=== PATIENT | male | born 1960 | race Caucasian/White ===

== ENCOUNTER 2019-03-23 10:55 | Observation (INO) | payer SELFPAY ==
[~2019-03-23] VITALS: Ht 188 cm; Wt 90.4 kg
[~2019-03-23 10:55] MED LIST: ALBU2.5V8 NEB; APIX5TAB PO; ASPI-612 PO; ASPI-630 PO; ASPI325T8 PO; ATOR40TA59 PO; BUDE0.5A NEB; CYCL10TA2 PO; FLUO20CA8 PO; FURO20TA3 PO; GABA-585 PO; GABA300C18 PO; HYDR-2761 PO; HYDR28OI6 TP; INSU100I11 SQ; INSU100I13 SQ; INSU100I17 SQ; INSU100V8 SQ; ISOS30TA4 PO; LEVO100T PO; LEVO200T5 PO; LISI-130 PO; LISI10TA2 PO; METO50TA6 PO; MOME13HF IH; NYST60PO TP; ONDA4TAB12 PO; OXYB5TAB7 PO; PANT40TA77 PO; PHEN100C PO; PHEN100O4 PO; PITA4TAB2 PO; PROVENTIL HFA6.7 G2 INH; TAMS0.4C97 PO
[2019-03-23] MEDS ORDERED: ASPIRIN CHEWABLE 81 MG TABLET. PO ONE (11:15)
--- NOTE | 2019-03-23 11:23 | PHYS DOC ---
Past Medical History Past Medical History: Asthma, CHF, COPD, Diabetes-Type II, Hypertension, Hypothyroid, [place], Seizure Past Surgical History: Other Additional Past Surgical Histo: cardiac stents Alcohol Use: None Drug Use: None Adult General Chief Complaint Chief Complaint: CHEST PAIN HPI HPI Patient is a 58 year old male with history of severe CVA and right-sided weakness and aphasia resident of residential who presents via EMS because of chest pain. History of limited because of patient condition. Patient pointing to his chest as a chest pain and was complaining of shortness of breath with pointing to his lung on his way to the hospital. Review of Systems Review of Systems Unable to obtain because of aphagia Current Medications Current Medications Current Medications Medications (Trade) Dose Ordered Sig/Sharon Start Time Stop Time Status Last Admin Dose Admin Aspirin (Children'S Aspirin) 324 mg 1X ONCE 03/23/19 11:15 03/23/19 11:16 DC 03/23/19 11:45 324 MG Fentanyl Citrate (Fentanyl 2ml Vial) 50 mcg 1X ONCE 03/23/19 11:30 03/23/19 11:31 DC 03/23/19 11:45 50 MCG Allergies Allergies Allergies Coded Allergies Type Severity Reaction Last Updated Verified No Known Drug Allergies 12/21/18 No Physical Exam Physical Exam Constitutional: Well nourished, mild distress, non-toxic appearance, tell no to all the question. [] HENT: Normocephalic, atraumatic. Eyes: PERRLA, EOMI, conjunctiva normal, no discharge. [] Neck: Normal range of motion, no tenderness, supple, no stridor. [] Cardiovascular:Heart rate regular rhythm, no murmur [] Lungs & Thorax: Bilateral breath sounds clear to auscultation [] Abdomen: Bowel sounds normal, soft, no tenderness, no masses, no pulsatile masses. [] Skin: Warm, dry, no erythema, no rash. [] Back: No tenderness, no CVA tenderness. [] Extremities: No tenderness, no cyanosis, no clubbing, ROM intact, no edema. [] Neurologic: Alert, aphasic, right upper and lower extremity hemiaplasia Psychologic: Affect anxious Current Patient Data Vital Signs Vital Signs Date Time Temp Pulse Resp B/P (MAP) Pulse Ox O2 Delivery O2 Flow Rate FiO2 03/23/19 13:00 90 16 130/76 (94) 98 Room Air 03/23/19 11:03 97.6 97.6 Lab Values Laboratory Tests Test 03/23/19 11:08 03/23/19 12:00 White Blood Count 11.8 x10^3/uL (4.0-11.0) H Red Blood Count 4.94 x10^6/uL (4.30-5.70) Hemoglobin 14.6 g/dL (13.0-17.5) Hematocrit 43.0 % (39.0-53.0) Mean Corpuscular Volume 87 fL (79-100) Mean Corpuscular Hemoglobin 30 pg (25-35) Mean Corpuscular Hemoglobin Concent 34 g/dL (31-37) Red Cell Distribution Width 15.5 % (11.5-14.5) H Platelet Count 420 x10^3/uL (140-400) H Neutrophils (%) (Auto) 68 % (31-73) Lymphocytes (%) (Auto) 21 % (24-48) L Monocytes (%) (Auto) 9 % (0-9) Eosinophils (%) (Auto) 1 % (0-3) Basophils (%) (Auto) 1 % (0-3) Neutrophils # (Auto) 8.0 x10^3/uL (1.8-7.7) H Lymphocytes # (Auto) 2.5 x10^3/uL (1.0-4.8) Monocytes # (Auto) 1.1 x10^3/uL (0.0-1.1) Eosinophils # (Auto) 0.1 x10^3/uL (0.0-0.7) Basophils # (Auto) 0.1 x10^3/uL (0.0-0.2) Lactic Acid Level 1.7 mmol/L (0.4-2.0) Prothrombin Time 15.3 SEC (11.7-14.0) H Prothrombin Time INR 1.2 (0.8-1.1) H D-Dimer (Vale) 0.33 ug/mlFEU (0.00-0.50) Sodium Level 136 mmol/L (136-145) Potassium Level 4.2 mmol/L (3.5-5.1) Chloride Level 100 mmol/L (98-107) Carbon Dioxide Level 29 mmol/L (21-32) Anion Gap 7 (6-14) Blood Urea Nitrogen 9 mg/dL (8-26) Creatinine 0.7 mg/dL (0.7-1.3) Estimated GFR (Cockcroft-Gault) 116.7 BUN/Creatinine Ratio 13 (6-20) Glucose Level 154 mg/dL (70-99) H Calcium Level 9.4 mg/dL (8.5-10.1) Magnesium Level 1.6 mg/dL (1.8-2.4) L Total Bilirubin 0.8 mg/dL (0.2-1.0) Aspartate Amino Transferase (AST) 20 U/L (15-37) Alanine Aminotransferase (ALT) 31 U/L (16-63) Alkaline Phosphatase 129 U/L (46-116) H Troponin I Quantitative < 0.017 ng/mL (0.000-0.055) MM-Tho-W-Type Natriuretic Peptide 100 pg/mL (0-124) Total Protein 6.9 g/dL (6.4-8.2) Albumin 3.2 g/dL (3.4-5.0) L Albumin/Globulin Ratio 0.9 (1.0-1.7) L Lipase 192 U/L (73-393) Laboratory Tests 03/23/19 11:08 Laboratory Tests 03/23/19 12:00 EKG EKG EKG interpreted by me. EKG at 1059 showed normal sinus rhythm at rate of 100 abnormal left axis deviation, low voltage QRS, poor R wave practicing in anteroseptal leads. Radiology/Procedures Radiology/Procedures [][facility] [address] [place] [address] IMAGING REPORT Signed PATIENT: HUMAIRA BORJA ACCOUNT: [id number] : 1960 LOCATION: ER AGE: 58 SEX: M EXAM STATUS: REG ER ORD. PHYSICIAN: DARRIUS NANCE MD REASON: chest pain PROCEDURE: PORTABLE CHEST 1V PORTABLE CHEST 1V History: Chest pain Comparison: December 23, 2018 Findings: No consolidation or pleural effusion. Normal heart size. Low lung volumes. Impression: 1. No acute cardiopulmonary process. Electronically signed by: Shukri Nash DO (03/23/2019 11:26 AM) [facility] DICTATED and SIGNED BY: SHUKRI NASH DO DATE: 03/23/19 1126 Course & Med Decision Making Course & Med Decision Making Pertinent Labs and Imaging studies reviewed. (See chart for details) Evaluation of patient in ER with heart score of 5 showed 58-year-old nonverbal discharge and patient of residential brought in because of chest pain. Patient was pointing to his chest and lung and complaining of pain and shortness of breath. Patient felt better with Ativan and states that the pain is completely gone. Patient requiring admission for further evaluation and treatment. Discussed with Dr. Carpenter who is in agreement with admission. Discussed findings and plan with patient and family, who acknowledge understanding and agreement. Dragon Disclaimer Dragon Disclaimer This electronic medical record was generated, in whole or in part, using a voice recognition dictation system. Departure Departure Impression: Primary Impression: Acute chest pain Additional Impression: Hypomagnesemia Disposition: ADMITTED INPATIENT (at 1312) Admitting Physician: HIMS (Dr. Carpenter accepted admission at 1311) Condition: IMPROVED Referrals: NEGR[facility]CC[facility] (PCP) The HEART Score for CP Pts HEART Score for Chest Pain: HEART Score for Chest Pain Response (Comments) Value History Moderately Suspicious 1 ECG Nonspecific Repolarizatio 1 Age >45 - < 65 1 Risk Factors >3 Risk Factors or Hx CAD 2 Troponin < Normal Limit 0 Total 5 Risk Factors: Risk Factors: DM, Current or recent (<one month) smoker, HTN, HLP, family history of CAD, obesity. Risk Scores: Score 0 - 3: 2.5% MACE over next 6 weeks - Discharge Home Score 4 - 6: 20.3% MACE over next 6 weeks - Admit for Clinical Observation Score 7 - 10: 72.7% MACE over next 6 weeks - Early Invasive Strategies Problem Qualifiers DARRIUS NANCE MD Mar 23, 2019 11:23
[2019-03-23 11:24] LABS: BASO # 0.1 x10^3/uL (0.0-0.2); BASO % 1 % (0-3); EOS # 0.1 x10^3/uL (0.0-0.7); EOS % 1 % (0-3); HEMOGLOBIN 14.6 g/dL (13.0-17.5); LYMPH # 2.5 x10^3/uL (1.0-4.8); LYMPH % 21 % (24-48); MEAN CORPUSCULAR HEMOGLOBIN 30 pg (25-35); MEAN CORPUSCULAR HGB CONC 34 g/dL (31-37); MEAN CORPUSCULAR VOLUME 87 fL (79-100); MONO # 1.1 x10^3/uL (0.0-1.1); MONO % 9 % (0-9); NEUT % 68 % (31-73); PLATELET COUNT 420 x10^3/uL (140-400); RED BLOOD COUNT 4.94 x10^6/uL (4.30-5.70); RED CELL DISTRIBUTION WIDTH 15.5 % (11.5-14.5); WHITE BLOOD COUNT 11.8 x10^3/uL (4.0-11.0)
--- NOTE | 2019-03-23 11:29 | RAD ---
PORTABLE CHEST 1V History: Chest pain Comparison: December 23, 2018 Findings: No consolidation or pleural effusion. Normal heart size. Low lung volumes. Impression: 1. No acute cardiopulmonary process. Electronically signed by: Shukri Nash DO (03/23/2019 11:26 AM) [facility]
[2019-03-23] MEDS ORDERED: fentaNYL PF VIAL 100 MCG/2 ML VIAL IV ONE (11:30)
--- NOTE | 2019-03-23 11:51 | EKG ---
[facility] [address] [place] [address] Test Date: 2019-03-23 Test Time: 10:59:26 Pat Name: HUMAIRA BORJA Department: Room: Gender: M [employer]: : 1960 Requested By: DARRIUS NANCE Order Number: [id number] Reading MD: Measurements Intervals [place] Rate: 100 P: -3 MT: 160 QRS: -35 QRSD: 80 T: 52 QT: 340 QTc: 442 Interpretive Statements SINUS RHYTHM ABNORMAL LEFT AXIS DEVIATION LOW LIMB LEAD VOLTAGE LEFT ANTERIOR FASCICULAR BLOCK QRS(T) CONTOUR ABNORMALITY CONSISTENT WITH ANTEROSEPTAL INFARCT PROBABLY OLD ABNORMAL ECG RI6.01 Unconfirmed report No previous ECG available for comparison
[2019-03-23 12:22] LABS: PROTHROMBIN TIME PATIENT 15.3 SEC (11.7-14.0)
[2019-03-23 12:29] LABS: D-DIMER 0.33 ug/mlFEU (0.00-0.50)
[2019-03-23 12:34] LABS: ALBUMIN 3.2 g/dL (3.4-5.0); ALBUMIN/GLOBULIN RATIO 0.9 (1.0-1.7); CALCIUM 9.4 mg/dL (8.5-10.1); CREATININE 0.7 mg/dL (0.7-1.3); GFR 116.7; MAGNESIUM 1.6 mg/dL (1.8-2.4); POTASSIUM 4.2 mmol/L (3.5-5.1); TOTAL BILIRUBIN 0.8 mg/dL (0.2-1.0); TOTAL PROTEIN 6.9 g/dL (6.4-8.2)
--- NOTE | 2019-03-23 13:12 | PDOC1 ---
History and Physical Date of Admission Date of Admission DATE: 03/23/19 TIME: 13:12 Identification/Chief Complaint Chief Complaint 58 year old male with history of severe CVA and right-sided weakness and aphasia resident of skilled nursing who presents via EMS because of chest pain Past Medical History Past Medical History Past Medical History Past Medical History Past Medical History: Asthma, CHF, COPD, Diabetes-Type II, Hypertension, Hypothyroid, [place], Seizure Past Surgical History: Other Additional Past Surgical Histo: cardiac stents Alcohol Use: None Drug Use: None fhx obesity Cardiovascular: AFIB, CAD, CHF, HTN, Hyperlipidemia Pulmonary: COPD CENTRAL NERVOUS SYSTEM: Periperal neuropathy, Seizure GI: Constipation, GERD Heme/Onc: No pertinent hx Hepatobiliary: No pertinent hx Psych: No pertinent hx Musculoskeletal: Osteoarthritis Rheumatologic: No pertinent hx Infectious disease: No pertinent hx Renal/: No pertinent hx Endocrine: Diabetes, Hypothyroidism Past Surgical History Past Surgical History: Other Family History Family History: Coronary Artery Disease, Hypertension Social History Smoke: No ALCOHOL: none Drugs: None Current Medications Current Medications Current Medications Aspirin (Children'S Aspirin) 324 mg 1X ONCE PO Last administered on 03/23/19at 11:45; Start 03/23/19 at 11:15; Stop 03/23/19 at 11:16; Status DC Fentanyl Citrate (Fentanyl 2ml Vial) 50 mcg 1X ONCE IV Last administered on 03/23/19at 11:45; Start 03/23/19 at 11:30; Stop 03/23/19 at 11:31; Status DC Active Scripts Active Anti-Itch (Hydrocortisone Acetate) 28 Gm Oint...g. 1 Edvin TP QID Lantus (Insulin Glargine,Hum.rec.anlog) 100 Unit/1 Ml Vial 42 Unit SQ QHS 30 Days Nystop (Nystatin) 60 Gm Powder 1 Edvin TP BID Ondansetron Odt (Ondansetron) 4 Mg Tab.rapdis 4 Mg PO PRN Q6HRS PRN Pantoprazole Sodium (Pantoprazole Sodium) 40 Mg Tablet.dr 40 Mg PO DAILYAC Budesonide 0.5 Mg/2 Ml Ampul.neb 0.5 Mg NEB PRN BID PRN 30 Days Fluoxetine Hcl 20 Mg Capsule 20 Mg PO DAILY Gabapentin 300 Mg Capsule 300 Mg PO QHS Dilantin (Phenytoin Sodium Extended) 100 Mg Capsule 300 Mg PO HS Hydrocodone-Apap 5-325 (Hydrocodone Bit/Acetaminophen) 1 Tab Tablet 1 Tab PO PRN Q4HRS PRN Aspirin 81 Mg Tab.chew 81 Mg PO DAILYWBKFT Eliquis (Apixaban) 5 Mg Tablet 5 Mg PO BID Cyclobenzaprine Hcl 10 Mg Tablet 10 Mg PO PRN TID PRN Flomax (Tamsulosin Hcl) 0.4 Mg Cap.er.24h 0.4 Mg PO DAILY Proair Hfa (Albuterol Sulfate) 8.5 Gm Hfa.aer.ad 2.5 Mg NEB PRN Q6HRS PRN 30 Days Dilantin (Phenytoin Sodium Extended) 100 Mg Capsule 1 Cap PO TID Humalog (Insulin Lispro) 100 Unit/1 Ml Insuln.pen 10 Units SQ TIDWMEALS 30 Days Lantus Solostar (Insulin Glargine,Hum.rec.anlog) 100 Unit/1 Ml Insuln.pen 42 Units SQ QHS 30 Days Synthroid (Levothyroxine Sodium) 100 Mcg Tablet 200 Mcg PO DAILY06 Lisinopril 40 Mg Tablet 20 Mg PO DAILY Aspirin 325 Mg Tablet 325 Mg PO DAILYWBKFT Metoprolol Tartrate 50 Mg Tablet 100 Mg PO BID Atorvastatin Calcium 40 Mg Tablet 40 Mg PO QHS Isosorbide Mononitrate Er (Isosorbide Mononitrate) 30 Mg Tab.er.24h 30 Mg PO BID Reported Levothyroxine Sodium 200 Mcg Tablet 200 Mcg PO DAILYAC Dulera 200 Mcg/5 Mcg Inhaler (Mometasone/Formoterol) 13 Gm Hfa.aer.ad 1 Puff IH HS Oxybutynin Chloride 5 Mg Tablet 1 Tab PO PRN TID PRN Gabapentin (Gabapentin) 100 Mg Capsule 100 Mg PO TID Furosemide 20 Mg Tablet 1 Tab PO DAILY Proventil Hfa (Albuterol Sulfate) 6.7 Gm Hfa.aer.ad 1 Puff INH PRN Q6HRS PRN Allergies Allergies: Coded Allergies: No Known Drug Allergies (Unverified , 12/21/18) ROS Review of System 14 pt ros otherwise neg General: No: Chills, Night Sweats, Fatigue, Malaise, Appetite, Other ALLERGY AND IMMUNOLOGY: No: Hives, Insect Bite Sensitivity, Itchy/Watery Eyes, Nasal Congestion, Post Nasal Drip, Seasonal Allergies, Other Cardiovascular: yes Chest Pain Genitourinary: No Dysuria, No Frequency, No Incontinence, No Hematuria, No Retention, No Discharge, No Urgency, No Pain, No Flank Pain, No Other, No , No , No , No , No , No , No Musculoskeletal: No Gait Disturbance, No Joint Pain, No Joint Stiffness, No Joint Swelling, No Muscle Pain, No Muscular Weakness, No Pain In:, No Swelling In:, No Other Neurological: Yes Gait Disturbance Skin: Yes Dry Skin; No Eczema, No Hair Changes, No Lumps, No Mole Changes, No Mottling, No Nail Changes, No Pruritus, No Rash, No Skin Lesion Changes, No Other, No Acne Physical Exam Physical Exam Physical Exam Physical Exam Constitutional: Well nourished, mild distress, non-toxic appearance, tell no to all the questions. [] HENT: Normocephalic, atraumatic. Eyes: PERRLA, EOMI, conjunctiva normal, no discharge. [] Neck: Normal range of motion, no tenderness, supple, no stridor. [] Cardiovascular:Heart rate regular rhythm, no murmur [] Lungs & Thorax: Bilateral breath sounds clear to auscultation [] Abdomen: Bowel sounds normal, soft, no tenderness, no masses, no pulsatile masses. [] Skin: Warm, dry, no erythema, no rash. [] Back: No tenderness, no CVA tenderness. [] Extremities: No tenderness, no cyanosis, no clubbing, ROM intact, no edema. [] Neurologic: Alert, aphasic, right upper and lower extremity hemiaplasia Psychologic: Affect anxious General: Cooperative, No acute distress HEENT: Atraumatic, EOMI, Mucous membr. moist/pink Abdomen: Normal bowel sounds, Soft Rectal Exam: not examined Extremities: No cyanosis Psych/Mental Status: Mood NL Vitals Vitals Vital Signs Date Time Temp Pulse Resp B/P (MAP) Pulse Ox O2 Delivery O2 Flow Rate FiO2 03/23/19 12:34 16 97 03/23/19 12:00 90 125/96 (106) Room Air 03/23/19 11:03 97.6 97.6 Labs Labs Laboratory Tests Test 03/23/19 11:08 03/23/19 12:00 White Blood Count 11.8 x10^3/uL (4.0-11.0) Red Blood Count 4.94 x10^6/uL (4.30-5.70) Hemoglobin 14.6 g/dL (13.0-17.5) Hematocrit 43.0 % (39.0-53.0) Mean Corpuscular Volume 87 fL (79-100) Mean Corpuscular Hemoglobin 30 pg (25-35) Mean Corpuscular Hemoglobin Concent 34 g/dL (31-37) Red Cell Distribution Width 15.5 % (11.5-14.5) Platelet Count 420 x10^3/uL (140-400) Neutrophils (%) (Auto) 68 % (31-73) Lymphocytes (%) (Auto) 21 % (24-48) Monocytes (%) (Auto) 9 % (0-9) Eosinophils (%) (Auto) 1 % (0-3) Basophils (%) (Auto) 1 % (0-3) Neutrophils # (Auto) 8.0 x10^3/uL (1.8-7.7) Lymphocytes # (Auto) 2.5 x10^3/uL (1.0-4.8) Monocytes # (Auto) 1.1 x10^3/uL (0.0-1.1) Eosinophils # (Auto) 0.1 x10^3/uL (0.0-0.7) Basophils # (Auto) 0.1 x10^3/uL (0.0-0.2) Lactic Acid Level 1.7 mmol/L (0.4-2.0) Prothrombin Time 15.3 SEC (11.7-14.0) Prothromb Time International Ratio 1.2 (0.8-1.1) D-Dimer (Vale) 0.33 ug/mlFEU (0.00-0.50) Sodium Level 136 mmol/L (136-145) Potassium Level 4.2 mmol/L (3.5-5.1) Chloride Level 100 mmol/L (98-107) Carbon Dioxide Level 29 mmol/L (21-32) Anion Gap 7 (6-14) Blood Urea Nitrogen 9 mg/dL (8-26) Creatinine 0.7 mg/dL (0.7-1.3) Estimated GFR (Cockcroft-Gault) 116.7 BUN/Creatinine Ratio 13 (6-20) Glucose Level 154 mg/dL (70-99) Calcium Level 9.4 mg/dL (8.5-10.1) Magnesium Level 1.6 mg/dL (1.8-2.4) Total Bilirubin 0.8 mg/dL (0.2-1.0) Aspartate Amino Transf (AST/SGOT) 20 U/L (15-37) Alanine Aminotransferase (ALT/SGPT) 31 U/L (16-63) Alkaline Phosphatase 129 U/L (46-116) Troponin I Quantitative < 0.017 ng/mL (0.000-0.055) JZ-Pys-S-Type Natriuretic Peptide 100 pg/mL (0-124) Total Protein 6.9 g/dL (6.4-8.2) Albumin 3.2 g/dL (3.4-5.0) Albumin/Globulin Ratio 0.9 (1.0-1.7) Lipase 192 U/L (73-393) Laboratory Tests Test 03/23/19 11:08 03/23/19 12:00 White Blood Count 11.8 x10^3/uL (4.0-11.0) Red Blood Count 4.94 x10^6/uL (4.30-5.70) Hemoglobin 14.6 g/dL (13.0-17.5) Hematocrit 43.0 % (39.0-53.0) Mean Corpuscular Volume 87 fL (79-100) Mean Corpuscular Hemoglobin 30 pg (25-35) Mean Corpuscular Hemoglobin Concent 34 g/dL (31-37) Red Cell Distribution Width 15.5 % (11.5-14.5) Platelet Count 420 x10^3/uL (140-400) Neutrophils (%) (Auto) 68 % (31-73) Lymphocytes (%) (Auto) 21 % (24-48) Monocytes (%) (Auto) 9 % (0-9) Eosinophils (%) (Auto) 1 % (0-3) Basophils (%) (Auto) 1 % (0-3) Neutrophils # (Auto) 8.0 x10^3/uL (1.8-7.7) Lymphocytes # (Auto) 2.5 x10^3/uL (1.0-4.8) Monocytes # (Auto) 1.1 x10^3/uL (0.0-1.1) Eosinophils # (Auto) 0.1 x10^3/uL (0.0-0.7) Basophils # (Auto) 0.1 x10^3/uL (0.0-0.2) Lactic Acid Level 1.7 mmol/L (0.4-2.0) Prothrombin Time 15.3 SEC (11.7-14.0) Prothromb Time International Ratio 1.2 (0.8-1.1) D-Dimer (Vale) 0.33 ug/mlFEU (0.00-0.50) Sodium Level 136 mmol/L (136-145) Potassium Level 4.2 mmol/L (3.5-5.1) Chloride Level 100 mmol/L (98-107) Carbon Dioxide Level 29 mmol/L (21-32) Anion Gap 7 (6-14) Blood Urea Nitrogen 9 mg/dL (8-26) Creatinine 0.7 mg/dL (0.7-1.3) Estimated GFR (Cockcroft-Gault) 116.7 BUN/Creatinine Ratio 13 (6-20) Glucose Level 154 mg/dL (70-99) Calcium Level 9.4 mg/dL (8.5-10.1) Magnesium Level 1.6 mg/dL (1.8-2.4) Total Bilirubin 0.8 mg/dL (0.2-1.0) Aspartate Amino Transf (AST/SGOT) 20 U/L (15-37) Alanine Aminotransferase (ALT/SGPT) 31 U/L (16-63) Alkaline Phosphatase 129 U/L (46-116) Troponin I Quantitative < 0.017 ng/mL (0.000-0.055) VE-Swu-B-Type Natriuretic Peptide 100 pg/mL (0-124) Total Protein 6.9 g/dL (6.4-8.2) Albumin 3.2 g/dL (3.4-5.0) Albumin/Globulin Ratio 0.9 (1.0-1.7) Lipase 192 U/L (73-393) VTE Prophylaxis Ordered VTE Prophylaxis Devices: Yes VTE Pharmacological Prophylaxi: Yes Assessment/Plan Assessment/Plan impression 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 fib Chronic diastolic HF (compensated) Prior hx of CAD (3 stents) Hypothyroidism (noncompliant w/ Synthroid) DM type 2 Dyslipidemia Prior hx of subacute left frontal, temporal, parietal infarct Dysphagia III hypomagnesemia plan admit serial troponin i cardiology consult rec home meds dvt prophylaxis 56 min pt exam, chart review, > 50% of time spent with exam, chart review, pt care coordination MAXIME MORALES MD Mar 23, 2019 13:12
[2019-03-23 14:10] VITALS: BP 132/77
[2019-03-23] MEDS ORDERED: OXYBUTYNIN CHLORIDE 5 MG TABLET PO PRN (15:00)
[2019-03-23] MEDS ORDERED: CYCLOBENZAPRINE 10 MG TABLET. PO PRN (15:00)
[2019-03-23] MEDS ORDERED: ONDANSETRON ODT 4 MG TAB.RAPDIS. PO PRN (15:00)
[2019-03-23] MEDS ORDERED: NON FORMULARY ITEM (Albuterol Sulfate (Proventil Hfa) 1 PUFF) INH PRN (15:00)
[2019-03-23] MEDS ORDERED: BUDESONIDE 0.5 MG/2 ML NEBU. NEB PRN (15:00)
[2019-03-23] MEDS ORDERED: ALBUTEROL SULFATE 2.5 MG/3 ML NEBU. NEB PRN (15:00)
[2019-03-23] MEDS: ALBUTEROL SULFATE 2.5 MG/3 ML NEBU. NEB SCH ×2 (16:00→19:49)
--- NOTE | 2019-03-23 16:27 | PDOC2 ---
CARDIAC CONSULT DATE OF CONSULT Date of Consult DATE: 03/23/19 TIME: 1440 REASON FOR CONSULT Reason for Consult: Chest pain REFERRING PHYSICIAN Referring Physician: Fullbright SOURCE Source: Chart review, Patient HISTORY OF PRESENT ILLNESS HISTORY OF PRESENT ILLNESS This is a 58 yo male admitted for chest pain. He was recently discharged to SNU on 03/14. He is significant for recent CVA with aphasia. He is nonverbal but able to nod yes or no on questions and reported sharp lower sternal chest discomfort which is currently absent. No nausea or significant SOA. He does have hx of CAD with past stens and possible hx of AFIB which has not been noted during his stay at the hospital. Currently he is not is any distress. PAST MEDICAL HISTORY Past Medical History Cardiovascular: AFIB (?), CAD, CHF, HTN, Hyperlipidemia Pulmonary: COPD CENTRAL NERVOUS SYSTEM: Peripheral neuropathy, Seizure, CVA GI: Constipation, GERD Heme/Onc: No pertinent hx Hepatobiliary: No pertinent hx Psych: No pertinent hx Musculoskeletal: Osteoarthritis Rheumatologic: No pertinent hx Infectious disease: No pertinent hx ENT: Allergic Rhinitis Renal/: No pertinent hx Endocrine: Diabetes (2), Hypothyroidism Dermatology: No pertinent hx PAST SURGICAL HISTORY Past Surgical History PCI/stents x3 3.5 yrs ago in [place] FAMILY HISTORY Family History: Coronary Artery Disease SOCIAL HISTORY Smoke: Quit ALCOHOL: none Drugs: None Lives: Custodial CURRENT MEDICATIONS CURRENT MEDICATIONS Current Medications Medications (Trade) Dose Ordered Sig/Sharon Route PRN Reason Start Time Stop Time Status Last Admin Dose Admin Aspirin (Children'S Aspirin) 324 mg 1X ONCE PO 03/23/19 11:15 03/23/19 11:16 DC 03/23/19 11:45 Fentanyl Citrate (Fentanyl 2ml Vial) 50 mcg 1X ONCE IV 03/23/19 11:30 03/23/19 11:31 DC 03/23/19 11:45 ALLERGIES ALLERGIES: Coded Allergies: No Known Drug Allergies (Unverified , 12/21/18) ROS Review of System limited, nonverbal PHYSICAL EXAM General: Alert, Cooperative, No acute distress HEENT: Atraumatic, Mucous membr. moist/pink Lungs: Clear to auscultation, Normal air movement Heart: Regular rate (SR), Normal S1, Normal S2, No murmurs Abdomen: Soft, No tenderness Extremities: No cyanosis, No edema Skin: No breakdown, No significant lesion Neuro: Sensation intact, Other (nonverbal) Psych/Mental Status: Mood NL MUSCULOSKELETAL: Osteoarthritic changes both hands VITALS/I&O VITALS/I&O: Vital Signs Date Time Temp Pulse Resp B/P (MAP) Pulse Ox O2 Delivery O2 Flow Rate FiO2 03/23/19 14:10 98.0 92 18 132/77 (95) 100 Room Air 98.0 LABS Lab: Laboratory Tests Test 03/23/19 11:08 03/23/19 12:00 White Blood Count 11.8 x10^3/uL (4.0-11.0) H Red Blood Count 4.94 x10^6/uL (4.30-5.70) Hemoglobin 14.6 g/dL (13.0-17.5) Hematocrit 43.0 % (39.0-53.0) Mean Corpuscular Volume 87 fL (79-100) Mean Corpuscular Hemoglobin 30 pg (25-35) Mean Corpuscular Hemoglobin Concent 34 g/dL (31-37) Red Cell Distribution Width 15.5 % (11.5-14.5) H Platelet Count 420 x10^3/uL (140-400) H Neutrophils (%) (Auto) 68 % (31-73) Lymphocytes (%) (Auto) 21 % (24-48) L Monocytes (%) (Auto) 9 % (0-9) Eosinophils (%) (Auto) 1 % (0-3) Basophils (%) (Auto) 1 % (0-3) Neutrophils # (Auto) 8.0 x10^3/uL (1.8-7.7) H Lymphocytes # (Auto) 2.5 x10^3/uL (1.0-4.8) Monocytes # (Auto) 1.1 x10^3/uL (0.0-1.1) Eosinophils # (Auto) 0.1 x10^3/uL (0.0-0.7) Basophils # (Auto) 0.1 x10^3/uL (0.0-0.2) Lactic Acid Level 1.7 mmol/L (0.4-2.0) Prothrombin Time 15.3 SEC (11.7-14.0) H Prothrombin Time INR 1.2 (0.8-1.1) H D-Dimer (Vale) 0.33 ug/mlFEU (0.00-0.50) Sodium Level 136 mmol/L (136-145) Potassium Level 4.2 mmol/L (3.5-5.1) Chloride Level 100 mmol/L (98-107) Carbon Dioxide Level 29 mmol/L (21-32) Anion Gap 7 (6-14) Blood Urea Nitrogen 9 mg/dL (8-26) Creatinine 0.7 mg/dL (0.7-1.3) Estimated GFR (Cockcroft-Gault) 116.7 BUN/Creatinine Ratio 13 (6-20) Glucose Level 154 mg/dL (70-99) H Calcium Level 9.4 mg/dL (8.5-10.1) Magnesium Level 1.6 mg/dL (1.8-2.4) L Total Bilirubin 0.8 mg/dL (0.2-1.0) Aspartate Amino Transferase (AST) 20 U/L (15-37) Alanine Aminotransferase (ALT) 31 U/L (16-63) Alkaline Phosphatase 129 U/L (46-116) H Troponin I Quantitative < 0.017 ng/mL (0.000-0.055) QU-Kpe-K-Type Natriuretic Peptide 100 pg/mL (0-124) Total Protein 6.9 g/dL (6.4-8.2) Albumin 3.2 g/dL (3.4-5.0) L Albumin/Globulin Ratio 0.9 (1.0-1.7) L Lipase 192 U/L (73-393) Laboratory Tests 03/23/19 11:08 Laboratory Tests 03/23/19 12:00 ECHOCARDIOGRAM ECHOCARDIOGRAM <Conclusion> The left ventricular systolic function is normal. The Ejection Fraction is 55-60%. There is normal LV segmental wall motion. Transmitral Doppler flow pattern is Grade I-abnormal relaxation pattern. Doppler and Color-flow revealed trace mitral regurgitation. There is no evidence of significant pericardial effusion. DATE: 12/22/18 0956 ASSESSMENT/PLAN ASSESSMENT/PLAN 1. Atypical CP: possibly GI. EKG SR without acute changes 2. Recent CVA: suspected to be embolic. aphasia/dysphagia 3. CAD: stents >3 yrs ago in [place] 4. DM2 5. HTN: controlled 6. HLP 7. Hx of seizures 8. Hx of PAFIB: SR Recommendations 1. Continue present regimen, secondary prevention measures 2. Consider coumadin. Apixaban may not be as effective when concurrent with dilantin. 3. Trend troponin, monitor rhythm 4. Start on PPI 5. Could consider stress test as an outpt. NYA SANCHEZ APRN Mar 23, 2019 16:26
[2019-03-23] MEDS ORDERED: PANTOPRAZOLE 40 MG TABLET.DR. PO ONE (16:30)
[2019-03-23] MEDS: HYDROCORTISONE 1% TOPICAL OINTMENT 30GM TUBE. TP SCH ×2 (17:00→21:00)
[2019-03-23] MEDS: INSULIN LISPRO 300 UNITS/3 ML VIAL. SQ SCH (17:36)
[2019-03-23 19:00] VITALS: BP 119/73
[2019-03-23] MEDS: BUDESONIDE 0.5 MG/2 ML NEBU. NEB SCH (19:49)
[2019-03-23] MEDS: NYSTATIN TOPICAL POWDER 15GM BOTTLE. TP SCH (21:00)
[2019-03-23] MEDS ORDERED: PHENYTOIN SODIUM EXTENDED 100 MG CAPSULE PO SCH ×2 (21:00)
[2019-03-23] MEDS ORDERED: INSULIN GLARGINE SYRINGE. SQ SCH (21:00)
[2019-03-23] MEDS ORDERED: ATORVASTATIN CALCIUM 40 MG TABLET. PO SCH (21:00)
[2019-03-23] MEDS ORDERED: GABAPENTIN 300 MG CAPSULE. PO SCH (21:00)
[2019-03-23] MEDS ORDERED: NON FORMULARY ITEM (Mometasone/Formoterol (Dulera 200 Mcg/5 Mcg Inhaler) 1 PUFF) IH SCH (21:00)
[2019-03-23] MEDS ORDERED: INSULIN GLARGINE HUM REC ANLOG 42 UNIT SQ SCH (21:00)
[2019-03-23] MEDS ORDERED: GABAPENTIN 100 MG CAPSULE. PO SCH (21:00)
[2019-03-23] MEDS: ISOSORBIDE MONONITRATE ER 30 MG TAB.ER.24H PO SCH (21:23)
[2019-03-23] MEDS: APIXABAN 5 MG TABLET. PO SCH (21:23)
[2019-03-23] MEDS: METOPROLOL TART IMMED RELEASE 50 MG TABLET. PO SCH (21:24)
[2019-03-23 23:00] VITALS: BP 104/64
[2019-03-24 03:00] VITALS: BP 98/59
[2019-03-24] MEDS ORDERED: LEVOTHYROXINE 100 MCG TABLET PO SCH (06:00)
[2019-03-24 06:17] LABS: ALBUMIN 3.1 g/dL (3.4-5.0); ALBUMIN/GLOBULIN RATIO 0.8 (1.0-1.7); CALCIUM 9.6 mg/dL (8.5-10.1); CREATININE 0.7 mg/dL (0.7-1.3); GFR 116.7; POTASSIUM 3.9 mmol/L (3.5-5.1); TOTAL BILIRUBIN 0.7 mg/dL (0.2-1.0); TOTAL PROTEIN 6.8 g/dL (6.4-8.2)
[2019-03-24 07:17] VITALS: BP 118/66
[2019-03-24] MEDS: ALBUTEROL SULFATE 2.5 MG/3 ML NEBU. NEB SCH ×2 (07:29→11:30)
[2019-03-24] MEDS: BUDESONIDE 0.5 MG/2 ML NEBU. NEB SCH (07:29)
[2019-03-24] MEDS ORDERED: PANTOPRAZOLE 40 MG TABLET.DR. PO SCH (07:30)
[2019-03-24] MEDS: PANTOPRAZOLE 40 MG TABLET.DR. PO SCH ×2 (07:30→08:03)
[2019-03-24] MEDS ORDERED: NON FORMULARY ITEM (Levothyroxine Sodium 200 MCG) PO SCH (07:30)
[2019-03-24] MEDS ORDERED: ASPIRIN 325 MG TABLET PO SCH (08:00)
[2019-03-24] MEDS ORDERED: ASPIRIN CHEWABLE 81 MG TABLET. PO SCH (08:00)
[2019-03-24] MEDS: METOPROLOL TART IMMED RELEASE 50 MG TABLET. PO SCH (08:32)
[2019-03-24] MEDS: ISOSORBIDE MONONITRATE ER 30 MG TAB.ER.24H PO SCH (08:33)
[2019-03-24] MEDS: HYDROCORTISONE 1% TOPICAL OINTMENT 30GM TUBE. TP SCH ×2 (08:33→12:21)
[2019-03-24] MEDS: APIXABAN 5 MG TABLET. PO SCH (08:33)
[2019-03-24] MEDS: NYSTATIN TOPICAL POWDER 15GM BOTTLE. TP SCH (08:33)
[2019-03-24] MEDS: INSULIN LISPRO 300 UNITS/3 ML VIAL. SQ SCH ×2 (08:38→12:00)
[2019-03-24] MEDS ORDERED: TAMSULOSIN 0.4 MG CAP.ER.24H. PO SCH (09:00)
[2019-03-24] MEDS ORDERED: FLUoxetine HCL 20 MG CAPSULE PO SCH (09:00)
[2019-03-24] MEDS ORDERED: LISINOPRIL 20 MG TABLET PO SCH (09:00)
[2019-03-24] MEDS ORDERED: FUROSEMIDE 20 MG TABLET PO SCH (09:00)
[2019-03-24] MEDS ORDERED: HYDR-2761 PO (09:27)
[2019-03-24 09:50] LABS: BASO # 0.1 x10^3/uL (0.0-0.2); BASO % 1 % (0-3); EOS # 0.1 x10^3/uL (0.0-0.7); EOS % 1 % (0-3); HEMATOCRIT 39.2 % (39.0-53.0); HEMOGLOBIN 13.3 g/dL (13.0-17.5); LYMPH # 2.4 x10^3/uL (1.0-4.8); LYMPH % 21 % (24-48); MEAN CORPUSCULAR HEMOGLOBIN 30 pg (25-35); MEAN CORPUSCULAR HGB CONC 34 g/dL (31-37); MEAN CORPUSCULAR VOLUME 87 fL (79-100); MONO # 1.1 x10^3/uL (0.0-1.1); MONO % 9 % (0-9); NEUT # 7.6 x10^3/uL (1.8-7.7); NEUT % 68 % (31-73); PLATELET COUNT 404 x10^3/uL (140-400); RED BLOOD COUNT 4.51 x10^6/uL (4.30-5.70); RED CELL DISTRIBUTION WIDTH 15.4 % (11.5-14.5); WHITE BLOOD COUNT 11.3 x10^3/uL (4.0-11.0)
[2019-03-24 10:26] VITALS: BP 97/60
[2019-03-24] MEDS ORDERED: ANTI-COAG MONITOR BY PHARMACY. MC PRN (11:00)
[2019-03-24] MEDS ORDERED: DEXTROSE 50% 25 GM / 50ML DISP.SYRIN. IV PRN (11:30)
[2019-03-24] MEDS ORDERED: IV DEXTROSE 5% 250 ML BAG. IV PRN (11:30)
--- NOTE | 2019-03-24 11:43 | NUR ---
Pt bs 43. no iv access. Spoke with dr Dorantes. gave juice and crackers. Will recheck in 15 min. Addendum: 03/24/19 at 1145 by JONAH SCALES RN RN Pt is assymptomatic
--- NOTE | 2019-03-24 11:58 | SNU/HH DC ---
DISCHARGE ORDERS DISCHARGE INFORMATION: DISCHARGE DATE: Mar 24, 2019 FINAL DIAGNOSIS stable angina Problems Medical Problems: (1) Acute chest pain Status: Acute (2) Hypomagnesemia Status: Acute CONDITION ON DISCHARGE: Stable CODE STATUS: Code Status: Full LONGTERM: SNF STAY <30 DAYS: Yes POST DISCHARGE ORDERS: ACTIVITY ORDERS: Activity as tolerated WEIGHT BEARING STATUS: As tolerated DIET AFTER DISCHARGE: Regular CHECKS AFTER DISCHARGE: CHECKS AFTER DISCHARGE: Check blood press - daily, Check blood sugar, ac/hs, Weigh Yourself Daily FOLLOW-UP: PHYSICIAN FOLLOW-UP: as previous TREATMENT/EQUIPMENT ORDERS: ADAPTIVE EQUIPMENT NEEDED: None Physical Therapy For: Evalulation/Treatment Occupational Therapy For: Evaluation/Treatment Speech Language Pathology For: Evaluation/Treatment DISCHARGE MEDICATIONS: Home Meds Active Scripts Hydrocodone Bit/Acetaminophen (HYDROCODONE-APAP 5-325 ) 1 Tab Tablet, 1 TAB PO PRN Q4HRS PRN for chest pain, #30 TAB Prov:CHANDAN CREWS MD 03/24/19 Hydrocortisone Acetate (ANTI-ITCH) 28 Gm Oint...g., 1 LEIGH TP QID for itch, #1 MISC Prov:KALIA WALKER MD 03/14/19 Insulin Glargine,Hum.rec.anlog (LANTUS) 100 Unit/1 Ml Vial, 42 UNIT SQ QHS for dm for 30 Days, EACH Prov:KALIA WALKER MD 03/14/19 Nystatin (NYSTOP) 60 Gm Powder, 1 LEIGH TP BID for skin folds, #1 MISC Prov:KALIA WALKER MD 03/14/19 Ondansetron (ONDANSETRON ODT) 4 Mg Tab.rapdis, 4 MG PO PRN Q6HRS PRN for NAUSEA/VOMITING, #60 TAB Prov:KALIA WALKER MD 03/14/19 Pantoprazole Sodium (PANTOPRAZOLE SODIUM ) 40 Mg Tablet.dr, 40 MG PO DAILYAC for gerd, #30 TAB.SR Prov:KALIA WALKER MD 03/14/19 Budesonide (BUDESONIDE) 0.5 Mg/2 Ml Ampul.neb, 0.5 MG NEB PRN BID PRN for SHORTNESS OF BREATH for 30 Days, EACH Prov:KALIA WALKER MD 03/14/19 Fluoxetine Hcl (FLUOXETINE HCL) 20 Mg Capsule, 20 MG PO DAILY for depression, #30 CAP Prov:KALIA WALKER MD 03/14/19 Gabapentin (GABAPENTIN) 300 Mg Capsule, 300 MG PO QHS for neuropathy, sz, #30 CAP Prov:KALIA WALKER MD 03/14/19 Phenytoin Sodium Extended (DILANTIN) 100 Mg Capsule, 300 MG PO HS for sz, #30 CAP Prov:KALIA WALKER MD 03/14/19 Aspirin (ASPIRIN) 81 Mg Tab.chew, 81 MG PO DAILYWBKFT for cva, #90 TAB.CHEW Prov:KALIA WALKER MD 03/14/19 Apixaban (ELIQUIS) 5 Mg Tablet, 5 MG PO BID for cva, #60 TAB Prov:KALIA WALKER MD 03/14/19 Cyclobenzaprine Hcl (CYCLOBENZAPRINE HCL) 10 Mg Tablet, 10 MG PO PRN TID PRN for MUSCLE spasms/pain, #30 TAB Prov:KALIA WALKER MD 03/14/19 Tamsulosin Hcl (FLOMAX) 0.4 Mg Cap.er.24h, 0.4 MG PO DAILY for retention, #30 CAP.SR Prov:KALIA WALKER MD 03/14/19 Albuterol Sulfate (Proair Hfa) 8.5 Gm Hfa.aer.ad, 2.5 MG NEB PRN Q6HRS PRN for SHORTNESS OF BREATH for 30 Days, INHALER Prov:KALIA WALKER MD 03/14/19 Phenytoin Sodium Extended (DILANTIN) 100 Mg Capsule, 1 CAP PO TID for sz, #90 CAP 3 Refills Prov:KALIA WALKER MD 01/02/19 Insulin Lispro (HUMALOG) 100 Unit/1 Ml Insuln.pen, 10 UNITS SQ TIDWMEALS for dm for 30 Days, EACH Prov:KALIA WALKER MD 01/02/19 Insulin Glargine,Hum.rec.anlog (LANTUS SOLOSTAR) 100 Unit/1 Ml Insuln.pen, 42 UNITS SQ QHS for dm for 30 Days, EACH Prov:KALIA WALKER MD 01/02/19 Levothyroxine Sodium (SYNTHROID) 100 Mcg Tablet, 200 MCG PO DAILY06 for hypothy, #60 TAB Prov:KALIA WALKER MD 01/02/19 Lisinopril (LISINOPRIL) 40 Mg Tablet, 20 MG PO DAILY for htn, #60 TAB Prov:KALIA WALKER MD 01/02/19 Aspirin (ASPIRIN) 325 Mg Tablet, 325 MG PO DAILYWBKFT for cva, #60 TAB Prov:KALIA WALKER MD 01/02/19 Metoprolol Tartrate (METOPROLOL TARTRATE) 50 Mg Tablet, 100 MG PO BID for htn, #60 TAB Prov:KALIA WALKER MD 01/02/19 Atorvastatin Calcium (ATORVASTATIN CALCIUM) 40 Mg Tablet, 40 MG PO QHS for cva, #60 TAB Prov:KALIA WALKER MD 01/02/19 Isosorbide Mononitrate (ISOSORBIDE MONONITRATE ER) 30 Mg Tab.er.24h, 30 MG PO BID for cp, #90 TAB.SR Prov:KALIA WALKER MD 12/22/18 Reported Medications Levothyroxine Sodium (LEVOTHYROXINE SODIUM) 200 Mcg Tablet, 200 MCG PO DAILYAC for THYROID SUPPLEMENT, #30 TAB 0 Refills 12/21/18 Mometasone/Formoterol (DULERA 200 MCG/5 MCG INHALER) 13 Gm Hfa.aer.ad, 1 PUFF IH HS for COPD, #13 GM 5 Refills 12/21/18 Oxybutynin Chloride (OXYBUTYNIN CHLORIDE) 5 Mg Tablet, 1 TAB PO PRN TID PRN for URINARY PAIN, #60 TAB 11 Refills 12/21/18 Gabapentin (GABAPENTIN ) 100 Mg Capsule, 100 MG PO TID for NEUROGENIC PAIN, CAP 12/21/18 Furosemide (FUROSEMIDE) 20 Mg Tablet, 1 TAB PO DAILY for blood pressure, #90 TAB 1 Refill 12/21/18 Albuterol Sulfate (Proventil Hfa) 6.7 Gm Hfa.aer.ad, 1 PUFF INH PRN Q6HRS PRN for SHORTNESS OF BREATH, INHALER 12/21/18 CHANDAN CREWS MD Mar 24, 2019 11:58
--- NOTE | 2019-03-24 13:27 | NUR ---
SW following pt for dc planning. Chart reviewed and pt is known to SW from previous admission. Pt is LTC resident at [facility]. SW phoned and faxed orders to [facility], , fax: [phone]. Pt will transport via facility arranged stretcher at [phone]. Pt's guardian, Ashley, phone: [phone] notified. Discussed with RN.
--- NOTE | 2019-03-24 13:40 | NUR ---
pt discharged back to [facility] medical transport. cooper in place. pt unable to sign dc paperwork. pt stable upon dc. last glucose 138
--- NOTE | 2019-03-24 15:11 | PDOC3 ---
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 fib Chronic diastolic HF (compensated) Prior hx of CAD (3 stents) Hypothyroidism (noncompliant w/ Synthroid) DM type 2 Dyslipidemia Prior hx of subacute left frontal, temporal, parietal infarct Dysphagia III hypomagnesemia Problems Medical Problems: (1) Acute chest pain Status: Acute (2) Hypomagnesemia Status: Acute Brief Hospital Course Allergies Allergies Coded Allergies Type Severity Reaction Last Updated Verified No Known Drug Allergies 12/21/18 No Vital Signs Vital Signs Date Time Temp Pulse Resp B/P (MAP) Pulse Ox O2 Delivery O2 Flow Rate FiO2 03/24/19 11:31 97 Room Air 03/24/19 10:26 98.4 73 20 97/60 (72) 98.4 Lab Results Laboratory Tests Test 03/23/19 11:08 03/23/19 12:00 03/23/19 16:38 03/23/19 20:29 White Blood Count 11.8 x10^3/uL (4.0-11.0) Red Blood Count 4.94 x10^6/uL (4.30-5.70) Hemoglobin 14.6 g/dL (13.0-17.5) Hematocrit 43.0 % (39.0-53.0) Mean Corpuscular Volume 87 fL (79-100) Mean Corpuscular Hemoglobin 30 pg (25-35) Mean Corpuscular Hemoglobin Concent 34 g/dL (31-37) Red Cell Distribution Width 15.5 % (11.5-14.5) Platelet Count 420 x10^3/uL (140-400) Neutrophils (%) (Auto) 68 % (31-73) Lymphocytes (%) (Auto) 21 % (24-48) Monocytes (%) (Auto) 9 % (0-9) Eosinophils (%) (Auto) 1 % (0-3) Basophils (%) (Auto) 1 % (0-3) Neutrophils # (Auto) 8.0 x10^3/uL (1.8-7.7) Lymphocytes # (Auto) 2.5 x10^3/uL (1.0-4.8) Monocytes # (Auto) 1.1 x10^3/uL (0.0-1.1) Eosinophils # (Auto) 0.1 x10^3/uL (0.0-0.7) Basophils # (Auto) 0.1 x10^3/uL (0.0-0.2) Lactic Acid Level 1.7 mmol/L (0.4-2.0) Prothrombin Time 15.3 SEC (11.7-14.0) Prothromb Time International Ratio 1.2 (0.8-1.1) D-Dimer (Vale) 0.33 ug/mlFEU (0.00-0.50) Sodium Level 136 mmol/L (136-145) Potassium Level 4.2 mmol/L (3.5-5.1) Chloride Level 100 mmol/L (98-107) Carbon Dioxide Level 29 mmol/L (21-32) Anion Gap 7 (6-14) Blood Urea Nitrogen 9 mg/dL (8-26) Creatinine 0.7 mg/dL (0.7-1.3) Estimated GFR (Cockcroft-Gault) 116.7 BUN/Creatinine Ratio 13 (6-20) Glucose Level 154 mg/dL (70-99) Calcium Level 9.4 mg/dL (8.5-10.1) Magnesium Level 1.6 mg/dL (1.8-2.4) Total Bilirubin 0.8 mg/dL (0.2-1.0) Aspartate Amino Transf (AST/SGOT) 20 U/L (15-37) Alanine Aminotransferase (ALT/SGPT) 31 U/L (16-63) Alkaline Phosphatase 129 U/L (46-116) Troponin I Quantitative < 0.017 ng/mL (0.000-0.055) WM-Kfm-V-Type Natriuretic Peptide 100 pg/mL (0-124) Total Protein 6.9 g/dL (6.4-8.2) Albumin 3.2 g/dL (3.4-5.0) Albumin/Globulin Ratio 0.9 (1.0-1.7) Lipase 192 U/L (73-393) Glucose (Fingerstick) 141 mg/dL (70-99) 90 mg/dL (70-99) Test 03/24/19 04:30 03/24/19 07:21 03/24/19 09:20 03/24/19 11:25 Sodium Level 137 mmol/L (136-145) Potassium Level 3.9 mmol/L (3.5-5.1) Chloride Level 101 mmol/L (98-107) Carbon Dioxide Level 26 mmol/L (21-32) Anion Gap 10 (6-14) Blood Urea Nitrogen 8 mg/dL (8-26) Creatinine 0.7 mg/dL (0.7-1.3) Estimated GFR (Cockcroft-Gault) 116.7 BUN/Creatinine Ratio 11 (6-20) Glucose Level 71 mg/dL (70-99) Calcium Level 9.6 mg/dL (8.5-10.1) Total Bilirubin 0.7 mg/dL (0.2-1.0) Aspartate Amino Transf (AST/SGOT) 19 U/L (15-37) Alanine Aminotransferase (ALT/SGPT) 27 U/L (16-63) Alkaline Phosphatase 130 U/L (46-116) Troponin I Quantitative < 0.017 ng/mL (0.000-0.055) Total Protein 6.8 g/dL (6.4-8.2) Albumin 3.1 g/dL (3.4-5.0) Albumin/Globulin Ratio 0.8 (1.0-1.7) Glucose (Fingerstick) 79 mg/dL (70-99) 43 mg/dL (70-99) White Blood Count 11.3 x10^3/uL (4.0-11.0) Red Blood Count 4.51 x10^6/uL (4.30-5.70) Hemoglobin 13.3 g/dL (13.0-17.5) Hematocrit 39.2 % (39.0-53.0) Mean Corpuscular Volume 87 fL (79-100) Mean Corpuscular Hemoglobin 30 pg (25-35) Mean Corpuscular Hemoglobin Concent 34 g/dL (31-37) Red Cell Distribution Width 15.4 % (11.5-14.5) Platelet Count 404 x10^3/uL (140-400) Neutrophils (%) (Auto) 68 % (31-73) Lymphocytes (%) (Auto) 21 % (24-48) Monocytes (%) (Auto) 9 % (0-9) Eosinophils (%) (Auto) 1 % (0-3) Basophils (%) (Auto) 1 % (0-3) Neutrophils # (Auto) 7.6 x10^3/uL (1.8-7.7) Lymphocytes # (Auto) 2.4 x10^3/uL (1.0-4.8) Monocytes # (Auto) 1.1 x10^3/uL (0.0-1.1) Eosinophils # (Auto) 0.1 x10^3/uL (0.0-0.7) Basophils # (Auto) 0.1 x10^3/uL (0.0-0.2) Test 03/24/19 11:53 03/24/19 13:02 Glucose (Fingerstick) 90 mg/dL (70-99) 138 mg/dL (70-99) Laboratory Tests Test 03/23/19 16:38 03/23/19 20:29 03/24/19 04:30 03/24/19 07:21 Glucose (Fingerstick) 141 mg/dL (70-99) 90 mg/dL (70-99) 79 mg/dL (70-99) Sodium Level 137 mmol/L (136-145) Potassium Level 3.9 mmol/L (3.5-5.1) Chloride Level 101 mmol/L (98-107) Carbon Dioxide Level 26 mmol/L (21-32) Anion Gap 10 (6-14) Blood Urea Nitrogen 8 mg/dL (8-26) Creatinine 0.7 mg/dL (0.7-1.3) Estimated GFR (Cockcroft-Gault) 116.7 BUN/Creatinine Ratio 11 (6-20) Glucose Level 71 mg/dL (70-99) Calcium Level 9.6 mg/dL (8.5-10.1) Total Bilirubin 0.7 mg/dL (0.2-1.0) Aspartate Amino Transf (AST/SGOT) 19 U/L (15-37) Alanine Aminotransferase (ALT/SGPT) 27 U/L (16-63) Alkaline Phosphatase 130 U/L (46-116) Troponin I Quantitative < 0.017 ng/mL (0.000-0.055) Total Protein 6.8 g/dL (6.4-8.2) Albumin 3.1 g/dL (3.4-5.0) Albumin/Globulin Ratio 0.8 (1.0-1.7) Test 03/24/19 09:20 03/24/19 11:25 03/24/19 11:53 03/24/19 13:02 White Blood Count 11.3 x10^3/uL (4.0-11.0) Red Blood Count 4.51 x10^6/uL (4.30-5.70) Hemoglobin 13.3 g/dL (13.0-17.5) Hematocrit 39.2 % (39.0-53.0) Mean Corpuscular Volume 87 fL (79-100) Mean Corpuscular Hemoglobin 30 pg (25-35) Mean Corpuscular Hemoglobin Concent 34 g/dL (31-37) Red Cell Distribution Width 15.4 % (11.5-14.5) Platelet Count 404 x10^3/uL (140-400) Neutrophils (%) (Auto) 68 % (31-73) Lymphocytes (%) (Auto) 21 % (24-48) Monocytes (%) (Auto) 9 % (0-9) Eosinophils (%) (Auto) 1 % (0-3) Basophils (%) (Auto) 1 % (0-3) Neutrophils # (Auto) 7.6 x10^3/uL (1.8-7.7) Lymphocytes # (Auto) 2.4 x10^3/uL (1.0-4.8) Monocytes # (Auto) 1.1 x10^3/uL (0.0-1.1) Eosinophils # (Auto) 0.1 x10^3/uL (0.0-0.7) Basophils # (Auto) 0.1 x10^3/uL (0.0-0.2) Glucose (Fingerstick) 43 mg/dL (70-99) 90 mg/dL (70-99) 138 mg/dL (70-99) Brief Hospital Course Mr. Storey is a 58 old male, long admit here last month DC to SNU recently came in complain of chest pain, r/.o ACS, prior CV eval, cleared by CV here. cehst pain was gone in ER after pain meds gtivne, cont long acting nitro, PRN pain meds script written Discharge Information Condition at Discharge: Improved Follow Up: Weeks Disposition/Orders: D/C to Another Facility Scheduled Apixaban (Eliquis) 5 Mg Tablet, 5 MG PO BID for cva, #60 Prescribed by: KALIA WALKER on 03/14/191143 Last Action: Continued on 03/23/191448 by MAXIME MORALES MD Aspirin (Aspirin) 325 Mg Tablet, 325 MG PO DAILYWBKFT for cva, #60 Prescribed by: KALIA WALKER on 01/02/19902 Last Action: Continued on 03/23/191448 by MAXIME MORALES MD Aspirin (Aspirin) 81 Mg Tab.chew, 81 MG PO DAILYWBKFT for cva, #90 Prescribed by: KALIA WALKER on 03/14/191143 Last Action: Continued on 03/23/191448 by MAXIME MORALES MD Atorvastatin Calcium (Atorvastatin Calcium) 40 Mg Tablet, 40 MG PO QHS for cva, #60 Prescribed by: KALIA WALKER on 01/02/19902 Last Action: Continued on 03/23/191448 by MAXIME MORALES MD Fluoxetine Hcl (Fluoxetine Hcl) 20 Mg Capsule, 20 MG PO DAILY for depression, #30 Prescribed by: KALIA WALKER on 03/14/191143 Last Action: Continued on 03/23/191448 by MAXIME MORALES MD Furosemide (Furosemide) 20 Mg Tablet, 1 TAB PO DAILY for blood pressure, #90 Ref 1 (Reported) Entered as Reported by: SERA MORALES on 12/21/181840 Last Action: Continued on 03/23/191448 by MAXIME MORALES MD Gabapentin (Gabapentin ) 100 Mg Capsule, 100 MG PO TID for NEUROGENIC PAIN, (Reported) Entered as Reported by: SERA MORALES on 12/21/181840 Last Action: Continued on 03/23/191448 by MAXIME MORALES MD Gabapentin (Gabapentin) 300 Mg Capsule, 300 MG PO QHS for neuropathy, sz, #30 Prescribed by: KALIA WALKER on 03/14/191143 Last Action: Continued on 03/23/191448 by MAXIME MORALES MD Hydrocortisone Acetate (Anti-Itch) 28 Gm Oint...g., 1 LEIGH TP QID for itch, #1 Prescribed by: KALIA WALKER on 03/14/19 114 Last Action: Continued on 03/23/191448 by MAXIME MORALES MD Insulin Glargine,Hum.rec.anlog (Lantus Solostar) 100 Unit/1 Ml Insuln.pen, 42 UNITS SQ QHS for dm for 30 Days Prescribed by: KALIA WALKER on 01/02/19902 Last Action: Converted on 03/23/191448 by MAXIME MORALES MD Insulin Glargine,Hum.rec.anlog (Lantus) 100 Unit/1 Ml Vial, 42 UNIT SQ QHS for dm for 30 Days Prescribed by: KALIA WALKER on 03/14/191143 Last Action: Continued on 03/23/191448 by MAXIME MORALES MD Insulin Lispro (Humalog) 100 Unit/1 Ml Insuln.pen, 10 UNITS SQ TIDWMEALS for dm for 30 Days Prescribed by: KALIA WALKER on 01/02/19902 Last Action: Continued on 03/23/191448 by MAXIME MORALES MD Isosorbide Mononitrate (Isosorbide Mononitrate Er) 30 Mg Tab.er.24h, 30 MG PO BID for cp, #90 Prescribed by: KALIA WALKER on 12/22/18 112 Last Action: Continued on 03/23/191448 by MAXIME MORALES MD Levothyroxine Sodium (Levothyroxine Sodium) 200 Mcg Tablet, 200 MCG PO DAILYAC for THYROID SUPPLEMENT, #30 Ref 0 (Reported) Entered as Reported by: SERA MORALES on 12/21/181847 Last Action: Converted on 03/23/191448 by MAXIME MORALES MD Levothyroxine Sodium (Synthroid) 100 Mcg Tablet, 200 MCG PO DAILY06 for hypothy, #60 Prescribed by: KALIA WALKER on 01/02/19902 Last Action: Continued on 03/23/191448 by MAXIME MORALES MD Lisinopril (Lisinopril) 40 Mg Tablet, 20 MG PO DAILY for htn, #60 Prescribed by: KALIA WALKER on 01/02/19902 Last Action: Continued on 03/23/191448 by MAXIME MORALES MD Metoprolol Tartrate (Metoprolol Tartrate) 50 Mg Tablet, 100 MG PO BID for htn, #60 Prescribed by: KALIA WALKER on 01/02/19902 Last Action: Continued on 03/23/191448 by MAXIME MORALES MD Mometasone/Formoterol (Dulera 200 Mcg/5 Mcg Inhaler) 13 Gm Hfa.aer.ad, 1 PUFF IH HS for COPD, #13 Ref 5 (Reported) Entered as Reported by: SERA MORALES on 12/21/181847 Last Action: Converted on 03/23/191448 by MAXIME MORALES MD Nystatin (Nystop) 60 Gm Powder, 1 LEIGH TP BID for skin folds, #1 Prescribed by: KALIA WALKER on 03/14/191143 Last Action: Continued on 03/23/191448 by MAXIME MORALES MD Pantoprazole Sodium (Pantoprazole Sodium ) 40 Mg Tablet.dr, 40 MG PO DAILYAC for gerd, #30 Prescribed by: KALIA WALKER on 03/14/191143 Last Action: Continued on 03/23/191448 by MAXIME MORALES MD Phenytoin Sodium Extended (Dilantin) 100 Mg Capsule, 1 CAP PO TID for sz, #90 Ref 3 Prescribed by: KALIA WALKER on 01/02/19905 Last Action: Continued on 03/23/191448 by MAXIME MORALES MD Phenytoin Sodium Extended (Dilantin) 100 Mg Capsule, 300 MG PO HS for sz, #30 Prescribed by: KALIA WALKER on 03/14/191143 Last Action: Continued on 03/23/191448 by MAXIME MORALES MD Tamsulosin Hcl (Flomax) 0.4 Mg Cap.er.24h, 0.4 MG PO DAILY for retention, #30 Prescribed by: KALIA WALKER on 03/14/191143 Last Action: Continued on 03/23/191448 by MAXIME MORALES MD Scheduled PRN Albuterol Sulfate (Proventil Hfa) 6.7 Gm Hfa.aer.ad, 1 PUFF INH PRN Q6HRS PRN for SHORTNESS OF BREATH, (Reported) Entered as Reported by: SERA MORALES on 12/21/181840 Last Action: Converted on 03/23/191448 by MAXIME MORALES MD Albuterol Sulfate (Proair Hfa) 8.5 Gm Hfa.aer.ad, 2.5 MG NEB PRN Q6HRS PRN for SHORTNESS OF BREATH for 30 Days Prescribed by: KALIA WALKER on 03/14/191143 Last Action: Continued on 03/23/191448 by MAXIME MORALES MD Budesonide (Budesonide) 0.5 Mg/2 Ml Ampul.neb, 0.5 MG NEB PRN BID PRN for SHORTNESS OF BREATH for 30 Days Prescribed by: KALIA WALKER on 03/14/191143 Last Action: Continued on 03/23/191448 by MAXIME MORALES MD Cyclobenzaprine Hcl (Cyclobenzaprine Hcl) 10 Mg Tablet, 10 MG PO PRN TID PRN for MUSCLE spasms/pain, #30 Prescribed by: KALIA WALKER on 03/14/191143 Last Action: Continued on 03/23/191448 by MAXIME MORALES MD Hydrocodone Bit/Acetaminophen (Hydrocodone-Apap 5-325 ) 1 Tab Tablet, 1 TAB PO PRN Q4HRS PRN for chest pain, #30 Prescribed by: CHANDAN CREWS on 03/24/19 0927 Ondansetron (Ondansetron Odt) 4 Mg Tab.rapdis, 4 MG PO PRN Q6HRS PRN for NAUSEA/VOMITING, #60 Prescribed by: KALIA WALKER on 03/14/191143 Last Action: Continued on 03/23/191448 by AMXIME MORALES MD Oxybutynin Chloride (Oxybutynin Chloride) 5 Mg Tablet, 1 TAB PO PRN TID PRN for URINARY PAIN, #60 Ref 11 (Reported) Entered as Reported by: SERA MORALES on 12/21/181847 Last Action: Continued on 03/23/191448 by MAXIME MORALES MD Patient Instructions Patient Instructions face to face < 30 min to skilled CHANDAN CREWS MD Mar 24, 2019 15:11
[2019-03-27] MEDS ORDERED: CEFD300C PO (15:15)
[2019-03-27] MEDS ORDERED: POLY17PO28 PO (15:15)
[2019-03-27] MEDS ORDERED: HYDR-2761 PO (15:15)
== END 2019-03-24 13:30 ==
LOC: ER 10:55 → 2 NORTH 13:01
PROVIDERS: ADMIT Family Medicine; ATTEND Family Medicine
DX: I63.9 Cerebral infarction, unspecified (principal); R07.89 Other chest pain; J44.9 Chronic obstructive pulmonary disease, unspecified; E66.9 Obesity, unspecified; E03.9 Hypothyroidism, unspecified; E78.5 Hyperlipidemia, unspecified; I48.0 Paroxysmal atrial fibrillation; I25.10 Atherosclerotic heart disease of native coronary artery without angina pectoris; K21.9 Gastro-esophageal reflux disease without esophagitis; M19.90 Unspecified osteoarthritis, unspecified site; E11.42 Type 2 diabetes mellitus with diabetic polyneuropathy; I11.0 Hypertensive heart disease with heart failure; I50.32 Chronic diastolic (congestive) heart failure; E83.42 Hypomagnesemia; G93.49 Other encephalopathy; R13.10 Dysphagia, unspecified; Z82.49 Family history of ischemic heart disease and other diseases of the circulatory system; Z91.14 Patient's other noncompliance with medication regimen; Z91.19 Patient's noncompliance with other medical treatment and regimen; Z91.81 History of falling; Z95.5 Presence of coronary angioplasty implant and graft; I69.320 Aphasia following cerebral infarction
CPT/HCPCS: 36415; 71045; 80053; 82962; 83605; 83690; 83735; 83880; 84484; 85025; 85379; 85610; 93005; 94640; 96372; 96374; 99284; G0378; J1815; J3010; J7613; J7626; G0379

== ENCOUNTER 2019-03-24 17:36 | Inpatient (IN) | payer SELFPAY ==
[~2019-03-24] VITALS: Ht 182.9 cm; Wt 89.6 kg
[2019-03-24] MEDS ORDERED: ASPIRIN 325 MG TABLET PO ONE (18:00)
[2019-03-24] MEDS ORDERED: NITROGLYCERIN SUBLINGUAL 0.4 MG BOTTLE OF 25. SL PRN (18:00)
[2019-03-24 18:03] LABS: AMPHETAMINE/METHAMPHETAMINE NEG (NEG); BARBITURATES NEG (NEG); BENZODIAZEPINES NEG (NEG); CANNABINOIDS NEG (NEG); COCAINE NEG (NEG); METHADONE NEG (NEG); OPIATES NEG (NEG); PHENCYCLIDINE NEG (NEG)
[2019-03-24 18:05] LABS: BASO # 0.1 x10^3/uL (0.0-0.2); BASO % 1 % (0-3); EOS % 0 % (0-3); HEMATOCRIT 39.1 % (39.0-53.0); HEMOGLOBIN 13.2 g/dL (13.0-17.5); LYMPH # 3.1 x10^3/uL (1.0-4.8); LYMPH % 27 % (24-48); MEAN CORPUSCULAR HEMOGLOBIN 29 pg (25-35); MEAN CORPUSCULAR HGB CONC 34 g/dL (31-37); MEAN CORPUSCULAR VOLUME 86 fL (79-100); MONO # 1.1 x10^3/uL (0.0-1.1); MONO % 10 % (0-9); NEUT # 7.2 x10^3/uL (1.8-7.7); NEUT % 62 % (31-73); PLATELET COUNT 410 x10^3/uL (140-400); RED BLOOD COUNT 4.56 x10^6/uL (4.30-5.70); RED CELL DISTRIBUTION WIDTH 15.1 % (11.5-14.5); WHITE BLOOD COUNT 11.6 x10^3/uL (4.0-11.0)
--- NOTE | 2019-03-24 18:08 | RAD ---
Study: PORTABLE CHEST 1V Indication: Chest pain. Comparison: Most recently on 03/23/2019 Findings: No pneumothorax or pleural effusion. No lobar infiltrate. Unchanged configuration of the cardiomediastinal silhouette and hilar structures. Coronary artery stent again noted. Degenerative changes of both AC joints. No free air seen under the diaphragm. Impression: No acute radiographic abnormality of the chest. Electronically signed by: BEKA MIX MD (03/24/2019 6:05 PM) [facility] [email or web address]
[2019-03-24 18:12] LABS: BILIRUBIN,URINE NEGATIVE (NEG); CLARITY,URINE CLEAR; COLOR,URINE YELLOW; NITRITE,URINE NEGATIVE (NEG); PROTEIN,URINE NEGATIVE (NEG-TRACE)
[2019-03-24 18:13] LABS: PROTHROMBIN TIME PATIENT 16.5 SEC (11.7-14.0)
[2019-03-24 18:14] LABS: BACTERIA,URINE MANY /HPF (0-FEW); RBC,URINE 0 /HPF (0-2); WBC,URINE TNTC /HPF (0-4); YEAST,URINE PRESENT /HPF
[2019-03-24 18:16] LABS: CALCIUM 9.5 mg/dL (8.5-10.1); CREATININE 0.8 mg/dL (0.7-1.3)
[2019-03-24 18:22] LABS: ALBUMIN 3.2 g/dL (3.4-5.0); ALBUMIN/GLOBULIN RATIO 0.9 (1.0-1.7); MAGNESIUM 1.5 mg/dL (1.8-2.4); TOTAL BILIRUBIN 0.7 mg/dL (0.2-1.0); TOTAL PROTEIN 6.7 g/dL (6.4-8.2)
[2019-03-24 18:29] LABS: CREATINE KINASE 56 U/L (39-308)
--- NOTE | 2019-03-24 19:21 | PHYS DOC ---
Past Medical History Past Medical History: A-Fib, Asthma, CAD, CHF, COPD, CVA, Diabetes-Type II, GERD, High Cholesterol, Hypertension, Hypothyroid, AR, Seizure Additional Past Medical Histor: neuropathy, dysphagia, osteoarthritis, Past Surgical History: Other Additional Past Surgical Histo: cardiac stents Alcohol Use: None Drug Use: None Adult General Chief Complaint Chief Complaint: CHEST PAIN HPI HPI Patient is a 58 year old male with history of diabetes type 2, hypertension, high cholesterol, A. fib, CVA with right-sided deficit who presents to the ED today with complaints of chest pain. Patient is aphasic, unable to collect any further information. He was admitted yesterday for the same complaint and discharged this morning. Review of Systems Review of Systems Constitutional: WOLF due to aphasia Eyes: WOLF due to aphasia HENT: WOLF due to aphasia Respiratory: WOLF due to aphasia Cardiovascular: chest pain GI: WOLF due to aphasia : WOLF due to aphasia Musculoskeletal:WOLF due to aphasia Integument: Denies rash or skin lesions [] Neurologic: Denies headache, focal weakness or sensory changes [] All other systems were reviewed and found to be within normal limits, except as documented in this note. Current Medications Current Medications Current Medications Medications (Trade) Dose Ordered Sig/Sharon Start Time Stop Time Status Last Admin Dose Admin Aspirin (Kaila Aspirin) 325 mg 1X ONCE 03/24/19 18:00 03/24/19 18:01 DC 03/24/19 18:08 325 MG Nitroglycerin (Nitrostat) 0.4 mg PRN Q5MIN PRN 03/24/19 18:00 03/25/19 17:59 Allergies Allergies Allergies Coded Allergies Type Severity Reaction Last Updated Verified No Known Drug Allergies 12/21/18 No Physical Exam Physical Exam Constitutional: Well developed, well nourished, no acute distress, non-toxic appearance. [] HENT: Normocephalic, atraumatic, bilateral external ears normal, oropharynx moist, no oral exudates, nose normal. [] Eyes: PERRLA, EOMI, conjunctiva normal, no discharge. [] Neck: Normal range of motion, no tenderness, supple, no stridor. [] Cardiovascular:irregular rhythm Lungs & Thorax: Bilateral breath sounds clear to auscultation [] Abdomen: Bowel sounds normal, soft, no tenderness, no masses, no pulsatile masses. [] Skin: Warm, dry, no erythema, no rash. [] Back: No tenderness, no CVA tenderness. [] Extremities: No tenderness, no cyanosis, no clubbing, right-sided flaccid. Neurologic: Alert and oriented X 1, normal motor function, normal sensory function, no new focal deficits noted. [] Psychologic: flat affect Current Patient Data Vital Signs Vital Signs Date Time Temp Pulse Resp B/P (MAP) Pulse Ox O2 Delivery O2 Flow Rate FiO2 03/24/19 17:48 97.4 82 16 95/61 (72) 95 Room Air 97.4 Lab Values Laboratory Tests Test 03/24/19 17:40 03/24/19 17:50 Urine Collection Type Unknown Urine Color Yellow Urine Clarity Clear Urine pH 8.0 Urine Specific [place] <=1.005 Urine Protein Negative mg/dL (NEG-TRACE) Urine Glucose (UA) Negative mg/dL (NEG) Urine Ketones (Stick) Trace mg/dL (NEG) Urine Blood Negative (NEG) Urine Nitrite Negative (NEG) Urine Bilirubin Negative (NEG) Urine Urobilinogen Dipstick 1.0 mg/dL (0.2 mg/dL) Urine Leukocyte Esterase Large (NEG) Urine RBC 0 /HPF (0-2) Urine WBC Tntc /HPF (0-4) Urine Bacteria Many /HPF (0-FEW) Urine Mucus Mod /LPF Urine Yeast Present /HPF Urine Opiates Screen Neg (NEG) Urine Methadone Screen Neg (NEG) Urine Barbiturates Neg (NEG) Urine Phencyclidine Screen Neg (NEG) Urine Amphetamine/Methamphetamine Neg (NEG) Urine Benzodiazepines Screen Neg (NEG) Urine Cocaine Screen Neg (NEG) Urine Cannabinoids Screen Neg (NEG) Urine Ethyl Alcohol Neg (NEG) White Blood Count 11.6 x10^3/uL (4.0-11.0) H Red Blood Count 4.56 x10^6/uL (4.30-5.70) Hemoglobin 13.2 g/dL (13.0-17.5) Hematocrit 39.1 % (39.0-53.0) Mean Corpuscular Volume 86 fL (79-100) Mean Corpuscular Hemoglobin 29 pg (25-35) Mean Corpuscular Hemoglobin Concent 34 g/dL (31-37) Red Cell Distribution Width 15.1 % (11.5-14.5) H Platelet Count 410 x10^3/uL (140-400) H Neutrophils (%) (Auto) 62 % (31-73) Lymphocytes (%) (Auto) 27 % (24-48) Monocytes (%) (Auto) 10 % (0-9) H Eosinophils (%) (Auto) 0 % (0-3) Basophils (%) (Auto) 1 % (0-3) Neutrophils # (Auto) 7.2 x10^3/uL (1.8-7.7) Lymphocytes # (Auto) 3.1 x10^3/uL (1.0-4.8) Monocytes # (Auto) 1.1 x10^3/uL (0.0-1.1) Eosinophils # (Auto) 0.0 x10^3/uL (0.0-0.7) Basophils # (Auto) 0.1 x10^3/uL (0.0-0.2) Prothrombin Time 16.5 SEC (11.7-14.0) H Prothrombin Time INR 1.4 (0.8-1.1) H Sodium Level 135 mmol/L (136-145) L Potassium Level 4.0 mmol/L (3.5-5.1) Chloride Level 99 mmol/L (98-107) Carbon Dioxide Level 25 mmol/L (21-32) Anion Gap 11 (6-14) Blood Urea Nitrogen 8 mg/dL (8-26) Creatinine 0.8 mg/dL (0.7-1.3) Estimated GFR (Cockcroft-Gault) 100.0 BUN/Creatinine Ratio 10 (6-20) Glucose Level 136 mg/dL (70-99) H Calcium Level 9.5 mg/dL (8.5-10.1) Magnesium Level 1.5 mg/dL (1.8-2.4) L Total Bilirubin 0.7 mg/dL (0.2-1.0) Aspartate Amino Transferase (AST) 20 U/L (15-37) Alanine Aminotransferase (ALT) 26 U/L (16-63) Alkaline Phosphatase 126 U/L (46-116) H Creatine Kinase 56 U/L (39-308) Creatine Kinase MB (Mass) 1.4 ng/mL (0.0-3.6) Creatine Kinase MB Relative Index % (0-4) Troponin I Quantitative < 0.017 ng/mL (0.000-0.055) YC-Mwd-N-Type Natriuretic Peptide 88 pg/mL (0-124) Total Protein 6.7 g/dL (6.4-8.2) Albumin 3.2 g/dL (3.4-5.0) L Albumin/Globulin Ratio 0.9 (1.0-1.7) L Thyroid Stimulating Hormone (TSH) 3.044 uIU/mL (0.358-3.74) Laboratory Tests 03/24/19 17:50 Laboratory Tests 03/24/19 17:50 EKG EKG [address] Weber Afib no AVR HR 85 no STMI Radiology/Procedures Radiology/Procedures []PROCEDURE: PORTABLE CHEST 1V Study: PORTABLE CHEST 1V Indication: Chest pain. Comparison: Most recently on 03/23/2019 Findings: No pneumothorax or pleural effusion. No lobar infiltrate. Unchanged configuration of the cardiomediastinal silhouette and hilar structures. Coronary artery stent again noted. Degenerative changes of both AC joints. No free air seen under the diaphragm. Impression: No acute radiographic abnormality of the chest. Electronically signed by: BEKA MIX MD (03/24/2019 6:05 PM) [facility] DICTATED and SIGNED BY: BEKA MIX MD DATE: 03/24/191804 Course & Med Decision Making Course & Med Decision Making Pertinent Labs and Imaging studies reviewed. (See chart for details) This is a 58-year-old male patient with multiple medical problems including CVA and right-sided deficits, patient is aphasic, was [facility] to be evaluated for chest pain. Patient's cardiac workup is negative. Spoke with Dr. Dorantes who accepted patient for admission Routine consult placed for cardiology See Heart score template Dragon Disclaimer Dragon Disclaimer This electronic medical record was generated, in whole or in part, using a voice recognition dictation system. The HEART Score for CP Pts HEART Score for Chest Pain: HEART Score for Chest Pain Response (Comments) Value History Slighlty/Non-Suspicious 0 ECG Normal 0 Age >45 - < 65 1 Risk Factors >3 Risk Factors or Hx CAD 2 Troponin < Normal Limit 0 Total 3 Risk Factors: Risk Factors: DM, Current or recent (<one month) smoker, HTN, HLP, family history of CAD, obesity. Risk Scores: Score 0 - 3: 2.5% MACE over next 6 weeks - Discharge Home Score 4 - 6: 20.3% MACE over next 6 weeks - Admit for Clinical Observation Score 7 - 10: 72.7% MACE over next 6 weeks - Early Invasive Strategies Departure Departure Impression: Primary Impression: Chest pain Disposition: 09 ADMITTED INPATIENT Condition: STABLE Referrals: NEGRITA MCCLURE-C (PCP) Problem Qualifiers Primary Impression: Chest pain Chest pain type: unspecified Qualified Codes: R07.9 - Chest pain, unspecified DARRON MYLES MESSENGER COPY Mar 24, 2019 19:21
[2019-03-24] MEDS ORDERED: ONDANSETRON PF 4 MG/2 ML VIAL. IV PRN (19:30)
[2019-03-24] MEDS ORDERED: ACETAMINOPHEN 325 MG TABLET. PO PRN (19:30)
[2019-03-24 19:40] VITALS: BP 102/71
[2019-03-24] MEDS ORDERED: NON FORMULARY ITEM (Albuterol Sulfate (Proventil Hfa) 1 PUFF) INH PRN (21:15)
[2019-03-24] MEDS ORDERED: OXYBUTYNIN CHLORIDE 5 MG TABLET PO PRN (21:15)
[2019-03-24] MEDS ORDERED: ALBUTEROL SULFATE 2.5 MG/3 ML NEBU. NEB PRN ×2 (21:15→22:00)
[2019-03-24] MEDS ORDERED: ONDANSETRON ODT 4 MG TAB.RAPDIS. PO PRN (21:15)
[2019-03-24] MEDS ORDERED: BUDESONIDE 0.5 MG/2 ML NEBU. NEB PRN (21:15)
[2019-03-24] MEDS ORDERED: HYDROcodone/APAP 5/325MG 1 TAB TABLET PO PRN (21:15)
[2019-03-24] MEDS ORDERED: CYCLOBENZAPRINE 10 MG TABLET. PO PRN (21:15)
[2019-03-24] MEDS: PHENYTOIN SODIUM EXTENDED 100 MG CAPSULE PO SCH (21:30)
[2019-03-24] MEDS: METOPROLOL TART IMMED RELEASE 50 MG TABLET. PO SCH (21:30)
[2019-03-24] MEDS: ATORVASTATIN CALCIUM 40 MG TABLET. PO SCH (21:30)
[2019-03-24] MEDS: APIXABAN 5 MG TABLET. PO SCH (21:30)
[2019-03-24] MEDS ORDERED: ISOSORBIDE MONONITRATE ER 30 MG TAB.ER.24H PO SCH (21:30)
[2019-03-24] MEDS: INSULIN GLARGINE SYRINGE. SQ SCH (21:30)
[2019-03-24] MEDS ORDERED: GABAPENTIN 100 MG CAPSULE. PO SCH (21:30)
[2019-03-24] MEDS: GABAPENTIN 300 MG CAPSULE. PO SCH (21:30)
[2019-03-24 22:20] VITALS: BP 96/59
[2019-03-25] VITALS (7 sets, daily range): BP systolic 90–121; BP diastolic 68–78
[2019-03-25 04:14] LABS: BASO # 0.1 x10^3/uL (0.0-0.2); BASO % 1 % (0-3); EOS # 0.2 x10^3/uL (0.0-0.7); EOS % 2 % (0-3); HEMATOCRIT 40.7 % (39.0-53.0); HEMOGLOBIN 13.8 g/dL (13.0-17.5); LYMPH # 3.3 x10^3/uL (1.0-4.8); LYMPH % 30 % (24-48); MEAN CORPUSCULAR HEMOGLOBIN 30 pg (25-35); MEAN CORPUSCULAR HGB CONC 34 g/dL (31-37); MEAN CORPUSCULAR VOLUME 87 fL (79-100); MONO # 1.1 x10^3/uL (0.0-1.1); MONO % 10 % (0-9); NEUT # 6.3 x10^3/uL (1.8-7.7); NEUT % 58 % (31-73); PLATELET COUNT 375 x10^3/uL (140-400); RED BLOOD COUNT 4.66 x10^6/uL (4.30-5.70); RED CELL DISTRIBUTION WIDTH 15.2 % (11.5-14.5); WHITE BLOOD COUNT 10.9 x10^3/uL (4.0-11.0)
[2019-03-25 04:23] LABS: CALCIUM 9.5 mg/dL (8.5-10.1); CREATININE 0.8 mg/dL (0.7-1.3); POTASSIUM 3.8 mmol/L (3.5-5.1)
[2019-03-25] MEDS: LEVOTHYROXINE 100 MCG TABLET PO SCH (06:31)
[2019-03-25] MEDS ORDERED: PANTOPRAZOLE 40 MG TABLET.DR. PO SCH (07:30)
[2019-03-25] MEDS ORDERED: NON FORMULARY ITEM (Levothyroxine Sodium 200 MCG) PO SCH (07:30)
[2019-03-25] MEDS ORDERED: ASPIRIN 325 MG TABLET PO SCH (08:00)
[2019-03-25] MEDS: INSULIN LISPRO 300 UNITS/3 ML VIAL. SQ SCH ×3 (08:00→17:00)
[2019-03-25] MEDS: ALBUTEROL SULFATE 2.5 MG/3 ML NEBU. NEB SCH ×4 (08:31→20:30)
[2019-03-25] MEDS: BUDESONIDE 0.5 MG/2 ML NEBU. NEB SCH ×2 (08:31→20:30)
[2019-03-25] MEDS ORDERED: LISINOPRIL 20 MG TABLET PO SCH (09:00)
[2019-03-25] MEDS: HYDROCORTISONE 1% TOPICAL OINTMENT 30GM TUBE. TP SCH ×4 (09:00→20:58)
[2019-03-25] MEDS ORDERED: FUROSEMIDE 20 MG TABLET PO SCH (09:00)
[2019-03-25] MEDS: NYSTATIN TOPICAL POWDER 15GM BOTTLE. TP SCH ×2 (09:00→20:58)
[2019-03-25] MEDS: ASPIRIN CHEWABLE 81 MG TABLET. PO SCH (09:41)
[2019-03-25] MEDS: PHENYTOIN SODIUM EXTENDED 100 MG CAPSULE PO SCH ×4 (09:42→21:25)
[2019-03-25] MEDS: GABAPENTIN 100 MG CAPSULE. PO SCH ×3 (09:42→18:36)
[2019-03-25] MEDS: TAMSULOSIN 0.4 MG CAP.ER.24H. PO SCH (09:42)
[2019-03-25] MEDS: APIXABAN 5 MG TABLET. PO SCH ×2 (09:42→20:57)
[2019-03-25] MEDS: FLUoxetine HCL 20 MG CAPSULE PO SCH (09:42)
[2019-03-25] MEDS: METOPROLOL TART IMMED RELEASE 50 MG TABLET. PO SCH ×2 (09:45→20:58)
[2019-03-25] MEDS: cefTRIAXone IV Push 1 GM VIAL. IVP SCH (09:49)
--- NOTE | 2019-03-25 10:18 | PDOC1 ---
History and Physical Date of Admission Date of Admission DATE: 03/25/19 TIME: 10:14 Source Source: Chart review, Patient History of Present Illness History of Present Illness chest pain? this is difficult to asses as he is aphasic and poorly communicative, but he seems to clearly be motioning to his abdomen more than his chest. Was DC yesterday after obs for chest pain, ACS was ruled out. sent back here [facility] WHen asked if he has pain, he points to his chest. I cannot get any other history. he denies changes in pain, nods yes that it "hurts all the time" Past Medical History Cardiovascular: AFIB, CAD, CHF, HTN, Hyperlipidemia Pulmonary: COPD CENTRAL NERVOUS SYSTEM: Periperal neuropathy, Seizure GI: Constipation, GERD Heme/Onc: No pertinent hx Hepatobiliary: No pertinent hx Psych: No pertinent hx Musculoskeletal: Osteoarthritis Rheumatologic: No pertinent hx Infectious disease: No pertinent hx Renal/: No pertinent hx Endocrine: Diabetes, Hypothyroidism Past Surgical History Past Surgical History: Other Family History Family History: Coronary Artery Disease Social History ALCOHOL: none Drugs: None Current Problem List Problem List Problems Medical Problems: (1) Chest pain Status: Acute Current Medications Current Medications Current Medications Aspirin (Kaila Aspirin) 325 mg 1X ONCE PO Last administered on 03/24/19at 18:08; Start 03/24/19 at 18:00; Stop 03/24/19 at 18:01; Status DC Nitroglycerin (Nitrostat) 0.4 mg PRN Q5MIN PRN SL CP RATING > 1/10; Start 03/24/19 at 18:00; Stop 03/25/19 at 17:59 Ondansetron HCl (Zofran) 4 mg PRN Q8HRS PRN IV NAUSEA/VOMITING; Start 03/24/19 at 19:30; Stop 03/25/19 at 19:29 Acetaminophen (Tylenol) 650 mg PRN Q4HRS PRN PO FEVER; Start 03/24/19 at 19:30; Stop 03/25/19 at 19:29 Albuterol Sulfate (Ventolin Neb Soln) 2.5 mg PRN Q6HRS PRN NEB SHORTNESS OF BREATH; Start 03/24/19 at 21:15; Status UNV Apixaban (Eliquis) 5 mg BID PO Last administered on 03/25/19at 09:52; Start 03/24/19 at 21:30 Aspirin (Children'S Aspirin) 81 mg DAILYWBKFT PO Last administered on 03/25/19at 09:52; Start 03/25/19 at 08:00 Aspirin (Kaila Aspirin) 325 mg DAILYWBKFT PO ; Start 03/25/19 at 08:00; Status UNV Atorvastatin Calcium (Lipitor) 40 mg QHS PO ; Start 03/24/19 at 21:30 Budesonide (Pulmicort) 0.5 mg PRN BID PRN NEB SHORTNESS OF BREATH; Start 03/24/19 at 21:15; Status Cancel Cyclobenzaprine HCl (Flexeril) 10 mg PRN TID PRN PO MUSCLE spasms/pain; Start 03/24/19 at 21:15 Fluoxetine HCl (PROzac) 20 mg DAILY PO Last administered on 03/25/19at 09:52; Start 03/25/19 at 09:00 Furosemide (Lasix) 20 mg DAILY PO Last administered on 03/25/19at 09:52; Start 03/25/19 at 09:00 Gabapentin (Neurontin) 100 mg TID PO ; Start 03/24/19 at 21:30; Stop 03/24/19 at 21:25; Status DC Gabapentin (Neurontin) 300 mg QHS PO ; Start 03/24/19 at 21:30 Acetaminophen/ Hydrocodone Bitart (Lortab 5/325) 1 tab PRN Q4HRS PRN PO chest pain; Start 03/24/19 at 21:15 Hydrocortisone (Cortaid) 1 edvin QID TP ; Start 03/25/19 at 09:00 Insulin Glargine (Lantus Syringe) 42 unit QHS SQ ; Start 03/24/19 at 21:30 Insulin Human Lispro (HumaLOG) 10 units TIDWMEALS SQ ; Start 03/25/19 at 08:00 Isosorbide Mononitrate (Imdur) 30 mg BID PO ; Start 03/24/19 at 21:30 Levothyroxine Sodium (Synthroid) 200 mcg DAILY06 PO Last administered on 9at 06:32; Start 03/25/19 at 06:00 Lisinopril (Prinivil) 20 mg DAILY PO ; Start 03/25/19 at 09:00 Metoprolol Tartrate (Lopressor) 100 mg BID PO Last administered on 03/25/19 09:52; Start 03/24/19 at 21:30 Nystatin (Nystop) 1 edvin BID TP ; Start 03/25/19 at 09:00 Ondansetron HCl (Zofran Odt) 4 mg PRN Q6HRS PRN PO NAUSEA/VOMITING; Start 03/24/19 at 21:15 Oxybutynin Chloride (Ditropan) 5 mg PRN TID PRN PO URINARY PAIN; Start 03/24/19 at 21:15 Pantoprazole Sodium (Protonix) 40 mg DAILYAC PO Last administered on 03/25/19at 06:32; Start 03/25/19 at 07:30 Phenytoin Sodium (Dilantin) 100 mg TIDAFTMEAL PO Last administered on 03/25/19at 09:52; Start 03/25/19 at 09:00 Phenytoin Sodium (Dilantin) 300 mg HS PO ; Start 03/24/19 at 21:30 Tamsulosin HCl (Flomax) 0.4 mg DAILY PO Last administered on 03/25/19at 09:52; Start 03/25/19 at 09:00 Non-Formulary Medication (Albuterol Sulfate (Proventil Hfa)) 1 puff PRN Q6HRS PRN INH SHORTNESS OF BREATH; Start 03/24/19 at 21:15; Status UNV Non-Formulary Medication (Insulin Glargine,Hum.rec.anlog (Lantus Solostar)) 42 units QHS SQ ; Start 03/25/19 at 21:00; Status UNV Non-Formulary Medication (Levothyroxine Sodium ) 200 mcg DAILYAC PO ; Start 03/25/19 at 07:30; Status UNV Non-Formulary Medication (Mometasone/ Formoterol (Dulera 200 Mcg/5 Mcg Inhaler)) 1 puff HS IH ; Start 03/25/19 at 21:00; Status UNV Gabapentin (Neurontin) 100 mg TIDAFTMEAL PO Last administered on 03/25/19at 09:52; Start 03/25/19 at 09:00 Albuterol Sulfate (Ventolin Neb Soln) 2.5 mg PRN Q6HRS PRN NEB SHORTNESS OF BREATH; Start 03/24/19 at 22:00 Albuterol Sulfate (Ventolin Neb Soln) 2.5 mg RTQID NEB Last administered on 03/25/19at 08:31; Start 03/25/19 at 08:00 Budesonide (Pulmicort) 0.5 mg RTBID NEB Last administered on 03/25/19at 08:31; Start 03/25/19 at 08:00 Ceftriaxone Sodium (Rocephin) 1 gm Q24H IVP Last administered on 03/25/19at 09:52; Start 03/25/19 at 09:00 Active Scripts Active Hydrocodone-Apap 5-325 (Hydrocodone Bit/Acetaminophen) 1 Tab Tablet 1 Tab PO PRN Q4HRS PRN Anti-Itch (Hydrocortisone Acetate) 28 Gm Oint...g. 1 Edvin TP QID Lantus (Insulin Glargine,Hum.rec.anlog) 100 Unit/1 Ml Vial 42 Unit SQ QHS 30 Days Nystop (Nystatin) 60 Gm Powder 1 Edvin TP BID Ondansetron Odt (Ondansetron) 4 Mg Tab.rapdis 4 Mg PO PRN Q6HRS PRN Pantoprazole Sodium (Pantoprazole Sodium) 40 Mg Tablet.dr 40 Mg PO DAILYAC Budesonide 0.5 Mg/2 Ml Ampul.neb 0.5 Mg NEB PRN BID PRN 30 Days Fluoxetine Hcl 20 Mg Capsule 20 Mg PO DAILY Gabapentin 300 Mg Capsule 300 Mg PO QHS Dilantin (Phenytoin Sodium Extended) 100 Mg Capsule 300 Mg PO HS Aspirin 81 Mg Tab.chew 81 Mg PO DAILYWBKFT Eliquis (Apixaban) 5 Mg Tablet 5 Mg PO BID Cyclobenzaprine Hcl 10 Mg Tablet 10 Mg PO PRN TID PRN Flomax (Tamsulosin Hcl) 0.4 Mg Cap.er.24h 0.4 Mg PO DAILY Proair Hfa (Albuterol Sulfate) 8.5 Gm Hfa.aer.ad 2.5 Mg NEB PRN Q6HRS PRN 30 Days Dilantin (Phenytoin Sodium Extended) 100 Mg Capsule 1 Cap PO TID Humalog (Insulin Lispro) 100 Unit/1 Ml Insuln.pen 10 Units SQ TIDWMEALS 30 Days Lantus Solostar (Insulin Glargine,Hum.rec.anlog) 100 Unit/1 Ml Insuln.pen 42 Units SQ QHS 30 Days Synthroid (Levothyroxine Sodium) 100 Mcg Tablet 200 Mcg PO DAILY06 Lisinopril 40 Mg Tablet 20 Mg PO DAILY Metoprolol Tartrate 50 Mg Tablet 100 Mg PO BID Atorvastatin Calcium 40 Mg Tablet 40 Mg PO QHS Isosorbide Mononitrate Er (Isosorbide Mononitrate) 30 Mg Tab.er.24h 30 Mg PO BID Reported Levothyroxine Sodium 200 Mcg Tablet 200 Mcg PO DAILYAC Dulera 200 Mcg/5 Mcg Inhaler (Mometasone/Formoterol) 13 Gm Hfa.aer.ad 1 Puff IH HS Oxybutynin Chloride 5 Mg Tablet 1 Tab PO PRN TID PRN Gabapentin (Gabapentin) 100 Mg Capsule 100 Mg PO TID Furosemide 20 Mg Tablet 1 Tab PO DAILY Proventil Hfa (Albuterol Sulfate) 6.7 Gm Hfa.aer.ad 1 Puff INH PRN Q6HRS PRN Allergies Allergies: Coded Allergies: No Known Drug Allergies (Unverified , 12/21/18) ROS Review of System aphasic, this review is limited General: No: Malaise, Appetite, Other PSYCHOLOGICAL ROS: No: Anxiety, Behavioral Disorder, Concentration difficultie, Decreased libido, Depression, Disorientation, Hallucinations, Other Eyes: No Blurry vision, No Decreased vision, No Double vision, No Dry eyes, No Excessive tearing, No Eye Pain, No Itchy Eyes, No Loss of vision, No Photophobia, No Scotomata, No Uses contacts, No Uses glasses, No Other HEENT: No: Heacaches, Visual Changes, Hearing change, Nasal congestion, Nasal discharge, Oral lesions, Sinus pain, Sore Throat, Epistaxis, Sneezing, Snoring, Tinnitus, Vertigo, Vocal changes, Other Respiratory: No: Cough, Hemoptysis, Orthopnea, Pleuritic Pain, Shortness of breath, Sputum Changes Cardiovascular: yes Chest Pain (maybe) Gastrointestinal: Yes Abdominal Pain (motioning more here. ); No Nausea, No Vomiting, No Diarrhea, No Constipation, No Melena, No Hematochezia, No Other Genitourinary: No Dysuria, No Frequency, No Incontinence, No Hematuria, No Retention, No Discharge, No Urgency, No Pain, No Flank Pain, No Other, No , No , No , No , No , No , No Musculoskeletal: Yes Gait Disturbance, Yes Muscular Weakness; No Joint Pain, No Joint Stiffness, No Joint Swelling, No Muscle Pain, No Pain In:, No Swelling In:, No Other Neurological: Yes Gait Disturbance; No Behavorial Changes, No Bowel/Bladder ControlChng, No Confusion, No Dizziness, No Headaches, No Impaired Coord/balance, No Memory Loss, No Numbness/Tingling, No Seizures, No Speech Problems, No Tremors, No Visual Changes, No Weakness, No Other Skin: No Dry Skin, No Eczema, No Hair Changes, No Lumps, No Mole Changes, No Mottling, No Nail Changes, No Pruritus, No Rash, No Skin Lesion Changes, No Other, No Acne Physical Exam General: Alert, Oriented X3, No acute distress HEENT: PERRLA, EOMI Lungs: Clear to auscultation, Normal air movement Heart: S1S2, RRR, no gallops Abdomen: Normal bowel sounds, Soft Rectal Exam: not examined Extremities: No cyanosis, No edema, Normal pulses Skin: No rashes, No breakdown, No significant lesion Neuro: Normal gait, Normal speech, Sensation intact, Cranial nerves 3-12 NL Psych/Mental Status: Mental status NL, Mood NL Vitals Vitals Vital Signs Date Time Temp Pulse Resp B/P (MAP) Pulse Ox O2 Delivery O2 Flow Rate FiO2 03/25/19 09:52 101 109/71 03/25/19 08:36 97 03/25/19 07:40 97.5 24 Room Air 97.5 Labs Labs Laboratory Tests Test 03/24/19 17:40 03/24/19 17:50 03/24/19 20:40 03/25/19 04:00 Urine Collection Type Unknown Urine Color Yellow Urine Clarity Clear Urine pH 8.0 Urine Specific [place] <=1.005 Urine Protein Negative mg/dL (NEG-TRACE) Urine Glucose (UA) Negative mg/dL (NEG) Urine Ketones (Stick) Trace mg/dL (NEG) Urine Blood Negative (NEG) Urine Nitrite Negative (NEG) Urine Bilirubin Negative (NEG) Urine Urobilinogen Dipstick 1.0 mg/dL (0.2 mg/dL) Urine Leukocyte Esterase Large (NEG) Urine RBC 0 /HPF (0-2) Urine WBC Tntc /HPF (0-4) Urine Bacteria Many /HPF (0-FEW) Urine Mucus Mod /LPF Urine Yeast Present /HPF Urine Opiates Screen Neg (NEG) Urine Methadone Screen Neg (NEG) Urine Barbiturates Neg (NEG) Urine Phencyclidine Screen Neg (NEG) Urine Amphetamine/Methamphetamine Neg (NEG) Urine Benzodiazepines Screen Neg (NEG) Urine Cocaine Screen Neg (NEG) Urine Cannabinoids Screen Neg (NEG) Urine Ethyl Alcohol Neg (NEG) White Blood Count 11.6 x10^3/uL (4.0-11.0) 10.9 x10^3/uL (4.0-11.0) Red Blood Count 4.56 x10^6/uL (4.30-5.70) 4.66 x10^6/uL (4.30-5.70) Hemoglobin 13.2 g/dL (13.0-17.5) 13.8 g/dL (13.0-17.5) Hematocrit 39.1 % (39.0-53.0) 40.7 % (39.0-53.0) Mean Corpuscular Volume 86 fL (79-100) 87 fL (79-100) Mean Corpuscular Hemoglobin 29 pg (25-35) 30 pg (25-35) Mean Corpuscular Hemoglobin Concent 34 g/dL (31-37) 34 g/dL (31-37) Red Cell Distribution Width 15.1 % (11.5-14.5) 15.2 % (11.5-14.5) Platelet Count 410 x10^3/uL (140-400) 375 x10^3/uL (140-400) Neutrophils (%) (Auto) 62 % (31-73) 58 % (31-73) Lymphocytes (%) (Auto) 27 % (24-48) 30 % (24-48) Monocytes (%) (Auto) 10 % (0-9) 10 % (0-9) Eosinophils (%) (Auto) 0 % (0-3) 2 % (0-3) Basophils (%) (Auto) 1 % (0-3) 1 % (0-3) Neutrophils # (Auto) 7.2 x10^3/uL (1.8-7.7) 6.3 x10^3/uL (1.8-7.7) Lymphocytes # (Auto) 3.1 x10^3/uL (1.0-4.8) 3.3 x10^3/uL (1.0-4.8) Monocytes # (Auto) 1.1 x10^3/uL (0.0-1.1) 1.1 x10^3/uL (0.0-1.1) Eosinophils # (Auto) 0.0 x10^3/uL (0.0-0.7) 0.2 x10^3/uL (0.0-0.7) Basophils # (Auto) 0.1 x10^3/uL (0.0-0.2) 0.1 x10^3/uL (0.0-0.2) Prothrombin Time 16.5 SEC (11.7-14.0) Prothromb Time International Ratio 1.4 (0.8-1.1) Sodium Level 135 mmol/L (136-145) 138 mmol/L (136-145) Potassium Level 4.0 mmol/L (3.5-5.1) 3.8 mmol/L (3.5-5.1) Chloride Level 99 mmol/L (98-107) 100 mmol/L (98-107) Carbon Dioxide Level 25 mmol/L (21-32) 29 mmol/L (21-32) Anion Gap 11 (6-14) 9 (6-14) Blood Urea Nitrogen 8 mg/dL (8-26) 7 mg/dL (8-26) Creatinine 0.8 mg/dL (0.7-1.3) 0.8 mg/dL (0.7-1.3) Estimated GFR (Cockcroft-Gault) 100.0 100.0 BUN/Creatinine Ratio 10 (6-20) Glucose Level 136 mg/dL (70-99) 110 mg/dL (70-99) Calcium Level 9.5 mg/dL (8.5-10.1) 9.5 mg/dL (8.5-10.1) Magnesium Level 1.5 mg/dL (1.8-2.4) Total Bilirubin 0.7 mg/dL (0.2-1.0) Aspartate Amino Transf (AST/SGOT) 20 U/L (15-37) Alanine Aminotransferase (ALT/SGPT) 26 U/L (16-63) Alkaline Phosphatase 126 U/L (46-116) Creatine Kinase 56 U/L (39-308) Creatine Kinase MB (Mass) 1.4 ng/mL (0.0-3.6) Creatine Kinase MB Relative Index % (0-4) Troponin I Quantitative < 0.017 ng/mL (0.000-0.055) < 0.017 ng/mL (0.000-0.055) SW-Mrg-G-Type Natriuretic Peptide 88 pg/mL (0-124) Total Protein 6.7 g/dL (6.4-8.2) Albumin 3.2 g/dL (3.4-5.0) Albumin/Globulin Ratio 0.9 (1.0-1.7) Thyroid Stimulating Hormone (TSH) 3.044 uIU/mL (0.358-3.74) Test 03/25/19 05:00 Troponin I Quantitative < 0.017 ng/mL (0.000-0.055) Laboratory Tests Test 03/24/19 17:40 03/24/19 17:50 03/24/19 20:40 03/25/19 04:00 Urine Collection Type Unknown Urine Color Yellow Urine Clarity Clear Urine pH 8.0 Urine Specific [place] <=1.005 Urine Protein Negative mg/dL (NEG-TRACE) Urine Glucose (UA) Negative mg/dL (NEG) Urine Ketones (Stick) Trace mg/dL (NEG) Urine Blood Negative (NEG) Urine Nitrite Negative (NEG) Urine Bilirubin Negative (NEG) Urine Urobilinogen Dipstick 1.0 mg/dL (0.2 mg/dL) Urine Leukocyte Esterase Large (NEG) Urine RBC 0 /HPF (0-2) Urine WBC Tntc /HPF (0-4) Urine Bacteria Many /HPF (0-FEW) Urine Mucus Mod /LPF Urine Yeast Present /HPF Urine Opiates Screen Neg (NEG) Urine Methadone Screen Neg (NEG) Urine Barbiturates Neg (NEG) Urine Phencyclidine Screen Neg (NEG) Urine Amphetamine/Methamphetamine Neg (NEG) Urine Benzodiazepines Screen Neg (NEG) Urine Cocaine Screen Neg (NEG) Urine Cannabinoids Screen Neg (NEG) Urine Ethyl Alcohol Neg (NEG) White Blood Count 11.6 x10^3/uL (4.0-11.0) 10.9 x10^3/uL (4.0-11.0) Red Blood Count 4.56 x10^6/uL (4.30-5.70) 4.66 x10^6/uL (4.30-5.70) Hemoglobin 13.2 g/dL (13.0-17.5) 13.8 g/dL (13.0-17.5) Hematocrit 39.1 % (39.0-53.0) 40.7 % (39.0-53.0) Mean Corpuscular Volume 86 fL (79-100) 87 fL (79-100) Mean Corpuscular Hemoglobin 29 pg (25-35) 30 pg (25-35) Mean Corpuscular Hemoglobin Concent 34 g/dL (31-37) 34 g/dL (31-37) Red Cell Distribution Width 15.1 % (11.5-14.5) 15.2 % (11.5-14.5) Platelet Count 410 x10^3/uL (140-400) 375 x10^3/uL (140-400) Neutrophils (%) (Auto) 62 % (31-73) 58 % (31-73) Lymphocytes (%) (Auto) 27 % (24-48) 30 % (24-48) Monocytes (%) (Auto) 10 % (0-9) 10 % (0-9) Eosinophils (%) (Auto) 0 % (0-3) 2 % (0-3) Basophils (%) (Auto) 1 % (0-3) 1 % (0-3) Neutrophils # (Auto) 7.2 x10^3/uL (1.8-7.7) 6.3 x10^3/uL (1.8-7.7) Lymphocytes # (Auto) 3.1 x10^3/uL (1.0-4.8) 3.3 x10^3/uL (1.0-4.8) Monocytes # (Auto) 1.1 x10^3/uL (0.0-1.1) 1.1 x10^3/uL (0.0-1.1) Eosinophils # (Auto) 0.0 x10^3/uL (0.0-0.7) 0.2 x10^3/uL (0.0-0.7) Basophils # (Auto) 0.1 x10^3/uL (0.0-0.2) 0.1 x10^3/uL (0.0-0.2) Prothrombin Time 16.5 SEC (11.7-14.0) Prothromb Time International Ratio 1.4 (0.8-1.1) Sodium Level 135 mmol/L (136-145) 138 mmol/L (136-145) Potassium Level 4.0 mmol/L (3.5-5.1) 3.8 mmol/L (3.5-5.1) Chloride Level 99 mmol/L (98-107) 100 mmol/L (98-107) Carbon Dioxide Level 25 mmol/L (21-32) 29 mmol/L (21-32) Anion Gap 11 (6-14) 9 (6-14) Blood Urea Nitrogen 8 mg/dL (8-26) 7 mg/dL (8-26) Creatinine 0.8 mg/dL (0.7-1.3) 0.8 mg/dL (0.7-1.3) Estimated GFR (Cockcroft-Gault) 100.0 100.0 BUN/Creatinine Ratio 10 (6-20) Glucose Level 136 mg/dL (70-99) 110 mg/dL (70-99) Calcium Level 9.5 mg/dL (8.5-10.1) 9.5 mg/dL (8.5-10.1) Magnesium Level 1.5 mg/dL (1.8-2.4) Total Bilirubin 0.7 mg/dL (0.2-1.0) Aspartate Amino Transf (AST/SGOT) 20 U/L (15-37) Alanine Aminotransferase (ALT/SGPT) 26 U/L (16-63) Alkaline Phosphatase 126 U/L (46-116) Creatine Kinase 56 U/L (39-308) Creatine Kinase MB (Mass) 1.4 ng/mL (0.0-3.6) Creatine Kinase MB Relative Index % (0-4) Troponin I Quantitative < 0.017 ng/mL (0.000-0.055) < 0.017 ng/mL (0.000-0.055) UC-Big-L-Type Natriuretic Peptide 88 pg/mL (0-124) Total Protein 6.7 g/dL (6.4-8.2) Albumin 3.2 g/dL (3.4-5.0) Albumin/Globulin Ratio 0.9 (1.0-1.7) Thyroid Stimulating Hormone (TSH) 3.044 uIU/mL (0.358-3.74) Test 03/25/19 05:00 Troponin I Quantitative < 0.017 ng/mL (0.000-0.055) VTE Prophylaxis Ordered VTE Prophylaxis Devices: Yes VTE Pharmacological Prophylaxi: Yes Assessment/Plan Assessment/Plan chest pain, has been ACS ruled out yesterday, likely GERD pain, on PPI but will double to BID, will consult GI 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 fib Chronic diastolic HF (compensated) Prior hx of CAD (3 stents) Hypothyroidism (noncompliant w/ Synthroid) DM type 2 Dyslipidemia Prior hx of subacute left frontal, temporal, parietal infarct Dysphagia III hypomagnesemia CHANDAN CREWS MD Mar 25, 2019 10:18
--- NOTE | 2019-03-25 10:46 | EKG ---
[facility] [address] [place] [address] Test Date: 2019-03-24 Test Time: 17:40:42 Pat Name: HUMAIRA BORJA Department: Room: Gender: M Head Swamper: : 1960 Requested By: DARRON MYLES Order Number: [id number] Reading MD: Measurements Intervals [place] Rate: 85 P: 80 [place]: 166 QRS: 30 QRSD: 80 T: 55 QT: 360 QTc: 429 Interpretive Statements SINUS RHYTHM LOW LIMB LEAD VOLTAGE QRS(T) CONTOUR ABNORMALITY CONSIDER ANTEROSEPTAL MYOCARDIAL DAMAGE POSSIBLY ABNORMAL ECG RI6.01 Unconfirmed report No previous ECG available for comparison
--- NOTE | 2019-03-25 12:59 | PDOC ---
CARDIOLOGY PROGRESS NOTE SUBJECTIVE: Continuity of care note. Please see prior notes for full details. Patient seen today and readmitted with recurrent atrial fib and abdominal pain. Today communication is difficult but he reports abdominal pain. He has GERD like pain as well. No angina. He does endorse dyspnea. OBJECTIVE: Vital Signs/I&O: Vital Signs Date Time Temp Pulse Resp B/P (MAP) Pulse Ox O2 Delivery O2 Flow Rate FiO2 03/25/19 12:08 72 97/71 (80) 03/25/19 11:46 95 03/25/19 10:54 98.3 24 Room Air 98.3 I & O 03/24/19 03/24/19 03/25/19 15:00 23:00 07:00 Intake Total 120 ml 0 ml Output Total 1200 ml Balance 120 ml -1200 ml Objective: a/o normal heart tones. clr lungs mild diffuse abdominal pain No edema. CURRENT MEDICATIONS: Current Medications Medications (Trade) Dose Ordered Sig/Sharon Route PRN Reason Start Time Stop Time Status Last Admin Dose Admin Aspirin (Kaila Aspirin) 325 mg 1X ONCE PO 03/24/19 18:00 03/24/19 18:01 DC 03/24/19 18:08 Apixaban (Eliquis) 5 mg BID PO 03/24/19 21:30 03/25/19 09:52 Aspirin (Children'S Aspirin) 81 mg DAILYWBKFT PO 03/25/19 08:00 03/25/19 09:52 Fluoxetine HCl (PROzac) 20 mg DAILY PO 03/25/19 09:00 03/25/19 09:52 Furosemide (Lasix) 20 mg DAILY PO 03/25/19 09:00 03/25/19 09:52 Insulin Human Lispro (HumaLOG) 10 units TIDWMEALS SQ 03/25/19 08:00 03/25/19 12:28 Levothyroxine Sodium (Synthroid) 200 mcg DAILY06 PO 03/25/19 06:00 03/25/19 06:32 Metoprolol Tartrate (Lopressor) 100 mg BID PO 03/24/19 21:30 03/25/19 09:52 Pantoprazole Sodium (Protonix) 40 mg DAILYAC PO 03/25/19 07:30 03/25/19 10:19 DC 03/25/19 06:32 Phenytoin Sodium (Dilantin) 100 mg TIDAFTMEAL PO 03/25/19 09:00 03/25/19 09:52 Tamsulosin HCl (Flomax) 0.4 mg DAILY PO 03/25/19 09:00 03/25/19 09:52 Gabapentin (Neurontin) 100 mg TIDAFTMEAL PO 03/25/19 09:00 03/25/19 09:52 Albuterol Sulfate (Ventolin Neb Soln) 2.5 mg RTQID NEB 03/25/19 08:00 03/25/19 11:45 Budesonide (Pulmicort) 0.5 mg RTBID NEB 03/25/19 08:00 03/25/19 08:31 Ceftriaxone Sodium (Rocephin) 1 gm Q24H IVP 03/25/19 09:00 03/25/19 09:52 DIAGNOSTIC TESTING: Labs reviewed Trop negative EKG reviewed. Tele with SR ASSESSMENT: 1. PAF 2. HTN 3. Recent CVA 4. ABd pain/GERD? PLAN: 1. No clear cardiac source of pain with normal EKG and normal enzymes and more GI pain. 2. Try GI cocktail 3. Lisinopril and Imdur reduced. Continue eliquis per primary team and metoprolol. 4. Stop Lasix. Supportive care. LUCERO DONAHUE MD Mar 25, 2019 12:59
[2019-03-25] MEDS ORDERED: LIDO:MAALOX 1:1 20 ML SINGLE DOSE. SWSW ONE (13:00)
[2019-03-25] MEDS ORDERED: LIDO:MAALOX 1:1 20 ML SINGLE DOSE. PO PRN (13:00)
--- NOTE | 2019-03-25 14:57 | PDOC2 ---
GI CONSULT Reason For Consult: chest pain HPI: HPI: 58 y/o male s/p CVA with chest pain. he admits to pain after eating and pain that starts in his chest and radiates down to his lower abdomen. he does not have pain with bowel movements. he denies prior EGD/Colon He had a CT 02/23/2019 that revealed enteritis. Swallow eval 12/29/2018 showed mildly disordered swallow mechanism with aspiration. Was DC yesterday after obs for chest pain, ACS was ruled out. sent back here by staff [facility]. When asked if he has pain, he points to his chest. I cannot get any other history. he denies changes in pain, nods yes that it "hurts all the time" PMH: PMH: Past Medical History Cardiovascular: AFIB, CAD, CHF, HTN, Hyperlipidemia Pulmonary: COPD CENTRAL NERVOUS SYSTEM: Periperal neuropathy, Seizure GI: Constipation, GERD Heme/Onc: No pertinent hx Hepatobiliary: No pertinent hx Psych: No pertinent hx Musculoskeletal: Osteoarthritis Rheumatologic: No pertinent hx Infectious disease: No pertinent hx Renal/: No pertinent hx Endocrine: Diabetes, Hypothyroidism Past Surgical History Past Surgical History: Other Family History Family History: Coronary Artery Disease Social History ALCOHOL: none Drugs: None Current Problem List Problem List Problems Medical Problems: (1) Chest pain Status: Acute Current Medications Current Medications Current Medications Aspirin (Kaila Aspirin) 325 mg 1X ONCE PO Last administered on 03/24/19at 18:08; Start 03/24/19 at 18:00; Stop 03/24/19 at 18:01; Status DC Nitroglycerin (Nitrostat) 0.4 mg PRN Q5MIN PRN SL CP RATING > 1/10; Start 03/24/19 at 18:00; Stop 03/25/19 at 17:59 Ondansetron HCl (Zofran) 4 mg PRN Q8HRS PRN IV NAUSEA/VOMITING; Start 03/24/19 at 19:30; Stop 03/25/19 at 19:29 Acetaminophen (Tylenol) 650 mg PRN Q4HRS PRN PO FEVER; Start 03/24/19 at 19:30; Stop 03/25/19 at 19:29 Albuterol Sulfate (Ventolin Neb Soln) 2.5 mg PRN Q6HRS PRN NEB SHORTNESS OF BREATH; Start 03/24/19 at 21:15; Status UNV Apixaban (Eliquis) 5 mg BID PO Last administered on 03/25/19at 09:52; Start 03/24/19 at 21:30 Aspirin (Children'S Aspirin) 81 mg DAILYWBKFT PO Last administered on 03/25/19at 09:52; Start 03/25/19 at 08:00 Aspirin (Kaila Aspirin) 325 mg DAILYWBKFT PO ; Start 03/25/19 at 08:00; Status UNV Atorvastatin Calcium (Lipitor) 40 mg QHS PO ; Start 03/24/19 at 21:30 Budesonide (Pulmicort) 0.5 mg PRN BID PRN NEB SHORTNESS OF BREATH; Start 03/24/19 at 21:15; Status Cancel Cyclobenzaprine HCl (Flexeril) 10 mg PRN TID PRN PO MUSCLE spasms/pain; Start 03/24/19 at 21:15 Fluoxetine HCl (PROzac) 20 mg DAILY PO Last administered on 03/25/19at 09:52; Start 03/25/19 at 09:00 Furosemide (Lasix) 20 mg DAILY PO Last administered on 03/25/19at 09:52; Start 03/25/19 at 09:00 Gabapentin (Neurontin) 100 mg TID PO ; Start 03/24/19 at 21:30; Stop 03/24/19 at 21:25; Status DC Gabapentin (Neurontin) 300 mg QHS PO ; Start 03/24/19 at 21:30 Acetaminophen/ Hydrocodone Bitart (Lortab 5/325) 1 tab PRN Q4HRS PRN PO chest pain; Start 03/24/19 at 21:15 Hydrocortisone (Cortaid) 1 edvin QID TP ; Start 03/25/19 at 09:00 Insulin Glargine (Lantus Syringe) 42 unit QHS SQ ; Start 03/24/19 at 21:30 Insulin Human Lispro (HumaLOG) 10 units TIDWMEALS SQ ; Start 03/25/19 at 08:00 Isosorbide Mononitrate (Imdur) 30 mg BID PO ; Start 03/24/19 at 21:30 Levothyroxine Sodium (Synthroid) 200 mcg DAILY06 PO Last administered on 03/25/19at 06:32; Start 03/25/19 at 06:00 Lisinopril (Prinivil) 20 mg DAILY PO ; Start 03/25/19 at 09:00 Metoprolol Tartrate (Lopressor) 100 mg BID PO Last administered on 03/25/19at 09:52; Start 03/24/19 at 21:30 Nystatin (Nystop) 1 edvin BID TP ; Start 03/25/19 at 09:00 Ondansetron HCl (Zofran Odt) 4 mg PRN Q6HRS PRN PO NAUSEA/VOMITING; Start 03/24/19 at 21:15 Oxybutynin Chloride (Ditropan) 5 mg PRN TID PRN PO URINARY PAIN; Start 03/24/19 at 21:15 Pantoprazole Sodium (Protonix) 40 mg DAILYAC PO Last administered on 03/25/19at 06:32; Start 03/25/19 at 07:30 Phenytoin Sodium (Dilantin) 100 mg TIDAFTMEAL PO Last administered on 03/25/19at 09:52; Start 03/25/19 at 09:00 Phenytoin Sodium (Dilantin) 300 mg HS PO ; Start 03/24/19 at 21:30 Tamsulosin HCl (Flomax) 0.4 mg DAILY PO Last administered on 03/25/19at 09:52; Start 03/25/19 at 09:00 Non-Formulary Medication (Albuterol Sulfate (Proventil Hfa)) 1 puff PRN Q6HRS PRN INH SHORTNESS OF BREATH; Start 03/24/19 at 21:15; Status UNV Non-Formulary Medication (Insulin Glargine,Hum.rec.anlog (Lantus Solostar)) 42 units QHS SQ ; Start 03/25/19 at 21:00; Status UNV Non-Formulary Medication (Levothyroxine Sodium ) 200 mcg DAILYAC PO ; Start 03/25/19 at 07:30; Status UNV Non-Formulary Medication (Mometasone/ Formoterol (Dulera 200 Mcg/5 Mcg Inhaler)) 1 puff HS IH ; Start 03/25/19 at 21:00; Status UNV Gabapentin (Neurontin) 100 mg TIDAFTMEAL PO Last administered on 03/25/19at 09:52; Start 03/25/19 at 09:00 Albuterol Sulfate (Ventolin Neb Soln) 2.5 mg PRN Q6HRS PRN NEB SHORTNESS OF BREATH; Start 03/24/19 at 22:00 Albuterol Sulfate (Ventolin Neb Soln) 2.5 mg RTQID NEB Last administered on 03/25/19at 08:31; Start 03/25/19 at 08:00 Budesonide (Pulmicort) 0.5 mg RTBID NEB Last administered on 03/25/19at 08:31; Start 03/25/19 at 08:00 Ceftriaxone Sodium (Rocephin) 1 gm Q24H IVP Last administered on 03/25/19at 09:52; Start 03/25/19 at 09:00 Active Scripts Active Hydrocodone-Apap 5-325 (Hydrocodone Bit/Acetaminophen) 1 Tab Tablet 1 Tab PO PRN Q4HRS PRN Anti-Itch (Hydrocortisone Acetate) 28 Gm Oint...g. 1 Edvin TP QID Lantus (Insulin Glargine,Hum.rec.anlog) 100 Unit/1 Ml Vial 42 Unit SQ QHS 30 Days Nystop (Nystatin) 60 Gm Powder 1 Edvin TP BID Ondansetron Odt (Ondansetron) 4 Mg Tab.rapdis 4 Mg PO PRN Q6HRS PRN Pantoprazole Sodium (Pantoprazole Sodium) 40 Mg Tablet.dr 40 Mg PO DAILYAC Budesonide 0.5 Mg/2 Ml Ampul.neb 0.5 Mg NEB PRN BID PRN 30 Days Fluoxetine Hcl 20 Mg Capsule 20 Mg PO DAILY Gabapentin 300 Mg Capsule 300 Mg PO QHS Dilantin (Phenytoin Sodium Extended) 100 Mg Capsule 300 Mg PO HS Aspirin 81 Mg Tab.chew 81 Mg PO DAILYWBKFT Eliquis (Apixaban) 5 Mg Tablet 5 Mg PO BID Cyclobenzaprine Hcl 10 Mg Tablet 10 Mg PO PRN TID PRN Flomax (Tamsulosin Hcl) 0.4 Mg Cap.er.24h 0.4 Mg PO DAILY Proair Hfa (Albuterol Sulfate) 8.5 Gm Hfa.aer.ad 2.5 Mg NEB PRN Q6HRS PRN 30 Days Dilantin (Phenytoin Sodium Extended) 100 Mg Capsule 1 Cap PO TID Humalog (Insulin Lispro) 100 Unit/1 Ml Insuln.pen 10 Units SQ TIDWMEALS 30 Days Lantus Solostar (Insulin Glargine,Hum.rec.anlog) 100 Unit/1 Ml Insuln.pen 42 Units SQ QHS 30 Days Synthroid (Levothyroxine Sodium) 100 Mcg Tablet 200 Mcg PO DAILY06 Lisinopril 40 Mg Tablet 20 Mg PO DAILY Metoprolol Tartrate 50 Mg Tablet 100 Mg PO BID Atorvastatin Calcium 40 Mg Tablet 40 Mg PO QHS Isosorbide Mononitrate Er (Isosorbide Mononitrate) 30 Mg Tab.er.24h 30 Mg PO BID Reported Levothyroxine Sodium 200 Mcg Tablet 200 Mcg PO DAILYAC Dulera 200 Mcg/5 Mcg Inhaler (Mometasone/Formoterol) 13 Gm Hfa.aer.ad 1 Puff IH HS Oxybutynin Chloride 5 Mg Tablet 1 Tab PO PRN TID PRN Gabapentin (Gabapentin) 100 Mg Capsule 100 Mg PO TID Furosemide 20 Mg Tablet 1 Tab PO DAILY Proventil Hfa (Albuterol Sulfate) 6.7 Gm Hfa.aer.ad 1 Puff INH PRN Q6HRS PRN Allergies Allergies: Coded Allergies: No Known Drug Allergies (Unverified , 12/21/18) FH: Family History: CAD Social History: ALCOHOL: none Drugs: None ROS: ROS Review of System aphasic, this review is limited General: No: Malaise, Appetite, Other PSYCHOLOGICAL ROS: No: Anxiety, Behavioral Disorder, Concentration difficultie, Decreased libido, Depression, Disorientation, Hallucinations, Other Eyes: No Blurry vision, No Decreased vision, No Double vision, No Dry eyes, No Excessive tearing, No Eye Pain, No Itchy Eyes, No Loss of vision, No Photophobia, No Scotomata, No Uses contacts, No Uses glasses, No Other HEENT: No: Heacaches, Visual Changes, Hearing change, Nasal congestion, Nasal discharge, Oral lesions, Sinus pain, Sore Throat, Epistaxis, Sneezing, Snoring, Tinnitus, Vertigo, Vocal changes, Other Respiratory: No: Cough, Hemoptysis, Orthopnea, Pleuritic Pain, Shortness of breath, Sputum Changes Cardiovascular: yes Chest Pain (maybe) Gastrointestinal: Yes Abdominal Pain (motioning more here. ); No Nausea, No Vomiting, No Diarrhea, No Constipation, No Melena, No Hematochezia, No Other Genitourinary: No Dysuria, No Frequency, No Incontinence, No Hematuria, No Retention, No Discharge, No Urgency, No Pain, No Flank Pain, No Other, No , No , No , No , No , No , No Musculoskeletal: Yes Gait Disturbance, Yes Muscular Weakness; No Joint Pain, No Joint Stiffness, No Joint Swelling, No Muscle Pain, No Pain In:, No Swelling In:, No Other Neurological: Yes Gait Disturbance; No Behavorial Changes, No Bowel/Bladder ControlChng, No Confusion, No Dizziness, No Headaches, No Impaired Coord/balance, No Memory Loss, No Numbness/Tingling, No Seizures, No Speech Problems, No Tremors, No Visual Changes, No Weakness, No Other Skin: No Dry Skin, No Eczema, No Hair Changes, No Lumps, No Mole Changes, No Mottling, No Nail Changes, No Pruritus, No Rash, No Skin Lesion Changes, No Other, No Acne VItals: Vitals: Vital Signs Date Time Temp Pulse Resp B/P (MAP) Pulse Ox O2 Delivery O2 Flow Rate FiO2 03/25/19 12:08 72 97/71 (80) 03/25/19 11:46 95 03/25/19 10:54 98.3 24 Room Air 98.3 Labs: Labs: Laboratory Tests Test 03/24/19 17:40 03/24/19 17:50 03/24/19 20:40 03/25/19 04:00 Urine Collection Type Unknown Urine Color Yellow Urine Clarity Clear Urine pH 8.0 Urine Specific [place] <=1.005 Urine Protein Negative mg/dL (NEG-TRACE) Urine Glucose (UA) Negative mg/dL (NEG) Urine Ketones (Stick) Trace mg/dL (NEG) Urine Blood Negative (NEG) Urine Nitrite Negative (NEG) Urine Bilirubin Negative (NEG) Urine Urobilinogen Dipstick 1.0 mg/dL (0.2 mg/dL) Urine Leukocyte Esterase Large (NEG) Urine RBC 0 /HPF (0-2) Urine WBC Tntc /HPF (0-4) Urine Bacteria Many /HPF (0-FEW) Urine Mucus Mod /LPF Urine Yeast Present /HPF Urine Opiates Screen Neg (NEG) Urine Methadone Screen Neg (NEG) Urine Barbiturates Neg (NEG) Urine Phencyclidine Screen Neg (NEG) Urine Amphetamine/Methamphetamine Neg (NEG) Urine Benzodiazepines Screen Neg (NEG) Urine Cocaine Screen Neg (NEG) Urine Cannabinoids Screen Neg (NEG) Urine Ethyl Alcohol Neg (NEG) White Blood Count 11.6 x10^3/uL (4.0-11.0) 10.9 x10^3/uL (4.0-11.0) Red Blood Count 4.56 x10^6/uL (4.30-5.70) 4.66 x10^6/uL (4.30-5.70) Hemoglobin 13.2 g/dL (13.0-17.5) 13.8 g/dL (13.0-17.5) Hematocrit 39.1 % (39.0-53.0) 40.7 % (39.0-53.0) Mean Corpuscular Volume 86 fL (79-100) 87 fL (79-100) Mean Corpuscular Hemoglobin 29 pg (25-35) 30 pg (25-35) Mean Corpuscular Hemoglobin Concent 34 g/dL (31-37) 34 g/dL (31-37) Red Cell Distribution Width 15.1 % (11.5-14.5) 15.2 % (11.5-14.5) Platelet Count 410 x10^3/uL (140-400) 375 x10^3/uL (140-400) Neutrophils (%) (Auto) 62 % (31-73) 58 % (31-73) Lymphocytes (%) (Auto) 27 % (24-48) 30 % (24-48) Monocytes (%) (Auto) 10 % (0-9) 10 % (0-9) Eosinophils (%) (Auto) 0 % (0-3) 2 % (0-3) Basophils (%) (Auto) 1 % (0-3) 1 % (0-3) Neutrophils # (Auto) 7.2 x10^3/uL (1.8-7.7) 6.3 x10^3/uL (1.8-7.7) Lymphocytes # (Auto) 3.1 x10^3/uL (1.0-4.8) 3.3 x10^3/uL (1.0-4.8) Monocytes # (Auto) 1.1 x10^3/uL (0.0-1.1) 1.1 x10^3/uL (0.0-1.1) Eosinophils # (Auto) 0.0 x10^3/uL (0.0-0.7) 0.2 x10^3/uL (0.0-0.7) Basophils # (Auto) 0.1 x10^3/uL (0.0-0.2) 0.1 x10^3/uL (0.0-0.2) Prothrombin Time 16.5 SEC (11.7-14.0) Prothromb Time International Ratio 1.4 (0.8-1.1) Sodium Level 135 mmol/L (136-145) 138 mmol/L (136-145) Potassium Level 4.0 mmol/L (3.5-5.1) 3.8 mmol/L (3.5-5.1) Chloride Level 99 mmol/L (98-107) 100 mmol/L (98-107) Carbon Dioxide Level 25 mmol/L (21-32) 29 mmol/L (21-32) Anion Gap 11 (6-14) 9 (6-14) Blood Urea Nitrogen 8 mg/dL (8-26) 7 mg/dL (8-26) Creatinine 0.8 mg/dL (0.7-1.3) 0.8 mg/dL (0.7-1.3) Estimated GFR (Cockcroft-Gault) 100.0 100.0 BUN/Creatinine Ratio 10 (6-20) Glucose Level 136 mg/dL (70-99) 110 mg/dL (70-99) Calcium Level 9.5 mg/dL (8.5-10.1) 9.5 mg/dL (8.5-10.1) Magnesium Level 1.5 mg/dL (1.8-2.4) Total Bilirubin 0.7 mg/dL (0.2-1.0) Aspartate Amino Transf (AST/SGOT) 20 U/L (15-37) Alanine Aminotransferase (ALT/SGPT) 26 U/L (16-63) Alkaline Phosphatase 126 U/L (46-116) Creatine Kinase 56 U/L (39-308) Creatine Kinase MB (Mass) 1.4 ng/mL (0.0-3.6) Creatine Kinase MB Relative Index % (0-4) Troponin I Quantitative < 0.017 ng/mL (0.000-0.055) < 0.017 ng/mL (0.000-0.055) XB-Qxb-G-Type Natriuretic Peptide 88 pg/mL (0-124) Total Protein 6.7 g/dL (6.4-8.2) Albumin 3.2 g/dL (3.4-5.0) Albumin/Globulin Ratio 0.9 (1.0-1.7) Thyroid Stimulating Hormone (TSH) 3.044 uIU/mL (0.358-3.74) Test 03/25/19 05:00 03/25/19 11:30 Troponin I Quantitative < 0.017 ng/mL (0.000-0.055) Lipase 154 U/L (73-393) Glucose (Fingerstick) 136 mg/dL (70-99) Imaging: Imaging: CT ABDOMEN PELVIS WO CONTRAST INDICATION: Nausea, vomiting, diarrhea, abnormal abdominal radiograph EXAM: Noncontrast CT of the abdomen and pelvis. Coronal and sagittal reformatted images were performed. PQRS compliance statement: One or more of the following individualized dose reduction techniques were utilized for this examination: 1. Automated exposure control 2. Adjustment of the mA and/or kV according to patient size 3. Use of iterative reconstruction technique COMPARISON: Abdominal radiograph 02/23/2019 FINDINGS: No free air, free fluid, or fluid collection. Lower chest: The visualized lower lungs are aerated. Trace pericardial fluid, likely physiologic. Coronary artery stent. ABDOMEN: Liver: The noncontrast liver is homogeneous in attenuation. Gallbladder and biliary: Normal gallbladder without radiopaque stone. Normal caliber bile ducts. Spleen: Normal spleen. Pancreas: The noncontrast pancreas is homogeneous in attenuation without peripancreatic inflammatory changes. Adrenal glands: Normal adrenal glands. Kidneys and ureters: No opaque urinary calculi. Normal kidneys and ureters. GI tract: The stomach is distended with fluid and gas. Diffusely dilated small bowel containing fluid and gas and measuring up to 4.2 cm in diameter. The colon is well distended and contains fluid and gas throughout. Normal appendix. Vascular structures: Normal caliber abdominal aorta. Mild aortoiliac atherosclerotic disease. Lymph nodes: No lymphadenopathy in the abdomen or pelvis. PELVIS: Genitourinary system: Bladder is decompressed by Pretty catheter. Normal prostate gland and seminal vesicles. SKELETAL STRUCTURES AND SOFT TISSUES: No fracture or destructive lesion in the visualized skeleton. IMPRESSION: 1. No evidence of bowel obstruction. No free air. 2. Diffusely dilated small bowel and well distended stomach and colon, with gas and fluid throughout the digestive tract. Findings likely relate to enteritis. Electronically signed by: Shell Rodriguez MD (02/24/2019 7:16 AM) [facility] [place] [facility] [place] DICTATED and SIGNED BY: SHELL RODRIGUEZ MD DATE: 02/24/19715 PE: Physical Exam General: Alert, Oriented X3, No acute distress HEENT: PERRLA, EOMI Lungs: Clear to auscultation, Normal air movement Heart: S1S2, RRR, no gallops Abdomen: Normal bowel sounds, Soft Rectal Exam: not examined Extremities: No cyanosis, No edema, Normal pulses Skin: No rashes, No breakdown, No significant lesion Neuro: Normal gait, Normal speech, Sensation intact, Cranial nerves 3-12 NL Psych/Mental Status: Mental status NL, Mood NL A/P: A/P: A 1) Chest pain 2) Enteritis on CT 02/23/2019 P 1) Will check CT- fovr PO and IV contrast. Per nursing, he can swallow contrast 2) PPI REMIGIO HARPER MD Mar 25, 2019 14:57
[2019-03-25] MEDS ORDERED: IOHEXOL 300 MG/ML 100ML VIAL. IV ONE (15:30)
[2019-03-25] MEDS ORDERED: IOHEXOL 240 MG/ML 50ML VIAL. PO ONE (15:30)
[2019-03-25] MEDS: PANTOPRAZOLE 40 MG TABLET.DR. PO SCH (17:43)
[2019-03-25] MEDS: GABAPENTIN 300 MG CAPSULE. PO SCH (20:58)
[2019-03-25] MEDS: ATORVASTATIN CALCIUM 40 MG TABLET. PO SCH (20:58)
[2019-03-25] MEDS ORDERED: NON FORMULARY ITEM (Mometasone/Formoterol (Dulera 200 Mcg/5 Mcg Inhaler) 1 PUFF) IH SCH (21:00)
[2019-03-25] MEDS ORDERED: INSULIN GLARGINE HUM REC ANLOG 42 UNIT SQ SCH (21:00)
[2019-03-25] MEDS: INSULIN GLARGINE SYRINGE. SQ SCH (21:04)
[2019-03-26] VITALS (9 sets, daily range): BP systolic 88–140; BP diastolic 58–85
--- NOTE | 2019-03-26 00:03 | RAD ---
Examination: CT of the abdomen pelvis with oral and IV contrast HISTORY: History of pain, enteritis. COMPARISON: 02/23/2019 TECHNIQUE: Axial CT images of the abdomen pelvis were performed with oral and IV contrast. Cholecystectomy, so performed Exposure: One or more of the following individualized dose reduction techniques were utilized for this examination: 1. Automated exposure control 2. Adjustment of the mA and/or kV according to patient size 3. Use of iterative reconstruction technique FINDINGS: Mild bibasilar groundglass airspace opacities. No evidence of free air identified in the abdomen. Trace pericardial effusion. No evidence of free air identified in the abdomen. The visualized liver, spleen, adrenals grossly appears unremarkable. The gallbladder is mildly distended. The stomach is mildly distended. The visualized pancreas grossly appears unremarkable. The small bowel is nondilated. The appendix is normal. Feces and gas noted in the colon. Pretty catheter balloon identified in the urinary bladder. Minimal fat stranding identified about the urinary bladder. The bilateral kidneys enhance symmetrically. The caliber of the aorta grossly appears unremarkable. Moderate aortic atherosclerosis. Mild degenerative changes thoracic lumbar spine. IMPRESSION: 1. Minimal fat stranding identified about the nondistended urinary bladder, cystitis is not excluded. Correlate with urine analysis. 2. Trace pericardial effusion. Electronically signed by: Gustavo Suarez MD (03/26/2019 12:01 AM) [id number]
[2019-03-26] MEDS: LEVOTHYROXINE 100 MCG TABLET PO SCH (06:13)
[2019-03-26 06:30] LABS: BASO # 0.1 x10^3/uL (0.0-0.2); BASO % 1 % (0-3); EOS # 0.1 x10^3/uL (0.0-0.7); EOS % 2 % (0-3); HEMATOCRIT 39.7 % (39.0-53.0); HEMOGLOBIN 13.5 g/dL (13.0-17.5); LYMPH # 2.5 x10^3/uL (1.0-4.8); LYMPH % 25 % (24-48); MEAN CORPUSCULAR HEMOGLOBIN 30 pg (25-35); MEAN CORPUSCULAR HGB CONC 34 g/dL (31-37); MEAN CORPUSCULAR VOLUME 87 fL (79-100); MONO # 1.1 x10^3/uL (0.0-1.1); MONO % 11 % (0-9); NEUT % 62 % (31-73); PLATELET COUNT 351 x10^3/uL (140-400); RED BLOOD COUNT 4.56 x10^6/uL (4.30-5.70); RED CELL DISTRIBUTION WIDTH 15.1 % (11.5-14.5); WHITE BLOOD COUNT 9.7 x10^3/uL (4.0-11.0)
[2019-03-26 06:47] LABS: ALBUMIN 3.2 g/dL (3.4-5.0); ALBUMIN/GLOBULIN RATIO 0.9 (1.0-1.7); CALCIUM 9.4 mg/dL (8.5-10.1); CREATININE 0.7 mg/dL (0.7-1.3); GFR 116.7; POTASSIUM 3.9 mmol/L (3.5-5.1); TOTAL BILIRUBIN 0.6 mg/dL (0.2-1.0); TOTAL PROTEIN 6.8 g/dL (6.4-8.2)
[2019-03-26] MEDS: BUDESONIDE 0.5 MG/2 ML NEBU. NEB SCH ×2 (07:45→19:41)
[2019-03-26] MEDS: ALBUTEROL SULFATE 2.5 MG/3 ML NEBU. NEB SCH ×4 (07:45→19:41)
[2019-03-26] MEDS: INSULIN LISPRO 300 UNITS/3 ML VIAL. SQ SCH ×3 (08:00→17:00)
[2019-03-26] MEDS: HYDROCORTISONE 1% TOPICAL OINTMENT 30GM TUBE. TP SCH ×4 (09:00→21:00)
[2019-03-26] MEDS: NYSTATIN TOPICAL POWDER 15GM BOTTLE. TP SCH ×2 (09:00→21:00)
[2019-03-26] MEDS: GABAPENTIN 100 MG CAPSULE. PO SCH ×3 (09:13→18:22)
[2019-03-26] MEDS: TAMSULOSIN 0.4 MG CAP.ER.24H. PO SCH (09:13)
[2019-03-26] MEDS: FLUoxetine HCL 20 MG CAPSULE PO SCH (09:13)
[2019-03-26] MEDS: ASPIRIN CHEWABLE 81 MG TABLET. PO SCH (09:13)
[2019-03-26] MEDS: APIXABAN 5 MG TABLET. PO SCH ×2 (09:13→21:09)
[2019-03-26] MEDS: PANTOPRAZOLE 40 MG TABLET.DR. PO SCH ×2 (09:13→18:22)
[2019-03-26] MEDS: ISOSORBIDE MONONITRATE ER 30 MG TAB.ER.24H PO SCH (09:14)
[2019-03-26] MEDS: PHENYTOIN SODIUM EXTENDED 100 MG CAPSULE PO SCH ×4 (09:14→21:09)
[2019-03-26] MEDS: METOPROLOL TART IMMED RELEASE 50 MG TABLET. PO SCH ×2 (09:14→21:00)
[2019-03-26] MEDS: cefTRIAXone IV Push 1 GM VIAL. IVP SCH (09:30)
[2019-03-26] MEDS: LISINOPRIL 20 MG TABLET PO SCH (13:40)
--- NOTE | 2019-03-26 14:23 | PDOC ---
Subjective: Subjective: Examination: CT of the abdomen pelvis with oral and IV contrast HISTORY: History of pain, enteritis. COMPARISON: 02/23/2019 TECHNIQUE: Axial CT images of the abdomen pelvis were performed with oral and IV contrast. Cholecystectomy, so performed Exposure: One or more of the following individualized dose reduction techniques were utilized for this examination: 1. Automated exposure control 2. Adjustment of the mA and/or kV according to patient size 3. Use of iterative reconstruction technique FINDINGS: Mild bibasilar groundglass airspace opacities. No evidence of free air identified in the abdomen. Trace pericardial effusion. No evidence of free air identified in the abdomen. The visualized liver, spleen, adrenals grossly appears unremarkable. The gallbladder is mildly distended. The stomach is mildly distended. The visualized pancreas grossly appears unremarkable. The small bowel is nondilated. The appendix is normal. Feces and gas noted in the colon. Pretty catheter balloon identified in the urinary bladder. Minimal fat stranding identified about the urinary bladder. The bilateral kidneys enhance symmetrically. The caliber of the aorta grossly appears unremarkable. Moderate aortic atherosclerosis. Mild degenerative changes thoracic lumbar spine. IMPRESSION: 1. Minimal fat stranding identified about the nondistended urinary bladder, cystitis is not excluded. Correlate with urine analysis. 2. Trace pericardial effusion. Objective: Vital Signs: Vital Signs Date Time Temp Pulse Resp B/P (MAP) Pulse Ox O2 Delivery O2 Flow Rate FiO2 03/26/19 13:40 88/64 (72) 03/26/19 11:51 96 Room Air 03/26/19 10:40 97.8 64 18 97.8 Labs: Laboratory Tests Test 03/25/19 16:30 03/25/19 20:56 03/26/19 05:55 03/26/19 07:08 Glucose (Fingerstick) 77 mg/dL (70-99) 109 mg/dL (70-99) 109 mg/dL (70-99) White Blood Count 9.7 x10^3/uL (4.0-11.0) Red Blood Count 4.56 x10^6/uL (4.30-5.70) Hemoglobin 13.5 g/dL (13.0-17.5) Hematocrit 39.7 % (39.0-53.0) Mean Corpuscular Volume 87 fL (79-100) Mean Corpuscular Hemoglobin 30 pg (25-35) Mean Corpuscular Hemoglobin Concent 34 g/dL (31-37) Red Cell Distribution Width 15.1 % (11.5-14.5) Platelet Count 351 x10^3/uL (140-400) Neutrophils (%) (Auto) 62 % (31-73) Lymphocytes (%) (Auto) 25 % (24-48) Monocytes (%) (Auto) 11 % (0-9) Eosinophils (%) (Auto) 2 % (0-3) Basophils (%) (Auto) 1 % (0-3) Neutrophils # (Auto) 6.0 x10^3/uL (1.8-7.7) Lymphocytes # (Auto) 2.5 x10^3/uL (1.0-4.8) Monocytes # (Auto) 1.1 x10^3/uL (0.0-1.1) Eosinophils # (Auto) 0.1 x10^3/uL (0.0-0.7) Basophils # (Auto) 0.1 x10^3/uL (0.0-0.2) Sodium Level 138 mmol/L (136-145) Potassium Level 3.9 mmol/L (3.5-5.1) Chloride Level 100 mmol/L (98-107) Carbon Dioxide Level 30 mmol/L (21-32) Anion Gap 8 (6-14) Blood Urea Nitrogen 5 mg/dL (8-26) Creatinine 0.7 mg/dL (0.7-1.3) Estimated GFR (Cockcroft-Gault) 116.7 BUN/Creatinine Ratio 7 (6-20) Glucose Level 105 mg/dL (70-99) Calcium Level 9.4 mg/dL (8.5-10.1) Total Bilirubin 0.6 mg/dL (0.2-1.0) Aspartate Amino Transf (AST/SGOT) 21 U/L (15-37) Alanine Aminotransferase (ALT/SGPT) 24 U/L (16-63) Alkaline Phosphatase 138 U/L (46-116) Total Protein 6.8 g/dL (6.4-8.2) Albumin 3.2 g/dL (3.4-5.0) Albumin/Globulin Ratio 0.9 (1.0-1.7) Test 03/26/19 11:41 Glucose (Fingerstick) 196 mg/dL (70-99) Physical Exam: Physical Exam: pt asleep Assessment & Plan: Assessment : 1) Abd pain Plan: iamging suggestive of cystitis. UA from 03/24 with TNTC WBC and many bacteria. Suspect UTI. Will check UA with c&S REMIGIO HARPER MD Mar 26, 2019 14:23
--- NOTE | 2019-03-26 14:50 | PDOC2 ---
UROLOGY CONSULT Date of Consult Date of Consult DATE: 03/26/19 TIME: 14:35 Identification/Chief Complaint Chief Complaint cystitis, abdominal pain History of Present Illness Reason for Visit: 58yo male with PMH of CVA presented to ER for chest pain and admitted for observ ation. Patient is nonverbal so history is limited, but indicated abdominal pain upon admission. CT was done that showed cystitis and UA was positive for leuk esterase, WBC tntc, many bacteria, and yeast present. He shakes head yes to abdominal pain. 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 Patient was scheduled for outpatient office visit 03/22/19 for voiding trial which did not occur. Past Medical History Cardiovascular: AFIB, CAD, CHF, HTN, Hyperlipidemia Pulmonary: COPD CENTRAL NERVOUS SYSTEM: Periperal neuropathy, Seizure GI: Constipation, GERD Heme/Onc: No pertinent hx Hepatobiliary: No pertinent hx Psych: No pertinent hx Musculoskeletal: Osteoarthritis Rheumatologic: No pertinent hx Infectious disease: No pertinent hx Renal/: No pertinent hx Endocrine: Diabetes, Hypothyroidism Past Surgical History Past Surgical History: Other Family History Family History: Coronary Artery Disease Social History ALCOHOL: none Drugs: None Lives: Skilled Nursing Current Medications Current Medications Current Medications Iohexol (Omnipaque 240 Mg/ml) 30 ml 1X ONCE PO Last administered on 03/25/19at 17:38; Start 03/25/19 at 15:30; Stop 03/25/19 at 15:36; Status DC Iohexol (Omnipaque 300 Mg/ml) 75 ml 1X ONCE IV Last administered on 03/25/19at 17:38; Start 03/25/19 at 15:30; Stop 03/25/19 at 15:36; Status DC Isosorbide Mononitrate (Imdur) 30 mg DAILY08 PO Last administered on 03/26/19at 09:33; Start 03/26/19 at 08:00 Lisinopril (Prinivil) 10 mg DAILY PO ; Start 03/26/19 at 09:00 Non-Formulary Medication (Insulin Glargine,Hum.rec.anlog (Lantus Solostar)) 42 units QHS SQ ; Start 03/25/19 at 21:00; Status UNV Non-Formulary Medication (Mometasone/ Formoterol (Dulera 200 Mcg/5 Mcg Inhaler)) 1 puff HS IH ; Start 03/25/19 at 21:00; Status UNV Pantoprazole Sodium (Protonix) 40 mg BIDWMEALS PO Last administered on 03/26/19at 09:33; Start 03/25/19 at 17:00 Allergies Allergies: Coded Allergies: No Known Drug Allergies (Unverified , 12/21/18) ROS Review Of Systems: CONSTITUTIONAL: No fever or chills EYES: No recent changes SKIN: No rash or itching CARDIOVASCULAR: No chest pain, syncope, palpitations, or edema RESPIRATORY: No SOB or cough GASTROINTESTINAL: No nausea, vomiting. + abdominal pain NEUROLOGICAL: No headaches or weakness ENDOCRINE: No cold or heat intolerance GENITOURINARY: as in HPI MUSCULOSKELETAL: No back pain or joint pain LYMPHATICS: No enlarged lymph nodes PSYCHIATRIC: No anxiety or depression Physical Exam Physical Exam: General: Pleasant, no acute distress, well groomed. nonverbal Eyes: conjunctiva anicteric, eyes full range of motion ENT: moist oral mucosa, normal dentition Neck: Trachea midline, no masses Respiratory: unlabored breathing, not using accessory muscles Cardiovascular: Regular rate and rhythm, no peripheral edema Abdomen: TTP suprapubic, nondistended, no hepatosplenomegaly, no masses : cooper in place draining clear yellow urine Skin: no rashes or skin lesions on visualized skin Psych: normal mood, affect. nonverbal Vitals VITALS Vital Signs Date Time Temp Pulse Resp B/P (MAP) Pulse Ox O2 Delivery O2 Flow Rate FiO2 03/26/19 14:24 98.4 69 18 93/66 (75) 96 Room Air 98.4 Labs Labs Laboratory Tests Test 03/24/19 17:40 03/24/19 17:50 03/24/19 20:40 03/25/19 04:00 Urine Collection Type Unknown Urine Color Yellow Urine Clarity Clear Urine pH 8.0 Urine Specific Zamora <=1.005 Urine Protein Negative mg/dL (NEG-TRACE) Urine Glucose (UA) Negative mg/dL (NEG) Urine Ketones (Stick) Trace mg/dL (NEG) Urine Blood Negative (NEG) Urine Nitrite Negative (NEG) Urine Bilirubin Negative (NEG) Urine Urobilinogen Dipstick 1.0 mg/dL (0.2 mg/dL) Urine Leukocyte Esterase Large (NEG) Urine RBC 0 /HPF (0-2) Urine WBC Tntc /HPF (0-4) Urine Bacteria Many /HPF (0-FEW) Urine Mucus Mod /LPF Urine Yeast Present /HPF Urine Opiates Screen Neg (NEG) Urine Methadone Screen Neg (NEG) Urine Barbiturates Neg (NEG) Urine Phencyclidine Screen Neg (NEG) Urine Amphetamine/Methamphetamine Neg (NEG) Urine Benzodiazepines Screen Neg (NEG) Urine Cocaine Screen Neg (NEG) Urine Cannabinoids Screen Neg (NEG) Urine Ethyl Alcohol Neg (NEG) White Blood Count 11.6 x10^3/uL (4.0-11.0) 10.9 x10^3/uL (4.0-11.0) Red Blood Count 4.56 x10^6/uL (4.30-5.70) 4.66 x10^6/uL (4.30-5.70) Hemoglobin 13.2 g/dL (13.0-17.5) 13.8 g/dL (13.0-17.5) Hematocrit 39.1 % (39.0-53.0) 40.7 % (39.0-53.0) Mean Corpuscular Volume 86 fL (79-100) 87 fL (79-100) Mean Corpuscular Hemoglobin 29 pg (25-35) 30 pg (25-35) Mean Corpuscular Hemoglobin Concent 34 g/dL (31-37) 34 g/dL (31-37) Red Cell Distribution Width 15.1 % (11.5-14.5) 15.2 % (11.5-14.5) Platelet Count 410 x10^3/uL (140-400) 375 x10^3/uL (140-400) Neutrophils (%) (Auto) 62 % (31-73) 58 % (31-73) Lymphocytes (%) (Auto) 27 % (24-48) 30 % (24-48) Monocytes (%) (Auto) 10 % (0-9) 10 % (0-9) Eosinophils (%) (Auto) 0 % (0-3) 2 % (0-3) Basophils (%) (Auto) 1 % (0-3) 1 % (0-3) Neutrophils # (Auto) 7.2 x10^3/uL (1.8-7.7) 6.3 x10^3/uL (1.8-7.7) Lymphocytes # (Auto) 3.1 x10^3/uL (1.0-4.8) 3.3 x10^3/uL (1.0-4.8) Monocytes # (Auto) 1.1 x10^3/uL (0.0-1.1) 1.1 x10^3/uL (0.0-1.1) Eosinophils # (Auto) 0.0 x10^3/uL (0.0-0.7) 0.2 x10^3/uL (0.0-0.7) Basophils # (Auto) 0.1 x10^3/uL (0.0-0.2) 0.1 x10^3/uL (0.0-0.2) Prothrombin Time 16.5 SEC (11.7-14.0) Prothromb Time International Ratio 1.4 (0.8-1.1) Sodium Level 135 mmol/L (136-145) 138 mmol/L (136-145) Potassium Level 4.0 mmol/L (3.5-5.1) 3.8 mmol/L (3.5-5.1) Chloride Level 99 mmol/L (98-107) 100 mmol/L (98-107) Carbon Dioxide Level 25 mmol/L (21-32) 29 mmol/L (21-32) Anion Gap 11 (6-14) 9 (6-14) Blood Urea Nitrogen 8 mg/dL (8-26) 7 mg/dL (8-26) Creatinine 0.8 mg/dL (0.7-1.3) 0.8 mg/dL (0.7-1.3) Estimated GFR (Cockcroft-Gault) 100.0 100.0 BUN/Creatinine Ratio 10 (6-20) Glucose Level 136 mg/dL (70-99) 110 mg/dL (70-99) Calcium Level 9.5 mg/dL (8.5-10.1) 9.5 mg/dL (8.5-10.1) Magnesium Level 1.5 mg/dL (1.8-2.4) Total Bilirubin 0.7 mg/dL (0.2-1.0) Aspartate Amino Transf (AST/SGOT) 20 U/L (15-37) Alanine Aminotransferase (ALT/SGPT) 26 U/L (16-63) Alkaline Phosphatase 126 U/L (46-116) Creatine Kinase 56 U/L (39-308) Creatine Kinase MB (Mass) 1.4 ng/mL (0.0-3.6) Creatine Kinase MB Relative Index % (0-4) Troponin I Quantitative < 0.017 ng/mL (0.000-0.055) < 0.017 ng/mL (0.000-0.055) LP-Gnc-E-Type Natriuretic Peptide 88 pg/mL (0-124) Total Protein 6.7 g/dL (6.4-8.2) Albumin 3.2 g/dL (3.4-5.0) Albumin/Globulin Ratio 0.9 (1.0-1.7) Thyroid Stimulating Hormone (TSH) 3.044 uIU/mL (0.358-3.74) Test 03/25/19 05:00 03/25/19 11:30 03/25/19 16:30 03/25/19 20:56 Troponin I Quantitative < 0.017 ng/mL (0.000-0.055) Lipase 154 U/L (73-393) Glucose (Fingerstick) 136 mg/dL (70-99) 77 mg/dL (70-99) 109 mg/dL (70-99) Test 03/26/19 05:55 03/26/19 07:08 03/26/19 11:41 White Blood Count 9.7 x10^3/uL (4.0-11.0) Red Blood Count 4.56 x10^6/uL (4.30-5.70) Hemoglobin 13.5 g/dL (13.0-17.5) Hematocrit 39.7 % (39.0-53.0) Mean Corpuscular Volume 87 fL (79-100) Mean Corpuscular Hemoglobin 30 pg (25-35) Mean Corpuscular Hemoglobin Concent 34 g/dL (31-37) Red Cell Distribution Width 15.1 % (11.5-14.5) Platelet Count 351 x10^3/uL (140-400) Neutrophils (%) (Auto) 62 % (31-73) Lymphocytes (%) (Auto) 25 % (24-48) Monocytes (%) (Auto) 11 % (0-9) Eosinophils (%) (Auto) 2 % (0-3) Basophils (%) (Auto) 1 % (0-3) Neutrophils # (Auto) 6.0 x10^3/uL (1.8-7.7) Lymphocytes # (Auto) 2.5 x10^3/uL (1.0-4.8) Monocytes # (Auto) 1.1 x10^3/uL (0.0-1.1) Eosinophils # (Auto) 0.1 x10^3/uL (0.0-0.7) Basophils # (Auto) 0.1 x10^3/uL (0.0-0.2) Sodium Level 138 mmol/L (136-145) Potassium Level 3.9 mmol/L (3.5-5.1) Chloride Level 100 mmol/L (98-107) Carbon Dioxide Level 30 mmol/L (21-32) Anion Gap 8 (6-14) Blood Urea Nitrogen 5 mg/dL (8-26) Creatinine 0.7 mg/dL (0.7-1.3) Estimated GFR (Cockcroft-Gault) 116.7 BUN/Creatinine Ratio 7 (6-20) Glucose Level 105 mg/dL (70-99) Calcium Level 9.4 mg/dL (8.5-10.1) Total Bilirubin 0.6 mg/dL (0.2-1.0) Aspartate Amino Transf (AST/SGOT) 21 U/L (15-37) Alanine Aminotransferase (ALT/SGPT) 24 U/L (16-63) Alkaline Phosphatase 138 U/L (46-116) Total Protein 6.8 g/dL (6.4-8.2) Albumin 3.2 g/dL (3.4-5.0) Albumin/Globulin Ratio 0.9 (1.0-1.7) Glucose (Fingerstick) 109 mg/dL (70-99) 196 mg/dL (70-99) Laboratory Tests Test 03/25/19 16:30 03/25/19 20:56 03/26/19 05:55 03/26/19 07:08 Glucose (Fingerstick) 77 mg/dL (70-99) 109 mg/dL (70-99) 109 mg/dL (70-99) White Blood Count 9.7 x10^3/uL (4.0-11.0) Red Blood Count 4.56 x10^6/uL (4.30-5.70) Hemoglobin 13.5 g/dL (13.0-17.5) Hematocrit 39.7 % (39.0-53.0) Mean Corpuscular Volume 87 fL (79-100) Mean Corpuscular Hemoglobin 30 pg (25-35) Mean Corpuscular Hemoglobin Concent 34 g/dL (31-37) Red Cell Distribution Width 15.1 % (11.5-14.5) Platelet Count 351 x10^3/uL (140-400) Neutrophils (%) (Auto) 62 % (31-73) Lymphocytes (%) (Auto) 25 % (24-48) Monocytes (%) (Auto) 11 % (0-9) Eosinophils (%) (Auto) 2 % (0-3) Basophils (%) (Auto) 1 % (0-3) Neutrophils # (Auto) 6.0 x10^3/uL (1.8-7.7) Lymphocytes # (Auto) 2.5 x10^3/uL (1.0-4.8) Monocytes # (Auto) 1.1 x10^3/uL (0.0-1.1) Eosinophils # (Auto) 0.1 x10^3/uL (0.0-0.7) Basophils # (Auto) 0.1 x10^3/uL (0.0-0.2) Sodium Level 138 mmol/L (136-145) Potassium Level 3.9 mmol/L (3.5-5.1) Chloride Level 100 mmol/L (98-107) Carbon Dioxide Level 30 mmol/L (21-32) Anion Gap 8 (6-14) Blood Urea Nitrogen 5 mg/dL (8-26) Creatinine 0.7 mg/dL (0.7-1.3) Estimated GFR (Cockcroft-Gault) 116.7 BUN/Creatinine Ratio 7 (6-20) Glucose Level 105 mg/dL (70-99) Calcium Level 9.4 mg/dL (8.5-10.1) Total Bilirubin 0.6 mg/dL (0.2-1.0) Aspartate Amino Transf (AST/SGOT) 21 U/L (15-37) Alanine Aminotransferase (ALT/SGPT) 24 U/L (16-63) Alkaline Phosphatase 138 U/L (46-116) Total Protein 6.8 g/dL (6.4-8.2) Albumin 3.2 g/dL (3.4-5.0) Albumin/Globulin Ratio 0.9 (1.0-1.7) Test 03/26/19 11:41 Glucose (Fingerstick) 196 mg/dL (70-99) Images Images IMPRESSION: 1. Minimal fat stranding identified about the nondistended urinary bladder, cystitis is not excluded. Correlate with urine analysis. 2. Trace pericardial effusion. Assessment/Plan Assessment/Plan Cystitis, UA suggestive of UTI, Indwelling cooper On rocephin per primary Recommend exchanging cooper with new catheter - yeast present on UA likely 2/2 indwelling catheter Will f/u C&S Needs voiding trial when acute resolved SHERIN MACE Mar 26, 2019 14:50
--- NOTE | 2019-03-26 16:44 | PDOC ---
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 fib Chronic diastolic HF (compensated) Prior hx of CAD (3 stents) Hypothyroidism (noncompliant w/ Synthroid) DM type 2 Dyslipidemia Prior hx of subacute left frontal, temporal, parietal infarct Dysphagia III hypomagnesemia History of Present Illness History of Present Illness Uro to try voiding trial if able to treat UTI, may be much improved without cooper GI following, PPI is BID Vitals Vitals Vital Signs Date Time Temp Pulse Resp B/P (MAP) Pulse Ox O2 Delivery O2 Flow Rate FiO2 03/26/19 15:34 96 Room Air 03/26/19 14:24 98.4 69 18 93/66 (75) 98.4 Physical Exam General: Alert, Oriented X3, No acute distress Lungs: Clear Abdomen: Normal bowel sounds, Soft Extremities: No cyanosis, No edema, Normal pulses Skin: No rashes, No breakdown, No significant lesion Labs LABS Laboratory Tests Test 03/25/19 20:56 03/26/19 05:55 03/26/19 07:08 03/26/19 11:41 Glucose (Fingerstick) 109 mg/dL (70-99) 109 mg/dL (70-99) 196 mg/dL (70-99) White Blood Count 9.7 x10^3/uL (4.0-11.0) Red Blood Count 4.56 x10^6/uL (4.30-5.70) Hemoglobin 13.5 g/dL (13.0-17.5) Hematocrit 39.7 % (39.0-53.0) Mean Corpuscular Volume 87 fL (79-100) Mean Corpuscular Hemoglobin 30 pg (25-35) Mean Corpuscular Hemoglobin Concent 34 g/dL (31-37) Red Cell Distribution Width 15.1 % (11.5-14.5) Platelet Count 351 x10^3/uL (140-400) Neutrophils (%) (Auto) 62 % (31-73) Lymphocytes (%) (Auto) 25 % (24-48) Monocytes (%) (Auto) 11 % (0-9) Eosinophils (%) (Auto) 2 % (0-3) Basophils (%) (Auto) 1 % (0-3) Neutrophils # (Auto) 6.0 x10^3/uL (1.8-7.7) Lymphocytes # (Auto) 2.5 x10^3/uL (1.0-4.8) Monocytes # (Auto) 1.1 x10^3/uL (0.0-1.1) Eosinophils # (Auto) 0.1 x10^3/uL (0.0-0.7) Basophils # (Auto) 0.1 x10^3/uL (0.0-0.2) Sodium Level 138 mmol/L (136-145) Potassium Level 3.9 mmol/L (3.5-5.1) Chloride Level 100 mmol/L (98-107) Carbon Dioxide Level 30 mmol/L (21-32) Anion Gap 8 (6-14) Blood Urea Nitrogen 5 mg/dL (8-26) Creatinine 0.7 mg/dL (0.7-1.3) Estimated GFR (Cockcroft-Gault) 116.7 BUN/Creatinine Ratio 7 (6-20) Glucose Level 105 mg/dL (70-99) Calcium Level 9.4 mg/dL (8.5-10.1) Total Bilirubin 0.6 mg/dL (0.2-1.0) Aspartate Amino Transf (AST/SGOT) 21 U/L (15-37) Alanine Aminotransferase (ALT/SGPT) 24 U/L (16-63) Alkaline Phosphatase 138 U/L (46-116) Total Protein 6.8 g/dL (6.4-8.2) Albumin 3.2 g/dL (3.4-5.0) Albumin/Globulin Ratio 0.9 (1.0-1.7) Assessment and Plan Assessmemt and Plan Problems Medical Problems: (1) Chest pain Status: Acute Comment Review of Relevant I have reviewed the following items sujey (where applicable) has been applied. Labs Laboratory Tests Test 03/24/19 17:40 03/24/19 17:50 03/24/19 20:40 03/25/19 04:00 Urine Collection Type Unknown Urine Color Yellow Urine Clarity Clear Urine pH 8.0 Urine Specific [place] <=1.005 Urine Protein Negative mg/dL (NEG-TRACE) Urine Glucose (UA) Negative mg/dL (NEG) Urine Ketones (Stick) Trace mg/dL (NEG) Urine Blood Negative (NEG) Urine Nitrite Negative (NEG) Urine Bilirubin Negative (NEG) Urine Urobilinogen Dipstick 1.0 mg/dL (0.2 mg/dL) Urine Leukocyte Esterase Large (NEG) Urine RBC 0 /HPF (0-2) Urine WBC Tntc /HPF (0-4) Urine Bacteria Many /HPF (0-FEW) Urine Mucus Mod /LPF Urine Yeast Present /HPF Urine Opiates Screen Neg (NEG) Urine Methadone Screen Neg (NEG) Urine Barbiturates Neg (NEG) Urine Phencyclidine Screen Neg (NEG) Urine Amphetamine/Methamphetamine Neg (NEG) Urine Benzodiazepines Screen Neg (NEG) Urine Cocaine Screen Neg (NEG) Urine Cannabinoids Screen Neg (NEG) Urine Ethyl Alcohol Neg (NEG) White Blood Count 11.6 x10^3/uL (4.0-11.0) 10.9 x10^3/uL (4.0-11.0) Red Blood Count 4.56 x10^6/uL (4.30-5.70) 4.66 x10^6/uL (4.30-5.70) Hemoglobin 13.2 g/dL (13.0-17.5) 13.8 g/dL (13.0-17.5) Hematocrit 39.1 % (39.0-53.0) 40.7 % (39.0-53.0) Mean Corpuscular Volume 86 fL (79-100) 87 fL (79-100) Mean Corpuscular Hemoglobin 29 pg (25-35) 30 pg (25-35) Mean Corpuscular Hemoglobin Concent 34 g/dL (31-37) 34 g/dL (31-37) Red Cell Distribution Width 15.1 % (11.5-14.5) 15.2 % (11.5-14.5) Platelet Count 410 x10^3/uL (140-400) 375 x10^3/uL (140-400) Neutrophils (%) (Auto) 62 % (31-73) 58 % (31-73) Lymphocytes (%) (Auto) 27 % (24-48) 30 % (24-48) Monocytes (%) (Auto) 10 % (0-9) 10 % (0-9) Eosinophils (%) (Auto) 0 % (0-3) 2 % (0-3) Basophils (%) (Auto) 1 % (0-3) 1 % (0-3) Neutrophils # (Auto) 7.2 x10^3/uL (1.8-7.7) 6.3 x10^3/uL (1.8-7.7) Lymphocytes # (Auto) 3.1 x10^3/uL (1.0-4.8) 3.3 x10^3/uL (1.0-4.8) Monocytes # (Auto) 1.1 x10^3/uL (0.0-1.1) 1.1 x10^3/uL (0.0-1.1) Eosinophils # (Auto) 0.0 x10^3/uL (0.0-0.7) 0.2 x10^3/uL (0.0-0.7) Basophils # (Auto) 0.1 x10^3/uL (0.0-0.2) 0.1 x10^3/uL (0.0-0.2) Prothrombin Time 16.5 SEC (11.7-14.0) Prothromb Time International Ratio 1.4 (0.8-1.1) Sodium Level 135 mmol/L (136-145) 138 mmol/L (136-145) Potassium Level 4.0 mmol/L (3.5-5.1) 3.8 mmol/L (3.5-5.1) Chloride Level 99 mmol/L (98-107) 100 mmol/L (98-107) Carbon Dioxide Level 25 mmol/L (21-32) 29 mmol/L (21-32) Anion Gap 11 (6-14) 9 (6-14) Blood Urea Nitrogen 8 mg/dL (8-26) 7 mg/dL (8-26) Creatinine 0.8 mg/dL (0.7-1.3) 0.8 mg/dL (0.7-1.3) Estimated GFR (Cockcroft-Gault) 100.0 100.0 BUN/Creatinine Ratio 10 (6-20) Glucose Level 136 mg/dL (70-99) 110 mg/dL (70-99) Calcium Level 9.5 mg/dL (8.5-10.1) 9.5 mg/dL (8.5-10.1) Magnesium Level 1.5 mg/dL (1.8-2.4) Total Bilirubin 0.7 mg/dL (0.2-1.0) Aspartate Amino Transf (AST/SGOT) 20 U/L (15-37) Alanine Aminotransferase (ALT/SGPT) 26 U/L (16-63) Alkaline Phosphatase 126 U/L (46-116) Creatine Kinase 56 U/L (39-308) Creatine Kinase MB (Mass) 1.4 ng/mL (0.0-3.6) Creatine Kinase MB Relative Index % (0-4) Troponin I Quantitative < 0.017 ng/mL (0.000-0.055) < 0.017 ng/mL (0.000-0.055) OD-Swi-R-Type Natriuretic Peptide 88 pg/mL (0-124) Total Protein 6.7 g/dL (6.4-8.2) Albumin 3.2 g/dL (3.4-5.0) Albumin/Globulin Ratio 0.9 (1.0-1.7) Thyroid Stimulating Hormone (TSH) 3.044 uIU/mL (0.358-3.74) Test 03/25/19 05:00 03/25/19 11:30 03/25/19 16:30 03/25/19 20:56 Troponin I Quantitative < 0.017 ng/mL (0.000-0.055) Lipase 154 U/L (73-393) Glucose (Fingerstick) 136 mg/dL (70-99) 77 mg/dL (70-99) 109 mg/dL (70-99) Test 03/26/19 05:55 03/26/19 07:08 03/26/19 11:41 White Blood Count 9.7 x10^3/uL (4.0-11.0) Red Blood Count 4.56 x10^6/uL (4.30-5.70) Hemoglobin 13.5 g/dL (13.0-17.5) Hematocrit 39.7 % (39.0-53.0) Mean Corpuscular Volume 87 fL (79-100) Mean Corpuscular Hemoglobin 30 pg (25-35) Mean Corpuscular Hemoglobin Concent 34 g/dL (31-37) Red Cell Distribution Width 15.1 % (11.5-14.5) Platelet Count 351 x10^3/uL (140-400) Neutrophils (%) (Auto) 62 % (31-73) Lymphocytes (%) (Auto) 25 % (24-48) Monocytes (%) (Auto) 11 % (0-9) Eosinophils (%) (Auto) 2 % (0-3) Basophils (%) (Auto) 1 % (0-3) Neutrophils # (Auto) 6.0 x10^3/uL (1.8-7.7) Lymphocytes # (Auto) 2.5 x10^3/uL (1.0-4.8) Monocytes # (Auto) 1.1 x10^3/uL (0.0-1.1) Eosinophils # (Auto) 0.1 x10^3/uL (0.0-0.7) Basophils # (Auto) 0.1 x10^3/uL (0.0-0.2) Sodium Level 138 mmol/L (136-145) Potassium Level 3.9 mmol/L (3.5-5.1) Chloride Level 100 mmol/L (98-107) Carbon Dioxide Level 30 mmol/L (21-32) Anion Gap 8 (6-14) Blood Urea Nitrogen 5 mg/dL (8-26) Creatinine 0.7 mg/dL (0.7-1.3) Estimated GFR (Cockcroft-Gault) 116.7 BUN/Creatinine Ratio 7 (6-20) Glucose Level 105 mg/dL (70-99) Calcium Level 9.4 mg/dL (8.5-10.1) Total Bilirubin 0.6 mg/dL (0.2-1.0) Aspartate Amino Transf (AST/SGOT) 21 U/L (15-37) Alanine Aminotransferase (ALT/SGPT) 24 U/L (16-63) Alkaline Phosphatase 138 U/L (46-116) Total Protein 6.8 g/dL (6.4-8.2) Albumin 3.2 g/dL (3.4-5.0) Albumin/Globulin Ratio 0.9 (1.0-1.7) Glucose (Fingerstick) 109 mg/dL (70-99) 196 mg/dL (70-99) Laboratory Tests Test 03/25/19 20:56 03/26/19 05:55 03/26/19 07:08 03/26/19 11:41 Glucose (Fingerstick) 109 mg/dL (70-99) 109 mg/dL (70-99) 196 mg/dL (70-99) White Blood Count 9.7 x10^3/uL (4.0-11.0) Red Blood Count 4.56 x10^6/uL (4.30-5.70) Hemoglobin 13.5 g/dL (13.0-17.5) Hematocrit 39.7 % (39.0-53.0) Mean Corpuscular Volume 87 fL (79-100) Mean Corpuscular Hemoglobin 30 pg (25-35) Mean Corpuscular Hemoglobin Concent 34 g/dL (31-37) Red Cell Distribution Width 15.1 % (11.5-14.5) Platelet Count 351 x10^3/uL (140-400) Neutrophils (%) (Auto) 62 % (31-73) Lymphocytes (%) (Auto) 25 % (24-48) Monocytes (%) (Auto) 11 % (0-9) Eosinophils (%) (Auto) 2 % (0-3) Basophils (%) (Auto) 1 % (0-3) Neutrophils # (Auto) 6.0 x10^3/uL (1.8-7.7) Lymphocytes # (Auto) 2.5 x10^3/uL (1.0-4.8) Monocytes # (Auto) 1.1 x10^3/uL (0.0-1.1) Eosinophils # (Auto) 0.1 x10^3/uL (0.0-0.7) Basophils # (Auto) 0.1 x10^3/uL (0.0-0.2) Sodium Level 138 mmol/L (136-145) Potassium Level 3.9 mmol/L (3.5-5.1) Chloride Level 100 mmol/L (98-107) Carbon Dioxide Level 30 mmol/L (21-32) Anion Gap 8 (6-14) Blood Urea Nitrogen 5 mg/dL (8-26) Creatinine 0.7 mg/dL (0.7-1.3) Estimated GFR (Cockcroft-Gault) 116.7 BUN/Creatinine Ratio 7 (6-20) Glucose Level 105 mg/dL (70-99) Calcium Level 9.4 mg/dL (8.5-10.1) Total Bilirubin 0.6 mg/dL (0.2-1.0) Aspartate Amino Transf (AST/SGOT) 21 U/L (15-37) Alanine Aminotransferase (ALT/SGPT) 24 U/L (16-63) Alkaline Phosphatase 138 U/L (46-116) Total Protein 6.8 g/dL (6.4-8.2) Albumin 3.2 g/dL (3.4-5.0) Albumin/Globulin Ratio 0.9 (1.0-1.7) Medications Current Medications Aspirin (Kaila Aspirin) 325 mg 1X ONCE PO Last administered on 03/24/19at 18:08; Start 03/24/19 at 18:00; Stop 03/24/19 at 18:01; Status DC Nitroglycerin (Nitrostat) 0.4 mg PRN Q5MIN PRN SL CP RATING > 1/10; Start 03/24/19 at 18:00; Stop 03/25/19 at 17:59; Status DC Ondansetron HCl (Zofran) 4 mg PRN Q8HRS PRN IV NAUSEA/VOMITING; Start 03/24/19 at 19:30; Stop 03/25/19 at 19:29; Status DC Acetaminophen (Tylenol) 650 mg PRN Q4HRS PRN PO FEVER; Start 03/24/19 at 19:30; Stop 03/25/19 at 19:29; Status DC Albuterol Sulfate (Ventolin Neb Soln) 2.5 mg PRN Q6HRS PRN NEB SHORTNESS OF BREATH; Start 03/24/19 at 21:15; Status UNV Apixaban (Eliquis) 5 mg BID PO Last administered on 03/26/19at 09:33; Start 03/24/19 at 21:30 Aspirin (Children'S Aspirin) 81 mg DAILYWBKFT PO Last administered on 03/26/19at 09:32; Start 03/25/19 at 08:00 Aspirin (Kaila Aspirin) 325 mg DAILYWBKFT PO ; Start 03/25/19 at 08:00; Status UNV Atorvastatin Calcium (Lipitor) 40 mg QHS PO Last administered on 03/25/19at 21:04; Start 03/24/19 at 21:30 Budesonide (Pulmicort) 0.5 mg PRN BID PRN NEB SHORTNESS OF BREATH; Start 03/24/19 at 21:15; Status Cancel Cyclobenzaprine HCl (Flexeril) 10 mg PRN TID PRN PO MUSCLE spasms/pain; Start 03/24/19 at 21:15 Fluoxetine HCl (PROzac) 20 mg DAILY PO Last administered on 03/26/19at 09:33; Start 03/25/19 at 09:00 Furosemide (Lasix) 20 mg DAILY PO Last administered on 03/25/19at 09:52; Start 03/25/19 at 09:00; Stop 03/25/19 at 12:57; Status DC Gabapentin (Neurontin) 100 mg TID PO ; Start 03/24/19 at 21:30; Stop 03/24/19 at 21:25; Status DC Gabapentin (Neurontin) 300 mg QHS PO Last administered on 03/25/19at 21:04; Start 03/24/19 at 21:30 Acetaminophen/ Hydrocodone Bitart (Lortab 5/325) 1 tab PRN Q4HRS PRN PO chest pain; Start 03/24/19 at 21:15 Hydrocortisone (Cortaid) 1 edvin QID TP ; Start 03/25/19 at 09:00 Insulin Glargine (Lantus Syringe) 42 unit QHS SQ Last administered on 03/25/19at 21:04; Start 03/24/19 at 21:30 Insulin Human Lispro (HumaLOG) 10 units TIDWMEALS SQ Last administered on 03/26/19at 12:34; Start 03/25/19 at 08:00 Isosorbide Mononitrate (Imdur) 30 mg BID PO ; Start 03/24/19 at 21:30; Stop 03/25/19 at 12:57; Status DC Levothyroxine Sodium (Synthroid) 200 mcg DAILY06 PO Last administered on 03/26/19at 06:14; Start 03/25/19 at 06:00 Lisinopril (Prinivil) 20 mg DAILY PO ; Start 03/25/19 at 09:00; Stop 03/25/19 at 12:57; Status DC Metoprolol Tartrate (Lopressor) 100 mg BID PO Last administered on 03/26/19 09:33; Start 03/24/19 at 21:30 Nystatin (Nystop) 1 edvin BID TP Last administered on 03/25/19at 21:04; Start 03/25/19 at 09:00 Ondansetron HCl (Zofran Odt) 4 mg PRN Q6HRS PRN PO NAUSEA/VOMITING; Start 03/24/19 at 21:15 Oxybutynin Chloride (Ditropan) 5 mg PRN TID PRN PO URINARY PAIN; Start 03/24/19 at 21:15 Pantoprazole Sodium (Protonix) 40 mg DAILYAC PO Last administered on 03/25/19at 06:32; Start 03/25/19 at 07:30; Stop 03/25/19 at 10:19; Status DC Phenytoin Sodium (Dilantin) 100 mg TIDAFTMEAL PO Last administered on 03/26/19at 13:38; Start 03/25/19 at 09:00 Phenytoin Sodium (Dilantin) 300 mg HS PO Last administered on 03/25/19 21:25; Start 03/24/19 at 21:30 Tamsulosin HCl (Flomax) 0.4 mg DAILY PO Last administered on 03/26/19 09:33; Start 03/25/19 at 09:00 Non-Formulary Medication (Albuterol Sulfate (Proventil Hfa)) 1 puff PRN Q6HRS PRN INH SHORTNESS OF BREATH; Start 03/24/19 at 21:15; Status UNV Non-Formulary Medication (Insulin Glargine,Hum.rec.anlog (Lantus Solostar)) 42 units QHS SQ ; Start 03/25/19 at 21:00; Status UNV Non-Formulary Medication (Levothyroxine Sodium ) 200 mcg DAILYAC PO ; Start 03/25/19 at 07:30; Status UNV Non-Formulary Medication (Mometasone/ Formoterol (Dulera 200 Mcg/5 Mcg Inhaler)) 1 puff HS IH ; Start 03/25/19 at 21:00; Status UNV Gabapentin (Neurontin) 100 mg TIDAFTMEAL PO Last administered on 03/26/19at 13:38; Start 03/25/19 at 09:00 Albuterol Sulfate (Ventolin Neb Soln) 2.5 mg PRN Q6HRS PRN NEB SHORTNESS OF BREATH; Start 03/24/19 at 22:00 Albuterol Sulfate (Ventolin Neb Soln) 2.5 mg RTQID NEB Last administered on 03/26/19at 15:34; Start 03/25/19 at 08:00 Budesonide (Pulmicort) 0.5 mg RTBID NEB Last administered on 03/26/19at 07:45; Start 03/25/19 at 08:00 Ceftriaxone Sodium (Rocephin) 1 gm Q24H IVP Last administered on 03/26/19 09:33; Start 03/25/19 at 09:00 Pantoprazole Sodium (Protonix) 40 mg BIDWMEALS PO Last administered on 03/26/19at 09:33; Start 03/25/19 at 17:00 Enoxaparin Sodium (Lovenox Per Pharmacy Prophylaxis Dosing) 1 each PRN DAILY PRN MC SEE COMMENTS; Start 03/25/19 at 10:30; Status UNV Multi-Ingredient Mouthwash/Gargle (Gi Cocktail) 20 ml 1X ONCE SWSW Last administered on 03/25/19at 14:15; Start 03/25/19 at 13:00; Stop 03/25/19 at 13:01; Status DC Multi-Ingredient Mouthwash/Gargle (Gi Cocktail) 20 ml PRN QID PRN PO CHEST PAIN; Start 03/25/19 at 13:00 Isosorbide Mononitrate (Imdur) 30 mg DAILY08 PO Last administered on 03/26/19at 09:33; Start 03/26/19 at 08:00 Lisinopril (Prinivil) 10 mg DAILY PO ; Start 03/26/19 at 09:00 Iohexol (Omnipaque 300 Mg/ml) 75 ml 1X ONCE IV Last administered on 03/25/19at 17:38; Start 03/25/19 at 15:30; Stop 03/25/19 at 15:36; Status DC Iohexol (Omnipaque 240 Mg/ml) 30 ml 1X ONCE PO Last administered on 03/25/19at 17:38; Start 03/25/19 at 15:30; Stop 03/25/19 at 15:36; Status DC Lactobacillus Rhamnosus (Culturelle) 1 cap BID PO ; Start 03/26/19 at 21:00 Active Scripts Active Hydrocodone-Apap 5-325 (Hydrocodone Bit/Acetaminophen) 1 Tab Tablet 1 Tab PO PRN Q4HRS PRN Anti-Itch (Hydrocortisone Acetate) 28 Gm Oint...g. 1 Edvin TP QID Lantus (Insulin Glargine,Hum.rec.anlog) 100 Unit/1 Ml Vial 42 Unit SQ QHS 30 Days Nystop (Nystatin) 60 Gm Powder 1 Edvin TP BID Ondansetron Odt (Ondansetron) 4 Mg Tab.rapdis 4 Mg PO PRN Q6HRS PRN Pantoprazole Sodium (Pantoprazole Sodium) 40 Mg Tablet.dr 40 Mg PO DAILYAC Budesonide 0.5 Mg/2 Ml Ampul.neb 0.5 Mg NEB PRN BID PRN 30 Days Fluoxetine Hcl 20 Mg Capsule 20 Mg PO DAILY Gabapentin 300 Mg Capsule 300 Mg PO QHS Dilantin (Phenytoin Sodium Extended) 100 Mg Capsule 300 Mg PO HS Aspirin 81 Mg Tab.chew 81 Mg PO DAILYWBKFT Eliquis (Apixaban) 5 Mg Tablet 5 Mg PO BID Cyclobenzaprine Hcl 10 Mg Tablet 10 Mg PO PRN TID PRN Flomax (Tamsulosin Hcl) 0.4 Mg Cap.er.24h 0.4 Mg PO DAILY Proair Hfa (Albuterol Sulfate) 8.5 Gm Hfa.aer.ad 2.5 Mg NEB PRN Q6HRS PRN 30 Days Dilantin (Phenytoin Sodium Extended) 100 Mg Capsule 1 Cap PO TID Humalog (Insulin Lispro) 100 Unit/1 Ml Insuln.pen 10 Units SQ TIDWMEALS 30 Days Lantus Solostar (Insulin Glargine,Hum.rec.anlog) 100 Unit/1 Ml Insuln.pen 42 Units SQ QHS 30 Days Synthroid (Levothyroxine Sodium) 100 Mcg Tablet 200 Mcg PO DAILY06 Lisinopril 40 Mg Tablet 20 Mg PO DAILY Metoprolol Tartrate 50 Mg Tablet 100 Mg PO BID Atorvastatin Calcium 40 Mg Tablet 40 Mg PO QHS Isosorbide Mononitrate Er (Isosorbide Mononitrate) 30 Mg Tab.er.24h 30 Mg PO BID Reported Levothyroxine Sodium 200 Mcg Tablet 200 Mcg PO DAILYAC Dulera 200 Mcg/5 Mcg Inhaler (Mometasone/Formoterol) 13 Gm Hfa.aer.ad 1 Puff IH HS Oxybutynin Chloride 5 Mg Tablet 1 Tab PO PRN TID PRN Gabapentin (Gabapentin) 100 Mg Capsule 100 Mg PO TID Furosemide 20 Mg Tablet 1 Tab PO DAILY Proventil Hfa (Albuterol Sulfate) 6.7 Gm Hfa.aer.ad 1 Puff INH PRN Q6HRS PRN Vitals/I & O Vital Sign - Last 24 Hours 03/25/19 03/25/19 03/25/19 03/25/19 19:15 19:33 21:04 22:24 Temp 97.9 98.4 97.9 98.4 Pulse 76 76 72 Resp 18 16 B/P (MAP) 107/68 (81) 107/68 118/74 (89) Pulse Ox 96 98 O2 Delivery Room Air Room Air Room Air 03/26/19 03/26/19 03/26/19 03/26/19 02:50 07:04 07:46 08:00 Temp 97.9 97.5 97.9 97.5 Pulse 59 61 Resp 18 18 B/P (MAP) 117/85 (96) 105/61 (76) Pulse Ox 98 96 96 O2 Delivery Room Air Room Air Room Air Room Air 03/26/19 03/26/19 03/26/19 03/26/19 09:33 09:33 10:40 11:51 Temp 97.8 97.8 Pulse 71 71 64 Resp 18 B/P (MAP) 105/61 105/61 99/60 (73) Pulse Ox 98 96 O2 Delivery Room Air Room Air 03/26/19 03/26/19 03/26/19 03/26/19 12:27 13:40 14:24 15:34 Temp 98.4 98.4 Pulse 69 Resp 18 B/P (MAP) 99/58 (72) 88/64 (72) 93/66 (75) Pulse Ox 96 96 O2 Delivery Room Air Room Air Intake and Output 03/25/19 03/25/19 03/26/19 15:00 23:00 07:00 Intake Total 240 ml 560 ml 120 ml Output Total 1300 ml Balance 240 ml -740 ml 120 ml CHANDAN CREWS MD Mar 26, 2019 16:44
[2019-03-26] MEDS: INSULIN GLARGINE SYRINGE. SQ SCH (21:00)
[2019-03-26] MEDS: LACTOBACILLUS RHAMNOSUS GG 1 CAPSULE. PO SCH (21:08)
[2019-03-26] MEDS: ATORVASTATIN CALCIUM 40 MG TABLET. PO SCH (21:08)
[2019-03-26] MEDS: GABAPENTIN 300 MG CAPSULE. PO SCH (21:09)
[2019-03-27 01:57] LABS: BILIRUBIN,URINE NEGATIVE (NEG); CLARITY,URINE CLOUDY; COLOR,URINE YELLOW; NITRITE,URINE NEGATIVE (NEG); PH,URINE 5.5; PROTEIN,URINE NEGATIVE (NEG-TRACE); UROBILINOGEN,URINE 0.2 mg/dL (0.2 mg/dL)
[2019-03-27 02:02] LABS: SQUAMOUS EPITHELIAL CELL,UR OCC /LPF
[2019-03-27 02:03] LABS: BACTERIA,URINE MODERATE /HPF (0-FEW); WBC,URINE TNTC /HPF (0-4); YEAST,URINE PRESENT /HPF
[2019-03-27 02:45] VITALS: BP 132/87
[2019-03-27] MEDS: LEVOTHYROXINE 100 MCG TABLET PO SCH (05:50)
[2019-03-27 07:00] VITALS: BP 127/80
[2019-03-27] MEDS: HYDROCORTISONE 1% TOPICAL OINTMENT 30GM TUBE. TP SCH ×4 (07:17→21:00)
[2019-03-27] MEDS: ISOSORBIDE MONONITRATE ER 30 MG TAB.ER.24H PO SCH (08:00)
[2019-03-27] MEDS: ALBUTEROL SULFATE 2.5 MG/3 ML NEBU. NEB SCH ×4 (08:03→19:30)
[2019-03-27] MEDS: BUDESONIDE 0.5 MG/2 ML NEBU. NEB SCH ×2 (08:03→19:26)
[2019-03-27] MEDS: LISINOPRIL 20 MG TABLET PO SCH (09:00)
[2019-03-27] MEDS: NYSTATIN TOPICAL POWDER 15GM BOTTLE. TP SCH ×2 (09:00→21:00)
[2019-03-27] MEDS: PANTOPRAZOLE 40 MG TABLET.DR. PO SCH ×2 (09:04→17:41)
[2019-03-27] MEDS: PHENYTOIN SODIUM EXTENDED 100 MG CAPSULE PO SCH ×4 (09:05→22:22)
[2019-03-27] MEDS: TAMSULOSIN 0.4 MG CAP.ER.24H. PO SCH (09:05)
[2019-03-27] MEDS: ASPIRIN CHEWABLE 81 MG TABLET. PO SCH (09:05)
[2019-03-27] MEDS: LACTOBACILLUS RHAMNOSUS GG 1 CAPSULE. PO SCH ×2 (09:05→22:22)
[2019-03-27] MEDS: APIXABAN 5 MG TABLET. PO SCH ×2 (09:05→22:23)
[2019-03-27] MEDS: FLUoxetine HCL 20 MG CAPSULE PO SCH (09:05)
[2019-03-27] MEDS: GABAPENTIN 100 MG CAPSULE. PO SCH ×4 (09:05→22:23)
[2019-03-27] MEDS: METOPROLOL TART IMMED RELEASE 50 MG TABLET. PO SCH ×2 (09:06→22:23)
[2019-03-27] MEDS: cefTRIAXone IV Push 1 GM VIAL. IVP SCH (09:11)
[2019-03-27] MEDS: INSULIN LISPRO 300 UNITS/3 ML VIAL. SQ SCH ×3 (09:15→17:00)
[2019-03-27] MEDS: ANTI-COAG MONITOR BY PHARMACY. MC PRN (09:50)
--- NOTE | 2019-03-27 10:49 | PDOC ---
SUBJECTIVE Subjective Patient shakes head no to every question. Is refusing catheter change and medications. OBJECTIVE Objective Physical Exam Alert, NAD Unlabored breathing Abdomen nondistended, appears to be nontender Cooper draining clear yellow urine Vital Signs Vital Signs Date Time Temp Pulse Resp B/P (MAP) Pulse Ox O2 Delivery O2 Flow Rate FiO2 03/27/19 09:15 94 127/80 03/27/19 08:04 97 Room Air 03/27/19 07:00 97.3 86 18 127/80 (96) 97 Room Air 97.3 03/27/19 02:45 98.4 80 18 132/87 (102) 97 Room Air 98.4 03/26/19 22:30 98.5 76 20 140/76 (97) 99 Room Air 98.5 03/26/19 20:12 Room Air 03/26/19 19:43 97 Room Air 03/26/19 19:00 98.0 70 18 105/62 (76) 97 Room Air 98.0 03/26/19 18:21 84 99/61 (74) 03/26/19 15:34 96 Room Air 03/26/19 14:24 98.4 69 18 93/66 (75) 96 Room Air 98.4 03/26/19 13:40 88/64 (72) 03/26/19 12:27 99/58 (72) 03/26/19 11:51 96 Room Air I & O Intake and Output 03/27/19 06:59 Intake Total 1040 ml Output Total 1150 ml Balance -110 ml Intake Oral 1040 ml Output Urine Total 1150 ml ASSESSMENT/PLAN Assessment/Plan Cystitis, UA suggestive of UTI, Indwelling cooper On rocephin per primary Recommend exchanging cooper with new catheter, patient refusing Will f/u C&S Needs voiding trial when acute resolved, if patient can effectively utilize urinal COMMENT Lab Laboratory Tests Test 03/26/19 11:41 03/26/19 16:48 03/26/19 20:57 03/27/19 00:35 Glucose (Fingerstick) 196 mg/dL (70-99) 136 mg/dL (70-99) 147 mg/dL (70-99) Urine Collection Type Unknown Urine Color Yellow Urine Clarity Cloudy Urine pH 5.5 Urine Specific [place] <=1.005 Urine Protein Negative mg/dL (NEG-TRACE) Urine Glucose (UA) Negative mg/dL (NEG) Urine Ketones (Stick) Negative mg/dL (NEG) Urine Blood Small (NEG) Urine Nitrite Negative (NEG) Urine Bilirubin Negative (NEG) Urine Urobilinogen Dipstick 0.2 mg/dL (0.2 mg/dL) Urine Leukocyte Esterase Large (NEG) Urine RBC 6-10 /HPF (0-2) Urine WBC Tntc /HPF (0-4) Urine Squamous Epithelial Cells Occ /LPF Urine Bacteria Moderate /HPF (0-FEW) Urine Mucus Slight /LPF Urine Yeast Present /HPF Test 03/27/19 08:50 Glucose (Fingerstick) 165 mg/dL (70-99) SHERIN MACE Mar 27, 2019 10:49
[2019-03-27 11:00] VITALS: BP 117/81
--- NOTE | 2019-03-27 13:11 | PDOC ---
Infectious Disease Note Vital Sign Vital Signs Vital Signs Date Time Temp Pulse Resp B/P (MAP) Pulse Ox O2 Delivery O2 Flow Rate FiO2 03/27/19 11:36 97 Room Air 03/27/19 11:00 94 127/80 03/27/19 07:00 97.3 18 97.3 Labs Lab Laboratory Tests Test 03/26/19 16:48 03/26/19 20:57 03/27/19 00:35 03/27/19 08:50 Glucose (Fingerstick) 136 mg/dL (70-99) 147 mg/dL (70-99) 165 mg/dL (70-99) Urine Collection Type Unknown Urine Color Yellow Urine Clarity Cloudy Urine pH 5.5 Urine Specific [place] <=1.005 Urine Protein Negative mg/dL (NEG-TRACE) Urine Glucose (UA) Negative mg/dL (NEG) Urine Ketones (Stick) Negative mg/dL (NEG) Urine Blood Small (NEG) Urine Nitrite Negative (NEG) Urine Bilirubin Negative (NEG) Urine Urobilinogen Dipstick 0.2 mg/dL (0.2 mg/dL) Urine Leukocyte Esterase Large (NEG) Urine RBC 6-10 /HPF (0-2) Urine WBC Tntc /HPF (0-4) Urine Squamous Epithelial Cells Occ /LPF Urine Bacteria Moderate /HPF (0-FEW) Urine Mucus Slight /LPF Urine Yeast Present /HPF Test 03/27/19 12:29 Glucose (Fingerstick) 136 mg/dL (70-99) Objective Assessment CAUTI, POA Abdominal pain Urinary retention h/o CVA h/o seizures DM II h/o A-fib Plan Plan of Care Change to Omnicef x 3 more days Change briseyda Pretty agreeable Thank you [phone] Attending Co-Sign The patient was seen and interviewed as well as examined at the bedside. The chart was reviewed. The case was discussed. Agree with the plan of care. DIXON CHI APRN Mar 27, 2019 13:11 HARLAN COOL MD Mar 27, 2019 13:44
--- NOTE | 2019-03-27 13:55 | PDOC ---
Subjective: Subjective: Indicates no chest or abd pain, no n/v, and nods when I asked if he has stooled. Objective: Objective: No GI concerns per nurse. Tolerating PO. Previous GI eval for n/v - started on PPI last admission. DM - A1c 12 in 12/2018. Vital Signs: Vital Signs Date Time Temp Pulse Resp B/P (MAP) Pulse Ox O2 Delivery O2 Flow Rate FiO2 03/27/19 11:36 97 Room Air 03/27/19 11:00 94 127/80 03/27/19 11:00 98.4 18 98.4 Labs: Laboratory Tests Test 03/26/19 16:48 03/26/19 20:57 03/27/19 00:35 03/27/19 08:50 Glucose (Fingerstick) 136 mg/dL 147 mg/dL 165 mg/dL Urine Collection Type Unknown Urine Color Yellow Urine Clarity Cloudy Urine pH 5.5 Urine Specific [place] <=1.005 Urine Protein Negative mg/dL Urine Glucose (UA) Negative mg/dL Urine Ketones (Stick) Negative mg/dL Urine Blood Small Urine Nitrite Negative Urine Bilirubin Negative Urine Urobilinogen Dipstick 0.2 mg/dL Urine Leukocyte Esterase Large Urine RBC 6-10 /HPF Urine WBC Tntc /HPF Urine Squamous Epithelial Cells Occ /LPF Urine Bacteria Moderate /HPF Urine Mucus Slight /LPF Urine Yeast Present /HPF Test 03/27/19 12:29 Glucose (Fingerstick) 136 mg/dL Imaging: CT A/P IMPRESSION: 1. Minimal fat stranding identified about the nondistended urinary bladder, cystitis is not excluded. Correlate with urine analysis. 2. Trace pericardial effusion. PE: GEN: NAD - eating lunch LUNGS: room air ABD: S/ND/NT NEURO/PSYCH: nods and smiles, non-verbal A/P: Chest pain - resolved -- Continue PPI - also has GI cocktail if indicated. ERICK ORLANDO Mar 27, 2019 13:55
[2019-03-27] MEDS ORDERED: POLYETHYLENE GLYCOL 3350 17 GM PACKET. PO PRN (14:00)
--- NOTE | 2019-03-27 14:40 | CONS ---
DATE OF CONSULTATION: 03/27/2019 DICTATED BY: ZOILA Stauffer. INFECTIOUS DISEASE CONSULTATION REFERRING PHYSICIAN: Dr. Molly Dorantes. REASON FOR CONSULTATION: Cystitis, yeast. HISTORY OF PRESENT ILLNESS: This patient is a 58-year-old male with a history of CVA, who presented from home with complaints of abdominal pain. An abdominal/pelvic CT showed minimal fat stranding identified about the nondistended urinary bladder, cystitis not excluded. Urinalysis showed WBCs too numerous to count, positive leukocyte esterase, bacteria, and yeast. Urine culture is pending. He is currently on ceftriaxone. He has a history of urinary retention treated with an indwelling Pretty catheter. Apparently, it was last changed in February and he had refused to have a change done earlier. He has a prior history of coag-negative Staph, oxacillin resistant in the urine. Denies antibiotic prior to admission. He reports subjective fevers and chills and ongoing abdominal pain. Denies nausea, vomiting, or diarrhea. PAST MEDICAL HISTORY: CVA, aphasic; history of atrial fibrillation; coronary artery disease; congestive heart failure; hypertension; hyperlipidemia; COPD; peripheral neuropathy; diabetes mellitus type 2; history of seizures; GERD; osteoarthritis; hypothyroidism. PAST SURGICAL HISTORY: Coronary stent placement. FAMILY HISTORY: Coronary artery disease. SOCIAL HISTORY: The patient lives at home. ALLERGIES: No known drug allergies. CURRENT MEDICATIONS: Ceftriaxone, probiotics. Other medications are available and have been reviewed on the MAR. REVIEW OF SYSTEMS: Per HPI, otherwise all other review of systems are negative. PHYSICAL EXAMINATION: VITAL SIGNS: Temperature is 97.3, blood pressure 127/80, heart rate 94, respiratory rate 18, pulse oximetry is 97% on room air. BMI 26.8. GENERAL: The patient is propped up in bed, alert, watching TV. HEENT: Pupils equally round, reactive. Normal conjunctivae. Oropharynx pink and moist. NECK: Supple. LUNGS: Clear to auscultation. HEART: S1, S2. ABDOMEN: Obese, soft, mildly tender. Bowel sounds present. GENITOURINARY: Pretty in place. EXTREMITIES: No gross edema or cyanosis. Peripheral IV. SKIN: Warm to touch. NEUROLOGIC: Alert, aphasic, right-sided weakness. LABORATORY DATA: Recent WBC 9.7, hemoglobin 13.5, platelets 351,000. Creatinine 0.7, BUN 5. Electrolytes are unremarkable. Glucose 105. Troponin less than 0.017. From 03/24, total bilirubin 0.7, AST 20, ALT 26. CT abdomen/pelvis, per HPI. Chest x-ray from showed no acute radiographic abnormality of the chest. Urinalysis, per HPI. Urine culture pending. IMPRESSION: 1. Catheter-associated urinary tract infection with yeast, so far present on admission. 2. Abdominal pain. 3. Urinary retention. 4. History of cerebrovascular accident. 5. History of seizures. 6. Diabetes mellitus type 2. 7. History of atrial fibrillation. PLAN: We will change ceftriaxone to Omnicef for 3 more days. The patient is agreeable to have a Pretty changed. We will follow up on urine culture results. Discussed with nursing. Thank you, Dr. Dorantes, for asking us to participate in this patient's care. Should you have further questions or concerns, please call. HARLAN COOL MD DR: JULIO C/ge JOB#: [id number] / [id number]
[2019-03-27 15:00] VITALS: BP 92/55
[2019-03-27] MEDS ORDERED: CEFD300C PO (15:15)
[2019-03-27] MEDS ORDERED: POLY17PO28 PO (15:15)
[2019-03-27] MEDS ORDERED: HYDR-2761 PO (15:15)
--- NOTE | 2019-03-27 15:16 | SNU/HH DC ---
DISCHARGE ORDERS DISCHARGE INFORMATION: DISCHARGE DATE: Mar 27, 2019 FINAL DIAGNOSIS Problems Medical Problems: (1) Chest pain Status: Acute CONDITION ON DISCHARGE: Stable CODE STATUS: Code Status: Full HALFWAY: SNF STAY <30 DAYS: Yes POST DISCHARGE ORDERS: ACTIVITY ORDERS: Activity as tolerated WEIGHT BEARING STATUS: As tolerated DIET AFTER DISCHARGE: Regular CHECKS AFTER DISCHARGE: CHECKS AFTER DISCHARGE: Check blood press - daily, Check blood sugar, ac/hs, Weigh Yourself Daily TREATMENT/EQUIPMENT ORDERS: ADAPTIVE EQUIPMENT NEEDED: None Physical Therapy For: Evalulation/Treatment Occupational Therapy For: Evaluation/Treatment Speech Language Pathology For: Evaluation/Treatment DISCHARGE MEDICATIONS: Home Meds Active Scripts Hydrocodone Bit/Acetaminophen (HYDROCODONE-APAP 5-325 ) 1 Tab Tablet, 1 TAB PO PRN Q4HRS PRN for abdominal pain, #30 TAB Prov:CHANDAN CREWS MD 03/27/19 Polyethylene Glycol 3350 (POLYETHYLENE GLYCOL 3350) 17 Gm Powd.pack, 17 GM PO DAILY for constipation, #30 PKT Prov:CHANDAN CREWS MD 03/27/19 Cefdinir (CEFDINIR) 300 Mg Capsule, 300 MG PO BID for uti, #6 CAP Prov:CHANDAN CREWS MD 03/27/19 Hydrocortisone Acetate (ANTI-ITCH) 28 Gm Oint...g., 1 LEIGH TP QID for itch, #1 MISC Prov:KALIA WALKER MD 03/14/19 Insulin Glargine,Hum.rec.anlog (LANTUS) 100 Unit/1 Ml Vial, 42 UNIT SQ QHS for dm for 30 Days, EACH Prov:KALIA WALKER MD 03/14/19 Nystatin (NYSTOP) 60 Gm Powder, 1 LEIGH TP BID for skin folds, #1 MISC Prov:KALIA WALKER MD 03/14/19 Ondansetron (ONDANSETRON ODT) 4 Mg Tab.rapdis, 4 MG PO PRN Q6HRS PRN for NAUSEA/ VOMITING, #60 TAB Prov:KALIA WALKER MD 03/14/19 Pantoprazole Sodium (PANTOPRAZOLE SODIUM ) 40 Mg Tablet.dr, 40 MG PO DAILYAC for gerd, #30 TAB.SR Prov:KALIA WALKER MD 03/14/19 Budesonide (BUDESONIDE) 0.5 Mg/2 Ml Ampul.neb, 0.5 MG NEB PRN BID PRN for SHORTNESS OF BREATH for 30 Days, EACH Prov:KALIA WALKER MD 03/14/19 Fluoxetine Hcl (FLUOXETINE HCL) 20 Mg Capsule, 20 MG PO DAILY for depression, #30 CAP Prov:KALIA WALKER MD 03/14/19 Gabapentin (GABAPENTIN) 300 Mg Capsule, 300 MG PO QHS for neuropathy, sz, #30 CAP Prov:KALIA WALKER MD 03/14/19 Phenytoin Sodium Extended (DILANTIN) 100 Mg Capsule, 300 MG PO HS for sz, #30 C AP Prov:KALIA WALKER MD 03/14/19 Aspirin (ASPIRIN) 81 Mg Tab.chew, 81 MG PO DAILYWBKFT for cva, #90 TAB.CHEW Prov:KALIA WALKER MD 03/14/19 Apixaban (ELIQUIS) 5 Mg Tablet, 5 MG PO BID for cva, #60 TAB Prov:KALIA WALKER MD 03/14/19 Cyclobenzaprine Hcl (CYCLOBENZAPRINE HCL) 10 Mg Tablet, 10 MG PO PRN TID PRN for MUSCLE spasms/pain, #30 TAB Prov:KALIA WALKER MD 03/14/19 Tamsulosin Hcl (FLOMAX) 0.4 Mg Cap.er.24h, 0.4 MG PO DAILY for retention, #30 CAP.SR Prov:KALIA WALKER MD 03/14/19 Albuterol Sulfate (Proair Hfa) 8.5 Gm Hfa.aer.ad, 2.5 MG NEB PRN Q6HRS PRN for SHORTNESS OF BREATH for 30 Days, INHALER Prov:KALIA WALKER MD 03/14/19 Phenytoin Sodium Extended (DILANTIN) 100 Mg Capsule, 1 CAP PO TID for sz, #90 CAP 3 Refills Prov:KALIA WALKER MD 01/02/19 Insulin Lispro (HUMALOG) 100 Unit/1 Ml Insuln.pen, 10 UNITS SQ TIDWMEALS for dm for 30 Days, EACH Prov:KALIA WALKER MD 01/02/19 Levothyroxine Sodium (SYNTHROID) 100 Mcg Tablet, 200 MCG PO DAILY06 for hypothy, #60 TAB Prov:KALIA WALKER MD 01/02/19 Lisinopril (LISINOPRIL) 40 Mg Tablet, 20 MG PO DAILY for htn, #60 TAB Prov:KALIA WALKER MD 01/02/19 Metoprolol Tartrate (METOPROLOL TARTRATE) 50 Mg Tablet, 100 MG PO BID for htn, #60 TAB Prov:KALIA WALKER MD 01/02/19 Atorvastatin Calcium (ATORVASTATIN CALCIUM) 40 Mg Tablet, 40 MG PO QHS for cva, #60 TAB Prov:KALIA WALKER MD 01/02/19 Isosorbide Mononitrate (ISOSORBIDE MONONITRATE ER) 30 Mg Tab.er.24h, 30 MG PO BID for cp, #90 TAB.SR Prov:KALIA WALKER MD 12/22/18 Reported Medications Mometasone/Formoterol (DULERA 200 MCG/5 MCG INHALER) 13 Gm Hfa.aer.ad, 1 PUFF IH HS for COPD, #13 GM 5 Refills 12/21/18 Oxybutynin Chloride (OXYBUTYNIN CHLORIDE) 5 Mg Tablet, 1 TAB PO PRN TID PRN for URINARY PAIN, #60 TAB 11 Refills 12/21/18 Gabapentin (GABAPENTIN ) 100 Mg Capsule, 100 MG PO TID for NEUROGENIC PAIN, CAP 12/21/18 Furosemide (FUROSEMIDE) 20 Mg Tablet, 1 TAB PO DAILY for blood pressure, #90 TAB 1 Refill 12/21/18 Albuterol Sulfate (Proventil Hfa) 6.7 Gm Hfa.aer.ad, 1 PUFF INH PRN Q6HRS PRN for SHORTNESS OF BREATH, INHALER 12/21/18 Discontinued Reported Medications Levothyroxine Sodium (LEVOTHYROXINE SODIUM) 200 Mcg Tablet, 200 MCG PO DAILYAC for THYROID SUPPLEMENT, #30 TAB 0 Refills 12/21/18 Discontinued Scripts Insulin Glargine,Hum.rec.anlog (LANTUS SOLOSTAR) 100 Unit/1 Ml Insuln.pen, 42 UNITS SQ QHS for dm for 30 Days, EACH Prov:KALIA WALKER MD 01/02/19 Hydrocodone Bit/Acetaminophen (HYDROCODONE-APAP 5-325 ) 1 Tab Tablet, 1 TAB PO PRN Q4HRS PRN for MODERATE PAIN, #30 TAB Prov:KALIA WALKER MD 03/14/19 CHANDAN CREWS MD Mar 27, 2019 15:16
--- NOTE | 2019-03-27 15:20 | PDOC3 ---
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 fib Chronic diastolic HF (compensated) Prior hx of CAD (3 stents) Hypothyroidism (noncompliant w/ Synthroid) DM type 2 Dyslipidemia Prior hx of subacute left frontal, temporal, parietal infarct Dysphagia III hypomagnesemia Uro to try voiding trial if able to treat UTI, may be much improved without cooper GI following, PPI is BID Vitals Problems Medical Problems: (1) Chest pain Status: Acute Brief Hospital Course Allergies Allergies Coded Allergies Type Severity Reaction Last Updated Verified No Known Drug Allergies 12/21/18 No Vital Signs Vital Signs Date Time Temp Pulse Resp B/P (MAP) Pulse Ox O2 Delivery O2 Flow Rate FiO2 03/27/19 11:36 97 Room Air 03/27/19 11:00 94 127/80 03/27/19 11:00 98.4 18 98.4 Lab Results Laboratory Tests Test 03/25/19 16:30 03/25/19 20:56 03/26/19 05:55 03/26/19 07:08 Glucose (Fingerstick) 77 mg/dL (70-99) 109 mg/dL (70-99) 109 mg/dL (70-99) White Blood Count 9.7 x10^3/uL (4.0-11.0) Red Blood Count 4.56 x10^6/uL (4.30-5.70) Hemoglobin 13.5 g/dL (13.0-17.5) Hematocrit 39.7 % (39.0-53.0) Mean Corpuscular Volume 87 fL (79-100) Mean Corpuscular Hemoglobin 30 pg (25-35) Mean Corpuscular Hemoglobin Concent 34 g/dL (31-37) Red Cell Distribution Width 15.1 % (11.5-14.5) Platelet Count 351 x10^3/uL (140-400) Neutrophils (%) (Auto) 62 % (31-73) Lymphocytes (%) (Auto) 25 % (24-48) Monocytes (%) (Auto) 11 % (0-9) Eosinophils (%) (Auto) 2 % (0-3) Basophils (%) (Auto) 1 % (0-3) Neutrophils # (Auto) 6.0 x10^3/uL (1.8-7.7) Lymphocytes # (Auto) 2.5 x10^3/uL (1.0-4.8) Monocytes # (Auto) 1.1 x10^3/uL (0.0-1.1) Eosinophils # (Auto) 0.1 x10^3/uL (0.0-0.7) Basophils # (Auto) 0.1 x10^3/uL (0.0-0.2) Sodium Level 138 mmol/L (136-145) Potassium Level 3.9 mmol/L (3.5-5.1) Chloride Level 100 mmol/L (98-107) Carbon Dioxide Level 30 mmol/L (21-32) Anion Gap 8 (6-14) Blood Urea Nitrogen 5 mg/dL (8-26) Creatinine 0.7 mg/dL (0.7-1.3) Estimated GFR (Cockcroft-Gault) 116.7 BUN/Creatinine Ratio 7 (6-20) Glucose Level 105 mg/dL (70-99) Calcium Level 9.4 mg/dL (8.5-10.1) Total Bilirubin 0.6 mg/dL (0.2-1.0) Aspartate Amino Transf (AST/SGOT) 21 U/L (15-37) Alanine Aminotransferase (ALT/SGPT) 24 U/L (16-63) Alkaline Phosphatase 138 U/L (46-116) Total Protein 6.8 g/dL (6.4-8.2) Albumin 3.2 g/dL (3.4-5.0) Albumin/Globulin Ratio 0.9 (1.0-1.7) Test 03/26/19 11:41 03/26/19 16:48 03/26/19 20:57 03/27/19 00:35 Glucose (Fingerstick) 196 mg/dL (70-99) 136 mg/dL (70-99) 147 mg/dL (70-99) Urine Collection Type Unknown Urine Color Yellow Urine Clarity Cloudy Urine pH 5.5 Urine Specific [place] <=1.005 Urine Protein Negative mg/dL (NEG-TRACE) Urine Glucose (UA) Negative mg/dL (NEG) Urine Ketones (Stick) Negative mg/dL (NEG) Urine Blood Small (NEG) Urine Nitrite Negative (NEG) Urine Bilirubin Negative (NEG) Urine Urobilinogen Dipstick 0.2 mg/dL (0.2 mg/dL) Urine Leukocyte Esterase Large (NEG) Urine RBC 6-10 /HPF (0-2) Urine WBC Tntc /HPF (0-4) Urine Squamous Epithelial Cells Occ /LPF Urine Bacteria Moderate /HPF (0-FEW) Urine Mucus Slight /LPF Urine Yeast Present /HPF Test 03/27/19 08:50 03/27/19 12:29 Glucose (Fingerstick) 165 mg/dL (70-99) 136 mg/dL (70-99) Laboratory Tests Test 03/26/19 16:48 03/26/19 20:57 03/27/19 00:35 03/27/19 08:50 Glucose (Fingerstick) 136 mg/dL (70-99) 147 mg/dL (70-99) 165 mg/dL (70-99) Urine Collection Type Unknown Urine Color Yellow Urine Clarity Cloudy Urine pH 5.5 Urine Specific [place] <=1.005 Urine Protein Negative mg/dL (NEG-TRACE) Urine Glucose (UA) Negative mg/dL (NEG) Urine Ketones (Stick) Negative mg/dL (NEG) Urine Blood Small (NEG) Urine Nitrite Negative (NEG) Urine Bilirubin Negative (NEG) Urine Urobilinogen Dipstick 0.2 mg/dL (0.2 mg/dL) Urine Leukocyte Esterase Large (NEG) Urine RBC 6-10 /HPF (0-2) Urine WBC Tntc /HPF (0-4) Urine Squamous Epithelial Cells Occ /LPF Urine Bacteria Moderate /HPF (0-FEW) Urine Mucus Slight /LPF Urine Yeast Present /HPF Test 03/27/19 12:29 Glucose (Fingerstick) 136 mg/dL (70-99) Brief Hospital Course Mr. Storey is a 58 old male, aphasic, right hemiplegia, admit for pain, 3rd admit in a week, pt returns about an hour after getting to [facility] each time. is sent back for "chest pain" which is clearly more likely abdominal pain, and probably from his UTI and cystitis. cooper changed, abx, cx pending, Uro and ID consut, pt need outpatient voiding trial, he missed f/u at clinic last week. cont cbad pt and ot Discharge Information Condition at Discharge: Improved Follow Up: Weeks Disposition/Orders: D/C to Another Facility Scheduled Apixaban (Eliquis) 5 Mg Tablet, 5 MG PO BID for cva, #60 Prescribed by: AKLIA WALKER on 03/14/191143 Last Action: Continued on 03/24/192117 by Alberto Olivarez Aspirin (Aspirin) 81 Mg Tab.chew, 81 MG PO DAILYWBKFT for cva, #90 Prescribed by: KALIA WALKER on 03/14/191143 Last Action: Continued on 03/24/192117 by Alberto Olivarez Atorvastatin Calcium (Atorvastatin Calcium) 40 Mg Tablet, 40 MG PO QHS for cva, #60 Prescribed by: KALIA WALKER on 01/02/19 0903 Last Action: Continued on 03/24/192117 by Alberto Olivarez Cefdinir (Cefdinir) 300 Mg Capsule, 300 MG PO BID for uti, #6 Prescribed by: CHANDAN CREWS on 03/27/19 1515 Fluoxetine Hcl (Fluoxetine Hcl) 20 Mg Capsule, 20 MG PO DAILY for depression, #30 Prescribed by: KALIA WALKER on 03/14/191143 Last Action: Continued on 03/24/192117 by Alberto Olivarez Furosemide (Furosemide) 20 Mg Tablet, 1 TAB PO DAILY for blood pressure, #90 Ref 1 (Reported) Entered as Reported by: SERA MORALES on 12/21/181840 Last Action: Continued on 03/24/192117 by Alberto Olivarez Gabapentin (Gabapentin ) 100 Mg Capsule, 100 MG PO TID for NEUROGENIC PAIN, (Reported) Entered as Reported by: SERA MORALES on 12/21/181840 Last Action: Continued on 03/24/192117 by Alberto Olivarez Gabapentin (Gabapentin) 300 Mg Capsule, 300 MG PO QHS for neuropathy, sz, #30 Prescribed by: KALIA WALKER on 03/14/191143 Last Action: Continued on 03/24/192117 by Alberto Olivarez Hydrocortisone Acetate (Anti-Itch) 28 Gm Oint...g., 1 LEIGH TP QID for itch, #1 Prescribed by: KALIA WALKER on 03/14/19 114 Last Action: Continued on 03/24/192117 by Alberto Olivarez Insulin Glargine,Hum.rec.anlog (Lantus) 100 Unit/1 Ml Vial, 42 UNIT SQ QHS for dm for 30 Days Prescribed by: KALIA WALKER on 03/14/191143 Last Action: Continued on 03/24/192117 by Alberto Olivarez Insulin Lispro (Humalog) 100 Unit/1 Ml Insuln.pen, 10 UNITS SQ TIDWMEALS for dm for 30 Days Prescribed by: KALIA WALKER on 01/02/19902 Last Action: Continued on 03/24/192117 by Alberto Olivarez Isosorbide Mononitrate (Isosorbide Mononitrate Er) 30 Mg Tab.er.24h, 30 MG PO BID for cp, #90 Prescribed by: KALIA WALKER on 12/22/181124 Last Action: Continued on 03/24/192117 by Alberto Olivarez Levothyroxine Sodium (Synthroid) 100 Mcg Tablet, 200 MCG PO DAILY06 for hypothy, #60 Prescribed by: KALIA WALKER on 01/02/19902 Last Action: Continued on 03/24/192117 by Alberto Olivarez Lisinopril (Lisinopril) 40 Mg Tablet, 20 MG PO DAILY for htn, #60 Prescribed by: KALIA WALKER on 01/02/19902 Last Action: Continued on 03/24/192117 by Alberto Olivarez Metoprolol Tartrate (Metoprolol Tartrate) 50 Mg Tablet, 100 MG PO BID for htn, #60 Prescribed by: KALIA WALKER on 01/02/19902 Last Action: Continued on 03/24/192117 by Alberto Olivarez Mometasone/Formoterol (Dulera 200 Mcg/5 Mcg Inhaler) 13 Gm Hfa.aer.ad, 1 PUFF IH HS for COPD, #13 Ref 5 (Reported) Entered as Reported by: SERA MORALES on 12/21/181847 Last Action: Converted on 03/24/192117 by Alberto Olivarez Nystatin (Nystop) 60 Gm Powder, 1 LEIGH TP BID for skin folds, #1 Prescribed by: KALIA WALKER on 03/14/191143 Last Action: Continued on 03/24/192117 by Alberto Olivarez Pantoprazole Sodium (Pantoprazole Sodium ) 40 Mg Tablet.dr, 40 MG PO DAILYAC for gerd, #30 Prescribed by: KALIA WALKER on 03/14/191143 Last Action: Continued on 03/24/192117 by Alberto Olivarez Phenytoin Sodium Extended (Dilantin) 100 Mg Capsule, 1 CAP PO TID for sz, #90 Ref 3 Prescribed by: KALIA WALKER on 01/02/19905 Last Action: Continued on 03/24/192117 by Alberto Olivarez Phenytoin Sodium Extended (Dilantin) 100 Mg Capsule, 300 MG PO HS for sz, #30 Prescribed by: KALIA WALKER on 03/14/191143 Last Action: Continued on 03/24/192117 by Alberto Olivarez Polyethylene Glycol 3350 (Polyethylene Glycol 3350) 17 Gm Powd.pack, 17 GM PO DAILY for constipation, #30 Prescribed by: CHANDAN CREWS on 03/27/19 1515 Tamsulosin Hcl (Flomax) 0.4 Mg Cap.er.24h, 0.4 MG PO DAILY for retention, #30 Prescribed by: KALIA WALKER on 03/14/191143 Last Action: Continued on 03/24/192117 by Alberto Olivarez Scheduled PRN Albuterol Sulfate (Proventil Hfa) 6.7 Gm Hfa.aer.ad, 1 PUFF INH PRN Q6HRS PRN for SHORTNESS OF BREATH, (Reported) Entered as Reported by: SERA MORALES on 12/21/18 1841 Last Action: Converted on 03/24/192117 by Alberto Olivarez Albuterol Sulfate (Proair Hfa) 8.5 Gm Hfa.aer.ad, 2.5 MG NEB PRN Q6HRS PRN for SHORTNESS OF BREATH for 30 Days Prescribed by: KALIA WALKER on 03/14/191143 Last Action: Continued on 03/24/192117 by Alberto Olivarez Budesonide (Budesonide) 0.5 Mg/2 Ml Ampul.neb, 0.5 MG NEB PRN BID PRN for SHORTNESS OF BREATH for 30 Days Prescribed by: KALIA WALKER on 03/14/191143 Last Action: Continued on 03/24/192117 by Alberto Olivarez Cyclobenzaprine Hcl (Cyclobenzaprine Hcl) 10 Mg Tablet, 10 MG PO PRN TID PRN for MUSCLE spasms/pain, #30 Prescribed by: KALIA WALKER on 03/14/191143 Last Action: Continued on 03/24/192117 by Alberto Olivarez Hydrocodone Bit/Acetaminophen (Hydrocodone-Apap 5-325 ) 1 Tab Tablet, 1 TAB PO PRN Q4HRS PRN for abdominal pain, #30 Prescribed by: CHANDAN CREWS on 03/27/19 1515 Ondansetron (Ondansetron Odt) 4 Mg Tab.rapdis, 4 MG PO PRN Q6HRS PRN for NAUSEA/VOMITING, #60 Prescribed by: KALIA WALKER on 03/14/191143 Last Action: Continued on 03/24/192117 by Alberto Olivarez Oxybutynin Chloride (Oxybutynin Chloride) 5 Mg Tablet, 1 TAB PO PRN TID PRN for URINARY PAIN, #60 Ref 11 (Reported) Entered as Reported by: SERA MORALES on 12/21/181847 Last Action: Continued on 03/24/192117 by Alberto Olivarez Discontinued Medications Hydrocodone Bit/Acetaminophen (Hydrocodone-Apap 5-325 ) 1 Tab Tablet, 1 TAB PO PRN Q4HRS PRN for MODERATE PAIN, #30 Discontinued Reason: Prescription changed Prescribed by: KALIA WALKER on 03/14/19 1144 Insulin Glargine,Hum.rec.anlog (Lantus Solostar) 100 Unit/1 Ml Insuln.pen, 42 UNITS SQ QHS for dm for 30 Days Prescribed by: KALIA WALKER on 01/02/19 0903 Last Action: Converted on 03/24/192117 by Alberto Olivarez Levothyroxine Sodium (Levothyroxine Sodium) 200 Mcg Tablet, 200 MCG PO DAILYAC for THYROID SUPPLEMENT, #30 Ref 0 (Reported) Entered as Reported by: SERA MORALES on 12/21/181847 Last Action: Converted on 03/24/192117 by Alberto Olivarez Patient Instructions Patient Instructions > 30 min face to face CHANDAN CREWS MD Mar 27, 2019 15:20
[2019-03-27] MEDS ORDERED: DEXTROSE 50% 25 GM / 50ML DISP.SYRIN. IV PRN (18:00)
[2019-03-27] MEDS ORDERED: IV DEXTROSE 5% 250 ML BAG. IV PRN (18:00)
[2019-03-27 20:15] VITALS: BP 100/74
[2019-03-27] MEDS: INSULIN GLARGINE SYRINGE. SQ SCH (21:00)
[2019-03-27] MEDS: ATORVASTATIN CALCIUM 40 MG TABLET. PO SCH (22:23)
[2019-03-27] MEDS: CEFDINIR 300 MG CAPSULE PO SCH (22:23)
[2019-03-27] MEDS: GABAPENTIN 300 MG CAPSULE. PO SCH (22:25)
[2019-03-28 03:50] VITALS: BP 115/64
[2019-03-28] MEDS: LEVOTHYROXINE 100 MCG TABLET PO SCH (05:38)
[2019-03-28 07:00] VITALS: BP 96/64
[2019-03-28] MEDS: BUDESONIDE 0.5 MG/2 ML NEBU. NEB SCH (08:00)
[2019-03-28] MEDS: ALBUTEROL SULFATE 2.5 MG/3 ML NEBU. NEB SCH (08:00)
[2019-03-28] MEDS: CEFDINIR 300 MG CAPSULE PO SCH (08:05)
[2019-03-28] MEDS: APIXABAN 5 MG TABLET. PO SCH (08:05)
[2019-03-28] MEDS: ASPIRIN CHEWABLE 81 MG TABLET. PO SCH (08:05)
[2019-03-28] MEDS: LACTOBACILLUS RHAMNOSUS GG 1 CAPSULE. PO SCH (08:06)
[2019-03-28] MEDS: TAMSULOSIN 0.4 MG CAP.ER.24H. PO SCH (08:06)
[2019-03-28] MEDS: FLUoxetine HCL 20 MG CAPSULE PO SCH (08:06)
[2019-03-28] MEDS: GABAPENTIN 100 MG CAPSULE. PO SCH (08:06)
[2019-03-28] MEDS: PHENYTOIN SODIUM EXTENDED 100 MG CAPSULE PO SCH (08:06)
[2019-03-28] MEDS: ISOSORBIDE MONONITRATE ER 30 MG TAB.ER.24H PO SCH (08:07)
[2019-03-28] MEDS: PANTOPRAZOLE 40 MG TABLET.DR. PO SCH (08:07)
[2019-03-28 08:08] VITALS: BP 96/64
[2019-03-28] MEDS: NYSTATIN TOPICAL POWDER 15GM BOTTLE. TP SCH (08:08)
[2019-03-28] MEDS: HYDROCORTISONE 1% TOPICAL OINTMENT 30GM TUBE. TP SCH (08:08)
[2019-03-28] MEDS: METOPROLOL TART IMMED RELEASE 50 MG TABLET. PO SCH (08:08)
[2019-03-28] MEDS: INSULIN LISPRO 300 UNITS/3 ML VIAL. SQ SCH (08:30)
--- NOTE | 2019-03-28 08:54 | PDOC ---
Infectious Disease Note Subjective Subjective pt says he is not feeling well yet ROS ROS no n/v/d/sob/fever Vital Sign Vital Signs Vital Signs Date Time Temp Pulse Resp B/P (MAP) Pulse Ox O2 Delivery O2 Flow Rate FiO2 03/28/19 08:11 65 96/64 03/28/19 08:00 Room Air 03/28/19 07:00 98.3 16 97 98.3 Physical Exam PHYSICAL EXAM VITAL SIGNS: stable GENERAL: The patient is propped up in bed, alert, watching TV. HEENT: Pupils equally round, reactive. Normal conjunctivae. Oropharynx pink and moist. NECK: Supple. LUNGS: Clear to auscultation. HEART: S1, S2. ABDOMEN: Obese, soft, mildly tender. Bowel sounds present. GENITOURINARY: Coopre in place. EXTREMITIES: No gross edema or cyanosis. Peripheral IV. SKIN: Warm to touch. NEUROLOGIC: Alert, aphasic, right-sided weakness. Labs Lab Laboratory Tests Test 03/27/19 08:50 03/27/19 12:29 03/27/19 17:36 03/27/19 21:22 Glucose (Fingerstick) 165 mg/dL (70-99) 136 mg/dL (70-99) 68 mg/dL (70-99) 158 mg/dL (70-99) Test 03/28/19 07:59 Glucose (Fingerstick) 131 mg/dL (70-99) Micro URINE CULTURE Preliminary Preliminary report URINE CULTURE RES 1 Preliminary Streptococcus species Greater than 100,000 colony forming units per mL Performed at: - [facility] [address], [place], [place] [id number] Supervisor Anodizing: SALOMON Sparrow MD, Phone: [phone] Objective Assessment 1. Catheter-associated urinary tract infection, strep growing, that is strep vs enterococcus 2. Abdominal pain. 3. Urinary retention. 4. History of cerebrovascular accident. 5. History of seizures. 6. Diabetes mellitus type 2. 7. History of atrial fibrillation. Plan Plan of Care change omnicef to zyvox for 7 days cooper changed HARLAN COOL MD Mar 28, 2019 08:53
[2019-03-28] MEDS ORDERED: LINEZOLID 600 MG TABLET PO SCH (09:00)
[2019-03-28] MEDS ORDERED: POLYETHYLENE GLYCOL 3350 17 GM PACKET. PO SCH (09:00)
[2019-03-28] MEDS ORDERED: LINE600T37 PO (09:06)
[2019-03-28] MEDS: ANTI-COAG MONITOR BY PHARMACY. MC PRN (10:34)
--- NOTE | 2019-03-28 11:14 | PDOC ---
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 fib Chronic diastolic HF (compensated) Prior hx of CAD (3 stents) Hypothyroidism (noncompliant w/ Synthroid) DM type 2 Dyslipidemia Prior hx of subacute left frontal, temporal, parietal infarct Dysphagia III hypomagnesemia History of Present Illness History of Present Illness 03/28/19 Pt seen and examined at bedside Did not respond to questions, just shook head No acute distress Discharge today 03/27/19 Uro to try voiding trial if able to treat UTI, may be much improved without cooper GI following, PPI is BID Vitals/I&O Vitals/I&O: Vital Signs Date Time Temp Pulse Resp B/P (MAP) Pulse Ox O2 Delivery O2 Flow Rate FiO2 03/28/19 08:11 65 96/64 03/28/19 08:00 Room Air 03/28/19 07:00 98.3 16 97 98.3 I & O 03/27/19 03/27/19 03/28/19 15:00 23:00 07:00 Intake Total 660 ml 300 ml Output Total 850 ml 650 ml Balance 660 ml -850 ml -350 ml Physical Exam Physical Exam: VITAL SIGNS: stable GENERAL: The patient is propped up in bed, alert, watching TV. HEENT: Pupils equally round, reactive. Normal conjunctivae. Oropharynx pink and moist. NECK: Supple. LUNGS: Clear to auscultation. HEART: S1, S2. ABDOMEN: Obese, soft, mildly tender. Bowel sounds present. GENITOURINARY: Cooper in place. EXTREMITIES: No gross edema or cyanosis. Peripheral IV. SKIN: Warm to touch. NEUROLOGIC: Alert, aphasic, right-sided weakness. General: Alert, Oriented X3, No acute distress Lungs: Clear Abdomen: Normal bowel sounds, Soft Extremities: No cyanosis, No edema, Normal pulses Skin: No rashes, No breakdown, No significant lesion Labs Labs: Laboratory Tests Test 03/27/19 12:29 03/27/19 17:36 03/27/19 21:22 03/28/19 07:59 Glucose (Fingerstick) 136 mg/dL (70-99) 68 mg/dL (70-99) 158 mg/dL (70-99) 131 mg/dL (70-99) Review of Systems Review of Systems: No nausea, no vomiting No headache, no loss of vision No wheezing, no shortness of breath Assessment and Plan Assessmemt and Plan Problems Medical Problems: (1) Chest pain Status: Acute Assessment Chest pain Expressive aphasia GERD CVA Cystitis UTI COPD Plan Cardiac monitoring Await further input from cardiology Serial enzymes/EKG DVT Home meds Full code Discharge in progress Comment Review of Relevant I have reviewed the following items sujey (where applicable) has been applied. Medications: Current Medications Medications (Trade) Dose Ordered Sig/Sharno Route PRN Reason Start Time Stop Time Status Last Admin Dose Admin Cefdinir (Omnicef) 300 mg BID PO 03/27/19 21:00 03/28/19 08:54 DC 03/28/19 08:11 Polyethylene Glycol (miraLAX PACKET) 17 gm DAILY PO 03/28/19 09:00 03/28/19 11:04 DC 03/28/19 08:11 VIVIENNE COOPER III DO Mar 28, 2019 11:14
--- NOTE | 2019-03-28 20:59 | DS ---
DATE OF DISCHARGE: 03/28/2019 ADMISSION DIAGNOSIS: Chest pain. DISCHARGE DIAGNOSIS: Resolving chest pain. HOSPITAL COURSE: The patient is a pleasant 58-year-old male who has known coronary artery disease, stroke, and expressive aphasia. Basically, he presented with chest pain. We did a full cardiac workup and consult Cardiology. His enzymes are negative. We plan to discharge with close outpatient followup. DISPOSITION: Home. ACTIVITY: As tolerated. DIET: Low sodium. MEDICATIONS: Please see MRAD. TOTAL TIME: 34 minutes. VIVIENNE COOPER DO DR: SERA/ge JOB#: [id number] / [id number]
== END 2019-03-28 09:00 | DRG 699 ==
LOC: ER 17:36 → 2 NORTH 19:17
PROVIDERS: ADMIT Internal Medicine; ATTEND Internal Medicine
DX: T83.518A Infection and inflammatory reaction due to other urinary catheter, initial encounter (principal); B37.49 Other urogenital candidiasis; G81.91 Hemiplegia, unspecified affecting right dominant side; G93.40 Encephalopathy, unspecified; I50.32 Chronic diastolic (congestive) heart failure; R47.01 Aphasia; I25.10 Atherosclerotic heart disease of native coronary artery without angina pectoris; E03.9 Hypothyroidism, unspecified; E11.42 Type 2 diabetes mellitus with diabetic polyneuropathy; E78.00 Pure hypercholesterolemia, unspecified; E78.5 Hyperlipidemia, unspecified; E83.42 Hypomagnesemia; I11.0 Hypertensive heart disease with heart failure; I48.0 Paroxysmal atrial fibrillation; J44.9 Chronic obstructive pulmonary disease, unspecified; K21.9 Gastro-esophageal reflux disease without esophagitis; M19.90 Unspecified osteoarthritis, unspecified site; Y84.6 Urinary catheterization as the cause of abnormal reaction of the patient, or of later complication, without mention of misadventure at the time of the procedure; Z82.49 Family history of ischemic heart disease and other diseases of the circulatory system; Z86.73 Personal history of transient ischemic attack (TIA), and cerebral infarction without residual deficits; Z91.14 Patient's other noncompliance with medication regimen; Z91.19 Patient's noncompliance with other medical treatment and regimen; Z91.81 History of falling; Z95.5 Presence of coronary angioplasty implant and graft
CPT/HCPCS: 36415; 71045; 74177; 80048; 80053; 80307; 81001; 82553; 82962; 83690; 83735; 83880; 84443; 84484; 85025; 85610; 87086; 87186; 93005; 94640; 94760; J0696; J1815; J7613; J7626; Q0162; Q9966; Q9967; 99285-25; G0378

== ENCOUNTER 2019-05-30 19:07 | Emergency (ER) | payer OTHER ==
[~2019-05-30] VITALS: Ht 172.7 cm; Wt 89.4 kg
[~2019-05-30 19:07] MED LIST changes: +CEFD300C PO; +FLUO20CA19 PO; -FLUO20CA8 PO; +LINE600T12 PO; +OXYB5TAB10 PO; -OXYB5TAB7 PO; +POLY17PO28 PO
[2019-05-30 20:24] LABS: BASO # 0.1 x10^3/uL (0.0-0.2); BASO % 0 % (0-3); EOS # 0.3 x10^3/uL (0.0-0.7); EOS % 2 % (0-3); HEMATOCRIT 43.5 % (39.0-53.0); HEMOGLOBIN 14.6 g/dL (13.0-17.5); LYMPH # 3.7 x10^3/uL (1.0-4.8); LYMPH % 25 % (24-48); MEAN CORPUSCULAR HEMOGLOBIN 29 pg (25-35); MEAN CORPUSCULAR HGB CONC 34 g/dL (31-37); MEAN CORPUSCULAR VOLUME 87 fL (79-100); MONO # 1.6 x10^3/uL (0.0-1.1); MONO % 11 % (0-9); NEUT # 9.3 x10^3/uL (1.8-7.7); NEUT % 62 % (31-73); PLATELET COUNT 395 x10^3/uL (140-400); RED BLOOD COUNT 4.98 x10^6/uL (4.30-5.70); RED CELL DISTRIBUTION WIDTH 14.9 % (11.5-14.5); WHITE BLOOD COUNT 14.9 x10^3/uL (4.0-11.0)
--- NOTE | 2019-05-30 20:25 | PHYS DOC ---
Past Medical History Past Medical History: A-Fib, Asthma, CAD, CHF, COPD, CVA, Diabetes-Type II, GERD, High Cholesterol, Hypertension, Hypothyroid, [place], Seizure, Stroke Additional Past Medical Histor: neuropathy, dysphagia, osteoarthritis, RT SIDE DEFICIT Past Surgical History: Other Additional Past Surgical Histo: cardiac stents Alcohol Use: None Drug Use: None Adult General Chief Complaint Chief Complaint: MECHANICAL FALL HPI HPI 58 year male presents to the emergency department with complaints of a fall. Patient is nonverbal. Patient was found by his caregiver the bathroom 1830. Patient initially complained of right knee pain, right leg pain, left foot pain. Unknown loss of consciousness. Unable to obtain full reviews of systems secondary to patient's medical condition. Patient is afebrile. Review of Systems Review of Systems Full ROS unable to obtain 2/2 patient's medical condition. Patient is nonverbal on exam. All other systems were reviewed and found to be within normal limits, except as documented in this note. Allergies Allergies Allergies Coded Allergies Type Severity Reaction Last Updated Verified No Known Drug Allergies 12/21/18 No Physical Exam Physical Exam Constitutional: Well developed, well nourished, no acute distress, non-toxic appearance. [] HENT: Normocephalic, atraumatic, bilateral external ears normal, oropharynx moist, no oral exudates, nose normal. [] Eyes: PERRLA, EOMI, conjunctiva normal, no discharge. [] Neck: Normal range of motion, no tenderness, supple, no stridor. [] Cardiovascular:Heart rate regular rhythm, no murmur [] Lungs & Thorax: Bilateral breath sounds clear to auscultation [] Abdomen: Bowel sounds normal, soft, no tenderness, no masses, no pulsatile masses. [] Skin: Warm, dry, no erythema, no rash. [] Back: No tenderness, no CVA tenderness. [] Extremities: No tenderness, no edema, left great toe with bleeding 2/2 injury, right knee pain/leg pain [] Neurologic: nonverbal at baseline [] Psychologic: Affect normal, judgement normal, mood normal. [] Current Patient Data Vital Signs Vital Signs Date Time Temp Pulse Resp B/P (MAP) Pulse Ox O2 Delivery O2 Flow Rate FiO2 05/30/19 19:10 97.6 73 18 139/75 (96) 100 Room Air 97.6 Lab Values Laboratory Tests Test 05/30/19 19:16 05/30/19 19:21 Urine Collection Type U cath Urine Color Yellow Urine Clarity Cloudy Urine pH 6.0 Urine Specific [place] 1.015 Urine Protein 100 mg/dL (NEG-TRACE) Urine Glucose (UA) Negative mg/dL (NEG) Urine Ketones (Stick) Negative mg/dL (NEG) Urine Blood Large (NEG) Urine Nitrite Positive (NEG) Urine Bilirubin Negative (NEG) Urine Urobilinogen Dipstick 1.0 mg/dL (0.2 mg/dL) Urine Leukocyte Esterase Large (NEG) Urine RBC Tntc /HPF (0-2) Urine WBC Tntc /HPF (0-4) Urine Squamous Epithelial Cells None /LPF Urine Bacteria Many /HPF (0-FEW) Urine Mucus Mod /LPF White Blood Count 14.9 x10^3/uL (4.0-11.0) H Red Blood Count 4.98 x10^6/uL (4.30-5.70) Hemoglobin 14.6 g/dL (13.0-17.5) Hematocrit 43.5 % (39.0-53.0) Mean Corpuscular Volume 87 fL (79-100) Mean Corpuscular Hemoglobin 29 pg (25-35) Mean Corpuscular Hemoglobin Concent 34 g/dL (31-37) Red Cell Distribution Width 14.9 % (11.5-14.5) H Platelet Count 395 x10^3/uL (140-400) Neutrophils (%) (Auto) 62 % (31-73) Lymphocytes (%) (Auto) 25 % (24-48) Monocytes (%) (Auto) 11 % (0-9) H Eosinophils (%) (Auto) 2 % (0-3) Basophils (%) (Auto) 0 % (0-3) Neutrophils # (Auto) 9.3 x10^3/uL (1.8-7.7) H Lymphocytes # (Auto) 3.7 x10^3/uL (1.0-4.8) Monocytes # (Auto) 1.6 x10^3/uL (0.0-1.1) H Eosinophils # (Auto) 0.3 x10^3/uL (0.0-0.7) Basophils # (Auto) 0.1 x10^3/uL (0.0-0.2) Sodium Level 137 mmol/L (136-145) Potassium Level 4.1 mmol/L (3.5-5.1) Chloride Level 99 mmol/L (98-107) Carbon Dioxide Level 33 mmol/L (21-32) H Anion Gap 5 (6-14) L Blood Urea Nitrogen 13 mg/dL (8-26) Creatinine 0.8 mg/dL (0.7-1.3) Estimated GFR (Cockcroft-Gault) 100.0 Glucose Level 83 mg/dL (70-99) Calcium Level 9.5 mg/dL (8.5-10.1) Laboratory Tests 05/30/19 19:21 Laboratory Tests 05/30/19 19:21 EKG EKG [] Radiology/Procedures Radiology/Procedures [facility] [address] [place] [address] IMAGING REPORT Signed PATIENT: HUMAIRA BORJA ACCOUNT: [id number] : 1960 LOCATION: ER AGE: 58 SEX: M EXAM STATUS: REG ER ORD. PHYSICIAN: LUISA FIERRO MD REASON: Fall, unknown lOC PROCEDURE: CT HEAD AND CERVICAL SPINE WO Exam: CT head and cervical spine without contrast INDICATION: Fall TECHNIQUE: Sequential axial images through the head and cervical spine were obtained without the administration of IV contrast. Comparisons: 12/22/2018 FINDINGS: Head: No focal parenchymal lesion or hemorrhage is identified. There is no midline shift or sulcal effacement. Hypoattenuating area within the periventricular white matter greater on the left, stable from prior study. No acute vascular territory infarction is identified. Chaparro-white distinction is preserved. The ventricular system is within normal limits without compression hydrocephalus. The basal cisterns are well maintained. The visualized portions of the paranasal sinuses and mastoid air cells are well-pneumatized. No acute fractures. Cervical spine: Evaluation is limited secondary to patient motion. Vertebral body heights are well-maintained. There is straightening of cervical spine which may be positional. Evaluation for fracture is limited secondary to patient motion. Visualized paraspinal soft tissues are unremarkable. IMPRESSION: 1. No acute intracranial abnormality. 2. Markedly limited evaluation of the cervical spine. Repeat imaging when patient's condition improves is recommended. Exposure: One or more of the following in the visualized dose reduction techniques were utilized for this examination: 1. Automated exposure control 2. Adjustment of the MA and/or KV according to patient size Use of iterative of reconstructive technique Electronically signed by: Val Duvall MD (05/30/2019 9:28 PM) [facility] DICTATED and SIGNED BY: VAL DUVALL MD DATE: 05/30/192127 [] Course & Med Decision Making Course & Med Decision Making Pertinent Labs and Imaging studies reviewed. (See chart for details) []58 year male presents to the emergency department with complaints of a fall. Patient is nonverbal. Patient was found by his caregiver the bathroom 1830. Patient initially complained of right knee pain, right leg pain, left foot pain. Unknown loss of consciousness. Unable to obtain full reviews of systems secondary to patient's medical condition. Patient is afebrile. WBC 14.9, UAD with evidence of UTI Imaging negative for acute process Plan dc home and follow up with PCP Return to the ER with fever, AMS, nausea with vomiting Dragon Disclaimer Dragon Disclaimer This electronic medical record was generated, in whole or in part, using a voice recognition dictation system. Departure Departure Impression: Primary Impression: Fall Additional Impressions: UTI (urinary tract infection) Knee pain, right Disposition: 01 HOME, SELF-CARE Condition: STABLE Referrals: UNKNOWN PCP NAME (PCP) Patient Instructions: Fall Prevention and Home Safety, [id number], Knee Pain, [id number], Urinary Tract Infection, [id number] Additional Instructions: Recommend follow up with PCP 3 - 5 days Return to the ER with worsening symptoms, intractable pain, fever, altered mental status Tylenol/Motrin as needed for pain Take antibiotics as directed - Keflex 500mg 2 po BID x [address] of head and neck negative for acute process UA with evidence of UTI Scripts Cephalexin (KEFLEX) 500 Mg Capsule 2 CAP PO Q12HR for 5 Days, #20 CAP Prov: LUISA FIERRO MD 05/30/19 Problem Qualifiers Primary Impression: Fall Encounter type: initial encounter Qualified Codes: W19.XXXA - Unspecified fall, initial encounter Additional Impressions: UTI (urinary tract infection) Urinary tract infection type: site unspecified Hematuria presence: without hematuria Qualified Codes: N39.0 - Urinary tract infection, site not specified Knee pain, right Chronicity: acute Qualified Codes: M25.561 - Pain in right knee LUISA FIERRO MD May 30, 2019 20:25
[2019-05-30 20:32] LABS: CALCIUM 9.5 mg/dL (8.5-10.1); CREATININE 0.8 mg/dL (0.7-1.3); POTASSIUM 4.1 mmol/L (3.5-5.1)
--- NOTE | 2019-05-30 21:31 | RAD ---
Exam: CT head and cervical spine without contrast INDICATION: Fall TECHNIQUE: Sequential axial images through the head and cervical spine were obtained without the administration of IV contrast. Comparisons: 12/22/2018 FINDINGS: Head: No focal parenchymal lesion or hemorrhage is identified. There is no midline shift or sulcal effacement. Hypoattenuating area within the periventricular white matter greater on the left, stable from prior study. No acute vascular territory infarction is identified. Chaparro-white distinction is preserved. The ventricular system is within normal limits without compression hydrocephalus. The basal cisterns are well maintained. The visualized portions of the paranasal sinuses and mastoid air cells are well-pneumatized. No acute fractures. Cervical spine: Evaluation is limited secondary to patient motion. Vertebral body heights are well-maintained. There is straightening of cervical spine which may be positional. Evaluation for fracture is limited secondary to patient motion. Visualized paraspinal soft tissues are unremarkable. IMPRESSION: 1. No acute intracranial abnormality. 2. Markedly limited evaluation of the cervical spine. Repeat imaging when patient's condition improves is recommended. Exposure: One or more of the following in the visualized dose reduction techniques were utilized for this examination: 1. Automated exposure control 2. Adjustment of the MA and/or KV according to patient size Use of iterative of reconstructive technique Electronically signed by: Carleen Huber MD (05/30/2019 9:28 PM) [facility]
[2019-05-30 21:54] LABS: BILIRUBIN,URINE NEGATIVE (NEG); CLARITY,URINE CLOUDY; COLOR,URINE YELLOW; NITRITE,URINE POSITIVE (NEG); PROTEIN,URINE 100 mg/dL (NEG-TRACE)
[2019-05-30 21:59] LABS: BACTERIA,URINE MANY /HPF (0-FEW); RBC,URINE TNTC /HPF (0-2); WBC,URINE TNTC /HPF (0-4)
[2019-05-30] MEDS ORDERED: CEPH-264 PO (22:08)
[2019-05-30 22:10] VITALS: BP 96/51
[2019-05-30] MEDS ORDERED: cefTRIAXone IV Push 1 GM VIAL. IVP ONE (22:30)
--- NOTE | 2019-05-31 00:18 | RAD ---
Three-view right knee radiographs to include AP and lateral radiographs of the right tibia and fibula 05/30/2019 CLINICAL HISTORY: Fall with injury to the right knee/right lower leg. AP, lateral and oblique digital radiographs of the right knee were obtained. AP and lateral radiographs of the right tibia and fibula were obtained. No fracture or dislocation of the right knee is seen. No fracture or dislocation of the right tibia or fibula is noted. The right ankle mortise is intact. IMPRESSION: No fracture or dislocation is seen. Electronically signed by: Yash Quezada MD (05/31/2019 12:15 AM) [facility]
--- NOTE | 2019-05-31 00:21 | RAD ---
Two-view left foot radiographs 05/30/2019 CLINICAL HISTORY: Wound to the left first digit. AP and lateral digital radiographs of the left foot were obtained. No fracture or dislocation left foot is seen. Mild degenerative changes are seen throughout the interphalangeal joints of the left foot. Minimal enthesophyte formation is seen involving the plantar aspect of the posterior left calcaneus. There is no tadiographic evidence of osteomyelitis involving the left foot. Scattered vascular calcifications are seen. IMPRESSION: No acute osseous abnormality is seen. Electronically signed by: Yash Quezada MD (05/31/2019 12:18 AM) [facility]
--- NOTE | 2019-05-31 06:37 | EKG ---
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
--- NOTE | 2019-05-31 06:38 | EKG ---
[facility] [address] [place] [address] Test Date: 2019-05-30 Test Time: 21:04:46 Pat Name: HUMAIRA BORJA Department: Room: Gender: M General Merchandise Salesperson: : 1960 Requested By: LUISA FIERRO Order Number: [id number] Reading MD: Measurements Intervals [place] Rate: 71 P: NE: QRS: 16 QRSD: 114 T: 59 QT: 396 QTc: 435 Interpretive Statements ATRIAL FLUTTER LOW LIMB LEAD VOLTAGE QRS(T) CONTOUR ABNORMALITY CONSISTENT WITH ANTEROSEPTAL INFARCT AGE UNDETERMINED T ABNORMALITY IN HIGH LATERAL LEADS ABNORMAL ECG No previous ECG available for comparison
== END 2019-05-30 22:52 | disposition home or self-care (01) ==
LOC: ER 19:07
DX: M25.561 Pain in right knee (principal); N39.0 Urinary tract infection, site not specified; G89.11 Acute pain due to trauma; M79.672 Pain in left foot; M79.604 Pain in right leg; R51 Headache; I48.91 Unspecified atrial fibrillation; I11.0 Hypertensive heart disease with heart failure; I50.9 Heart failure, unspecified; J44.9 Chronic obstructive pulmonary disease, unspecified; E78.00 Pure hypercholesterolemia, unspecified; K21.9 Gastro-esophageal reflux disease without esophagitis; I25.2 Old myocardial infarction; Z86.73 Personal history of transient ischemic attack (TIA), and cerebral infarction without residual deficits; E11.40 Type 2 diabetes mellitus with diabetic neuropathy, unspecified; I25.10 Atherosclerotic heart disease of native coronary artery without angina pectoris; Z95.5 Presence of coronary angioplasty implant and graft; W18.39XA Other fall on same level, initial encounter; Y93.89 Activity, other specified; Y92.89 Other specified places as the place of occurrence of the external cause; Y99.8 Other external cause status
CPT/HCPCS: 36415; 70450; 72125; 73562; 73590; 73620; 80048; 81001; 85025; 87086; 87186; 93005; 99285-25

== ENCOUNTER 2019-11-21 22:28 | Inpatient (IN) | payer OTHER ==
[~2019-11-21] VITALS: Ht 182.9 cm; Wt 76.6 kg
[~2019-11-21 22:28] MED LIST changes: +CEPH-264 PO; -FLUO20CA19 PO; +FLUO20CA20 PO; +LEVO-101 PO; -LEVO100T PO
--- NOTE | 2019-11-21 22:47 | PHYS DOC ---
Past Medical History Past Medical History: A-Fib, Asthma, CAD, CHF, COPD, CVA, Diabetes-Type II, GERD, High Cholesterol, Hypertension, Hypothyroid, [place], Seizure, Stroke Additional Past Medical Histor: neuropathy, dysphagia, osteoarthritis, RT SIDE DEFICIT Past Surgical History: Other Additional Past Surgical Histo: cardiac stents Smoking Status: Former Smoker Alcohol Use: None Drug Use: None General Adult EDM: Chief Complaint: BLOOD IN URINE HPI: HPI: 59-year-old male with significant history of coronary artery disease with stents, stroke with expressive aphasia, COPD, seizures, paroxysmal atrial fibrillation on eliquis, diastolic heart failure, hypothyroidism, hyperlipidemia, diabetes mellitus, who presents from nursing facility for the evaluation of abdominal pain. The patient has had abdominal pain for unclear duration, point to his lower abdomen is area of greatest pain. He is also reporting been having blood in his urine per suprapubic catheter. The patient also endorses cough but no chest pain or dyspnea. There is some mild limitation in obtaining history due to the patient's severe expressive aphasia, only able to respond with yes or no. Review of Systems: Review of Systems: ROS limited 2/2 expressive aphasia. Heart Score: Risk Factors: Risk Factors: DM, Current or recent (<one month) smoker, HTN, HLP, family history of CAD, obesity. Risk Scores: Score 0 - 3: 2.5% MACE over next 6 weeks - Discharge Home Score 4 - 6: 20.3% MACE over next 6 weeks - Admit for Clinical Observation Score 7 - 10: 72.7% MACE over next 6 weeks - Early Invasive Strategies Allergies: Allergies: Allergies Coded Allergies Type Severity Reaction Last Updated Verified No Known Drug Allergies 12/21/18 No Physical Exam: PE: Gen: NAD. Well nourished. Head: NC/AT. Eyes: No scleral icterus. No conjunctival injection. ENT: MMM. Posterior OP clear. Neck: Supple. NT. CV: RRR. Peripheral pulses intact. Resp: CTAB. Abd: Soft.Diffuse distended. Nonfocal TTP. No R/G/R. MSK: No peripheral cyanosis. No edema. Neuro: Awake and alert. Skin. Warm. Dry. Psych: Appropriate mood & affect. Current Patient Data: Labs: Laboratory Tests Test 11/21/19 22:41 11/21/19 22:48 5/19/20 23:20 White Blood Count 9.1 x10^3/uL (4.0-11.0) Red Blood Count 4.98 x10^6/uL (4.30-5.70) Hemoglobin 14.8 g/dL (13.0-17.5) Hematocrit 43.7 % (39.0-53.0) Mean Corpuscular Volume 88 fL (79-100) Mean Corpuscular Hemoglobin 30 pg (25-35) Mean Corpuscular Hemoglobin Concent 34 g/dL (31-37) Red Cell Distribution Width 15.6 % (11.5-14.5) Platelet Count 452 x10^3/uL (140-400) Neutrophils (%) (Auto) 55 % (31-73) Lymphocytes (%) (Auto) 22 % (24-48) Monocytes (%) (Auto) 21 % (0-9) Eosinophils (%) (Auto) 2 % (0-3) Basophils (%) (Auto) 1 % (0-3) Neutrophils # (Auto) 5.0 x10^3/uL (1.8-7.7) Lymphocytes # (Auto) 2.0 x10^3/uL (1.0-4.8) Monocytes # (Auto) 1.9 x10^3/uL (0.0-1.1) Eosinophils # (Auto) 0.2 x10^3/uL (0.0-0.7) Basophils # (Auto) 0.1 x10^3/uL (0.0-0.2) Segmented Neutrophils % 40 % (35-66) Band Neutrophils % 19 % (0-9) Lymphocytes % 21 % (24-48) Monocytes % 17 % (0-10) Eosinophils % 1 % (0-5) Basophils % 2 % (0-3) Platelet Estimate Increased (ADEQUATE) Prothrombin Time 73.7 SEC (11.7-14.0) Prothromb Time International Ratio 8.6 (0.8-1.1) Activated Partial Thromboplast Time 98 SEC (24-38) Urine Collection Type U cath Urine Color Red Urine Clarity Bloody Urine pH (<5.0-8.0) Urine Specific [place] (1.000-1.030) Urine Protein mg/dL (NEG-TRACE) Urine Glucose (UA) mg/dL (NEG) Urine Ketones (Stick) mg/dL (NEG) Urine Blood (NEG) Urine Nitrite (NEG) Urine Bilirubin (NEG) Urine Urobilinogen Dipstick mg/dL (0.2 mg/dL) Urine Leukocyte Esterase (NEG) Urine RBC Tntc /HPF (0-2) Urine WBC /HPF (0-4) Urine Bacteria 0 /HPF (0-FEW) Urine Hyaline Casts Few /HPF Sodium Level 129 mmol/L (136-145) Chloride Level 88 mmol/L (98-107) Carbon Dioxide Level 35 mmol/L (21-32) Anion Gap 6 (6-14) Blood Urea Nitrogen 16 mg/dL (8-26) Estimated GFR (Cockcroft-Gault) 99.6 BUN/Creatinine Ratio 20 (6-20) Glucose Level 192 mg/dL (70-99) Calcium Level 8.8 mg/dL (8.5-10.1) Total Bilirubin 0.6 mg/dL (0.2-1.0) Aspartate Amino Transf (AST/SGOT) 25 U/L (15-37) Alkaline Phosphatase 159 U/L (46-116) Troponin I Quantitative < 0.017 ng/mL (0.000-0.055) Total Protein 7.1 g/dL (6.4-8.2) Albumin 3.2 g/dL (3.4-5.0) Albumin/Globulin Ratio 0.8 (1.0-1.7) EKG: EKG: [] Radiology/Procedures: Radiology/Procedures: PROCEDURE: CT ABD PELV W/ IV CONTRST ONLY CT scan of the abdomen and pelvis with contrast 11/21/2019 CLINICAL HISTORY: Abdominal pain and distention. TECHNIQUE: After the intravenous administration of 75 cc of Omnipaque 300, contiguous, 5 mm axial sections were obtained through the abdomen and pelvis One or more of the following individualized dose reduction techniques were utilized for this study: 1. Automated exposure control. 2. Adjustment of the mA and/or kV according to patient size. 3. Use of iterative reconstruction technique. FINDINGS: Comparison study is dated 03/25/2019. Images through the lung bases demonstrate minimal dependent subsegmental atelectasis bilaterally. Stents are seen in region of the left anterior descending coronary artery. There is a small pericardial effusion. The liver, spleen, pancreas, adrenal glands and kidneys are within normal limits. Atherosclerotic calcification of the abdominal aorta is seen. The abdominal aorta tapers normally. The gallbladder is well-distended. No free fluid or free air is seen within the abdomen. Marked air and fluid distention of small bowel and large bowel loops throughout the abdomen and pelvis is seen. This extends all the way to the rectum. No transition point is noted. These findings likely reflect an ileus. Images through the pelvis demonstrate a suprapubic catheter in place. No free fluid is noted. Degenerative changes are seen involving the lower thoracic and throughout the lumbar spine along with both hips. IMPRESSION: Marked air and fluid distention of small and large bowel loops throughout the abdomen and pelvis is seen extending to the rectum. No transition point is noted. These findings likely reflect an ileus. Electronically signed by: Yash Quezada MD (11/22/2019 12:09 AM) [id number] Course & Med Decision Making: Course & Med Decision Making Pertinent Labs and Imaging studies reviewed. (See chart for details) In summary, 59-year-old male who presents for evaluation of gross hematuria, on Coumadin, found to have a supratherapeutic INR of 8.6 receiving oral vitamin K. Also having some abdominal pain and distention, found to have an ileus, no transition point suggestive of small bowel obstruction. The patient will be admitted for further management. No evidence of acute obstruction regarding the suprapubic catheter at this time. Initial hemoglobin is within normal limits. Dragon Disclaimer: Dragалександр Disclaimer: This electronic medical record was generated, in whole or in part, using a voice recognition dictation system. Departure Departure Impression: Primary Impression: Supratherapeutic international normalized ratio (INR) Additional Impressions: Gross hematuria Ileus Disposition: ADMITTED INPATIENT Admitting Physician: KENZIE (Dr. Pressley @ [id number]) Condition: STABLE Referrals: UNKNOWN PCP NAME (PCP) GRETA BRADFORD DO November 21, 2019 22:46
[2019-11-21 22:58] LABS: BASO # 0.1 x10^3/uL (0.0-0.2); BASO % 1 % (0-3); EOS # 0.2 x10^3/uL (0.0-0.7); EOS % 2 % (0-3); HEMATOCRIT 43.7 % (39.0-53.0); HEMOGLOBIN 14.8 g/dL (13.0-17.5); LYMPH % 22 % (24-48); MEAN CORPUSCULAR HEMOGLOBIN 30 pg (25-35); MEAN CORPUSCULAR HGB CONC 34 g/dL (31-37); MEAN CORPUSCULAR VOLUME 88 fL (79-100); MONO # 1.9 x10^3/uL (0.0-1.1); MONO % 21 % (0-9); NEUT % 55 % (31-73); PLATELET COUNT 452 x10^3/uL (140-400); RED BLOOD COUNT 4.98 x10^6/uL (4.30-5.70); RED CELL DISTRIBUTION WIDTH 15.6 % (11.5-14.5); WHITE BLOOD COUNT 9.1 x10^3/uL (4.0-11.0)
[2019-11-21 23:03] LABS: CLARITY,URINE BLOODY; COLOR,URINE RED
[2019-11-21 23:04] LABS: RBC,URINE TNTC /HPF (0-2)
[2019-11-21 23:08] LABS: BACTERIA,URINE 0 /HPF (0-FEW); HYALINE CASTS, URINE FEW /HPF
[2019-11-21 23:08] LABS: PROTHROMBIN TIME PATIENT 73.7 SEC (11.7-14.0)
[2019-11-21] MEDS ORDERED: CONTRAST GIVEN. MC PRN (23:15)
[2019-11-21] MEDS ORDERED: IOHEXOL 300 MG/ML 100ML VIAL. IV ONE (23:15)
[2019-11-21 23:21] LABS: % BANDS 19 % (0-9); % BASOS 2 % (0-3); % EOS 1 % (0-5); % SEGS 40 % (35-66)
[2019-11-21 23:22] LABS: % LYMPHS 21 % (24-48); % MONOS 17 % (0-10); PLT ESTIMATE INCREASED (ADEQUATE)
[2019-11-21] MEDS ORDERED: PHYTONADIONE 10 MG/ML ORAL SOLUTION. PO ONE (23:30)
[2019-11-21 23:40] LABS: CALCIUM 8.8 mg/dL (8.5-10.1); CREATININE 0.8 mg/dL (0.7-1.3); GFR 99.6; POTASSIUM 3.9 mmol/L (3.5-5.1)
[2019-11-21 23:46] LABS: ALBUMIN 3.2 g/dL (3.4-5.0); ALBUMIN/GLOBULIN RATIO 0.8 (1.0-1.7); MAGNESIUM 2.1 mg/dL (1.8-2.4); TOTAL BILIRUBIN 0.6 mg/dL (0.2-1.0); TOTAL PROTEIN 7.1 g/dL (6.4-8.2)
--- NOTE | 2019-11-22 00:12 | RAD ---
CT scan of the abdomen and pelvis with contrast 11/21/2019 CLINICAL HISTORY: Abdominal pain and distention. TECHNIQUE: After the intravenous administration of 75 cc of Omnipaque 300, contiguous, 5 mm axial sections were obtained through the abdomen and pelvis One or more of the following individualized dose reduction techniques were utilized for this study: 1. Automated exposure control. 2. Adjustment of the mA and/or kV according to patient size. 3. Use of iterative reconstruction technique. FINDINGS: Comparison study is dated 03/25/2019. Images through the lung bases demonstrate minimal dependent subsegmental atelectasis bilaterally. Stents are seen in region of the left anterior descending coronary artery. There is a small pericardial effusion. The liver, spleen, pancreas, adrenal glands and kidneys are within normal limits. Atherosclerotic calcification of the abdominal aorta is seen. The abdominal aorta tapers normally. The gallbladder is well-distended. No free fluid or free air is seen within the abdomen. Marked air and fluid distention of small bowel and large bowel loops throughout the abdomen and pelvis is seen. This extends all the way to the rectum. No transition point is noted. These findings likely reflect an ileus. Images through the pelvis demonstrate a suprapubic catheter in place. No free fluid is noted. Degenerative changes are seen involving the lower thoracic and throughout the lumbar spine along with both hips. IMPRESSION: Marked air and fluid distention of small and large bowel loops throughout the abdomen and pelvis is seen extending to the rectum. No transition point is noted. These findings likely reflect an ileus. Electronically signed by: Yash Quezada MD (11/22/2019 12:09 AM) [id number]
--- NOTE | 2019-11-22 00:22 | RAD ---
AP portable chest radiograph 11/21/2019 Clinical History: Cough. An AP erect portable digital radiograph of the chest was obtained. Comparison study is dated 03/24/2019. The cardiac silhouette is normal in size. The thoracic aorta is mildly tortuous. A small calcified granuloma is seen involving the right lower lobe. No acute pulmonary infiltrate is seen. No pleural effusion or pneumothorax is noted. Degenerative changes are seen involving the thoracic spine and both shoulders. Impression: No acute abnormality is seen. Electronically signed by: Yash Quezada MD (11/22/2019 12:20 AM) [id number]
[2019-11-22] MEDS ORDERED: ONDANSETRON PF 4 MG/2 ML VIAL. IV PRN (00:30)
[2019-11-22] MEDS ORDERED: VITS5OIN TP (06:35)
[2019-11-22] MEDS ORDERED: ASCO500C PO (06:35)
[2019-11-22] MEDS ORDERED: ATOR20TA58 PO (06:35)
[2019-11-22] MEDS ORDERED: CEFP200T PO (06:35)
[2019-11-22] MEDS ORDERED: FLUO40CA2 PO (06:35)
[2019-11-22] MEDS ORDERED: METO25TA4 PO (06:35)
[2019-11-22] MEDS ORDERED: PHEN200C3 PO (06:35)
[2019-11-22] MEDS ORDERED: HYOS0.1279 PO (06:35)
[2019-11-22] MEDS ORDERED: WARF2TAB PO (06:35)
[2019-11-22] MEDS ORDERED: MIRA25TA PO (06:35)
[2019-11-22] MEDS ORDERED: ZINC220T3 PO (06:35)
[2019-11-22] MEDS ORDERED: SENN1TAB99 PO (06:35)
[2019-11-22] MEDS ORDERED: GABA300C18 PO (06:35)
[2019-11-22] MEDS ORDERED: FLUC200T4 PO (06:35)
[2019-11-22] MEDS ORDERED: CITR30IR IR (06:35)
[2019-11-22] MEDS ORDERED: SIME80TA14 PO (06:35)
[2019-11-22] MEDS ORDERED: PANT20TA2 PO (06:35)
[2019-11-22] MEDS ORDERED: INSU100I53 SQ (06:35)
--- NOTE | 2019-11-22 06:37 | EKG ---
[facility] [address] [place] [address] Test Date: 2019-11-21 Test Time: 22:52:55 Pat Name: HUMAIRA BORJA Department: Room: 250 1 Gender: M Consumer Credit Counselor: : 1960 Requested By: GRETA BRADFORD Order Number: [id number] Reading MD: Adan Clements Measurements Intervals [place] Rate: 87 P: 23 CA: 174 QRS: -38 QRSD: 88 T: 71 QT: 386 QTc: 471 Interpretive Statements SINUS RHYTHM ABNORMAL LEFT AXIS DEVIATION LOW LIMB LEAD VOLTAGE LEFT ANTERIOR FASCICULAR BLOCK QRS(T) CONTOUR ABNORMALITY CONSISTENT WITH ANTEROSEPTAL INFARCT AGE UNDETERMINED ABNORMAL ECG Electronically Signed On 11-22-2019 8:08:28 CDT by Adan Clements
[2019-11-22 07:00] VITALS: BP 143/97
[2019-11-22] MEDS ORDERED: POLYETHYLENE GLYCOL 3350 17 GM PACKET. PO ONE (08:30)
[2019-11-22] MEDS ORDERED: SENNOSIDES/DOCUSATE 8.6/50MG TABLET. PO PRN (08:30)
[2019-11-22] MEDS ORDERED: IV NORMAL SALINE 1000ML BAG 1,000 ML IV ONE (08:30)
[2019-11-22] MEDS ORDERED: SIMETHICONE 80 MG TAB.CHEW PO PRN (08:30)
[2019-11-22] MEDS ORDERED: MORPHINE SULFATE 4 MG/ML VIAL. IV ONE (08:30)
[2019-11-22] MEDS ORDERED: POLYETHYLENE GLYCOL 3350 17 GM PACKET. PO PRN (08:30)
[2019-11-22] MEDS: METOPROLOL TART IMMED RELEASE 25 MG TABLET. PO SCH ×2 (08:46→21:00)
[2019-11-22] MEDS: NYSTATIN TOPICAL POWDER 15GM BOTTLE. TP SCH ×2 (08:46→23:57)
[2019-11-22] MEDS: LUBIPROSTONE 24 MCG CAPSULE PO SCH ×2 (08:46→16:55)
[2019-11-22] MEDS: GABAPENTIN 300 MG CAPSULE. PO SCH ×2 (08:47→21:00)
[2019-11-22] MEDS: FLUoxetine HCL 20 MG CAPSULE PO SCH (08:47)
[2019-11-22] MEDS: ASPIRIN CHEWABLE 81 MG TABLET. PO SCH (08:47)
[2019-11-22] MEDS ORDERED: NON FORMULARY ITEM (Mirabegron (Myrbetriq) 25 MG) PO SCH (09:00)
[2019-11-22] MEDS: LEVOTHYROXINE 100 MCG TABLET PO SCH (10:24)
--- NOTE | 2019-11-22 10:24 | PDOC1 ---
History and Physical Date of Admission Date of Admission DATE: 11/22/19 TIME: 10:23 Identification/Chief Complaint Chief Complaint seen in er 59-year-old male ///history of coronary artery disease with stents, stroke with expressive aphasia, COPD, seizures, paroxysmal atrial fibrillation on eliquis, diastolic heart failure, hypothyroidism, hyperlipidemia, diabetes mellitus, who presented from nursing facility for the evaluation of abdominal pain. // abdominal pain for unclear duration, point // lower LEFT abdomen is area of greatest pain. NOTES blood in his urine per suprapubic catheter. notes cough but no chest pain or dyspnea. ADMITTED from [facility] to ER w/ elevated INR, hematuria, abd pain, and constipation. CT c/w ileus. Past Medical History Past Medical History Past Medical History Past Medical History Past Medical History: A-Fib, Asthma, CAD, CHF, COPD, CVA, Diabetes-Type II, GERD, High Cholesterol, Hypertension, Hypothyroid, NM, Seizure, Stroke Additional Past Medical Histor: neuropathy, dysphagia, osteoarthritis, RT SIDE DEFICIT Past Surgical History: Other Additional Past Surgical Histo: cardiac stents Smoking Status: Former Smoker Alcohol Use: None Drug Use: None FHX COPD Cardiovascular: AFIB, CAD, CHF, HTN, Hyperlipidemia Pulmonary: COPD CENTRAL NERVOUS SYSTEM: Periperal neuropathy, Seizure GI: Constipation, GERD Heme/Onc: No pertinent hx Hepatobiliary: No pertinent hx Psych: No pertinent hx Musculoskeletal: Osteoarthritis Rheumatologic: No pertinent hx Infectious disease: No pertinent hx Renal/: No pertinent hx Endocrine: Diabetes, Hypothyroidism Past Surgical History Past Surgical History: Other Family History Family History: Coronary Artery Disease, High Cholestrol Social History Smoke: No ALCOHOL: none Drugs: None Current Problem List Problem List Problems Medical Problems: (1) Gross hematuria Status: Acute (2) Supratherapeutic international normalized ratio (INR) Status: Acute Current Medications Current Medications Current Medications Iohexol (Omnipaque 300 Mg/ml) 75 ml 1X ONCE IV Last administered on 11/21/19at 23:55; Start 11/21/19 at 23:15; Stop 11/21/19 at 23:16; Status DC Info (CONTRAST GIVEN -- Rx MONITORING) 1 each PRN DAILY PRN MC SEE COMMENTS; Start 11/21/19 at 23:15; Stop 11/23/19 at 23:14 Phytonadione (Mephyton Oral Soln) 5 mg 1X ONCE PO Last administered on 11/21/19 23:40; Start 11/21/19 at 23:30; Stop 11/21/19 at 23:31; Status DC Ondansetron HCl (Zofran) 4 mg PRN Q8HRS PRN IV NAUSEA/VOMITING; Start 11/22/19 at 00:30; Stop 11/23/19 at 00:29 Morphine Sulfate (Morphine Sulfate) 4 mg 1X ONCE IV Last administered on 11/22/19 08:47; Start 11/22/19 at 08:30; Stop 11/22/19 at 08:34; Status DC Morphine Sulfate (Morphine Sulfate) 2 mg PRN Q2HR PRN IV PAIN; Start 11/22/19 at 08:30 Polyethylene Glycol (miraLAX PACKET) 17 gm 1X ONCE PO Last administered on 11/22/19 08:46; Start 11/22/19 at 08:30; Stop 11/22/19 at 08:34; Status DC Polyethylene Glycol (miraLAX PACKET) 17 gm PRN DAILY PRN PO CONSTIPATION; Start 11/22/19 at 08:30 Aspirin (Aspirin Chewable) 81 mg DAILYWBKFT PO Last administered on 11/22/19 08:47; Start 11/22/19 at 09:00 Atorvastatin Calcium (Lipitor) 20 mg HS PO ; Start 11/22/19 at 21:00 Gabapentin (Neurontin) 300 mg BID PO Last administered on 11/22/19 08:47; Start 11/22/19 at 09:00 Levothyroxine Sodium (Synthroid) 200 mcg DAILY06 PO ; Start 11/22/19 at 10:30 Metoprolol Tartrate (Lopressor) 25 mg BID PO Last administered on 11/22/19 08:46; Start 11/22/19 at 09:00 Nystatin (Nystop) 1 juan daniel BID TP Last administered on 11/22/19 08:46; Start 11/03 at 09:00 Senna/Docusate Sodium (Senna Plus) 2 tab PRN BID PRN PO CONSTIPATION; Start 11/22/19 at 08:30 Simethicone (Gas-X) 80 mg PRN TID PRN PO GAS / BLOATING; Start 11/22/19 at 08:30 Fluoxetine HCl (PROzac) 40 mg DAILYWBKFT PO Last administered on 11/22/19at 08:47; Start 11/22/19 at 09:00 Non-Formulary Medication (Mirabegron (Myrbetriq)) 25 mg DAILY PO ; Start 11/22/19 at 09:00; Status UNV Pantoprazole Sodium (Protonix) 40 mg DAILYAC PO ; Start 11/22/19 at 11:30 Sodium Chloride 1,000 ml @ 100 mls/hr 1X ONCE IV Last administered on 11/22/19at 08:46; Start 11/22/19 at 08:30; Stop 11/22/19 at 18:29 Lubiprostone (Amitiza) 24 mcg BIDWMEALS PO Last administered on 11/22/19at 08:46; Start 11/22/19 at 09:00 Active Scripts Active Hydrocodone-Apap 5-325 (Hydrocodone Bit/Acetaminophen) 1 Tab Tablet 1 Tab PO PRN Q4HRS PRN Polyethylene Glycol 3350 17 Gm Powd.pack 17 Gm PO DAILY Nystop (Nystatin) 60 Gm Powder 1 Juan Daniel TP BID Aspirin 81 Mg Tab.chew 81 Mg PO DAILYWBKFT Synthroid (Levothyroxine Sodium) 100 Mcg Tablet 200 Mcg PO DAILY06 Reported Zinc Sulfate 220 Mg Tablet 1 Tab PO DAILY 30 Days Vitamin C (Ascorbic Acid) 500 Mg Capsule.er 1 Cap PO DAILY 30 Days Vitamin A & D Ointment Packet (Vits A & D/White Pet/Lanolin) 5 Gm Oint.pack 5 Gm TP BID Simethicone 80 Mg Tab.chew 1 Tab PO PRN TID PRN 6 Days Senna-Docusate Sodium Tablet (Sennosides/Docusate Sodium) 1 Each Tablet 2 Tab PO PRN BID PRN 5 Days Fluoxetine Hcl 40 Mg Capsule 1 Cap PO DAILYWBKFT Protonix (Pantoprazole Sodium) 20 Mg Tablet.dr 1 Tab PO DAILY Phenytoin Sodium Extended 200 Mg Capsule 1 Cap PO BID 30 Days Myrbetriq (Mirabegron) 25 Mg Tab.er.24h 25 Mg PO DAILY Metoprolol Tartrate 25 Mg Tablet 1 Tab PO BID Atorvastatin Calcium 20 Mg Tablet 20 Mg PO HS Insulin Aspart Flexpen (Insulin Aspart) 100 Unit/1 Ml Insuln.pen 0 SQ QIDACHS FSBS 181-220 = 2 units 221-260 = 4 units 261-300 = 6 units 301-350 = 8 units 351-400 = 10 units 401 or higher = 12 units Hyoscyamine Sulfate 0.125 Mg Tablet 1 Tab PO PRN Q4HRS PRN 30 Days Gabapentin (Gabapentin) 300 Mg Capsule 300 Mg PO BID Fluconazole 200 Mg Tablet 1 Tab PO DAILY Coumadin (Warfarin Sodium) 2 Mg Tablet 1 Tab PO QHS Renacidin Irrigation Solution (Citric AC/Gluconolact/Mag Carb) 30 Ml Irrig.soln 30 Ml IR QMWF Clamp catheter for 15 minutes, then unclamp and drain by gravity. Cefpodoxime Proxetil 200 Mg Tablet 1 Tab PO BID Dulera 200 Mcg/5 Mcg Inhaler (Mometasone/Formoterol) 13 Gm Hfa.aer.ad 1 Puff IH HS Furosemide 20 Mg Tablet 1 Tab PO DAILY Allergies Allergies: Coded Allergies: No Known Drug Allergies (Unverified , 12/21/18) ROS Review of System Review of Systems: ROS limited 2/2 expressive aphasia. Respiratory: No: Cough, Hemoptysis, Orthopnea, Pleuritic Pain, Shortness of breath, SOB with excertion, Sputum Changes, Stridor, Tachypnea, Wheezing, Other Gastrointestinal: Yes Abdominal Pain Neurological: Yes Gait Disturbance Physical Exam Physical Exam Gen: NAD. Well nourished. Head: NC/AT. Eyes: No scleral icterus. No conjunctival injection. ENT: MMM. Posterior OP clear. Neck: Supple. NT. CV: RRR. Peripheral pulses intact. Resp: CTAB. Abd: Soft.Diffuse distended. Nonfocal TTP. No R/G/R. MSK: No peripheral cyanosis. No edema. Neuro: Awake and alert. Skin. Warm. Dry. Psych: Appropriate mood & affect. General: Alert, Cooperative, No acute distress HEENT: Atraumatic, EOMI, Mucous membr. moist/pink Lungs: Normal air movement Heart: RRR, no thrills, no gallops Breasts: Not examined Abdomen: Soft Rectal Exam: not examined PELVIC: Examination not indicated Extremities: No cyanosis Psych/Mental Status: Mood NL Vitals Vitals Vital Signs Date Time Temp Pulse Resp B/P (MAP) Pulse Ox O2 Delivery O2 Flow Rate FiO2 11/22/19 08:46 100 143/97 11/22/19 08:10 Room Air 11/22/19 07:00 98.1 20 95 98.1 Labs Labs Laboratory Tests Test 11/21/19 22:41 11/21/19 22:48 11/21/19 23:20 11/22/19 07:34 White Blood Count 9.1 x10^3/uL (4.0-11.0) Red Blood Count 4.98 x10^6/uL (4.30-5.70) Hemoglobin 14.8 g/dL (13.0-17.5) Hematocrit 43.7 % (39.0-53.0) Mean Corpuscular Volume 88 fL (79-100) Mean Corpuscular Hemoglobin 30 pg (25-35) Mean Corpuscular Hemoglobin Concent 34 g/dL (31-37) Red Cell Distribution Width 15.6 % (11.5-14.5) Platelet Count 452 x10^3/uL (140-400) Neutrophils (%) (Auto) 55 % (31-73) Lymphocytes (%) (Auto) 22 % (24-48) Monocytes (%) (Auto) 21 % (0-9) Eosinophils (%) (Auto) 2 % (0-3) Basophils (%) (Auto) 1 % (0-3) Neutrophils # (Auto) 5.0 x10^3/uL (1.8-7.7) Lymphocytes # (Auto) 2.0 x10^3/uL (1.0-4.8) Monocytes # (Auto) 1.9 x10^3/uL (0.0-1.1) Eosinophils # (Auto) 0.2 x10^3/uL (0.0-0.7) Basophils # (Auto) 0.1 x10^3/uL (0.0-0.2) Segmented Neutrophils % 40 % (35-66) Band Neutrophils % 19 % (0-9) Lymphocytes % 21 % (24-48) Monocytes % 17 % (0-10) Eosinophils % 1 % (0-5) Basophils % 2 % (0-3) Platelet Estimate Increased (ADEQUATE) Prothrombin Time 73.7 SEC (11.7-14.0) Prothromb Time International Ratio 8.6 (0.8-1.1) Activated Partial Thromboplast Time 98 SEC (24-38) Urine Collection Type U cath Urine Color Red Urine Clarity Bloody Urine pH (<5.0-8.0) Urine Specific [place] (1.000-1.030) Urine Protein mg/dL (NEG-TRACE) Urine Glucose (UA) mg/dL (NEG) Urine Ketones (Stick) mg/dL (NEG) Urine Blood (NEG) Urine Nitrite (NEG) Urine Bilirubin (NEG) Urine Urobilinogen Dipstick mg/dL (0.2 mg/dL) Urine Leukocyte Esterase (NEG) Urine RBC Tntc /HPF (0-2) Urine WBC /HPF (0-4) Urine Bacteria 0 /HPF (0-FEW) Urine Hyaline Casts Few /HPF Sodium Level 129 mmol/L (136-145) Potassium Level 3.9 mmol/L (3.5-5.1) Chloride Level 88 mmol/L (98-107) Carbon Dioxide Level 35 mmol/L (21-32) Anion Gap 6 (6-14) Blood Urea Nitrogen 16 mg/dL (8-26) Creatinine 0.8 mg/dL (0.7-1.3) Estimated GFR (Cockcroft-Gault) 99.6 BUN/Creatinine Ratio 20 (6-20) Glucose Level 192 mg/dL (70-99) Calcium Level 8.8 mg/dL (8.5-10.1) Magnesium Level 2.1 mg/dL (1.8-2.4) Total Bilirubin 0.6 mg/dL (0.2-1.0) Aspartate Amino Transf (AST/SGOT) 25 U/L (15-37) Alanine Aminotransferase (ALT/SGPT) 35 U/L (16-63) Alkaline Phosphatase 159 U/L (46-116) Troponin I Quantitative < 0.017 ng/mL (0.000-0.055) Total Protein 7.1 g/dL (6.4-8.2) Albumin 3.2 g/dL (3.4-5.0) Albumin/Globulin Ratio 0.8 (1.0-1.7) Glucose (Fingerstick) 187 mg/dL (70-99) Laboratory Tests Test 11/21/19 22:41 11/21/19 22:48 11/21/19 23:20 11/22/19 07:34 White Blood Count 9.1 x10^3/uL (4.0-11.0) Red Blood Count 4.98 x10^6/uL (4.30-5.70) Hemoglobin 14.8 g/dL (13.0-17.5) Hematocrit 43.7 % (39.0-53.0) Mean Corpuscular Volume 88 fL (79-100) Mean Corpuscular Hemoglobin 30 pg (25-35) Mean Corpuscular Hemoglobin Concent 34 g/dL (31-37) Red Cell Distribution Width 15.6 % (11.5-14.5) Platelet Count 452 x10^3/uL (140-400) Neutrophils (%) (Auto) 55 % (31-73) Lymphocytes (%) (Auto) 22 % (24-48) Monocytes (%) (Auto) 21 % (0-9) Eosinophils (%) (Auto) 2 % (0-3) Basophils (%) (Auto) 1 % (0-3) Neutrophils # (Auto) 5.0 x10^3/uL (1.8-7.7) Lymphocytes # (Auto) 2.0 x10^3/uL (1.0-4.8) Monocytes # (Auto) 1.9 x10^3/uL (0.0-1.1) Eosinophils # (Auto) 0.2 x10^3/uL (0.0-0.7) Basophils # (Auto) 0.1 x10^3/uL (0.0-0.2) Segmented Neutrophils % 40 % (35-66) Band Neutrophils % 19 % (0-9) Lymphocytes % 21 % (24-48) Monocytes % 17 % (0-10) Eosinophils % 1 % (0-5) Basophils % 2 % (0-3) Platelet Estimate Increased (ADEQUATE) Prothrombin Time 73.7 SEC (11.7-14.0) Prothromb Time International Ratio 8.6 (0.8-1.1) Activated Partial Thromboplast Time 98 SEC (24-38) Urine Collection Type U cath Urine Color Red Urine Clarity Bloody Urine pH (<5.0-8.0) Urine Specific [place] (1.000-1.030) Urine Protein mg/dL (NEG-TRACE) Urine Glucose (UA) mg/dL (NEG) Urine Ketones (Stick) mg/dL (NEG) Urine Blood (NEG) Urine Nitrite (NEG) Urine Bilirubin (NEG) Urine Urobilinogen Dipstick mg/dL (0.2 mg/dL) Urine Leukocyte Esterase (NEG) Urine RBC Tntc /HPF (0-2) Urine WBC /HPF (0-4) Urine Bacteria 0 /HPF (0-FEW) Urine Hyaline Casts Few /HPF Sodium Level 129 mmol/L (136-145) Potassium Level 3.9 mmol/L (3.5-5.1) Chloride Level 88 mmol/L (98-107) Carbon Dioxide Level 35 mmol/L (21-32) Anion Gap 6 (6-14) Blood Urea Nitrogen 16 mg/dL (8-26) Creatinine 0.8 mg/dL (0.7-1.3) Estimated GFR (Cockcroft-Gault) 99.6 BUN/Creatinine Ratio 20 (6-20) Glucose Level 192 mg/dL (70-99) Calcium Level 8.8 mg/dL (8.5-10.1) Magnesium Level 2.1 mg/dL (1.8-2.4) Total Bilirubin 0.6 mg/dL (0.2-1.0) Aspartate Amino Transf (AST/SGOT) 25 U/L (15-37) Alanine Aminotransferase (ALT/SGPT) 35 U/L (16-63) Alkaline Phosphatase 159 U/L (46-116) Troponin I Quantitative < 0.017 ng/mL (0.000-0.055) Total Protein 7.1 g/dL (6.4-8.2) Albumin 3.2 g/dL (3.4-5.0) Albumin/Globulin Ratio 0.8 (1.0-1.7) Glucose (Fingerstick) 187 mg/dL (70-99) Images Images AP portable chest radiograph 11/21/2019 Clinical History: Cough. An AP erect portable digital radiograph of the chest was obtained. Comparison study is dated 03/24/2019. The cardiac silhouette is normal in size. The thoracic aorta is mildly tortuous. A small calcified granuloma is seen involving the right lower lobe. No acute pulmonary infiltrate is seen. No pleural effusion or pneumothorax is noted. Degenerative changes are seen involving the thoracic spine and both shoulders. Impression: No acute abnormality is seen. Electronically signed by: Yash Quezada MD (11/22/2019 12:20 AM) [id number] DICTATED and SIGNED BY: YASH QUEZADA MD 2D DIMENSIONS RVDd 2.9 (2.9-3.5cm) Left Atrium(2D) 3.2 (1.6-4.0cm) IVSd 1.3 (0.7-1.1cm) Aortic Root(2D) 3.3 (2.0-3.7cm) LVDd 4.6 (3.9-5.9cm) LVOT Diameter 2.2 (1.8-2.4cm) PWd 1.2 (0.7-1.1cm) LVDs 3.4 (2.5-4.0cm) FS (%) 25.7 % SV 49.3 ml LVEF(%) 55.0 (>50%) Aortic Valve AoV Peak Vinod. 121.6cm/s AoV VTI 22.2cm AO Peak GR. 5.9mmHg LVOT Peak Vinod. 96.8cm/s LVOT VTI 19.74cm AO Mean GR. 3mmHg LENA (VMAX) 3.16cm2 LENA (VTI) 3.52cm2 Mitral Valve MV E Velocity 76.8cm/s MV DECEL TIME 257ms MV A Velocity 109.5cm/s MV PHT 75ms E/A Ratio 0.7 MVA (PHT) 2.95cm2 TDI E/Lateral E' 10.0 E/Medial E' 13.7 Pulmonary Vein S1 Velocity 59.4cm/s D2 Velocity 34.4cm/s LEFT VENTRICLE The left ventricle is normal size. There is mild concentric left ventricular hypertrophy. The left ventricular systolic function is normal. The Ejection Fraction is 55-60%. There is normal LV segmental wall motion. Transmitral Doppler flow pattern is Grade I-abnormal relaxation pattern. RIGHT VENTRICLE The right ventricle is normal size. The right ventricular systolic function is normal. ATRIA The left atrium size is normal. The right atrium size is normal. The interatrial septum is intact with no evidence for an atrial septal defect or patent foramen ovale as noted on 2-D or Doppler imaging. AORTIC VALVE The aortic valve is normal in structure and function. Doppler and Color Flow revealed no significant aortic regurgitation. There is no significant aortic valvular stenosis. MITRAL VALVE The mitral valve is calcified but opens well. There is no evidence of mitral valve prolapse. There is no mitral valve stenosis. Doppler and Color-flow revealed trace mitral regurgitation. TRICUSPID VALVE The tricuspid valve is normal in structure and function. Doppler and Color Flow revealed no tricuspid valve regurgitation noted. There is no tricuspid valve stenosis. PULMONIC VALVE The pulmonic valve is not well visualized. Doppler and Color Flow revealed trace pulmonic valvular regurgitation. There is no pulmonic valvular stenosis. GREAT VESSELS The aortic root is normal in size. The ascending aorta is mildly dilated at 3.8 cm. The IVC is normal in size and collapses >50% with inspiration. PERICARDIAL EFFUSION There is no evidence of significant pericardial effusion. Critical Notification Critical Value: No <Conclusion> The left ventricular systolic function is normal. The Ejection Fraction is 55-60%. There is normal LV segmental wall motion. Transmitral Doppler flow pattern is Grade I-abnormal relaxation pattern. Doppler and Color-flow revealed trace mitral regurgitation. There is no evidence of significant pericardial effusion. Signed by : Hilaria Garnett, Electronically Approved : 12/22/2018 09:56:54 DICTATED and SIGNED BY: HILARAI GARNETT MD DATE: 12/22/18 0956 PATIENT: HUMAIRA BORJA ACCOUNT: [id number] : 1960 LOCATION: ER AGE: 59 SEX: M EXAM STATUS: REG ER ORD. PHYSICIAN: GRETA BRADFORD DO REASON: Abd pain/distension PROCEDURE: CT ABD PELV W/ IV CONTRST ONLY CT scan of the abdomen and pelvis with contrast 11/21/2019 CLINICAL HISTORY: Abdominal pain and distention. TECHNIQUE: After the intravenous administration of 75 cc of Omnipaque 300, contiguous, 5 mm axial sections were obtained through the abdomen and pelvis One or more of the following individualized dose reduction techniques were utilized for this study: 1. Automated exposure control. 2. Adjustment of the mA and/or kV according to patient size. 3. Use of iterative reconstruction technique. FINDINGS: Comparison study is dated 03/25/2019. Images through the lung bases demonstrate minimal dependent subsegmental atelectasis bilaterally. Stents are seen in region of the left anterior descending coronary artery. There is a small pericardial effusion. The liver, spleen, pancreas, adrenal glands and kidneys are within normal limits. Atherosclerotic calcification of the abdominal aorta is seen. The abdominal aorta tapers normally. The gallbladder is well-distended. No free fluid or free air is seen within the abdomen. Marked air and fluid distention of small bowel and large bowel loops throughout the abdomen and pelvis is seen. This extends all the way to the rectum. No transition point is noted. These findings likely reflect an ileus. Images through the pelvis demonstrate a suprapubic catheter in place. No free fluid is noted. Degenerative changes are seen involving the lower thoracic and throughout the lumbar spine along with both hips. IMPRESSION: Marked air and fluid distention of small and large bowel loops throughout the abdomen and pelvis is seen extending to the rectum. No transition point is noted. These findings likely reflect an ileus. Electronically signed by: Yash Quezada MD (11/22/2019 12:09 AM) [id number] DICTATED and SIGNED BY: YASH QUEZADA MD DATE: 11/22/19 0009 VTE Prophylaxis Ordered VTE Prophylaxis Devices: Yes VTE Pharmacological Prophylaxi: Yes Assessment/Plan Assessment/Plan IMPRESSION: acute Marked air and fluid distention of small and large bowel loops throughout the abdomen and pelvis is seen extending to the rectum. findings reflect an ileus. on CT A Fib, SUPRATHERAPEUTIC INR on warfarion CAD w/ stents, CHF, HYPERTENSION HLD, COPD, peripheral neuropathy, hx seizure, remote CVA, WITH expressive aphasia OA, allergic rhinitis, DIABETES hypothyroidism plan admit consult GI CVC BED NPO IV FLUID SUPPORT NG PPI Vitamin K. HOLD WARFARION INR IN AM SURGERY CONSULT IV PHOS PHENYTION D/W PHARMACY equivalent 76 MIN PT EXAM, CHART REVIEW, > 50% OF TIME SPENT WITH EXAM, CHART REVIEW, PT CARE COORDINATION MAXIME MORALES MD November 22, 2019 10:24
--- NOTE | 2019-11-22 10:52 | PDOC2 ---
GI CONSULT Reason For Consult: ileus, OIC HPI: HPI: 59 y/o male who is basically non-verbal (nurse says he can say "no" and can shake his head yes and no) from [facility] to ER w/ elevated INR, hematuria, abd pain, and constipation. CT notes ileus. Med list includes Warfarin, ASA, pantoprazole, Miralax, senna, hyoscyamine, and hydrocodone. Has Amitiza ordered here. Tried clear liquids but immediately vomited "brown" per nurse. PMH: PMH: A Fib, CAD w/ stents, CHF, HTN, HLD, COPD, peripheral neuropathy, seizure, CVA, OA, allergic rhinitis, DM, hypothyroidism, UTI FH: Family History: CAD Social History: Smoke: Quit ALCOHOL: none Drugs: None ROS: Difficult to obtain, refer to HPI. Vitals: Vitals: Vital Signs Date Time Temp Pulse Resp B/P (MAP) Pulse Ox O2 Delivery O2 Flow Rate FiO2 11/22/19 08:46 100 143/97 11/22/19 08:10 Room Air 11/22/19 07:00 98.1 20 95 98.1 Labs: Labs: Laboratory Tests Test 11/21/19 22:41 11/21/19 22:48 11/21/19 23:20 11/22/19 07:34 White Blood Count 9.1 x10^3/uL (4.0-11.0) Red Blood Count 4.98 x10^6/uL (4.30-5.70) Hemoglobin 14.8 g/dL (13.0-17.5) Hematocrit 43.7 % (39.0-53.0) Mean Corpuscular Volume 88 fL (79-100) Mean Corpuscular Hemoglobin 30 pg (25-35) Mean Corpuscular Hemoglobin Concent 34 g/dL (31-37) Red Cell Distribution Width 15.6 % (11.5-14.5) Platelet Count 452 x10^3/uL (140-400) Neutrophils (%) (Auto) 55 % (31-73) Lymphocytes (%) (Auto) 22 % (24-48) Monocytes (%) (Auto) 21 % (0-9) Eosinophils (%) (Auto) 2 % (0-3) Basophils (%) (Auto) 1 % (0-3) Neutrophils # (Auto) 5.0 x10^3/uL (1.8-7.7) Lymphocytes # (Auto) 2.0 x10^3/uL (1.0-4.8) Monocytes # (Auto) 1.9 x10^3/uL (0.0-1.1) Eosinophils # (Auto) 0.2 x10^3/uL (0.0-0.7) Basophils # (Auto) 0.1 x10^3/uL (0.0-0.2) Segmented Neutrophils % 40 % (35-66) Band Neutrophils % 19 % (0-9) Lymphocytes % 21 % (24-48) Monocytes % 17 % (0-10) Eosinophils % 1 % (0-5) Basophils % 2 % (0-3) Platelet Estimate Increased (ADEQUATE) Prothrombin Time 73.7 SEC (11.7-14.0) Prothromb Time International Ratio 8.6 (0.8-1.1) Activated Partial Thromboplast Time 98 SEC (24-38) Urine Collection Type U cath Urine Color Red Urine Clarity Bloody Urine pH (<5.0-8.0) Urine Specific [place] (1.000-1.030) Urine Protein mg/dL (NEG-TRACE) Urine Glucose (UA) mg/dL (NEG) Urine Ketones (Stick) mg/dL (NEG) Urine Blood (NEG) Urine Nitrite (NEG) Urine Bilirubin (NEG) Urine Urobilinogen Dipstick mg/dL (0.2 mg/dL) Urine Leukocyte Esterase (NEG) Urine RBC Tntc /HPF (0-2) Urine WBC /HPF (0-4) Urine Bacteria 0 /HPF (0-FEW) Urine Hyaline Casts Few /HPF Sodium Level 129 mmol/L (136-145) Potassium Level 3.9 mmol/L (3.5-5.1) Chloride Level 88 mmol/L (98-107) Carbon Dioxide Level 35 mmol/L (21-32) Anion Gap 6 (6-14) Blood Urea Nitrogen 16 mg/dL (8-26) Creatinine 0.8 mg/dL (0.7-1.3) Estimated GFR (Cockcroft-Gault) 99.6 BUN/Creatinine Ratio 20 (6-20) Glucose Level 192 mg/dL (70-99) Calcium Level 8.8 mg/dL (8.5-10.1) Magnesium Level 2.1 mg/dL (1.8-2.4) Total Bilirubin 0.6 mg/dL (0.2-1.0) Aspartate Amino Transf (AST/SGOT) 25 U/L (15-37) Alanine Aminotransferase (ALT/SGPT) 35 U/L (16-63) Alkaline Phosphatase 159 U/L (46-116) Troponin I Quantitative < 0.017 ng/mL (0.000-0.055) Total Protein 7.1 g/dL (6.4-8.2) Albumin 3.2 g/dL (3.4-5.0) Albumin/Globulin Ratio 0.8 (1.0-1.7) Glucose (Fingerstick) 187 mg/dL (70-99) Allergies: Coded Allergies: No Known Drug Allergies (Unverified , 12/21/18) Medications: Current Medications Medications (Trade) Dose Ordered Sig/Sharon Route PRN Reason Start Time Stop Time Status Last Admin Dose Admin Iohexol (Omnipaque 300 Mg/ml) 75 ml 1X ONCE IV 11/21/19 23:15 11/21/19 23:16 DC 11/21/19 23:55 Phytonadione (Mephyton Oral Soln) 5 mg 1X ONCE PO 11/21/19 23:30 11/21/19 23:31 DC 11/21/19 23:40 Ondansetron HCl (Zofran) 4 mg PRN Q8HRS PRN IV NAUSEA/VOMITING 11/22/19 00:30 11/23/19 00:29 11/22/19 10:34 Morphine Sulfate (Morphine Sulfate) 4 mg 1X ONCE IV 11/22/19 08:30 11/22/19 08:34 DC 11/22/19 08:47 Polyethylene Glycol (miraLAX PACKET) 17 gm 1X ONCE PO 11/22/19 08:30 11/22/19 08:34 DC 11/22/19 08:46 Aspirin (Aspirin Chewable) 81 mg DAILYWBKFT PO 11/22/19 09:00 11/22/19 08:47 Gabapentin (Neurontin) 300 mg BID PO 11/22/19 09:00 11/22/19 08:47 Levothyroxine Sodium (Synthroid) 200 mcg DAILY06 PO 11/22/19 10:30 11/22/19 10:24 Metoprolol Tartrate (Lopressor) 25 mg BID PO 11/22/19 09:00 11/22/19 08:46 Nystatin (Nystop) 1 juan daniel BID TP 11/22/19 09:00 11/22/19 08:46 Fluoxetine HCl (PROzac) 40 mg DAILYWBKFT PO 11/22/19 09:00 11/22/19 08:47 Sodium Chloride 1,000 ml @ 100 mls/hr 1X ONCE IV 11/22/19 08:30 11/22/19 18:29 11/22/19 08:46 Lubiprostone (Amitiza) 24 mcg BIDWMEALS PO 11/22/19 09:00 11/22/19 08:46 Imaging: Imaging: CXR Impression: No acute abnormality is seen. CT A/P IMPRESSION: Marked air and fluid distention of small and large bowel loops throughout the abdomen and pelvis is seen extending to the rectum. No transition point is noted. These findings likely reflect an ileus. PE: GEN: looks ill - nurse says just vomited HEENT: Atraumatic, PERRL LUNGS: CTAB anteriorly HEART: RRR ABD: distended, no BS, suprapubic cath EXTREMITY: No edema SKIN: No rashes, no jaundice NEURO/PSYCH: awake and alert, does not verbalize, hyperreflexive on right A/P: A/P: H/o CVA (?and A Fib), aphasia, Coumadin coagulopathy Hyponatremia Vomiting, abd distention, constipation, narcotic use Ileus on CT Narcotic use -- Correct coagulopathy. With vomiting, recommend NG tube. Also try Relistor. ERICK ORLANDO November 22, 2019 10:52
[2019-11-22] MEDS ORDERED: METHYLNALTREXONE 12 MG/0.6 ML VIAL. SQ ONE (11:00)
[2019-11-22 11:16] VITALS: BP 124/86
[2019-11-22] MEDS ORDERED: PANTOPRAZOLE 40 MG TABLET.DR. PO SCH (11:30)
[2019-11-22] MEDS: PANTOPRAZOLE IV PUSH 40 MG VIAL. IVP SCH (11:54)
[2019-11-22] MEDS: MORPHINE SULFATE 2 MG/ML VIAL. IV PRN ×2 (11:55→23:52)
[2019-11-22] MEDS ORDERED: hydrALAZINE 20 MG/ML VIAL. IVP PRN (12:00)
[2019-11-22] MEDS: VITS A & D/LANOLIN TOPICAL OINTMENT 42GM TUBE. TP SCH ×2 (12:43→23:57)
[2019-11-22] MEDS: ALBUTEROL SULFATE 2.5 MG/3 ML NEBU. NEB SCH ×2 (12:58→20:32)
--- NOTE | 2019-11-22 13:48 | RAD ---
EXAM: KUB 11/22/2019 12:58 PM CLINICAL INDICATION:NG tube placement COMPARISON:CT abdomen and pelvis 11/21/2019 TECHNIQUE:AP supine view of the abdomen FINDINGS:A new nasogastric tube terminates in the lower esophagus. There is unchanged diffuse dilation of small bowel and colon. Lung bases are clear. Heart is normal in size. No acute osseous abnormality. IMPRESSION: High termination of nasogastric tube in the lower esophagus. Recommend advancing 7-10 cm for better positioning. Unchanged diffuse dilation of small bowel and colon consistent with ileus Electronically signed by: Lenore Verde MD (11/22/2019 1:45 PM) [id number]
[2019-11-22 13:49] LABS: PROTHROMBIN TIME PATIENT 45.1 SEC (11.7-14.0)
--- NOTE | 2019-11-22 14:07 | NUR ---
SS following for discharge planning. SS reviewed pt chart and discussed with pt RN. Pt is LTC resident from [facility] [place], ; fax [phone]. Pt is currently on room air. SS contacted [facility] and verified pt's placement. SS will continue to follow for discharge planning.
[2019-11-22] MEDS: FOSPHENYTOIN 100 MG/2 ML VIAL. IV SCH (14:24)
--- NOTE | 2019-11-22 14:42 | RAD ---
INDICATION: Enteric tube placement COMPARISON: Earlier same day IMPRESSION: 1 views of abdomen obtained. There is a single enteric tube identified with the tip located at the expected location of the distal esophagus and does not course into the stomach. There is repeat demonstration of air-filled dilated loops of bowel throughout the abdomen. Degenerative changes the spine. Electronically signed by: Sergey Ricks MD (11/22/2019 2:39 PM) [id number]
[2019-11-22 15:02] VITALS: BP 117/84
[2019-11-22] MEDS ORDERED: DEXTROSE 50% 25 GM / 50ML DISP.SYRIN. IV PRN (15:30)
[2019-11-22] MEDS ORDERED: CITRIC ACID IR SCH (16:00)
[2019-11-22] MEDS ORDERED: [UNRECOGNIZED DRUG - OTHER] IR SCH (16:00)
[2019-11-22] MEDS ORDERED: MAGNESIUM CARBONATE IR SCH (16:00)
[2019-11-22] MEDS: INSULIN LISPRO 300 UNITS/3 ML VIAL. SQ SCH (17:00)
--- NOTE | 2019-11-22 18:06 | NUR ---
Dr Howard confirmed NG tube in good location and to leave alone - repeat KUB in morning
[2019-11-22 19:50] VITALS: BP 117/73
[2019-11-22] MEDS: IV NORMAL SALINE 1000ML BAG 1,000 ML IV SCH (20:27)
[2019-11-22] MEDS: BUDESONIDE 0.5 MG/2 ML NEBU. NEB SCH (20:32)
[2019-11-22] MEDS: ATORVASTATIN CALCIUM 20 MG TABLET PO SCH (21:00)
[2019-11-22] MEDS ORDERED: NON FORMULARY ITEM (Mometasone/Formoterol (Dulera 200 Mcg/5 Mcg Inhaler) 1 PUFF) IH SCH (21:00)
--- NOTE | 2019-11-22 23:05 | NUR ---
Patient opens mouth, puts fingers in mouth, pulls a portion of NG tubing out, as a curved appearance, thus pulling rest of tubing out through his mouth, this screen writer disconnects suction from tubing, slowly pulls tubing out through nose, James, charge nurse, assists with putting mitt on left hand, new ng placed, flushed with air, positive for placement per air, patient continues to be agitated, pulls mitt off, as this screen writer and James attempts to replace his mitt, he grabs the mitt with his hand, after some struggling to replace the mitt, and as patient remains very agitated, we left him alone to rest. He has a KUB ordered for 0500, will await until then to see if in place, and let patient rest. To monitor for any vomiting,
[2019-11-22 23:30] VITALS: BP 106/62
[2019-11-23] MEDS: ALBUTEROL SULFATE 2.5 MG/3 ML NEBU. NEB SCH ×4 (00:25→20:10)
[2019-11-23 03:30] VITALS: BP 110/69
[2019-11-23 04:58] LABS: BASO # 0.1 x10^3/uL (0.0-0.2); BASO % 1 % (0-3); EOS # 0.1 x10^3/uL (0.0-0.7); EOS % 1 % (0-3); HEMATOCRIT 36.4 % (39.0-53.0); HEMOGLOBIN 12.3 g/dL (13.0-17.5); LYMPH # 2.2 x10^3/uL (1.0-4.8); LYMPH % 31 % (24-48); MEAN CORPUSCULAR HEMOGLOBIN 30 pg (25-35); MEAN CORPUSCULAR HGB CONC 34 g/dL (31-37); MEAN CORPUSCULAR VOLUME 89 fL (79-100); MONO # 1.3 x10^3/uL (0.0-1.1); MONO % 18 % (0-9); NEUT # 3.4 x10^3/uL (1.8-7.7); NEUT % 49 % (31-73); PLATELET COUNT 328 x10^3/uL (140-400); RED CELL DISTRIBUTION WIDTH 15.3 % (11.5-14.5)
[2019-11-23] MEDS: LEVOTHYROXINE 100 MCG TABLET PO SCH (05:02)
[2019-11-23 05:12] LABS: CALCIUM 7.8 mg/dL (8.5-10.1); CREATININE 0.7 mg/dL (0.7-1.3); GFR 116.2; POTASSIUM 4.3 mmol/L (3.5-5.1)
[2019-11-23] MEDS: FOSPHENYTOIN 100 MG/2 ML VIAL. IV SCH ×4 (05:40→20:56)
[2019-11-23 07:00] VITALS: BP 112/71
[2019-11-23] MEDS: BUDESONIDE 0.5 MG/2 ML NEBU. NEB SCH ×2 (07:23→20:10)
[2019-11-23 07:45] LABS: PROTHROMBIN TIME PATIENT 29.2 SEC (11.7-14.0)
[2019-11-23] MEDS: INSULIN LISPRO 300 UNITS/3 ML VIAL. SQ SCH ×3 (08:00→17:00)
[2019-11-23] MEDS: ASPIRIN CHEWABLE 81 MG TABLET. PO SCH (08:00)
[2019-11-23] MEDS: FLUoxetine HCL 20 MG CAPSULE PO SCH (08:00)
[2019-11-23] MEDS: LUBIPROSTONE 24 MCG CAPSULE PO SCH ×2 (08:00→14:45)
--- NOTE | 2019-11-23 08:13 | RAD ---
KUB 11/23/2019 5:00 AM INDICATION: Ileus, nasogastric tube COMPARISON: Abdominal radiograph 11/22/2019 TECHNIQUE: 2 supine views of abdomen are provided. FINDINGS/ IMPRESSION: 1. Supine technique limits evaluation for free intraperitoneal air. Extensive bowel gas limits evaluation for free intraperitoneal air. 2. There is similar appearance of gas-filled bowel loops with dilatation of the small and large bowel. Small bowel loops measure up to 5.8 cm, not significantly changed the prior examination. Fold pattern of the bowel loops appears less distinct compared to prior examination. No definite pneumatosis coli is identified. 3. Nasogastric tube is identified within the left upper quadrant with the side port below the level of the diaphragm expected region of the stomach. Catheter projects over the lower pelvis, possibly within the urinary bladder. Electronically signed by: Janell Johnson MD (11/23/2019 8:10 AM) [id number]
[2019-11-23] MEDS: GABAPENTIN 300 MG CAPSULE. PO SCH ×2 (08:15→20:56)
[2019-11-23] MEDS: METOPROLOL TART IMMED RELEASE 25 MG TABLET. PO SCH ×2 (08:15→20:56)
[2019-11-23] MEDS: PANTOPRAZOLE IV PUSH 40 MG VIAL. IVP SCH (08:51)
[2019-11-23] MEDS: NYSTATIN TOPICAL POWDER 15GM BOTTLE. TP SCH ×2 (08:53→21:56)
[2019-11-23] MEDS: VITS A & D/LANOLIN TOPICAL OINTMENT 42GM TUBE. TP SCH ×2 (08:53→21:56)
--- NOTE | 2019-11-23 09:36 | PDOC ---
Objective: Objective: D/w nurse - NG pulled overnight, replaced and just back from KUB. Had ~300cc from NG after replaced. Stooled after Relistor yesterday. Vital Signs: Vital Signs Date Time Temp Pulse Resp B/P (MAP) Pulse Ox O2 Delivery O2 Flow Rate FiO2 11/23/19 08:15 92 112/71 11/23/19 07:20 94 Room Air 11/23/19 07:00 97.4 15 97.4 Labs: Laboratory Tests Test 11/22/19 12:17 11/22/19 12:45 11/22/19 17:55 11/23/19 04:25 Glucose (Fingerstick) 208 mg/dL 162 mg/dL Prothrombin Time 45.1 SEC 29.2 SEC Prothromb Time International Ratio 4.7 2.8 White Blood Count 7.0 x10^3/uL Red Blood Count 4.10 x10^6/uL Hemoglobin 12.3 g/dL Hematocrit 36.4 % Mean Corpuscular Volume 89 fL Mean Corpuscular Hemoglobin 30 pg Mean Corpuscular Hemoglobin Concent 34 g/dL Red Cell Distribution Width 15.3 % Platelet Count 328 x10^3/uL Neutrophils (%) (Auto) 49 % Lymphocytes (%) (Auto) 31 % Monocytes (%) (Auto) 18 % Eosinophils (%) (Auto) 1 % Basophils (%) (Auto) 1 % Neutrophils # (Auto) 3.4 x10^3/uL Lymphocytes # (Auto) 2.2 x10^3/uL Monocytes # (Auto) 1.3 x10^3/uL Eosinophils # (Auto) 0.1 x10^3/uL Basophils # (Auto) 0.1 x10^3/uL Sodium Level 131 mmol/L Potassium Level 4.3 mmol/L Chloride Level 94 mmol/L Carbon Dioxide Level 33 mmol/L Anion Gap 4 Blood Urea Nitrogen 19 mg/dL Creatinine 0.7 mg/dL Estimated GFR (Cockcroft-Gault) 116.2 Glucose Level 169 mg/dL Calcium Level 7.8 mg/dL Test 11/23/19 07:56 Glucose (Fingerstick) 171 mg/dL Imaging: KUB 11/22 IMPRESSION: 1. Supine technique limits evaluation for free intraperitoneal air. Extensive bowel gas limits evaluation for free intraperitoneal air. 2. There is similar appearance of gas-filled bowel loops with dilatation of the small and large bowel. Small bowel loops measure up to 5.8 cm, not significantly changed the prior examination. Fold pattern of the bowel loops appears less distinct compared to prior examination. No definite pneumatosis coli is identified. 3. Nasogastric tube is identified within the left upper quadrant with the side port below the level of the diaphragm expected region of the stomach.Catheter projects over the lower pelvis, possibly within the urinary bladder. PE: GEN: NAD LUNGS: CTAB anteriorly HEART: RR ABD: much less distended, soft, non-tender, hyperactive BS, NG w/ brownish liquid NEURO/PSYCH: awake and alert, does not verbalize A/P: Coumadin coagulopathy Ileus -- Abdomen much better today w/ NG and after Relistor. Will review w/ Dr. Fulton. Hemodynamically unstable?: No Is patient in severe pain?: No Is NPO status required?: Yes ERICK ORLANDO November 23, 2019 09:36
--- NOTE | 2019-11-23 10:14 | PDOC ---
PROGRESS NOTES History of Present Illness History of Present Illness VTE Prophylaxis Ordered VTE Prophylaxis Devices: Yes VTE Pharmacological Prophylaxi: Yes Assessment/Plan Assessment/Plan IMPRESSION: acute Marked air and fluid distention of small and large bowel loops throughout the abdomen and pelvis is seen extending to the rectum. findings reflect an ileus. on CT A Fib, SUPRATHERAPEUTIC INR on warfarion CAD w/ stents, CHF, HYPERTENSION HLD, COPD, peripheral neuropathy, hx seizure, remote CVA, WITH expressive aphasia OA, allergic rhinitis, DIABETES hypothyroidism similar appearance of gas-filled bowel loops with dilatation of the small and large bowel. Small bowel loops measure up to 5.8 cm, not significantly changed the prior examination. on kub HAS STOOLED 11/22 plan admit consult GI CVC BED NPO IV FLUID SUPPORT NG PPI Vitamin K. HOLD WARFARION INR IN AM SURGERY CONSULT IV PHOS PHENYTION D/W PHARMACY equivalent 36 MIN PT EXAM, CHART REVIEW, > 50% OF TIME SPENT WITH EXAM, CHART REVIEW, PT CARE COORDINATION Vitals Vitals Vital Signs Date Time Temp Pulse Resp B/P (MAP) Pulse Ox O2 Delivery O2 Flow Rate FiO2 11/23/19 08:15 92 112/71 11/23/19 07:20 94 Room Air 11/23/19 07:00 97.4 15 97.4 Physical Exam General: Alert, Cooperative, No acute distress Lungs: Clear Abdomen: Soft Extremities: No cyanosis Labs LABS KUB 11/23/2019 5:00 AM INDICATION: Ileus, nasogastric tube COMPARISON: Abdominal radiograph 11/22/2019 TECHNIQUE: 2 supine views of abdomen are provided. FINDINGS/ IMPRESSION: 1. Supine technique limits evaluation for free intraperitoneal air. Extensive bowel gas limits evaluation for free intraperitoneal air. 2. There is similar appearance of gas-filled bowel loops with dilatation of the small and large bowel. Small bowel loops measure up to 5.8 cm, not significantly changed the prior examination. Fold pattern of the bowel loops appears less distinct compared to prior examination. No definite pneumatosis coli is identified. 3. Nasogastric tube is identified within the left upper quadrant with the side port below the level of the diaphragm expected region of the stomach. Catheter projects over the lower pelvis, possibly within the urinary bladder. Electronically signed by: Mahendra Johnson MD (11/23/2019 8:10 AM) [id number] DICTATED and SIGNED BY: MAHENDRA JOHNSON MD DATE: 11/23/19 0810 Laboratory Tests Test 11/22/19 12:17 11/22/19 12:45 11/22/19 17:55 11/23/19 04:25 Glucose (Fingerstick) 208 mg/dL (70-99) 162 mg/dL (70-99) Prothrombin Time 45.1 SEC (11.7-14.0) 29.2 SEC (11.7-14.0) Prothromb Time International Ratio 4.7 (0.8-1.1) 2.8 (0.8-1.1) White Blood Count 7.0 x10^3/uL (4.0-11.0) Red Blood Count 4.10 x10^6/uL (4.30-5.70) Hemoglobin 12.3 g/dL (13.0-17.5) Hematocrit 36.4 % (39.0-53.0) Mean Corpuscular Volume 89 fL (79-100) Mean Corpuscular Hemoglobin 30 pg (25-35) Mean Corpuscular Hemoglobin Concent 34 g/dL (31-37) Red Cell Distribution Width 15.3 % (11.5-14.5) Platelet Count 328 x10^3/uL (140-400) Neutrophils (%) (Auto) 49 % (31-73) Lymphocytes (%) (Auto) 31 % (24-48) Monocytes (%) (Auto) 18 % (0-9) Eosinophils (%) (Auto) 1 % (0-3) Basophils (%) (Auto) 1 % (0-3) Neutrophils # (Auto) 3.4 x10^3/uL (1.8-7.7) Lymphocytes # (Auto) 2.2 x10^3/uL (1.0-4.8) Monocytes # (Auto) 1.3 x10^3/uL (0.0-1.1) Eosinophils # (Auto) 0.1 x10^3/uL (0.0-0.7) Basophils # (Auto) 0.1 x10^3/uL (0.0-0.2) Sodium Level 131 mmol/L (136-145) Potassium Level 4.3 mmol/L (3.5-5.1) Chloride Level 94 mmol/L (98-107) Carbon Dioxide Level 33 mmol/L (21-32) Anion Gap 4 (6-14) Blood Urea Nitrogen 19 mg/dL (8-26) Creatinine 0.7 mg/dL (0.7-1.3) Estimated GFR (Cockcroft-Gault) 116.2 Glucose Level 169 mg/dL (70-99) Calcium Level 7.8 mg/dL (8.5-10.1) Test 11/23/19 07:56 Glucose (Fingerstick) 171 mg/dL (70-99) Assessment and Plan Assessmemt and Plan Problems Medical Problems: (1) Gross hematuria Status: Acute (2) Supratherapeutic international normalized ratio (INR) Status: Acute Comment Review of Relevant I have reviewed the following items sujey (where applicable) has been applied. Labs Laboratory Tests Test 11/21/19 22:41 11/21/19 22:48 11/21/19 23:20 11/22/19 07:34 White Blood Count 9.1 x10^3/uL (4.0-11.0) Red Blood Count 4.98 x10^6/uL (4.30-5.70) Hemoglobin 14.8 g/dL (13.0-17.5) Hematocrit 43.7 % (39.0-53.0) Mean Corpuscular Volume 88 fL (79-100) Mean Corpuscular Hemoglobin 30 pg (25-35) Mean Corpuscular Hemoglobin Concent 34 g/dL (31-37) Red Cell Distribution Width 15.6 % (11.5-14.5) Platelet Count 452 x10^3/uL (140-400) Neutrophils (%) (Auto) 55 % (31-73) Lymphocytes (%) (Auto) 22 % (24-48) Monocytes (%) (Auto) 21 % (0-9) Eosinophils (%) (Auto) 2 % (0-3) Basophils (%) (Auto) 1 % (0-3) Neutrophils # (Auto) 5.0 x10^3/uL (1.8-7.7) Lymphocytes # (Auto) 2.0 x10^3/uL (1.0-4.8) Monocytes # (Auto) 1.9 x10^3/uL (0.0-1.1) Eosinophils # (Auto) 0.2 x10^3/uL (0.0-0.7) Basophils # (Auto) 0.1 x10^3/uL (0.0-0.2) Segmented Neutrophils % 40 % (35-66) Band Neutrophils % 19 % (0-9) Lymphocytes % 21 % (24-48) Monocytes % 17 % (0-10) Eosinophils % 1 % (0-5) Basophils % 2 % (0-3) Platelet Estimate Increased (ADEQUATE) Prothrombin Time 73.7 SEC (11.7-14.0) Prothromb Time International Ratio 8.6 (0.8-1.1) Activated Partial Thromboplast Time 98 SEC (24-38) Urine Collection Type U cath Urine Color Red Urine Clarity Bloody Urine pH (<5.0-8.0) Urine Specific [place] (1.000-1.030) Urine Protein mg/dL (NEG-TRACE) Urine Glucose (UA) mg/dL (NEG) Urine Ketones (Stick) mg/dL (NEG) Urine Blood (NEG) Urine Nitrite (NEG) Urine Bilirubin (NEG) Urine Urobilinogen Dipstick mg/dL (0.2 mg/dL) Urine Leukocyte Esterase (NEG) Urine RBC Tntc /HPF (0-2) Urine WBC /HPF (0-4) Urine Bacteria 0 /HPF (0-FEW) Urine Hyaline Casts Few /HPF Sodium Level 129 mmol/L (136-145) Potassium Level 3.9 mmol/L (3.5-5.1) Chloride Level 88 mmol/L (98-107) Carbon Dioxide Level 35 mmol/L (21-32) Anion Gap 6 (6-14) Blood Urea Nitrogen 16 mg/dL (8-26) Creatinine 0.8 mg/dL (0.7-1.3) Estimated GFR (Cockcroft-Gault) 99.6 BUN/Creatinine Ratio 20 (6-20) Glucose Level 192 mg/dL (70-99) Calcium Level 8.8 mg/dL (8.5-10.1) Magnesium Level 2.1 mg/dL (1.8-2.4) Total Bilirubin 0.6 mg/dL (0.2-1.0) Aspartate Amino Transf (AST/SGOT) 25 U/L (15-37) Alanine Aminotransferase (ALT/SGPT) 35 U/L (16-63) Alkaline Phosphatase 159 U/L (46-116) Troponin I Quantitative < 0.017 ng/mL (0.000-0.055) Total Protein 7.1 g/dL (6.4-8.2) Albumin 3.2 g/dL (3.4-5.0) Albumin/Globulin Ratio 0.8 (1.0-1.7) Glucose (Fingerstick) 187 mg/dL (70-99) Test 11/22/19 12:17 11/22/19 12:45 11/22/19 17:55 11/23/19 04:25 Glucose (Fingerstick) 208 mg/dL (70-99) 162 mg/dL (70-99) Prothrombin Time 45.1 SEC (11.7-14.0) 29.2 SEC (11.7-14.0) Prothromb Time International Ratio 4.7 (0.8-1.1) 2.8 (0.8-1.1) White Blood Count 7.0 x10^3/uL (4.0-11.0) Red Blood Count 4.10 x10^6/uL (4.30-5.70) Hemoglobin 12.3 g/dL (13.0-17.5) Hematocrit 36.4 % (39.0-53.0) Mean Corpuscular Volume 89 fL (79-100) Mean Corpuscular Hemoglobin 30 pg (25-35) Mean Corpuscular Hemoglobin Concent 34 g/dL (31-37) Red Cell Distribution Width 15.3 % (11.5-14.5) Platelet Count 328 x10^3/uL (140-400) Neutrophils (%) (Auto) 49 % (31-73) Lymphocytes (%) (Auto) 31 % (24-48) Monocytes (%) (Auto) 18 % (0-9) Eosinophils (%) (Auto) 1 % (0-3) Basophils (%) (Auto) 1 % (0-3) Neutrophils # (Auto) 3.4 x10^3/uL (1.8-7.7) Lymphocytes # (Auto) 2.2 x10^3/uL (1.0-4.8) Monocytes # (Auto) 1.3 x10^3/uL (0.0-1.1) Eosinophils # (Auto) 0.1 x10^3/uL (0.0-0.7) Basophils # (Auto) 0.1 x10^3/uL (0.0-0.2) Sodium Level 131 mmol/L (136-145) Potassium Level 4.3 mmol/L (3.5-5.1) Chloride Level 94 mmol/L (98-107) Carbon Dioxide Level 33 mmol/L (21-32) Anion Gap 4 (6-14) Blood Urea Nitrogen 19 mg/dL (8-26) Creatinine 0.7 mg/dL (0.7-1.3) Estimated GFR (Cockcroft-Gault) 116.2 Glucose Level 169 mg/dL (70-99) Calcium Level 7.8 mg/dL (8.5-10.1) Test 11/23/19 07:56 Glucose (Fingerstick) 171 mg/dL (70-99) Laboratory Tests Test 11/22/19 12:17 11/22/19 12:45 11/22/19 17:55 11/23/19 04:25 Glucose (Fingerstick) 208 mg/dL (70-99) 162 mg/dL (70-99) Prothrombin Time 45.1 SEC (11.7-14.0) 29.2 SEC (11.7-14.0) Prothromb Time International Ratio 4.7 (0.8-1.1) 2.8 (0.8-1.1) White Blood Count 7.0 x10^3/uL (4.0-11.0) Red Blood Count 4.10 x10^6/uL (4.30-5.70) Hemoglobin 12.3 g/dL (13.0-17.5) Hematocrit 36.4 % (39.0-53.0) Mean Corpuscular Volume 89 fL (79-100) Mean Corpuscular Hemoglobin 30 pg (25-35) Mean Corpuscular Hemoglobin Concent 34 g/dL (31-37) Red Cell Distribution Width 15.3 % (11.5-14.5) Platelet Count 328 x10^3/uL (140-400) Neutrophils (%) (Auto) 49 % (31-73) Lymphocytes (%) (Auto) 31 % (24-48) Monocytes (%) (Auto) 18 % (0-9) Eosinophils (%) (Auto) 1 % (0-3) Basophils (%) (Auto) 1 % (0-3) Neutrophils # (Auto) 3.4 x10^3/uL (1.8-7.7) Lymphocytes # (Auto) 2.2 x10^3/uL (1.0-4.8) Monocytes # (Auto) 1.3 x10^3/uL (0.0-1.1) Eosinophils # (Auto) 0.1 x10^3/uL (0.0-0.7) Basophils # (Auto) 0.1 x10^3/uL (0.0-0.2) Sodium Level 131 mmol/L (136-145) Potassium Level 4.3 mmol/L (3.5-5.1) Chloride Level 94 mmol/L (98-107) Carbon Dioxide Level 33 mmol/L (21-32) Anion Gap 4 (6-14) Blood Urea Nitrogen 19 mg/dL (8-26) Creatinine 0.7 mg/dL (0.7-1.3) Estimated GFR (Cockcroft-Gault) 116.2 Glucose Level 169 mg/dL (70-99) Calcium Level 7.8 mg/dL (8.5-10.1) Test 11/23/19 07:56 Glucose (Fingerstick) 171 mg/dL (70-99) Medications Current Medications Iohexol (Omnipaque 300 Mg/ml) 75 ml 1X ONCE IV Last administered on 11/21/19at 23:55; Start 11/21/19 at 23:15; Stop 11/21/19 at 23:16; Status DC Info (CONTRAST GIVEN -- Rx MONITORING) 1 each PRN DAILY PRN MC SEE COMMENTS; Start 11/21/19 at 23:15; Stop 11/23/19 at 23:14 Phytonadione (Mephyton Oral Soln) 5 mg 1X ONCE PO Last administered on 11/21/19at 23:40; Start 11/21/19 at 23:30; Stop 11/21/19 at 23:31; Status DC Ondansetron HCl (Zofran) 4 mg PRN Q8HRS PRN IV NAUSEA/VOMITING Last administered on 11/22/19at 10:34; Start 11/22/19 at 00:30; Stop 11/23/19 at 00:29; Status DC Morphine Sulfate (Morphine Sulfate) 4 mg 1X ONCE IV Last administered on 11/22/19 08:47; Start 11/22/19 at 08:30; Stop 11/22/19 at 08:34; Status DC Morphine Sulfate (Morphine Sulfate) 2 mg PRN Q2HR PRN IV PAIN Last administered on 11/22/19 23:52; Start 11/22/19 at 08:30 Polyethylene Glycol (miraLAX PACKET) 17 gm 1X ONCE PO Last administered on 11/22/19 08:46; Start 11/22/19 at 08:30; Stop 11/22/19 at 08:34; Status DC Polyethylene Glycol (miraLAX PACKET) 17 gm PRN DAILY PRN PO CONSTIPATION; Start 11/22/19 at 08:30 Aspirin (Aspirin Chewable) 81 mg DAILYWBKFT PO Last administered on 11/22/19 08:47; Start 11/22/19 at 09:00 Atorvastatin Calcium (Lipitor) 20 mg HS PO ; Start 11/22/19 at 21:00 Gabapentin (Neurontin) 300 mg BID PO Last administered on 11/22/19 08:47; Start 11/22/19 at 09:00 Levothyroxine Sodium (Synthroid) 200 mcg DAILY06 PO Last administered on 11/22/19 10:24; Start 11/22/19 at 10:30 Metoprolol Tartrate (Lopressor) 25 mg BID PO Last administered on 11/22/19 08:46; Start 11/22/19 at 09:00 Nystatin (Nystop) 1 edvin BID TP Last administered on 11/23/19 08:53; Start 11/22/19 at 09:00 Senna/Docusate Sodium (Senna Plus) 2 tab PRN BID PRN PO CONSTIPATION; Start 11/22/19 at 08:30 Simethicone (Gas-X) 80 mg PRN TID PRN PO GAS / BLOATING; Start 11/22/19 at 08:30 Fluoxetine HCl (PROzac) 40 mg DAILYWBKFT PO Last administered on 11/22/19 08:47; Start 11/22/19 at 09:00 Non-Formulary Medication (Mirabegron (Myrbetriq)) 25 mg DAILY PO ; Start 11/22/19 at 09:00; Status UNV Pantoprazole Sodium (Protonix) 40 mg DAILYAC PO ; Start 11/22/19 at 11:30; Stop 11/22/19 at 11:08; Status DC Sodium Chloride 1,000 ml @ 100 mls/hr 1X ONCE IV Last administered on 11/22/19at 08:46; Start 11/22/19 at 08:30; Stop 11/22/19 at 18:29; Status DC Lubiprostone (Amitiza) 24 mcg BIDWMEALS PO Last administered on 11/22/19at 08:46; Start 11/22/19 at 09:00 Methylnaltrexone [place] (Relistor) 12 mg 1X ONCE SQ Last administered on 11/22/19at 11:55; Start 11/22/19 at 11:00; Stop 11/22/19 at 11:01; Status DC Pantoprazole Sodium (PROTONIX VIAL for IV PUSH) 40 mg DAILYAC IVP Last administered on 11/23/19at 08:51; Start 11/22/19 at 12:00 Hydralazine HCl (Apresoline Inj) 10 mg PRN Q4HRS PRN IVP ELEVATED BP, SEE COMMENTS; Start 11/22/19 at 12:00 Non-Formulary Medication (Citric AC/ Gluconolact/Mag Carb (Renacidin Irrigation Solution)) 30 ml QMWF IR ; Start 11/22/19 at 16:00; Status UNV Non-Formulary Medication (Mometasone/ Formoterol (Dulera 200 Mcg/5 Mcg Inhaler)) 1 puff HS IH ; Start 11/22/19 at 21:00; Status UNV Vitamin A/Vitamin D (Vitamin A & D Ointment) 1 edvin BID TP Last administered on 11/23/19at 08:53; Start 11/22/19 at 12:15 Fosphenytoin Sodium (Cerebyx) 130 mg Q8HRS IV Last administered on 11/23/19at 05:40; Start 11/22/19 at 14:00 Albuterol Sulfate (Ventolin Neb Soln) 2.5 mg Q6HRS NEB Last administered on 11/23/19at 07:20; Start 11/22/19 at 12:15 Budesonide (Pulmicort) 0.5 mg RTBID NEB Last administered on 11/23/19at 07:23; Start 11/22/19 at 20:00 Insulin Human Lispro (HumaLOG) 0-5 UNITS TIDWMEALS SQ ; Start 11/22/19 at 17:00 Dextrose (Dextrose 50%-Water Syringe) 12.5 gm PRN Q15MIN PRN IV SEE COMMENTS; Start 11/22/19 at 15:30 Sodium Chloride 1,000 ml @ 75 mls/hr [id number] IV Last administered on 11/22/19at 20:27; Start 11/22/19 at 21:00 Active Scripts Active Hydrocodone-Apap 5-325 (Hydrocodone Bit/Acetaminophen) 1 Tab Tablet 1 Tab PO PRN Q4HRS PRN Polyethylene Glycol 3350 17 Gm Powd.pack 17 Gm PO DAILY Nystop (Nystatin) 60 Gm Powder 1 Edvin TP BID Aspirin 81 Mg Tab.chew 81 Mg PO DAILYWBKFT Synthroid (Levothyroxine Sodium) 100 Mcg Tablet 200 Mcg PO [id number] Reported Zinc Sulfate 220 Mg Tablet 1 Tab PO DAILY 30 Days Vitamin C (Ascorbic Acid) 500 Mg Capsule.er 1 Cap PO DAILY 30 Days Vitamin A & D Ointment Packet (Vits A & D/White Pet/Lanolin) 5 Gm Oint.pack 5 Gm TP BID Simethicone 80 Mg Tab.chew 1 Tab PO PRN TID PRN 6 Days Senna-Docusate Sodium Tablet (Sennosides/Docusate Sodium) 1 Each Tablet 2 Tab PO PRN BID PRN 5 Days Fluoxetine Hcl 40 Mg Capsule 1 Cap PO DAILYWBKFT Protonix (Pantoprazole Sodium) 20 Mg Tablet.dr 1 Tab PO DAILY Phenytoin Sodium Extended 200 Mg Capsule 1 Cap PO BID 30 Days Myrbetriq (Mirabegron) 25 Mg Tab.er.24h 25 Mg PO DAILY Metoprolol Tartrate 25 Mg Tablet 1 Tab PO BID Atorvastatin Calcium 20 Mg Tablet 20 Mg PO HS Insulin Aspart Flexpen (Insulin Aspart) 100 Unit/1 Ml Insuln.pen 0 SQ QIDACHS FSBS 181-220 = 2 units 221-260 = 4 units 261-300 = 6 units 301-350 = 8 units 351-400 = 10 units 401 or higher = 12 units Hyoscyamine Sulfate 0.125 Mg Tablet 1 Tab PO PRN Q4HRS PRN 30 Days Gabapentin (Gabapentin) 300 Mg Capsule 300 Mg PO BID Fluconazole 200 Mg Tablet 1 Tab PO DAILY Coumadin (Warfarin Sodium) 2 Mg Tablet 1 Tab PO QHS Renacidin Irrigation Solution (Citric AC/Gluconolact/Mag Carb) 30 Ml Irrig.soln 30 Ml IR QMWF Clamp catheter for 15 minutes, then unclamp and drain by gravity. Cefpodoxime Proxetil 200 Mg Tablet 1 Tab PO BID Dulera 200 Mcg/5 Mcg Inhaler (Mometasone/Formoterol) 13 Gm Hfa.aer.ad 1 Puff IH HS Furosemide 20 Mg Tablet 1 Tab PO DAILY Vitals/I & O Vital Sign - Last 24 Hours 11/22/19 11/22/19 11/22/19 11/22/19 11:16 12:58 15:02 19:50 Temp 97.9 97.7 97.8 97.9 97.7 97.8 Pulse 100 86 99 Resp 18 16 20 B/P (MAP) 124/86 (99) 117/84 (95) 117/73 (88) Pulse Ox 93 95 93 92 O2 Delivery Room Air Room Air Room Air Room Air 11/22/19 11/22/19 11/22/19 11/22/19 20:07 20:37 23:30 23:52 Temp 98.1 98.1 Pulse 102 Resp 20 20 B/P (MAP) 106/62 (77) Pulse Ox 96 92 O2 Delivery Room Air Room Air Room Air 11/23/19 11/23/19 11/23/19 11/23/19 00:22 00:25 03:30 07:00 Temp 97.7 97.4 97.7 97.4 Pulse 96 92 Resp 20 18 15 B/P (MAP) 110/69 (83) 112/71 (85) Pulse Ox 92 93 96 O2 Delivery Room Air Room Air Room Air Room Air 11/23/19 11/23/19 07:20 08:15 Pulse 92 B/P (MAP) 112/71 Pulse Ox 94 O2 Delivery Room Air Intake and Output 11/22/19 11/22/19 11/23/19 14:59 22:59 06:59 Intake Total 150 ml 1050 ml 0 ml Output Total 50 ml 550 ml 525 ml Balance 100 ml 500 ml -525 ml Hemodynamically unstable?: No Is patient in severe pain?: No Is NPO status required?: Yes MAXIME MORALES MD November 23, 2019 10:14
[2019-11-23] MEDS: IV NORMAL SALINE 1000ML BAG 1,000 ML IV SCH ×2 (10:20→23:40)
[2019-11-23 11:01] VITALS: BP 115/73
--- NOTE | 2019-11-23 12:00 | NUR ---
SS following up with discharge planning. SS reviewed pt chart and discussed with pt RN. Pt is LTC resident from [facility] in [place]. Per RN, pt is NPO and has NG tube. Pt currently on IV hydration. SS will continue to follow for discharge planning.
--- NOTE | 2019-11-23 12:25 | PDOC2 ---
CONSULT Date of Consult Date of Consult DATE: 11/22/19 TIME: 12:20 Reason for Consult Reason for Consult: ileus Referring Physician Referring Physician: IPC Identification/Chief Complaint Chief Complaint distention Source Source: Chart review History of Present Illness Reason for Visit: Seen in consultation yesterday. Mr Storey is a 59 yo [facility] resident s/p stroke with suprapubic catheter and hx of ileus/constipation. He is minimally communicative. Old records reviewed Past Medical History Cardiovascular: AFIB, CAD, CHF, HTN, Hyperlipidemia Pulmonary: COPD CENTRAL NERVOUS SYSTEM: Periperal neuropathy, Seizure GI: Constipation, GERD Heme/Onc: No pertinent hx Hepatobiliary: No pertinent hx Psych: No pertinent hx Musculoskeletal: Osteoarthritis Rheumatologic: No pertinent hx Infectious disease: No pertinent hx Renal/: No pertinent hx Endocrine: Diabetes, Hypothyroidism Past Surgical History Past Surgical History: Other Family History Family History: Coronary Artery Disease, High Cholestrol Social History No ALCOHOL: none Drugs: None Lives: Senior Care Current Problem List Problem List Problems Medical Problems: (1) Gross hematuria Status: Acute (2) Supratherapeutic international normalized ratio (INR) Status: Acute Current Medications Current Medications Current Medications Iohexol (Omnipaque 300 Mg/ml) 75 ml 1X ONCE IV Last administered on 11/21/19at 23:55; Start 11/21/19 at 23:15; Stop 11/21/19 at 23:16; Status DC Info (CONTRAST GIVEN -- Rx MONITORING) 1 each PRN DAILY PRN MC SEE COMMENTS; Start 11/21/19 at 23:15; Stop 11/23/19 at 23:14 Phytonadione (Mephyton Oral Soln) 5 mg 1X ONCE PO Last administered on 11/21/19at 23:40; Start 11/21/19 at 23:30; Stop 11/21/19 at 23:31; Status DC Ondansetron HCl (Zofran) 4 mg PRN Q8HRS PRN IV NAUSEA/VOMITING Last administered on 11/22/19at 10:34; Start 11/22/19 at 00:30; Stop 11/23/19 at 00:29; Status DC Morphine Sulfate (Morphine Sulfate) 4 mg 1X ONCE IV Last administered on 11/22/19at 08:47; Start 11/22/19 at 08:30; Stop 11/22/19 at 08:34; Status DC Morphine Sulfate (Morphine Sulfate) 2 mg PRN Q2HR PRN IV PAIN Last administered on 11/22/19 23:52; Start 11/22/19 at 08:30 Polyethylene Glycol (miraLAX PACKET) 17 gm 1X ONCE PO Last administered on 11/22/19 08:46; Start 11/22/19 at 08:30; Stop 11/22/19 at 08:34; Status DC Polyethylene Glycol (miraLAX PACKET) 17 gm PRN DAILY PRN PO CONSTIPATION; Start 11/22/19 at 08:30 Aspirin (Aspirin Chewable) 81 mg DAILYWBKFT PO Last administered on 11/22/19 08:47; Start 11/22/19 at 09:00 Atorvastatin Calcium (Lipitor) 20 mg HS PO ; Start 11/22/19 at 21:00 Gabapentin (Neurontin) 300 mg BID PO Last administered on 11/22/19 08:47; Start 11/22/19 at 09:00 Levothyroxine Sodium (Synthroid) 200 mcg DAILY06 PO Last administered on 11/22/19 10:24; Start 11/22/19 at 10:30 Metoprolol Tartrate (Lopressor) 25 mg BID PO Last administered on 11/22/19 08:46; Start 11/22/19 at 09:00 Nystatin (Nystop) 1 edvin BID TP Last administered on 11/23/19 08:53; Start 11/22/19 at 09:00 Senna/Docusate Sodium (Senna Plus) 2 tab PRN BID PRN PO CONSTIPATION; Start 11/22/19 at 08:30 Simethicone (Gas-X) 80 mg PRN TID PRN PO GAS / BLOATING; Start 11/22/19 at 08:30 Fluoxetine HCl (PROzac) 40 mg DAILYWBKFT PO Last administered on 11/22/19 08:47; Start 11/22/19 at 09:00 Non-Formulary Medication (Mirabegron (Myrbetriq)) 25 mg DAILY PO ; Start 11/22/19 at 09:00; Status UNV Pantoprazole Sodium (Protonix) 40 mg DAILYAC PO ; Start 11/22/19 at 11:30; Stop 11/22/19 at 11:08; Status DC Sodium Chloride 1,000 ml @ 100 mls/hr 1X ONCE IV Last administered on 11/22/19at 08:46; Start 11/22/19 at 08:30; Stop 11/22/19 at 18:29; Status DC Lubiprostone (Amitiza) 24 mcg BIDWMEALS PO Last administered on 11/22/19at 08:46; Start 11/22/19 at 09:00 Methylnaltrexone [place] (Relistor) 12 mg 1X ONCE SQ Last administered on 11/22/19at 11:55; Start 11/22/19 at 11:00; Stop 11/22/19 at 11:01; Status DC Pantoprazole Sodium (PROTONIX VIAL for IV PUSH) 40 mg DAILYAC IVP Last administered on 11/23/19at 08:51; Start 11/22/19 at 12:00 Hydralazine HCl (Apresoline Inj) 10 mg PRN Q4HRS PRN IVP ELEVATED BP, SEE COMMENTS; Start 11/22/19 at 12:00 Non-Formulary Medication (Citric AC/ Gluconolact/Mag Carb (Renacidin Irrigation Solution)) 30 ml QMWF IR ; Start 11/22/19 at 16:00; Status UNV Non-Formulary Medication (Mometasone/ Formoterol (Dulera 200 Mcg/5 Mcg Inhaler)) 1 puff HS IH ; Start 11/22/19 at 21:00; Status UNV Vitamin A/Vitamin D (Vitamin A & D Ointment) 1 edvin BID TP Last administered on 11/23/19at 08:53; Start 11/22/19 at 12:15 Fosphenytoin Sodium (Cerebyx) 130 mg Q8HRS IV Last administered on 11/23/19at 05:40; Start 11/22/19 at 14:00 Albuterol Sulfate (Ventolin Neb Soln) 2.5 mg Q6HRS NEB Last administered on 11/23/19at 07:20; Start 11/22/19 at 12:15 Budesonide (Pulmicort) 0.5 mg RTBID NEB Last administered on 11/23/19at 07:23; Start 11/22/19 at 20:00 Insulin Human Lispro (HumaLOG) 0-5 UNITS TIDWMEALS SQ ; Start 11/22/19 at 17:00 Dextrose (Dextrose 50%-Water Syringe) 12.5 gm PRN Q15MIN PRN IV SEE COMMENTS; Start 11/22/19 at 15:30 Sodium Chloride 1,000 ml @ 75 mls/hr [id number] IV Last administered on 11/22/19at 20:27; Start 11/22/19 at 21:00 Active Scripts Active Hydrocodone-Apap 5-325 (Hydrocodone Bit/Acetaminophen) 1 Tab Tablet 1 Tab PO PRN Q4HRS PRN Polyethylene Glycol 3350 17 Gm Powd.pack 17 Gm PO DAILY Nystop (Nystatin) 60 Gm Powder 1 Edvin TP BID Aspirin 81 Mg Tab.chew 81 Mg PO DAILYWBKFT Synthroid (Levothyroxine Sodium) 100 Mcg Tablet 200 Mcg PO DAILY06 Reported Zinc Sulfate 220 Mg Tablet 1 Tab PO DAILY 30 Days Vitamin C (Ascorbic Acid) 500 Mg Capsule.er 1 Cap PO DAILY 30 Days Vitamin A & D Ointment Packet (Vits A & D/White Pet/Lanolin) 5 Gm Oint.pack 5 Gm TP BID Simethicone 80 Mg Tab.chew 1 Tab PO PRN TID PRN 6 Days Senna-Docusate Sodium Tablet (Sennosides/Docusate Sodium) 1 Each Tablet 2 Tab PO PRN BID PRN 5 Days Fluoxetine Hcl 40 Mg Capsule 1 Cap PO DAILYWBKFT Protonix (Pantoprazole Sodium) 20 Mg Tablet.dr 1 Tab PO DAILY Phenytoin Sodium Extended 200 Mg Capsule 1 Cap PO BID 30 Days Myrbetriq (Mirabegron) 25 Mg Tab.er.24h 25 Mg PO DAILY Metoprolol Tartrate 25 Mg Tablet 1 Tab PO BID Atorvastatin Calcium 20 Mg Tablet 20 Mg PO HS Insulin Aspart Flexpen (Insulin Aspart) 100 Unit/1 Ml Insuln.pen 0 SQ QIDACHS FSBS 181-220 = 2 units 221-260 = 4 units 261-300 = 6 units 301-350 = 8 units 351-400 = 10 units 401 or higher = 12 units Hyoscyamine Sulfate 0.125 Mg Tablet 1 Tab PO PRN Q4HRS PRN 30 Days Gabapentin (Gabapentin) 300 Mg Capsule 300 Mg PO BID Fluconazole 200 Mg Tablet 1 Tab PO DAILY Coumadin (Warfarin Sodium) 2 Mg Tablet 1 Tab PO QHS Renacidin Irrigation Solution (Citric AC/Gluconolact/Mag Carb) 30 Ml Irrig.soln 30 Ml IR QMWF Clamp catheter for 15 minutes, then unclamp and drain by gravity. Cefpodoxime Proxetil 200 Mg Tablet 1 Tab PO BID Dulera 200 Mcg/5 Mcg Inhaler (Mometasone/Formoterol) 13 Gm Hfa.aer.ad 1 Puff IH HS Furosemide 20 Mg Tablet 1 Tab PO DAILY Allergies Allergies: Coded Allergies: No Known Drug Allergies (Unverified , 12/21/18) ROS Review of System not obtained 2/2 communication barrier Physical Exam General: No acute distress HEENT: Atraumatic, Other (NG in place with bilious return, per RN has had two stools) Heart: Regular rate Abdomen: Other (softer, less distended today than yesterday) Vitals VITALS Vital Signs Date Time Temp Pulse Resp B/P (MAP) Pulse Ox O2 Delivery O2 Flow Rate FiO2 11/23/19 11:01 97.5 91 17 115/73 (87) 98 Room Air 97.5 Labs Labs Laboratory Tests Test 11/21/19 22:41 11/21/19 22:48 11/21/19 23:20 11/22/19 07:34 White Blood Count 9.1 x10^3/uL (4.0-11.0) Red Blood Count 4.98 x10^6/uL (4.30-5.70) Hemoglobin 14.8 g/dL (13.0-17.5) Hematocrit 43.7 % (39.0-53.0) Mean Corpuscular Volume 88 fL (79-100) Mean Corpuscular Hemoglobin 30 pg (25-35) Mean Corpuscular Hemoglobin Concent 34 g/dL (31-37) Red Cell Distribution Width 15.6 % (11.5-14.5) Platelet Count 452 x10^3/uL (140-400) Neutrophils (%) (Auto) 55 % (31-73) Lymphocytes (%) (Auto) 22 % (24-48) Monocytes (%) (Auto) 21 % (0-9) Eosinophils (%) (Auto) 2 % (0-3) Basophils (%) (Auto) 1 % (0-3) Neutrophils # (Auto) 5.0 x10^3/uL (1.8-7.7) Lymphocytes # (Auto) 2.0 x10^3/uL (1.0-4.8) Monocytes # (Auto) 1.9 x10^3/uL (0.0-1.1) Eosinophils # (Auto) 0.2 x10^3/uL (0.0-0.7) Basophils # (Auto) 0.1 x10^3/uL (0.0-0.2) Segmented Neutrophils % 40 % (35-66) Band Neutrophils % 19 % (0-9) Lymphocytes % 21 % (24-48) Monocytes % 17 % (0-10) Eosinophils % 1 % (0-5) Basophils % 2 % (0-3) Platelet Estimate Increased (ADEQUATE) Prothrombin Time 73.7 SEC (11.7-14.0) Prothromb Time International Ratio 8.6 (0.8-1.1) Activated Partial Thromboplast Time 98 SEC (24-38) Urine Collection Type U cath Urine Color Red Urine Clarity Bloody Urine pH (<5.0-8.0) Urine Specific [place] (1.000-1.030) Urine Protein mg/dL (NEG-TRACE) Urine Glucose (UA) mg/dL (NEG) Urine Ketones (Stick) mg/dL (NEG) Urine Blood (NEG) Urine Nitrite (NEG) Urine Bilirubin (NEG) Urine Urobilinogen Dipstick mg/dL (0.2 mg/dL) Urine Leukocyte Esterase (NEG) Urine RBC Tntc /HPF (0-2) Urine WBC /HPF (0-4) Urine Bacteria 0 /HPF (0-FEW) Urine Hyaline Casts Few /HPF Sodium Level 129 mmol/L (136-145) Potassium Level 3.9 mmol/L (3.5-5.1) Chloride Level 88 mmol/L (98-107) Carbon Dioxide Level 35 mmol/L (21-32) Anion Gap 6 (6-14) Blood Urea Nitrogen 16 mg/dL (8-26) Creatinine 0.8 mg/dL (0.7-1.3) Estimated GFR (Cockcroft-Gault) 99.6 BUN/Creatinine Ratio 20 (6-20) Glucose Level 192 mg/dL (70-99) Calcium Level 8.8 mg/dL (8.5-10.1) Magnesium Level 2.1 mg/dL (1.8-2.4) Total Bilirubin 0.6 mg/dL (0.2-1.0) Aspartate Amino Transf (AST/SGOT) 25 U/L (15-37) Alanine Aminotransferase (ALT/SGPT) 35 U/L (16-63) Alkaline Phosphatase 159 U/L (46-116) Troponin I Quantitative < 0.017 ng/mL (0.000-0.055) Total Protein 7.1 g/dL (6.4-8.2) Albumin 3.2 g/dL (3.4-5.0) Albumin/Globulin Ratio 0.8 (1.0-1.7) Glucose (Fingerstick) 187 mg/dL (70-99) Test 11/22/19 12:17 11/22/19 12:45 11/22/19 17:55 11/23/19 04:25 Glucose (Fingerstick) 208 mg/dL (70-99) 162 mg/dL (70-99) Prothrombin Time 45.1 SEC (11.7-14.0) 29.2 SEC (11.7-14.0) Prothromb Time International Ratio 4.7 (0.8-1.1) 2.8 (0.8-1.1) White Blood Count 7.0 x10^3/uL (4.0-11.0) Red Blood Count 4.10 x10^6/uL (4.30-5.70) Hemoglobin 12.3 g/dL (13.0-17.5) Hematocrit 36.4 % (39.0-53.0) Mean Corpuscular Volume 89 fL (79-100) Mean Corpuscular Hemoglobin 30 pg (25-35) Mean Corpuscular Hemoglobin Concent 34 g/dL (31-37) Red Cell Distribution Width 15.3 % (11.5-14.5) Platelet Count 328 x10^3/uL (140-400) Neutrophils (%) (Auto) 49 % (31-73) Lymphocytes (%) (Auto) 31 % (24-48) Monocytes (%) (Auto) 18 % (0-9) Eosinophils (%) (Auto) 1 % (0-3) Basophils (%) (Auto) 1 % (0-3) Neutrophils # (Auto) 3.4 x10^3/uL (1.8-7.7) Lymphocytes # (Auto) 2.2 x10^3/uL (1.0-4.8) Monocytes # (Auto) 1.3 x10^3/uL (0.0-1.1) Eosinophils # (Auto) 0.1 x10^3/uL (0.0-0.7) Basophils # (Auto) 0.1 x10^3/uL (0.0-0.2) Sodium Level 131 mmol/L (136-145) Potassium Level 4.3 mmol/L (3.5-5.1) Chloride Level 94 mmol/L (98-107) Carbon Dioxide Level 33 mmol/L (21-32) Anion Gap 4 (6-14) Blood Urea Nitrogen 19 mg/dL (8-26) Creatinine 0.7 mg/dL (0.7-1.3) Estimated GFR (Cockcroft-Gault) 116.2 Glucose Level 169 mg/dL (70-99) Calcium Level 7.8 mg/dL (8.5-10.1) Test 11/23/19 07:56 Glucose (Fingerstick) 171 mg/dL (70-99) Laboratory Tests Test 11/22/19 12:45 11/22/19 17:55 11/23/19 04:25 11/23/19 07:56 Prothrombin Time 45.1 SEC (11.7-14.0) 29.2 SEC (11.7-14.0) Prothromb Time International Ratio 4.7 (0.8-1.1) 2.8 (0.8-1.1) Glucose (Fingerstick) 162 mg/dL (70-99) 171 mg/dL (70-99) White Blood Count 7.0 x10^3/uL (4.0-11.0) Red Blood Count 4.10 x10^6/uL (4.30-5.70) Hemoglobin 12.3 g/dL (13.0-17.5) Hematocrit 36.4 % (39.0-53.0) Mean Corpuscular Volume 89 fL (79-100) Mean Corpuscular Hemoglobin 30 pg (25-35) Mean Corpuscular Hemoglobin Concent 34 g/dL (31-37) Red Cell Distribution Width 15.3 % (11.5-14.5) Platelet Count 328 x10^3/uL (140-400) Neutrophils (%) (Auto) 49 % (31-73) Lymphocytes (%) (Auto) 31 % (24-48) Monocytes (%) (Auto) 18 % (0-9) Eosinophils (%) (Auto) 1 % (0-3) Basophils (%) (Auto) 1 % (0-3) Neutrophils # (Auto) 3.4 x10^3/uL (1.8-7.7) Lymphocytes # (Auto) 2.2 x10^3/uL (1.0-4.8) Monocytes # (Auto) 1.3 x10^3/uL (0.0-1.1) Eosinophils # (Auto) 0.1 x10^3/uL (0.0-0.7) Basophils # (Auto) 0.1 x10^3/uL (0.0-0.2) Sodium Level 131 mmol/L (136-145) Potassium Level 4.3 mmol/L (3.5-5.1) Chloride Level 94 mmol/L (98-107) Carbon Dioxide Level 33 mmol/L (21-32) Anion Gap 4 (6-14) Blood Urea Nitrogen 19 mg/dL (8-26) Creatinine 0.7 mg/dL (0.7-1.3) Estimated GFR (Cockcroft-Gault) 116.2 Glucose Level 169 mg/dL (70-99) Calcium Level 7.8 mg/dL (8.5-10.1) Assessment/Plan Assessment/Plan ileus s/p CVA no surgical recs will follow as needed Thanks for consult CHIO LOZA MD November 23, 2019 12:25
--- NOTE | 2019-11-23 14:24 | NUR ---
Wound Care Wound care consult for coccyx wound. 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 Cleansed area of stool and applied A&D ointment. pt turned to right side with wedge and heels floated. P500 bed ordered. Pt unable to retain PU prevention teaching, will need reinforcement. No other wounds noted. WC will continue to follow for possible changes
[2019-11-23 14:49] VITALS: BP 112/67
--- NOTE | 2019-11-23 18:02 | RAD ---
KUB History: NG tube placement. Technique: Upright view the abdomen. Comparison: November 23, 2019 Findings: Feeding tube looped within the stomach with tip projecting over the proximal stomach. Dilated loops of small bowel within the imaged upper abdomen, unchanged. Air within prominent loops of colon. Impression: 1. Enteric tube looped within the stomach with tip projecting over the proximal stomach. Electronically signed by: Shukri Nash DO (11/23/2019 5:59 PM) [facility]
--- NOTE | 2019-11-23 18:52 | RAD ---
AP view of the abdomen 6:24 PM Clinical indications: NG tube placement. FINDINGS/ IMPRESSION: Tip of an NG tube is seen coiled within the proximal body of the stomach. This includes the proximal side port. Mild dilatation of large and small bowel is seen. Electronically signed by: Jesse Serna MD (11/23/2019 6:49 PM) [facility] [place]
[2019-11-23 19:00] VITALS: BP 118/67
[2019-11-23] MEDS: ATORVASTATIN CALCIUM 20 MG TABLET PO SCH (20:56)
[2019-11-23 23:00] VITALS: BP 117/74
--- NOTE | 2019-11-24 00:04 | RAD ---
AP abdomen radiograph 11/23/2019 CLINICAL HISTORY: Post NG tube placement. An AP portable digital radiograph of the abdomen was obtained. The right lateral aspect of the abdomen is cut off on this radiograph. The exam is overpenetrated. A NG tube has been placed. It is coiled within the body/fundus of the stomach. The tip of the tube appears to extend towards the gastric cardia. Air distention of both small and large bowel loops is seen. The abdominal bowel gas pattern is nonspecific. Degenerative changes are seen involving the lower lumbar spine. IMPRESSION: The NG tube is coiled within the body/fundus of the stomach. Electronically signed by: Yash Quezada MD (11/24/2019 12:01 AM) [id number]
[2019-11-24] MEDS: ALBUTEROL SULFATE 2.5 MG/3 ML NEBU. NEB SCH ×6 (00:41→23:04)
--- NOTE | 2019-11-24 02:56 | RAD ---
AP abdomen radiograph 11/24/2019 CLINICAL HISTORY: NG tube placement. An AP portable digital radiograph abdomen was obtained. A NG tube is seen its tip extending to overlie the medial aspect of the gastric fundus. Visualized lung bases are clear. Nonspecific air distention of small large bowel loops is seen. The osseous structures are grossly intact. IMPRESSION: The tip of the NG tube overlies the medial aspect of the gastric fundus. Electronically signed by: Yash Quezada MD (11/24/2019 2:53 AM) [id number]
[2019-11-24 03:18] VITALS: BP 133/78
[2019-11-24] MEDS: FOSPHENYTOIN 100 MG/2 ML VIAL. IV SCH ×3 (05:05→20:55)
[2019-11-24] MEDS: IV NORMAL SALINE 1000ML BAG 1,000 ML IV SCH ×2 (05:06→20:53)
[2019-11-24] MEDS: LEVOTHYROXINE 100 MCG TABLET PO SCH (05:08)
[2019-11-24 05:29] LABS: BASO # 0.1 x10^3/uL (0.0-0.2); BASO % 1 % (0-3); EOS # 0.2 x10^3/uL (0.0-0.7); EOS % 3 % (0-3); HEMATOCRIT 36.4 % (39.0-53.0); HEMOGLOBIN 12.2 g/dL (13.0-17.5); LYMPH # 1.9 x10^3/uL (1.0-4.8); LYMPH % 30 % (24-48); MEAN CORPUSCULAR HEMOGLOBIN 30 pg (25-35); MEAN CORPUSCULAR HGB CONC 33 g/dL (31-37); MEAN CORPUSCULAR VOLUME 89 fL (79-100); MONO # 0.8 x10^3/uL (0.0-1.1); MONO % 14 % (0-9); NEUT # 3.3 x10^3/uL (1.8-7.7); NEUT % 53 % (31-73); PLATELET COUNT 308 x10^3/uL (140-400); RED BLOOD COUNT 4.08 x10^6/uL (4.30-5.70); RED CELL DISTRIBUTION WIDTH 15.5 % (11.5-14.5); WHITE BLOOD COUNT 6.2 x10^3/uL (4.0-11.0)
[2019-11-24 05:39] LABS: PROTHROMBIN TIME PATIENT 25.3 SEC (11.7-14.0)
[2019-11-24 05:45] LABS: CALCIUM 7.9 mg/dL (8.5-10.1); CREATININE 0.6 mg/dL (0.7-1.3); GFR 138.9; POTASSIUM 3.9 mmol/L (3.5-5.1)
[2019-11-24 07:00] VITALS: BP 134/79
[2019-11-24] MEDS: FLUoxetine HCL 20 MG CAPSULE PO SCH (07:35)
[2019-11-24] MEDS: GABAPENTIN 300 MG CAPSULE. PO SCH ×2 (07:35→21:00)
[2019-11-24] MEDS: LUBIPROSTONE 24 MCG CAPSULE PO SCH ×2 (07:35→07:36)
[2019-11-24] MEDS: METOPROLOL TART IMMED RELEASE 25 MG TABLET. PO SCH ×2 (07:35→21:00)
[2019-11-24] MEDS: ASPIRIN CHEWABLE 81 MG TABLET. PO SCH (07:35)
[2019-11-24] MEDS: INSULIN LISPRO 300 UNITS/3 ML VIAL. SQ SCH ×3 (07:56→16:56)
[2019-11-24] MEDS: PANTOPRAZOLE IV PUSH 40 MG VIAL. IVP SCH (08:12)
[2019-11-24] MEDS: NYSTATIN TOPICAL POWDER 15GM BOTTLE. TP SCH ×2 (08:17→20:56)
[2019-11-24] MEDS: VITS A & D/LANOLIN TOPICAL OINTMENT 42GM TUBE. TP SCH ×2 (08:18→20:55)
[2019-11-24] MEDS: BUDESONIDE 0.5 MG/2 ML NEBU. NEB SCH ×2 (08:27→20:14)
[2019-11-24] MEDS: MORPHINE SULFATE 2 MG/ML VIAL. IV PRN (09:05)
--- NOTE | 2019-11-24 09:57 | PDOC ---
Subjective: Subjective: Not too communicative today - closes his eyes when I ask him questions. Objective: Objective: D/w nurse - pulled NG a little so was adjusted, less output, still stooling. Vital Signs: Vital Signs Date Time Temp Pulse Resp B/P (MAP) Pulse Ox O2 Delivery O2 Flow Rate FiO2 11/24/19 09:35 99 Room Air 11/24/19 09:05 18 11/24/19 07:00 96.5 79 134/79 (97) 96.5 Labs: Laboratory Tests Test 11/23/19 12:25 11/23/19 17:38 11/23/19 23:29 11/24/19 05:00 Glucose (Fingerstick) 162 mg/dL 132 mg/dL 121 mg/dL White Blood Count 6.2 x10^3/uL Red Blood Count 4.08 x10^6/uL Hemoglobin 12.2 g/dL Hematocrit 36.4 % Mean Corpuscular Volume 89 fL Mean Corpuscular Hemoglobin 30 pg Mean Corpuscular Hemoglobin Concent 33 g/dL Red Cell Distribution Width 15.5 % Platelet Count 308 x10^3/uL Neutrophils (%) (Auto) 53 % Lymphocytes (%) (Auto) 30 % Monocytes (%) (Auto) 14 % Eosinophils (%) (Auto) 3 % Basophils (%) (Auto) 1 % Neutrophils # (Auto) 3.3 x10^3/uL Lymphocytes # (Auto) 1.9 x10^3/uL Monocytes # (Auto) 0.8 x10^3/uL Eosinophils # (Auto) 0.2 x10^3/uL Basophils # (Auto) 0.1 x10^3/uL Prothrombin Time 25.3 SEC Prothromb Time International Ratio 2.3 Sodium Level 136 mmol/L Potassium Level 3.9 mmol/L Chloride Level 99 mmol/L Carbon Dioxide Level 31 mmol/L Anion Gap 6 Blood Urea Nitrogen 11 mg/dL Creatinine 0.6 mg/dL Estimated GFR (Cockcroft-Gault) 138.9 Glucose Level 92 mg/dL Calcium Level 7.9 mg/dL Test 11/24/19 07:50 Glucose (Fingerstick) 81 mg/dL PE: GEN: NAD LUNGS: CTAB HEART: RRR ABD: a few quiet BS, soft, doesn't seem tender, NG bilious NEURO/PSYCH: awake, rolls eyes A/P: Ileus - better -- ?clamp NG and try clears - will review w/ Dr. Fulton Hemodynamically unstable?: No Is patient in severe pain?: No Is NPO status required?: Yes ERICK ORLANDO November 24, 2019 09:57
--- NOTE | 2019-11-24 10:05 | PDOC ---
PROGRESS NOTES History of Present Illness History of Present Illness VTE Prophylaxis Ordered VTE Prophylaxis Devices: Yes VTE Pharmacological Prophylaxi: Yes Assessment/Plan Assessment/Plan IMPRESSION: acute Marked air and fluid distention of small and large bowel loops throughout the abdomen and pelvis is seen extending to the rectum. findings reflect an ileus. on CT A Fib, SUPRATHERAPEUTIC INR on warfarion CAD w/ stents, CHF, HYPERTENSION HLD, COPD, peripheral neuropathy, hx seizure, remote CVA, WITH expressive aphasia OA, allergic rhinitis, DIABETES hypothyroidism similar appearance of gas-filled bowel loops with dilatation of the small and large bowel. Small bowel loops measure up to 5.8 cm, not significantly changed the prior examination. on kub HAS STOOLED 11/22 11/23 KUB NONSPECIFIC PATTERN D/W RN plan admit consult GI CVC BED NPO IV FLUID SUPPORT NG PPI Vitamin K. HOLD WARFARIN INR IN AM SURGERY CONSULT IV PHOS PHENYTION D/W PHARMACY equivalent 26 MIN PT EXAM, CHART REVIEW, > 50% OF TIME SPENT WITH EXAM, CHART REVIEW, PT CARE COORDINATION Vitals Vitals Vital Signs Date Time Temp Pulse Resp B/P (MAP) Pulse Ox O2 Delivery O2 Flow Rate FiO2 11/24/19 09:35 99 Room Air 11/24/19 09:05 18 11/24/19 07:00 96.5 79 134/79 (97) 96.5 Physical Exam General: Alert, Cooperative, No acute distress Heart: Regular rate, Normal S1 Lungs: Clear Abdomen: Soft, No tenderness, Other (softer, less distended today than yesterday) Extremities: No cyanosis, No edema Skin: No significant lesion Labs LABS AP abdomen radiograph 11/24/2019 CLINICAL HISTORY: NG tube placement. An AP portable digital radiograph abdomen was obtained. A NG tube is seen its tip extending to overlie the medial aspect of the gastric fundus. Visualized lung bases are clear. Nonspecific air distention of small large bowel loops is seen. The osseous structures are grossly intact. IMPRESSION: The tip of the NG tube overlies the medial aspect of the gastric fundus. Electronically signed by: Lang Villa MD (11/24/2019 2:53 AM) [id number] DICTATED and SIGNED BY: LANG VILLA MD DATE: 11/24/19 0253 Laboratory Tests Test 11/23/19 12:25 11/23/19 17:38 11/23/19 23:29 11/24/19 05:00 Glucose (Fingerstick) 162 mg/dL (70-99) 132 mg/dL (70-99) 121 mg/dL (70-99) White Blood Count 6.2 x10^3/uL (4.0-11.0) Red Blood Count 4.08 x10^6/uL (4.30-5.70) Hemoglobin 12.2 g/dL (13.0-17.5) Hematocrit 36.4 % (39.0-53.0) Mean Corpuscular Volume 89 fL (79-100) Mean Corpuscular Hemoglobin 30 pg (25-35) Mean Corpuscular Hemoglobin Concent 33 g/dL (31-37) Red Cell Distribution Width 15.5 % (11.5-14.5) Platelet Count 308 x10^3/uL (140-400) Neutrophils (%) (Auto) 53 % (31-73) Lymphocytes (%) (Auto) 30 % (24-48) Monocytes (%) (Auto) 14 % (0-9) Eosinophils (%) (Auto) 3 % (0-3) Basophils (%) (Auto) 1 % (0-3) Neutrophils # (Auto) 3.3 x10^3/uL (1.8-7.7) Lymphocytes # (Auto) 1.9 x10^3/uL (1.0-4.8) Monocytes # (Auto) 0.8 x10^3/uL (0.0-1.1) Eosinophils # (Auto) 0.2 x10^3/uL (0.0-0.7) Basophils # (Auto) 0.1 x10^3/uL (0.0-0.2) Prothrombin Time 25.3 SEC (11.7-14.0) Prothromb Time International Ratio 2.3 (0.8-1.1) Sodium Level 136 mmol/L (136-145) Potassium Level 3.9 mmol/L (3.5-5.1) Chloride Level 99 mmol/L (98-107) Carbon Dioxide Level 31 mmol/L (21-32) Anion Gap 6 (6-14) Blood Urea Nitrogen 11 mg/dL (8-26) Creatinine 0.6 mg/dL (0.7-1.3) Estimated GFR (Cockcroft-Gault) 138.9 Glucose Level 92 mg/dL (70-99) Calcium Level 7.9 mg/dL (8.5-10.1) Test 11/24/19 07:50 Glucose (Fingerstick) 81 mg/dL (70-99) Assessment and Plan Assessmemt and Plan Problems Medical Problems: (1) Gross hematuria Status: Acute (2) Supratherapeutic international normalized ratio (INR) Status: Acute Comment Review of Relevant I have reviewed the following items sujey (where applicable) has been applied. Labs Laboratory Tests Test 11/22/19 12:17 11/22/19 12:45 11/22/19 17:55 11/23/19 04:25 Glucose (Fingerstick) 208 mg/dL (70-99) 162 mg/dL (70-99) Prothrombin Time 45.1 SEC (11.7-14.0) 29.2 SEC (11.7-14.0) Prothromb Time International Ratio 4.7 (0.8-1.1) 2.8 (0.8-1.1) White Blood Count 7.0 x10^3/uL (4.0-11.0) Red Blood Count 4.10 x10^6/uL (4.30-5.70) Hemoglobin 12.3 g/dL (13.0-17.5) Hematocrit 36.4 % (39.0-53.0) Mean Corpuscular Volume 89 fL (79-100) Mean Corpuscular Hemoglobin 30 pg (25-35) Mean Corpuscular Hemoglobin Concent 34 g/dL (31-37) Red Cell Distribution Width 15.3 % (11.5-14.5) Platelet Count 328 x10^3/uL (140-400) Neutrophils (%) (Auto) 49 % (31-73) Lymphocytes (%) (Auto) 31 % (24-48) Monocytes (%) (Auto) 18 % (0-9) Eosinophils (%) (Auto) 1 % (0-3) Basophils (%) (Auto) 1 % (0-3) Neutrophils # (Auto) 3.4 x10^3/uL (1.8-7.7) Lymphocytes # (Auto) 2.2 x10^3/uL (1.0-4.8) Monocytes # (Auto) 1.3 x10^3/uL (0.0-1.1) Eosinophils # (Auto) 0.1 x10^3/uL (0.0-0.7) Basophils # (Auto) 0.1 x10^3/uL (0.0-0.2) Sodium Level 131 mmol/L (136-145) Potassium Level 4.3 mmol/L (3.5-5.1) Chloride Level 94 mmol/L (98-107) Carbon Dioxide Level 33 mmol/L (21-32) Anion Gap 4 (6-14) Blood Urea Nitrogen 19 mg/dL (8-26) Creatinine 0.7 mg/dL (0.7-1.3) Estimated GFR (Cockcroft-Gault) 116.2 Glucose Level 169 mg/dL (70-99) Calcium Level 7.8 mg/dL (8.5-10.1) Test 11/23/19 07:56 11/23/19 12:25 11/23/19 17:38 11/23/19 23:29 Glucose (Fingerstick) 171 mg/dL (70-99) 162 mg/dL (70-99) 132 mg/dL (70-99) 121 mg/dL (70-99) Test 11/24/19 05:00 11/24/19 07:50 White Blood Count 6.2 x10^3/uL (4.0-11.0) Red Blood Count 4.08 x10^6/uL (4.30-5.70) Hemoglobin 12.2 g/dL (13.0-17.5) Hematocrit 36.4 % (39.0-53.0) Mean Corpuscular Volume 89 fL (79-100) Mean Corpuscular Hemoglobin 30 pg (25-35) Mean Corpuscular Hemoglobin Concent 33 g/dL (31-37) Red Cell Distribution Width 15.5 % (11.5-14.5) Platelet Count 308 x10^3/uL (140-400) Neutrophils (%) (Auto) 53 % (31-73) Lymphocytes (%) (Auto) 30 % (24-48) Monocytes (%) (Auto) 14 % (0-9) Eosinophils (%) (Auto) 3 % (0-3) Basophils (%) (Auto) 1 % (0-3) Neutrophils # (Auto) 3.3 x10^3/uL (1.8-7.7) Lymphocytes # (Auto) 1.9 x10^3/uL (1.0-4.8) Monocytes # (Auto) 0.8 x10^3/uL (0.0-1.1) Eosinophils # (Auto) 0.2 x10^3/uL (0.0-0.7) Basophils # (Auto) 0.1 x10^3/uL (0.0-0.2) Prothrombin Time 25.3 SEC (11.7-14.0) Prothromb Time International Ratio 2.3 (0.8-1.1) Sodium Level 136 mmol/L (136-145) Potassium Level 3.9 mmol/L (3.5-5.1) Chloride Level 99 mmol/L (98-107) Carbon Dioxide Level 31 mmol/L (21-32) Anion Gap 6 (6-14) Blood Urea Nitrogen 11 mg/dL (8-26) Creatinine 0.6 mg/dL (0.7-1.3) Estimated GFR (Cockcroft-Gault) 138.9 Glucose Level 92 mg/dL (70-99) Calcium Level 7.9 mg/dL (8.5-10.1) Glucose (Fingerstick) 81 mg/dL (70-99) Laboratory Tests Test 11/23/19 12:25 11/23/19 17:38 11/23/19 23:29 11/24/19 05:00 Glucose (Fingerstick) 162 mg/dL (70-99) 132 mg/dL (70-99) 121 mg/dL (70-99) White Blood Count 6.2 x10^3/uL (4.0-11.0) Red Blood Count 4.08 x10^6/uL (4.30-5.70) Hemoglobin 12.2 g/dL (13.0-17.5) Hematocrit 36.4 % (39.0-53.0) Mean Corpuscular Volume 89 fL (79-100) Mean Corpuscular Hemoglobin 30 pg (25-35) Mean Corpuscular Hemoglobin Concent 33 g/dL (31-37) Red Cell Distribution Width 15.5 % (11.5-14.5) Platelet Count 308 x10^3/uL (140-400) Neutrophils (%) (Auto) 53 % (31-73) Lymphocytes (%) (Auto) 30 % (24-48) Monocytes (%) (Auto) 14 % (0-9) Eosinophils (%) (Auto) 3 % (0-3) Basophils (%) (Auto) 1 % (0-3) Neutrophils # (Auto) 3.3 x10^3/uL (1.8-7.7) Lymphocytes # (Auto) 1.9 x10^3/uL (1.0-4.8) Monocytes # (Auto) 0.8 x10^3/uL (0.0-1.1) Eosinophils # (Auto) 0.2 x10^3/uL (0.0-0.7) Basophils # (Auto) 0.1 x10^3/uL (0.0-0.2) Prothrombin Time 25.3 SEC (11.7-14.0) Prothromb Time International Ratio 2.3 (0.8-1.1) Sodium Level 136 mmol/L (136-145) Potassium Level 3.9 mmol/L (3.5-5.1) Chloride Level 99 mmol/L (98-107) Carbon Dioxide Level 31 mmol/L (21-32) Anion Gap 6 (6-14) Blood Urea Nitrogen 11 mg/dL (8-26) Creatinine 0.6 mg/dL (0.7-1.3) Estimated GFR (Cockcroft-Gault) 138.9 Glucose Level 92 mg/dL (70-99) Calcium Level 7.9 mg/dL (8.5-10.1) Test 11/24/19 07:50 Glucose (Fingerstick) 81 mg/dL (70-99) Medications Current Medications Iohexol (Omnipaque 300 Mg/ml) 75 ml 1X ONCE IV Last administered on 11/21/19at 23:55; Start 11/21/19 at 23:15; Stop 11/21/19 at 23:16; Status DC Info (CONTRAST GIVEN -- Rx MONITORING) 1 each PRN DAILY PRN MC SEE COMMENTS; Start 11/21/19 at 23:15; Stop 11/23/19 at 23:14; Status DC Phytonadione (Mephyton Oral Soln) 5 mg 1X ONCE PO Last administered on 11/21/19 23:40; Start 11/21/19 at 23:30; Stop 11/21/19 at 23:31; Status DC Ondansetron HCl (Zofran) 4 mg PRN Q8HRS PRN IV NAUSEA/VOMITING Last administered on 11/22/19 10:34; Start 11/22/19 at 00:30; Stop 11/23/19 at 00:29; Status DC Morphine Sulfate (Morphine Sulfate) 4 mg 1X ONCE IV Last administered on 11/22/19 08:47; Start 11/22/19 at 08:30; Stop 11/22/19 at 08:34; Status DC Morphine Sulfate (Morphine Sulfate) 2 mg PRN Q2HR PRN IV PAIN Last administered on 11/24/19 09:05; Start 11/22/19 at 08:30 Polyethylene Glycol (miraLAX PACKET) 17 gm 1X ONCE PO Last administered on 11/22/19 08:46; Start 11/22/19 at 08:30; Stop 11/22/19 at 08:34; Status DC Polyethylene Glycol (miraLAX PACKET) 17 gm PRN DAILY PRN PO CONSTIPATION; Start 11/22/19 at 08:30 Aspirin (Aspirin Chewable) 81 mg DAILYWBKFT PO Last administered on 11/22/19 08:47; Start 11/22/19 at 09:00 Atorvastatin Calcium (Lipitor) 20 mg HS PO ; Start 11/22/19 at 21:00 Gabapentin (Neurontin) 300 mg BID PO Last administered on 11/22/19 08:47; Start 11/22/19 at 09:00 Levothyroxine Sodium (Synthroid) 200 mcg DAILY06 PO Last administered on 11/22/19 10:24; Start 11/22/19 at 10:30 Metoprolol Tartrate (Lopressor) 25 mg BID PO Last administered on 11/22/19 08:46; Start 11/22/19 at 09:00 Nystatin (Nystop) 1 edvin BID TP Last administered on 11/24/19 08:17; Start 11/22/19 at 09:00 Senna/Docusate Sodium (Senna Plus) 2 tab PRN BID PRN PO CONSTIPATION; Start 11/22/19 at 08:30 Simethicone (Gas-X) 80 mg PRN TID PRN PO GAS / BLOATING; Start 11/22/19 at 08:30 Fluoxetine HCl (PROzac) 40 mg DAILYWBKFT PO Last administered on 11/22/19at 08:47; Start 11/22/19 at 09:00 Non-Formulary Medication (Mirabegron (Myrbetriq)) 25 mg DAILY PO ; Start 11/22/19 at 09:00; Status UNV Pantoprazole Sodium (Protonix) 40 mg DAILYAC PO ; Start 11/22/19 at 11:30; Stop 11/22/19 at 11:08; Status DC Sodium Chloride 1,000 ml @ 100 mls/hr 1X ONCE IV Last administered on 11/22/19at 08:46; Start 11/22/19 at 08:30; Stop 11/22/19 at 18:29; Status DC Lubiprostone (Amitiza) 24 mcg BIDWMEALS PO Last administered on 11/22/19at 08:46; Start 11/22/19 at 09:00 Methylnaltrexone [place] (Relistor) 12 mg 1X ONCE SQ Last administered on 11/22/19 11:55; Start 11/22/19 at 11:00; Stop 11/22/19 at 11:01; Status DC Pantoprazole Sodium (PROTONIX VIAL for IV PUSH) 40 mg DAILYAC IVP Last administered on 11/24/19at 08:12; Start 11/22/19 at 12:00 Hydralazine HCl (Apresoline Inj) 10 mg PRN Q4HRS PRN IVP ELEVATED BP, SEE COMMENTS; Start 11/22/19 at 12:00 Non-Formulary Medication (Citric AC/ Gluconolact/Mag Carb (Renacidin Irrigation Solution)) 30 ml QMWF IR ; Start 11/22/19 at 16:00; Status UNV Non-Formulary Medication (Mometasone/ Formoterol (Dulera 200 Mcg/5 Mcg Inhaler)) 1 puff HS IH ; Start 11/22/19 at 21:00; Status UNV Vitamin A/Vitamin D (Vitamin A & D Ointment) 1 edvin BID TP Last administered on 11/24/19at 08:18; Start 11/22/19 at 12:15 Fosphenytoin Sodium (Cerebyx) 130 mg Q8HRS IV Last administered on 11/24/19at 05:05; Start 11/22/19 at 14:00 Albuterol Sulfate (Ventolin Neb Soln) 2.5 mg Q6HRS NEB Last administered on 11/24/19at 08:28; Start 11/22/19 at 12:15 Budesonide (Pulmicort) 0.5 mg RTBID NEB Last administered on 11/24/19at 08:27; Start 11/22/19 at 20:00 Insulin Human Lispro (HumaLOG) 0-5 UNITS TIDWMEALS SQ ; Start 11/22/19 at 17:00 Dextrose (Dextrose 50%-Water Syringe) 12.5 gm PRN Q15MIN PRN IV SEE COMMENTS; Start 11/22/19 at 15:30 Sodium Chloride 1,000 ml @ 75 mls/hr [id number] IV Last administered on 11/24/19at 05:06; Start 11/22/19 at 21:00 Active Scripts Active Hydrocodone-Apap 5-325 (Hydrocodone Bit/Acetaminophen) 1 Tab Tablet 1 Tab PO PRN Q4HRS PRN Polyethylene Glycol 3350 17 Gm Powd.pack 17 Gm PO DAILY Nystop (Nystatin) 60 Gm Powder 1 Edvin TP BID Aspirin 81 Mg Tab.chew 81 Mg PO DAILYWBKFT Synthroid (Levothyroxine Sodium) 100 Mcg Tablet 200 Mcg PO DAILY06 Reported Zinc Sulfate 220 Mg Tablet 1 Tab PO DAILY 30 Days Vitamin C (Ascorbic Acid) 500 Mg Capsule.er 1 Cap PO DAILY 30 Days Vitamin A & D Ointment Packet (Vits A & D/White Pet/Lanolin) 5 Gm Oint.pack 5 Gm TP BID Simethicone 80 Mg Tab.chew 1 Tab PO PRN TID PRN 6 Days Senna-Docusate Sodium Tablet (Sennosides/Docusate Sodium) 1 Each Tablet 2 Tab PO PRN BID PRN 5 Days Fluoxetine Hcl 40 Mg Capsule 1 Cap PO DAILYWBKFT Protonix (Pantoprazole Sodium) 20 Mg Tablet.dr 1 Tab PO DAILY Phenytoin Sodium Extended 200 Mg Capsule 1 Cap PO BID 30 Days Myrbetriq (Mirabegron) 25 Mg Tab.er.24h 25 Mg PO DAILY Metoprolol Tartrate 25 Mg Tablet 1 Tab PO BID Atorvastatin Calcium 20 Mg Tablet 20 Mg PO HS Insulin Aspart Flexpen (Insulin Aspart) 100 Unit/1 Ml Insuln.pen 0 SQ QIDACHS FSBS 181-220 = 2 units 221-260 = 4 units 261-300 = 6 units 301-350 = 8 units 351-400 = 10 units 401 or higher = 12 units Hyoscyamine Sulfate 0.125 Mg Tablet 1 Tab PO PRN Q4HRS PRN 30 Days Gabapentin (Gabapentin) 300 Mg Capsule 300 Mg PO BID Fluconazole 200 Mg Tablet 1 Tab PO DAILY Coumadin (Warfarin Sodium) 2 Mg Tablet 1 Tab PO QHS Renacidin Irrigation Solution (Citric AC/Gluconolact/Mag Carb) 30 Ml Irrig.soln 30 Ml IR QMWF Clamp catheter for 15 minutes, then unclamp and drain by gravity. Cefpodoxime Proxetil 200 Mg Tablet 1 Tab PO BID Dulera 200 Mcg/5 Mcg Inhaler (Mometasone/Formoterol) 13 Gm Hfa.aer.ad 1 Puff IH HS Furosemide 20 Mg Tablet 1 Tab PO DAILY Vitals/I & O Vital Sign - Last 24 Hours 11/23/19 11/23/19 11/23/19 11/23/19 11:01 12:27 14:49 19:00 Temp 97.5 98.0 98.3 97.5 98.0 98.3 Pulse 91 89 86 Resp 17 16 18 B/P (MAP) 115/73 (87) 112/67 (82) 118/67 (84) Pulse Ox 98 94 96 98 O2 Delivery Room Air Room Air Room Air Room Air 11/23/19 11/23/19 11/23/19 11/24/19 20:00 20:11 23:00 00:41 Temp 97.7 97.7 Pulse 83 Resp 17 B/P (MAP) 117/74 (88) Pulse Ox 94 98 O2 Delivery Room Air Room Air Room Air Room Air 11/24/19 11/24/19 11/24/19 11/24/19 03:18 07:00 08:00 08:28 Temp 98.0 96.5 98.0 96.5 Pulse 80 79 Resp 17 18 B/P (MAP) 133/78 (96) 134/79 (97) Pulse Ox 98 99 99 O2 Delivery Room Air Room Air Room Air Room Air 11/24/19 11/24/19 09:05 09:35 Resp 18 Pulse Ox 99 99 O2 Delivery Room Air Room Air Intake and Output 11/23/19 11/23/19 11/24/19 15:00 23:00 07:00 Intake Total 0 ml 0 ml 0 ml Output Total 650 ml 600 ml Balance 0 ml -650 ml -600 ml Nutrition Consultation Dietary Evaluation: Recommendations by RD: Dietary education by RD, Increase Calorie Intake, Protein supplementation, PPN/TPN Comments: REC PPN for short-term non-oral nutrition needs while pt NPO w/ileus REC advance as able to regular diet w/Henry BID, Ensure supplements and MVI - wound healing Expected Outcomes/Goals: diet advancement Interpretation of weight loss: >10% in 6 months Malnutrition Findings: Weight Status: Appropriate Hemodynamically unstable?: No Is patient in severe pain?: No Is NPO status required?: Yes MAXIME MORALES MD November 24, 2019 10:05
[2019-11-24 11:00] VITALS: BP 133/83
[2019-11-24 15:00] VITALS: BP 118/78
--- NOTE | 2019-11-24 17:40 | PDOC ---
SURGICAL PROGRESS NOTE Subjective awake TV on taking some clear liquids makes eye contact and responds with nod to questions Vital Signs Vital Signs Date Time Temp Pulse Resp B/P (MAP) Pulse Ox O2 Delivery O2 Flow Rate FiO2 11/24/19 16:23 99 Room Air 11/24/19 15:00 97.6 86 18 118/78 (91) 97.6 I&O Intake and Output 11/24/19 07:00 Intake Total 0 ml Output Total 1250 ml Balance -1250 ml Intake Oral 0 ml Output Urine Total 950 ml Drainage Total 300 ml # Bowel Movements 2 PATIENT HAS A POON: Yes General: Other (awake) HEENT: Other (NG in place, off suction) Abdomen: Soft Labs Laboratory Tests Test 11/22/19 17:55 11/23/19 04:25 11/23/19 07:56 11/23/19 12:25 Glucose (Fingerstick) 162 mg/dL (70-99) 171 mg/dL (70-99) 162 mg/dL (70-99) White Blood Count 7.0 x10^3/uL (4.0-11.0) Red Blood Count 4.10 x10^6/uL (4.30-5.70) Hemoglobin 12.3 g/dL (13.0-17.5) Hematocrit 36.4 % (39.0-53.0) Mean Corpuscular Volume 89 fL (79-100) Mean Corpuscular Hemoglobin 30 pg (25-35) Mean Corpuscular Hemoglobin Concent 34 g/dL (31-37) Red Cell Distribution Width 15.3 % (11.5-14.5) Platelet Count 328 x10^3/uL (140-400) Neutrophils (%) (Auto) 49 % (31-73) Lymphocytes (%) (Auto) 31 % (24-48) Monocytes (%) (Auto) 18 % (0-9) Eosinophils (%) (Auto) 1 % (0-3) Basophils (%) (Auto) 1 % (0-3) Neutrophils # (Auto) 3.4 x10^3/uL (1.8-7.7) Lymphocytes # (Auto) 2.2 x10^3/uL (1.0-4.8) Monocytes # (Auto) 1.3 x10^3/uL (0.0-1.1) Eosinophils # (Auto) 0.1 x10^3/uL (0.0-0.7) Basophils # (Auto) 0.1 x10^3/uL (0.0-0.2) Prothrombin Time 29.2 SEC (11.7-14.0) Prothromb Time International Ratio 2.8 (0.8-1.1) Sodium Level 131 mmol/L (136-145) Potassium Level 4.3 mmol/L (3.5-5.1) Chloride Level 94 mmol/L (98-107) Carbon Dioxide Level 33 mmol/L (21-32) Anion Gap 4 (6-14) Blood Urea Nitrogen 19 mg/dL (8-26) Creatinine 0.7 mg/dL (0.7-1.3) Estimated GFR (Cockcroft-Gault) 116.2 Glucose Level 169 mg/dL (70-99) Calcium Level 7.8 mg/dL (8.5-10.1) Test 11/23/19 17:38 11/23/19 23:29 11/24/19 05:00 11/24/19 07:50 Glucose (Fingerstick) 132 mg/dL (70-99) 121 mg/dL (70-99) 81 mg/dL (70-99) White Blood Count 6.2 x10^3/uL (4.0-11.0) Red Blood Count 4.08 x10^6/uL (4.30-5.70) Hemoglobin 12.2 g/dL (13.0-17.5) Hematocrit 36.4 % (39.0-53.0) Mean Corpuscular Volume 89 fL (79-100) Mean Corpuscular Hemoglobin 30 pg (25-35) Mean Corpuscular Hemoglobin Concent 33 g/dL (31-37) Red Cell Distribution Width 15.5 % (11.5-14.5) Platelet Count 308 x10^3/uL (140-400) Neutrophils (%) (Auto) 53 % (31-73) Lymphocytes (%) (Auto) 30 % (24-48) Monocytes (%) (Auto) 14 % (0-9) Eosinophils (%) (Auto) 3 % (0-3) Basophils (%) (Auto) 1 % (0-3) Neutrophils # (Auto) 3.3 x10^3/uL (1.8-7.7) Lymphocytes # (Auto) 1.9 x10^3/uL (1.0-4.8) Monocytes # (Auto) 0.8 x10^3/uL (0.0-1.1) Eosinophils # (Auto) 0.2 x10^3/uL (0.0-0.7) Basophils # (Auto) 0.1 x10^3/uL (0.0-0.2) Prothrombin Time 25.3 SEC (11.7-14.0) Prothromb Time International Ratio 2.3 (0.8-1.1) Sodium Level 136 mmol/L (136-145) Potassium Level 3.9 mmol/L (3.5-5.1) Chloride Level 99 mmol/L (98-107) Carbon Dioxide Level 31 mmol/L (21-32) Anion Gap 6 (6-14) Blood Urea Nitrogen 11 mg/dL (8-26) Creatinine 0.6 mg/dL (0.7-1.3) Estimated GFR (Cockcroft-Gault) 138.9 Glucose Level 92 mg/dL (70-99) Calcium Level 7.9 mg/dL (8.5-10.1) Test 11/24/19 11:24 11/24/19 16:54 Glucose (Fingerstick) 100 mg/dL (70-99) 94 mg/dL (70-99) Laboratory Tests Test 11/23/19 23:29 11/24/19 05:00 11/24/19 07:50 11/24/19 11:24 Glucose (Fingerstick) 121 mg/dL (70-99) 81 mg/dL (70-99) 100 mg/dL (70-99) White Blood Count 6.2 x10^3/uL (4.0-11.0) Red Blood Count 4.08 x10^6/uL (4.30-5.70) Hemoglobin 12.2 g/dL (13.0-17.5) Hematocrit 36.4 % (39.0-53.0) Mean Corpuscular Volume 89 fL (79-100) Mean Corpuscular Hemoglobin 30 pg (25-35) Mean Corpuscular Hemoglobin Concent 33 g/dL (31-37) Red Cell Distribution Width 15.5 % (11.5-14.5) Platelet Count 308 x10^3/uL (140-400) Neutrophils (%) (Auto) 53 % (31-73) Lymphocytes (%) (Auto) 30 % (24-48) Monocytes (%) (Auto) 14 % (0-9) Eosinophils (%) (Auto) 3 % (0-3) Basophils (%) (Auto) 1 % (0-3) Neutrophils # (Auto) 3.3 x10^3/uL (1.8-7.7) Lymphocytes # (Auto) 1.9 x10^3/uL (1.0-4.8) Monocytes # (Auto) 0.8 x10^3/uL (0.0-1.1) Eosinophils # (Auto) 0.2 x10^3/uL (0.0-0.7) Basophils # (Auto) 0.1 x10^3/uL (0.0-0.2) Prothrombin Time 25.3 SEC (11.7-14.0) Prothromb Time International Ratio 2.3 (0.8-1.1) Sodium Level 136 mmol/L (136-145) Potassium Level 3.9 mmol/L (3.5-5.1) Chloride Level 99 mmol/L (98-107) Carbon Dioxide Level 31 mmol/L (21-32) Anion Gap 6 (6-14) Blood Urea Nitrogen 11 mg/dL (8-26) Creatinine 0.6 mg/dL (0.7-1.3) Estimated GFR (Cockcroft-Gault) 138.9 Glucose Level 92 mg/dL (70-99) Calcium Level 7.9 mg/dL (8.5-10.1) Test 11/24/19 16:54 Glucose (Fingerstick) 94 mg/dL (70-99) Problem List Problems Medical Problems: (1) Gross hematuria Status: Acute (2) Supratherapeutic international normalized ratio (INR) Status: Acute Assessment/Plan improved no new surgical recs CHIO LOZA MD November 24, 2019 17:40
[2019-11-24 18:34] VITALS: BP 129/71
[2019-11-24] MEDS: ATORVASTATIN CALCIUM 20 MG TABLET PO SCH (21:00)
[2019-11-24 23:07] VITALS: BP 124/82
[2019-11-25 03:21] VITALS: BP 131/80
[2019-11-25 04:49] LABS: PROTHROMBIN TIME PATIENT 24.7 SEC (11.7-14.0)
[2019-11-25] MEDS: LEVOTHYROXINE 100 MCG TABLET PO SCH (06:50)
[2019-11-25] MEDS: FOSPHENYTOIN 100 MG/2 ML VIAL. IV SCH ×3 (06:53→20:13)
[2019-11-25 07:00] VITALS: BP 138/82
[2019-11-25] MEDS: ALBUTEROL SULFATE 2.5 MG/3 ML NEBU. NEB SCH ×4 (07:10→20:30)
[2019-11-25] MEDS: BUDESONIDE 0.5 MG/2 ML NEBU. NEB SCH ×2 (07:10→20:30)
[2019-11-25] MEDS: INSULIN LISPRO 300 UNITS/3 ML VIAL. SQ SCH ×3 (08:00→17:00)
[2019-11-25] MEDS: LUBIPROSTONE 24 MCG CAPSULE PO SCH ×3 (08:00→17:00)
[2019-11-25] MEDS: VITS A & D/LANOLIN TOPICAL OINTMENT 42GM TUBE. TP SCH ×2 (09:07→20:14)
[2019-11-25] MEDS: PANTOPRAZOLE IV PUSH 40 MG VIAL. IVP SCH (09:07)
[2019-11-25] MEDS: NYSTATIN TOPICAL POWDER 15GM BOTTLE. TP SCH ×2 (09:07→20:15)
--- NOTE | 2019-11-25 10:29 | PDOC ---
PROGRESS NOTES History of Present Illness History of Present Illness VTE Prophylaxis Ordered VTE Prophylaxis Devices: Yes VTE Pharmacological Prophylaxi: Yes Assessment/Plan Assessment/Plan IMPRESSION: acute Marked air and fluid distention of small and large bowel loops throughout the abdomen and pelvis is seen extending to the rectum. findings reflect an ileus. on CT A Fib, SUPRATHERAPEUTIC INR on warfarIn /// INR = 2.2 CAD w/ stents, CHF, HYPERTENSION HLD, COPD, peripheral neuropathy, hx seizure, remote CVA, WITH expressive aphasia OA, allergic rhinitis, DIABETES hypothyroidism similar appearance of gas-filled bowel loops with dilatation of the small and large bowel. Small bowel loops measure up to 5.8 cm, not significantly changed the prior examination. on kub HAS STOOLED 11/22 11/24 KUB NONSPECIFIC PATTERN D/W RN plan admit consult GI ng out CVC BED NPO IV FLUID SUPPORT NG PPI Vitamin K. HOLD WARFARIN INR IN AM SURGERY FOLLOWING IV PHOS PHENYTION D/W PHARMACY equivalent 26 MIN PT EXAM, CHART REVIEW, > 50% OF TIME SPENT WITH EXAM, CHART REVIEW, PT CARE COORDINATION Vitals Vitals Vital Signs Date Time Temp Pulse Resp B/P (MAP) Pulse Ox O2 Delivery O2 Flow Rate FiO2 11/25/19 07:11 98 Room Air 11/25/19 07:00 97.8 85 20 138/82 (100) 97.8 Physical Exam General: Other (awake) Heart: Regular rate, Normal S1 Lungs: Clear Abdomen: Soft Extremities: No cyanosis, No edema Skin: No significant lesion Labs LABS Laboratory Tests Test 11/24/19 11:24 11/24/19 16:54 11/24/19 21:04 11/25/19 03:30 Glucose (Fingerstick) 100 mg/dL (70-99) 94 mg/dL (70-99) 147 mg/dL (70-99) Prothrombin Time 24.7 SEC (11.7-14.0) Prothromb Time International Ratio 2.2 (0.8-1.1) Test 11/25/19 07:35 Glucose (Fingerstick) 108 mg/dL (70-99) Assessment and Plan Assessmemt and Plan Problems Medical Problems: (1) Gross hematuria Status: Acute (2) Supratherapeutic international normalized ratio (INR) Status: Acute Comment Review of Relevant I have reviewed the following items sujey (where applicable) has been applied. Labs Laboratory Tests Test 11/23/19 12:25 11/23/19 17:38 11/23/19 23:29 11/24/19 05:00 Glucose (Fingerstick) 162 mg/dL (70-99) 132 mg/dL (70-99) 121 mg/dL (70-99) White Blood Count 6.2 x10^3/uL (4.0-11.0) Red Blood Count 4.08 x10^6/uL (4.30-5.70) Hemoglobin 12.2 g/dL (13.0-17.5) Hematocrit 36.4 % (39.0-53.0) Mean Corpuscular Volume 89 fL (79-100) Mean Corpuscular Hemoglobin 30 pg (25-35) Mean Corpuscular Hemoglobin Concent 33 g/dL (31-37) Red Cell Distribution Width 15.5 % (11.5-14.5) Platelet Count 308 x10^3/uL (140-400) Neutrophils (%) (Auto) 53 % (31-73) Lymphocytes (%) (Auto) 30 % (24-48) Monocytes (%) (Auto) 14 % (0-9) Eosinophils (%) (Auto) 3 % (0-3) Basophils (%) (Auto) 1 % (0-3) Neutrophils # (Auto) 3.3 x10^3/uL (1.8-7.7) Lymphocytes # (Auto) 1.9 x10^3/uL (1.0-4.8) Monocytes # (Auto) 0.8 x10^3/uL (0.0-1.1) Eosinophils # (Auto) 0.2 x10^3/uL (0.0-0.7) Basophils # (Auto) 0.1 x10^3/uL (0.0-0.2) Prothrombin Time 25.3 SEC (11.7-14.0) Prothromb Time International Ratio 2.3 (0.8-1.1) Sodium Level 136 mmol/L (136-145) Potassium Level 3.9 mmol/L (3.5-5.1) Chloride Level 99 mmol/L (98-107) Carbon Dioxide Level 31 mmol/L (21-32) Anion Gap 6 (6-14) Blood Urea Nitrogen 11 mg/dL (8-26) Creatinine 0.6 mg/dL (0.7-1.3) Estimated GFR (Cockcroft-Gault) 138.9 Glucose Level 92 mg/dL (70-99) Calcium Level 7.9 mg/dL (8.5-10.1) Test 11/24/19 07:50 11/24/19 11:24 11/24/19 16:54 11/24/19 21:04 Glucose (Fingerstick) 81 mg/dL (70-99) 100 mg/dL (70-99) 94 mg/dL (70-99) 147 mg/dL (70-99) Test 11/25/19 03:30 11/25/19 07:35 Prothrombin Time 24.7 SEC (11.7-14.0) Prothromb Time International Ratio 2.2 (0.8-1.1) Glucose (Fingerstick) 108 mg/dL (70-99) Laboratory Tests Test 11/24/19 11:24 11/24/19 16:54 11/24/19 21:04 11/25/19 03:30 Glucose (Fingerstick) 100 mg/dL (70-99) 94 mg/dL (70-99) 147 mg/dL (70-99) Prothrombin Time 24.7 SEC (11.7-14.0) Prothromb Time International Ratio 2.2 (0.8-1.1) Test 11/25/19 07:35 Glucose (Fingerstick) 108 mg/dL (70-99) Microbiology 11/21/19 Urine Culture - Final, Complete Medications Current Medications Iohexol (Omnipaque 300 Mg/ml) 75 ml 1X ONCE IV Last administered on 11/21/19at 23:55; Start 11/21/19 at 23:15; Stop 11/21/19 at 23:16; Status DC Info (CONTRAST GIVEN -- Rx MONITORING) 1 each PRN DAILY PRN MC SEE COMMENTS; Start 11/21/19 at 23:15; Stop 11/23/19 at 23:14; Status DC Phytonadione (Mephyton Oral Soln) 5 mg 1X ONCE PO Last administered on 11/21/19at 23:40; Start 11/21/19 at 23:30; Stop 11/21/19 at 23:31; Status DC Ondansetron HCl (Zofran) 4 mg PRN Q8HRS PRN IV NAUSEA/VOMITING Last administered on 11/22/19 10:34; Start 11/22/19 at 00:30; Stop 11/23/19 at 00:29; Status DC Morphine Sulfate (Morphine Sulfate) 4 mg 1X ONCE IV Last administered on 11/22/19 08:47; Start 11/22/19 at 08:30; Stop 11/22/19 at 08:34; Status DC Morphine Sulfate (Morphine Sulfate) 2 mg PRN Q2HR PRN IV PAIN Last administered on 11/24/19 09:05; Start 11/22/19 at 08:30 Polyethylene Glycol (miraLAX PACKET) 17 gm 1X ONCE PO Last administered on 11/22/19 08:46; Start 11/22/19 at 08:30; Stop 11/22/19 at 08:34; Status DC Polyethylene Glycol (miraLAX PACKET) 17 gm PRN DAILY PRN PO CONSTIPATION- 2nd choice; Start 11/22/19 at 08:30 Aspirin (Aspirin Chewable) 81 mg DAILYWBKFT PO Last administered on 11/22/19 08:47; Start 11/22/19 at 09:00 Atorvastatin Calcium (Lipitor) 20 mg HS PO ; Start 11/22/19 at 21:00 Gabapentin (Neurontin) 300 mg BID PO Last administered on 11/22/19 08:47; Start 11/22/19 at 09:00 Levothyroxine Sodium (Synthroid) 200 mcg DAILY06 PO Last administered on 11/25/19 06:50; Start 11/22/19 at 10:30 Metoprolol Tartrate (Lopressor) 25 mg BID PO Last administered on 11/22/19 08:46; Start 11/22/19 at 09:00 Nystatin (Nystop) 1 edvin BID TP Last administered on 11/25/19 09:07; Start 11/22/19 at 09:00 Senna/Docusate Sodium (Senna Plus) 2 tab PRN BID PRN PO CONSTIPATION; Start 11/22/19 at 08:30 Simethicone (Gas-X) 80 mg PRN TID PRN PO GAS / BLOATING; Start 11/22/19 at 08:30 Fluoxetine HCl (PROzac) 40 mg DAILYWBKFT PO Last administered on 11/22/19at 08:47; Start 11/22/19 at 09:00 Non-Formulary Medication (Mirabegron (Myrbetriq)) 25 mg DAILY PO ; Start 11/22/19 at 09:00; Status UNV Pantoprazole Sodium (Protonix) 40 mg DAILYAC PO ; Start 11/22/19 at 11:30; Stop 11/22/19 at 11:08; Status DC Sodium Chloride 1,000 ml @ 100 mls/hr 1X ONCE IV Last administered on 11/22/19 08:46; Start 11/22/19 at 08:30; Stop 11/22/19 at 18:29; Status DC Lubiprostone (Amitiza) 24 mcg BIDWMEALS PO Last administered on 11/22/19at 08:46; Start 11/22/19 at 09:00 Methylnaltrexone Stoddard (Relistor) 12 mg 1X ONCE SQ Last administered on 11/22/19at 11:55; Start 11/22/19 at 11:00; Stop 11/22/19 at 11:01; Status DC Pantoprazole Sodium (PROTONIX VIAL for IV PUSH) 40 mg DAILYAC IVP Last administered on 11/25/19 09:07; Start 11/22/19 at 12:00 Hydralazine HCl (Apresoline Inj) 10 mg PRN Q4HRS PRN IVP ELEVATED BP, SEE COMMENTS; Start 11/22/19 at 12:00 Non-Formulary Medication (Citric AC/ Gluconolact/Mag Carb (Renacidin Irrigation Solution)) 30 ml QMWF IR ; Start 11/22/19 at 16:00; Status UNV Non-Formulary Medication (Mometasone/ Formoterol (Dulera 200 Mcg/5 Mcg Inhaler)) 1 puff HS IH ; Start 11/22/19 at 21:00; Status UNV Vitamin A/Vitamin D (Vitamin A & D Ointment) 1 edvin BID TP Last administered on 11/25/19at 09:07; Start 11/22/19 at 12:15 Fosphenytoin Sodium (Cerebyx) 130 mg Q8HRS IV Last administered on 11/25/19at 06:53; Start 11/22/19 at 14:00 Albuterol Sulfate (Ventolin Neb Soln) 2.5 mg Q6HRS NEB Last administered on 11/25/19at 07:10; Start 11/22/19 at 12:15 Budesonide (Pulmicort) 0.5 mg RTBID NEB Last administered on 11/25/19at 07:10; Start 11/22/19 at 20:00 Insulin Human Lispro (HumaLOG) 0-5 UNITS TIDWMEALS SQ ; Start 11/22/19 at 17:00 Dextrose (Dextrose 50%-Water Syringe) 12.5 gm PRN Q15MIN PRN IV SEE COMMENTS; Start 11/22/19 at 15:30 Sodium Chloride 1,000 ml @ 75 mls/hr [id number] IV Last administered on 11/24/19at 20:53; Start 11/22/19 at 21:00 Active Scripts Active Hydrocodone-Apap 5-325 (Hydrocodone Bit/Acetaminophen) 1 Tab Tablet 1 Tab PO PRN Q4HRS PRN Polyethylene Glycol 3350 17 Gm Powd.pack 17 Gm PO DAILY Nystop (Nystatin) 60 Gm Powder 1 Edvin TP BID Aspirin 81 Mg Tab.chew 81 Mg PO DAILYWBKFT Synthroid (Levothyroxine Sodium) 100 Mcg Tablet 200 Mcg PO DAILY06 Reported Zinc Sulfate 220 Mg Tablet 1 Tab PO DAILY 30 Days Vitamin C (Ascorbic Acid) 500 Mg Capsule.er 1 Cap PO DAILY 30 Days Vitamin A & D Ointment Packet (Vits A & D/White Pet/Lanolin) 5 Gm Oint.pack 5 Gm TP BID Simethicone 80 Mg Tab.chew 1 Tab PO PRN TID PRN 6 Days Senna-Docusate Sodium Tablet (Sennosides/Docusate Sodium) 1 Each Tablet 2 Tab PO PRN BID PRN 5 Days Fluoxetine Hcl 40 Mg Capsule 1 Cap PO DAILYWBKFT Protonix (Pantoprazole Sodium) 20 Mg Tablet.dr 1 Tab PO DAILY Phenytoin Sodium Extended 200 Mg Capsule 1 Cap PO BID 30 Days Myrbetriq (Mirabegron) 25 Mg Tab.er.24h 25 Mg PO DAILY Metoprolol Tartrate 25 Mg Tablet 1 Tab PO BID Atorvastatin Calcium 20 Mg Tablet 20 Mg PO HS Insulin Aspart Flexpen (Insulin Aspart) 100 Unit/1 Ml Insuln.pen 0 SQ QIDACHS FSBS 181-220 = 2 units 221-260 = 4 units 261-300 = 6 units 301-350 = 8 units 351-400 = 10 units 401 or higher = 12 units Hyoscyamine Sulfate 0.125 Mg Tablet 1 Tab PO PRN Q4HRS PRN 30 Days Gabapentin (Gabapentin) 300 Mg Capsule 300 Mg PO BID Fluconazole 200 Mg Tablet 1 Tab PO DAILY Coumadin (Warfarin Sodium) 2 Mg Tablet 1 Tab PO QHS Renacidin Irrigation Solution (Citric AC/Gluconolact/Mag Carb) 30 Ml Irrig.soln 30 Ml IR QMWF Clamp catheter for 15 minutes, then unclamp and drain by gravity. Cefpodoxime Proxetil 200 Mg Tablet 1 Tab PO BID Dulera 200 Mcg/5 Mcg Inhaler (Mometasone/Formoterol) 13 Gm Hfa.aer.ad 1 Puff IH HS Furosemide 20 Mg Tablet 1 Tab PO DAILY Vitals/I & O Vital Sign - Last 24 Hours 11/24/19 11/24/19 11/24/19 11/24/19 11:00 15:00 16:23 18:34 Temp 97.9 97.6 98.2 97.9 97.6 98.2 Pulse 87 86 94 Resp 18 18 18 B/P (MAP) 133/83 (100) 118/78 (91) 129/71 (90) Pulse Ox 100 96 99 98 O2 Delivery Room Air Room Air Room Air Room Air 11/24/19 11/24/19 11/24/19 11/24/19 20:00 20:00 23:04 23:07 Temp 98.7 98.7 Pulse 82 Resp 18 B/P (MAP) 124/82 (96) Pulse Ox 96 96 97 O2 Delivery Room Air Room Air Room Air Room Air 11/25/19 11/25/19 11/25/19 03:21 07:00 07:11 Temp 97.8 97.8 97.8 97.8 Pulse 78 85 Resp 20 20 B/P (MAP) 131/80 (97) 138/82 (100) Pulse Ox 98 100 98 O2 Delivery Room Air Room Air Room Air Intake and Output 11/24/19 11/24/19 11/25/19 15:00 23:00 07:00 Intake Total 0 ml 570 ml 525 ml Output Total 800 ml 300 ml 375 ml Balance -800 ml 270 ml 150 ml Nutrition Consultation Dietary Evaluation: Recommendations by RD: Dietary education by RD, Increase Calorie Intake, Protein supplementation, PPN/TPN Comments: REC PPN for short-term non-oral nutrition needs while pt NPO w/ileus REC advance as able to regular diet w/Henry BID, Ensure supplements and MVI - wound healing Expected Outcomes/Goals: diet advancement Interpretation of weight loss: >10% in 6 months Malnutrition Findings: Weight Status: Appropriate Hemodynamically unstable?: No Is patient in severe pain?: No Is NPO status required?: Yes MAXIME MORALES MD November 25, 2019 10:29
[2019-11-25 11:00] VITALS: BP 124/91
[2019-11-25] MEDS: MORPHINE SULFATE 2 MG/ML VIAL. IV PRN ×3 (11:25→20:14)
[2019-11-25] MEDS: FLUoxetine HCL 20 MG CAPSULE PO SCH (11:26)
[2019-11-25] MEDS: GABAPENTIN 300 MG CAPSULE. PO SCH ×2 (11:27→20:13)
--- NOTE | 2019-11-25 11:35 | NUR ---
Pt began yelling out "no" repeatedly. This RN and another entered patients room. Patient was motioning and pointing towards his stomach and attempting to scoot in the bed. Myself and other RN began to reposition patient and patient started to sneeze and the NG tube came out. Pgd and spoke to GI physician to advise of status. Was advised to leave out for now and get KUB.
--- NOTE | 2019-11-25 11:37 | PDOC ---
G I PROGRESS NOTE Subjective Unclear if stooled since yesterday. Denies nausea or vomiting. Has been tolerating clears. Objective Staff unsure if stooled overnight; has not today. Physical Exam Lungs clear. RRR Abdomen seems slightly more distended. Occasional bowel sounds. Review of Relevant I have reviewed the following items sujey (where applicable) has been applied. Labs Laboratory Tests Test 11/23/19 12:25 11/23/19 17:38 11/23/19 23:29 11/24/19 05:00 Glucose (Fingerstick) 162 mg/dL (70-99) 132 mg/dL (70-99) 121 mg/dL (70-99) White Blood Count 6.2 x10^3/uL (4.0-11.0) Red Blood Count 4.08 x10^6/uL (4.30-5.70) Hemoglobin 12.2 g/dL (13.0-17.5) Hematocrit 36.4 % (39.0-53.0) Mean Corpuscular Volume 89 fL (79-100) Mean Corpuscular Hemoglobin 30 pg (25-35) Mean Corpuscular Hemoglobin Concent 33 g/dL (31-37) Red Cell Distribution Width 15.5 % (11.5-14.5) Platelet Count 308 x10^3/uL (140-400) Neutrophils (%) (Auto) 53 % (31-73) Lymphocytes (%) (Auto) 30 % (24-48) Monocytes (%) (Auto) 14 % (0-9) Eosinophils (%) (Auto) 3 % (0-3) Basophils (%) (Auto) 1 % (0-3) Neutrophils # (Auto) 3.3 x10^3/uL (1.8-7.7) Lymphocytes # (Auto) 1.9 x10^3/uL (1.0-4.8) Monocytes # (Auto) 0.8 x10^3/uL (0.0-1.1) Eosinophils # (Auto) 0.2 x10^3/uL (0.0-0.7) Basophils # (Auto) 0.1 x10^3/uL (0.0-0.2) Prothrombin Time 25.3 SEC (11.7-14.0) Prothromb Time International Ratio 2.3 (0.8-1.1) Sodium Level 136 mmol/L (136-145) Potassium Level 3.9 mmol/L (3.5-5.1) Chloride Level 99 mmol/L (98-107) Carbon Dioxide Level 31 mmol/L (21-32) Anion Gap 6 (6-14) Blood Urea Nitrogen 11 mg/dL (8-26) Creatinine 0.6 mg/dL (0.7-1.3) Estimated GFR (Cockcroft-Gault) 138.9 Glucose Level 92 mg/dL (70-99) Calcium Level 7.9 mg/dL (8.5-10.1) Test 11/24/19 07:50 11/24/19 11:24 11/24/19 16:54 11/24/19 21:04 Glucose (Fingerstick) 81 mg/dL (70-99) 100 mg/dL (70-99) 94 mg/dL (70-99) 147 mg/dL (70-99) Test 11/25/19 03:30 11/25/19 07:35 Prothrombin Time 24.7 SEC (11.7-14.0) Prothromb Time International Ratio 2.2 (0.8-1.1) Glucose (Fingerstick) 108 mg/dL (70-99) Laboratory Tests Test 11/24/19 16:54 11/24/19 21:04 11/25/19 03:30 11/25/19 07:35 Glucose (Fingerstick) 94 mg/dL (70-99) 147 mg/dL (70-99) 108 mg/dL (70-99) Prothrombin Time 24.7 SEC (11.7-14.0) Prothromb Time International Ratio 2.2 (0.8-1.1) Microbiology 11/21/19 Urine Culture - Final, Complete Vitals/I & O Vital Sign - Last 24 Hours 11/24/19 11/24/19 11/24/19 11/24/19 15:00 16:23 18:34 20:00 Temp 97.6 98.2 97.6 98.2 Pulse 86 94 Resp 18 18 B/P (MAP) 118/78 (91) 129/71 (90) Pulse Ox 96 99 98 96 O2 Delivery Room Air Room Air Room Air Room Air 11/24/19 11/24/19 11/24/19 11/25/19 20:00 23:04 23:07 03:21 Temp 98.7 97.8 98.7 97.8 Pulse 82 78 Resp 18 20 B/P (MAP) 124/82 (96) 131/80 (97) Pulse Ox 96 97 98 O2 Delivery Room Air Room Air Room Air Room Air 11/25/19 11/25/19 11/25/19 07:00 07:11 11:25 Temp 97.8 97.8 Pulse 85 Resp 20 B/P (MAP) 138/82 (100) Pulse Ox 100 98 O2 Delivery Room Air Room Air Room Air Intake and Output 11/24/19 11/24/19 11/25/19 15:00 23:00 07:00 Intake Total 0 ml 570 ml 525 ml Output Total 800 ml 300 ml 375 ml Balance -800 ml 270 ml 150 ml Problem List Problems Medical Problems: (1) Gross hematuria Status: Acute (2) Supratherapeutic international normalized ratio (INR) Status: Acute Assessment Diffuse ileus, better? Plan of Care Note After I left, pulled out NG. Will try to leave out. Check KUB, OK for clears/pills po. Hemodynamically unstable?: No Is patient in severe pain?: No Is NPO status required?: No KRISTINE ANDRADE MD November 25, 2019 11:37
--- NOTE | 2019-11-25 12:06 | PDOC ---
SURGICAL PROGRESS NOTE Subjective per RN Mr Storey "sneezed his NG out" Vital Signs Vital Signs Date Time Temp Pulse Resp B/P (MAP) Pulse Ox O2 Delivery O2 Flow Rate FiO2 11/25/19 11:25 Room Air 11/25/19 07:11 98 11/25/19 07:00 97.8 85 20 138/82 (100) 97.8 I&O Intake and Output 11/25/19 07:00 Intake Total 1095 ml Output Total 1475 ml Balance -380 ml Intake Oral 570 ml IV Total 525 ml Output Urine Total 1475 ml PATIENT HAS A POON: Yes (suprapubic) General: Other (sleeping, I did not wake him) Labs Laboratory Tests Test 11/23/19 12:25 11/23/19 17:38 11/23/19 23:29 11/24/19 05:00 Glucose (Fingerstick) 162 mg/dL (70-99) 132 mg/dL (70-99) 121 mg/dL (70-99) White Blood Count 6.2 x10^3/uL (4.0-11.0) Red Blood Count 4.08 x10^6/uL (4.30-5.70) Hemoglobin 12.2 g/dL (13.0-17.5) Hematocrit 36.4 % (39.0-53.0) Mean Corpuscular Volume 89 fL (79-100) Mean Corpuscular Hemoglobin 30 pg (25-35) Mean Corpuscular Hemoglobin Concent 33 g/dL (31-37) Red Cell Distribution Width 15.5 % (11.5-14.5) Platelet Count 308 x10^3/uL (140-400) Neutrophils (%) (Auto) 53 % (31-73) Lymphocytes (%) (Auto) 30 % (24-48) Monocytes (%) (Auto) 14 % (0-9) Eosinophils (%) (Auto) 3 % (0-3) Basophils (%) (Auto) 1 % (0-3) Neutrophils # (Auto) 3.3 x10^3/uL (1.8-7.7) Lymphocytes # (Auto) 1.9 x10^3/uL (1.0-4.8) Monocytes # (Auto) 0.8 x10^3/uL (0.0-1.1) Eosinophils # (Auto) 0.2 x10^3/uL (0.0-0.7) Basophils # (Auto) 0.1 x10^3/uL (0.0-0.2) Prothrombin Time 25.3 SEC (11.7-14.0) Prothromb Time International Ratio 2.3 (0.8-1.1) Sodium Level 136 mmol/L (136-145) Potassium Level 3.9 mmol/L (3.5-5.1) Chloride Level 99 mmol/L (98-107) Carbon Dioxide Level 31 mmol/L (21-32) Anion Gap 6 (6-14) Blood Urea Nitrogen 11 mg/dL (8-26) Creatinine 0.6 mg/dL (0.7-1.3) Estimated GFR (Cockcroft-Gault) 138.9 Glucose Level 92 mg/dL (70-99) Calcium Level 7.9 mg/dL (8.5-10.1) Test 11/24/19 07:50 11/24/19 11:24 11/24/19 16:54 11/24/19 21:04 Glucose (Fingerstick) 81 mg/dL (70-99) 100 mg/dL (70-99) 94 mg/dL (70-99) 147 mg/dL (70-99) Test 11/25/19 03:30 11/25/19 07:35 11/25/19 11:49 Prothrombin Time 24.7 SEC (11.7-14.0) Prothromb Time International Ratio 2.2 (0.8-1.1) Glucose (Fingerstick) 108 mg/dL (70-99) 171 mg/dL (70-99) Laboratory Tests Test 11/24/19 16:54 11/24/19 21:04 11/25/19 03:30 11/25/19 07:35 Glucose (Fingerstick) 94 mg/dL (70-99) 147 mg/dL (70-99) 108 mg/dL (70-99) Prothrombin Time 24.7 SEC (11.7-14.0) Prothromb Time International Ratio 2.2 (0.8-1.1) Test 11/25/19 11:49 Glucose (Fingerstick) 171 mg/dL (70-99) Problem List Problems Medical Problems: (1) Gross hematuria Status: Acute (2) Supratherapeutic international normalized ratio (INR) Status: Acute Assessment/Plan ileus trial NG out CHIO LOZA MD November 25, 2019 12:05
--- NOTE | 2019-11-25 13:55 | RAD ---
Single view abdomen dated 11/25/2019. Comparison made to 11/24/2019. Clinical data indication: Follow-up ileus. FINDINGS: Single supine view the abdomen shows moderate to severe dilation of colonic loops with mild distention of small bowel. Findings somewhat progressed from prior study. No apparent pneumoperitoneum on this supine exam. Suprapubic catheter in place, unchanged. IMPRESSION: Moderate to severe dilation of colonic loops with mild small bowel distention, similar to slightly increased from prior study. Electronically signed by: Rivas Rebolledo MD (11/25/2019 1:52 PM) CY[facility]
[2019-11-25 15:00] VITALS: BP 138/89
[2019-11-25] MEDS ORDERED: METHYLNALTREXONE 12 MG/0.6 ML VIAL. SQ ONE (15:45)
[2019-11-25] MEDS: ASPIRIN CHEWABLE 81 MG TABLET. PO SCH (16:32)
[2019-11-25] MEDS: METOPROLOL TART IMMED RELEASE 25 MG TABLET. PO SCH ×2 (16:35→20:16)
[2019-11-25] MEDS: IV NORMAL SALINE 1000ML BAG 1,000 ML IV SCH (16:37)
[2019-11-25 19:20] VITALS: BP 130/87
[2019-11-25] MEDS: ATORVASTATIN CALCIUM 20 MG TABLET PO SCH (20:13)
[2019-11-25 23:35] VITALS: BP 114/71
[2019-11-26 03:00] VITALS: BP 117/69
[2019-11-26] MEDS: LEVOTHYROXINE 100 MCG TABLET PO SCH (06:27)
[2019-11-26] MEDS: FOSPHENYTOIN 100 MG/2 ML VIAL. IV SCH ×3 (06:27→20:46)
[2019-11-26 07:00] VITALS: BP 127/85
[2019-11-26] MEDS: ALBUTEROL SULFATE 2.5 MG/3 ML NEBU. NEB SCH ×5 (07:20→20:19)
[2019-11-26] MEDS: BUDESONIDE 0.5 MG/2 ML NEBU. NEB SCH ×2 (07:20→20:20)
[2019-11-26] MEDS: INSULIN LISPRO 300 UNITS/3 ML VIAL. SQ SCH ×3 (08:00→17:00)
[2019-11-26] MEDS: NYSTATIN TOPICAL POWDER 15GM BOTTLE. TP SCH ×2 (10:13→20:48)
[2019-11-26] MEDS: FLUoxetine HCL 20 MG CAPSULE PO SCH (10:13)
[2019-11-26] MEDS: VITS A & D/LANOLIN TOPICAL OINTMENT 42GM TUBE. TP SCH ×2 (10:13→20:48)
[2019-11-26] MEDS: ASPIRIN CHEWABLE 81 MG TABLET. PO SCH (10:14)
[2019-11-26] MEDS: PANTOPRAZOLE IV PUSH 40 MG VIAL. IVP SCH (10:14)
[2019-11-26] MEDS: LUBIPROSTONE 24 MCG CAPSULE PO SCH ×2 (10:14→17:14)
[2019-11-26] MEDS: GABAPENTIN 300 MG CAPSULE. PO SCH ×2 (10:14→20:45)
[2019-11-26] MEDS: METOPROLOL TART IMMED RELEASE 25 MG TABLET. PO SCH ×2 (10:14→20:45)
[2019-11-26] MEDS: MORPHINE SULFATE 2 MG/ML VIAL. IV PRN ×4 (10:23→19:36)
[2019-11-26] MEDS: IV NORMAL SALINE 1000ML BAG 1,000 ML IV SCH (10:24)
[2019-11-26 10:55] VITALS: BP 118/81
--- NOTE | 2019-11-26 12:12 | PDOC ---
G I PROGRESS NOTE Subjective Seems in NAD. Non-verbal. Objective Staff relate small/smeary stools overnight. Physical Exam Lungs clear. RRR. Abdomen protuberant, distended but soft. Very occasional bowel sounds. Review of Relevant I have reviewed the following items sujey (where applicable) has been applied. Labs Laboratory Tests Test 11/24/19 16:54 11/24/19 21:04 11/25/19 03:30 11/25/19 07:35 Glucose (Fingerstick) 94 mg/dL (70-99) 147 mg/dL (70-99) 108 mg/dL (70-99) Prothrombin Time 24.7 SEC (11.7-14.0) Prothromb Time International Ratio 2.2 (0.8-1.1) Test 11/25/19 11:49 11/25/19 17:52 11/25/19 20:53 11/26/19 07:28 Glucose (Fingerstick) 171 mg/dL (70-99) 132 mg/dL (70-99) 129 mg/dL (70-99) 123 mg/dL (70-99) Laboratory Tests Test 11/25/19 17:52 11/25/19 20:53 11/26/19 07:28 Glucose (Fingerstick) 132 mg/dL (70-99) 129 mg/dL (70-99) 123 mg/dL (70-99) Microbiology 11/21/19 Urine Culture - Final, Complete Vitals/I & O Vital Sign - Last 24 Hours 11/25/19 11/25/19 11/25/19 11/25/19 15:00 15:33 16:29 16:35 Temp 97.5 97.5 Pulse 79 83 Resp 20 B/P (MAP) 138/89 (105) 138/89 Pulse Ox 96 97 O2 Delivery Room Air Room Air Room Air 11/25/19 11/25/19 11/25/19 11/25/19 16:59 19:20 20:00 20:14 Temp 97.8 97.8 Pulse 70 Resp 20 20 B/P (MAP) 130/87 (101) Pulse Ox 94 O2 Delivery Room Air Room Air Room Air Room Air 11/25/19 11/25/19 11/25/19 11/26/19 20:16 20:20 23:35 03:00 Temp 97.7 97.8 97.7 97.8 Pulse 70 64 59 Resp 18 16 B/P (MAP) 130/87 114/71 (85) 117/69 (85) Pulse Ox 96 95 98 O2 Delivery Room Air Room Air Room Air 11/26/19 11/26/19 11/26/19 11/26/19 07:00 07:21 10:14 10:23 Temp 96.5 96.5 Pulse 68 72 Resp 18 B/P (MAP) 127/85 (99) Pulse Ox 97 97 O2 Delivery Room Air Room Air Room Air 11/26/19 11/26/19 10:53 10:55 Temp 98.0 98.0 Pulse 75 Resp 20 B/P (MAP) 118/81 (93) Pulse Ox 97 O2 Delivery Room Air Room Air Intake and Output 11/25/19 11/25/19 11/26/19 15:00 23:00 07:00 Intake Total 670 ml 320 ml 0 ml Output Total 1650 ml 240 ml Balance 670 ml -1330 ml -240 ml Images KUB yesterday read as same/worse. Problem List Problems Medical Problems: (1) Gross hematuria Status: Acute (2) Supratherapeutic international normalized ratio (INR) Status: Acute Assessment Ileus continues. Plan of Care Note Try suppository. Hemodynamically unstable?: No Is patient in severe pain?: No Is NPO status required?: No KRISTINE ANDRADE MD November 26, 2019 12:12
[2019-11-26] MEDS ORDERED: BISACODYL 10 MG SUPP.RECT. PR PRN (12:15)
--- NOTE | 2019-11-26 12:57 | PDOC ---
SURGICAL PROGRESS NOTE Subjective closes eyes but nods yes to appropriate questions has had BMs no n/v Vital Signs Vital Signs Date Time Temp Pulse Resp B/P (MAP) Pulse Ox O2 Delivery O2 Flow Rate FiO2 11/26/19 12:14 Room Air 11/26/19 10:55 98.0 75 20 118/81 (93) 97 98.0 I&O Intake and Output 11/26/19 07:00 Intake Total 990 ml Output Total 1890 ml Balance -900 ml Intake Oral 990 ml Output Urine Total 1890 ml PATIENT HAS A POON: Yes (suprapubic) Abdomen: Other (distended but soft, non TTP) Labs Laboratory Tests Test 11/24/19 16:54 11/24/19 21:04 11/25/19 03:30 11/25/19 07:35 Glucose (Fingerstick) 94 mg/dL (70-99) 147 mg/dL (70-99) 108 mg/dL (70-99) Prothrombin Time 24.7 SEC (11.7-14.0) Prothromb Time International Ratio 2.2 (0.8-1.1) Test 11/25/19 11:49 11/25/19 17:52 11/25/19 20:53 11/26/19 07:28 Glucose (Fingerstick) 171 mg/dL (70-99) 132 mg/dL (70-99) 129 mg/dL (70-99) 123 mg/dL (70-99) Test 11/26/19 12:10 Glucose (Fingerstick) 157 mg/dL (70-99) Laboratory Tests Test 11/25/19 17:52 11/25/19 20:53 11/26/19 07:28 11/26/19 12:10 Glucose (Fingerstick) 132 mg/dL (70-99) 129 mg/dL (70-99) 123 mg/dL (70-99) 157 mg/dL (70-99) I have reviewed the following KUB Problem List Problems Medical Problems: (1) Gross hematuria Status: Acute (2) Supratherapeutic international normalized ratio (INR) Status: Acute Assessment/Plan ileus, slow resolution no new surgical recs CHIO LOZA MD November 26, 2019 12:57
--- NOTE | 2019-11-26 13:13 | PDOC ---
PROGRESS NOTES Chief Complaint Chief Complaint SBO, acute Marked air and fluid distention of small and large bowel loops throughout the abdomen and pelvis is seen extending to the rectum. findings reflect an ileus. on CT A Fib, SUPRATHERAPEUTIC INR on warfarIn /// INR = 2.2 CAD w/ stents, CHF, HYPERTENSION HLD, COPD, peripheral neuropathy, hx seizure, remote CVA, WITH expressive aphasia OA, allergic rhinitis, DIABETES hypothyroidism History of Present Illness History of Present Illness 11/25. KUB does not look improved, but able to take clears, pain better, has had some stool Mr. Storey has removed his own NG tube, may cont with it out some./ replace if pain returns, GI and gen surg following similar appearance of gas-filled bowel loops with dilatation of the small and large bowel. Small bowel loops measure up to 5.8 cm, not significantly changed the prior examination. on kub HAS STOOLED 11/22 11/24 KUB NONSPECIFIC PATTERN D/W RN plan admit consult GI ng out CVC BED NPO IV FLUID SUPPORT NG PPI Vitamin K. HOLD WARFARIN INR IN AM SURGERY FOLLOWING IV PHOS PHENYTION D/W PHARMACY equivalent 26 MIN PT EXAM, CHART REVIEW, > 50% OF TIME SPENT WITH EXAM, CHART REVIEW, PT CARE COORDINATION Vitals Vitals Vital Signs Date Time Temp Pulse Resp B/P (MAP) Pulse Ox O2 Delivery O2 Flow Rate FiO2 11/26/19 12:14 Room Air 11/26/19 10:55 98.0 75 20 118/81 (93) 97 98.0 Physical Exam General: Other (sleeping, I did not wake him) Heart: Regular rate, Normal S1 Lungs: Clear Abdomen: Other (distended but soft, non TTP) Extremities: No cyanosis, No edema Skin: No significant lesion Labs LABS Laboratory Tests Test 11/25/19 17:52 11/25/19 20:53 11/26/19 07:28 11/26/19 12:10 Glucose (Fingerstick) 132 mg/dL (70-99) 129 mg/dL (70-99) 123 mg/dL (70-99) 157 mg/dL (70-99) Assessment and Plan Assessmemt and Plan Problems Medical Problems: (1) Gross hematuria Status: Acute (2) Supratherapeutic international normalized ratio (INR) Status: Acute Comment Review of Relevant I have reviewed the following items sujey (where applicable) has been applied. Labs Laboratory Tests Test 11/24/19 16:54 11/24/19 21:04 11/25/19 03:30 11/25/19 07:35 Glucose (Fingerstick) 94 mg/dL (70-99) 147 mg/dL (70-99) 108 mg/dL (70-99) Prothrombin Time 24.7 SEC (11.7-14.0) Prothromb Time International Ratio 2.2 (0.8-1.1) Test 11/25/19 11:49 11/25/19 17:52 11/25/19 20:53 11/26/19 07:28 Glucose (Fingerstick) 171 mg/dL (70-99) 132 mg/dL (70-99) 129 mg/dL (70-99) 123 mg/dL (70-99) Test 11/26/19 12:10 Glucose (Fingerstick) 157 mg/dL (70-99) Laboratory Tests Test 11/25/19 17:52 11/25/19 20:53 11/26/19 07:28 11/26/19 12:10 Glucose (Fingerstick) 132 mg/dL (70-99) 129 mg/dL (70-99) 123 mg/dL (70-99) 157 mg/dL (70-99) Microbiology 11/21/19 Urine Culture - Final, Complete Medications Current Medications Iohexol (Omnipaque 300 Mg/ml) 75 ml 1X ONCE IV Last administered on 11/21/19at 23:55; Start 11/21/19 at 23:15; Stop 11/21/19 at 23:16; Status DC Info (CONTRAST GIVEN -- Rx MONITORING) 1 each PRN DAILY PRN MC SEE COMMENTS; Start 11/21/19 at 23:15; Stop 11/23/19 at 23:14; Status DC Phytonadione (Mephyton Oral Soln) 5 mg 1X ONCE PO Last administered on 11/21/19at 23:40; Start 11/21/19 at 23:30; Stop 11/21/19 at 23:31; Status DC Ondansetron HCl (Zofran) 4 mg PRN Q8HRS PRN IV NAUSEA/VOMITING Last administered on 11/22/19at 10:34; Start 11/22/19 at 00:30; Stop 11/23/19 at 00:29; Status DC Morphine Sulfate (Morphine Sulfate) 4 mg 1X ONCE IV Last administered on 11/22/19 08:47; Start 11/22/19 at 08:30; Stop 11/22/19 at 08:34; Status DC Morphine Sulfate (Morphine Sulfate) 2 mg PRN Q2HR PRN IV PAIN Last administered on 11/26/19 12:14; Start 11/22/19 at 08:30 Polyethylene Glycol (miraLAX PACKET) 17 gm 1X ONCE PO Last administered on 11/22/19 08:46; Start 11/22/19 at 08:30; Stop 11/22/19 at 08:34; Status DC Polyethylene Glycol (miraLAX PACKET) 17 gm PRN DAILY PRN PO CONSTIPATION- 2nd choice; Start 11/22/19 at 08:30 Aspirin (Aspirin Chewable) 81 mg DAILYWBKFT PO Last administered on 11/26/19 10:14; Start 11/22/19 at 09:00 Atorvastatin Calcium (Lipitor) 20 mg HS PO Last administered on 11/25/19 20:13; Start 11/22/19 at 21:00 Gabapentin (Neurontin) 300 mg BID PO Last administered on 11/26/19 10:14; Start 11/22/19 at 09:00 Levothyroxine Sodium (Synthroid) 200 mcg DAILY06 PO Last administered on 11/26/19 06:27; Start 11/22/19 at 10:30 Metoprolol Tartrate (Lopressor) 25 mg BID PO Last administered on 11/26/19 10: 14; Start 11/22/19 at 09:00 Nystatin (Nystop) 1 edvin BID TP Last administered on 11/26/19 10:13; Start 11/22/19 at 09:00 Senna/Docusate Sodium (Senna Plus) 2 tab PRN BID PRN PO CONSTIPATION Last administered on 11/26/19 10:14; Start 11/22/19 at 08:30 Simethicone (Gas-X) 80 mg PRN TID PRN PO GAS / BLOATING; Start 11/22/19 at 08:30 Fluoxetine HCl (PROzac) 40 mg DAILYWBKFT PO Last administered on 5/24/20at 10:13; Start 11/22/19 at 09:00 Non-Formulary Medication (Mirabegron (Myrbetriq)) 25 mg DAILY PO ; Start 11/22/19 at 09:00; Status UNV Pantoprazole Sodium (Protonix) 40 mg DAILYAC PO ; Start 11/22/19 at 11:30; Stop 11/22/19 at 11:08; Status DC Sodium Chloride 1,000 ml @ 100 mls/hr 1X ONCE IV Last administered on 11/22/19at 08:46; Start 11/22/19 at 08:30; Stop 11/22/19 at 18:29; Status DC Lubiprostone (Amitiza) 24 mcg BIDWMEALS PO Last administered on 11/26/19at 10:14; Start 11/22/19 at 09:00 Methylnaltrexone [place] (Relistor) 12 mg 1X ONCE SQ Last administered on 11/22/19at 11:55; Start 11/22/19 at 11:00; Stop 11/22/19 at 11:01; Status DC Pantoprazole Sodium (PROTONIX VIAL for IV PUSH) 40 mg DAILYAC IVP Last administered on 11/26/19at 10:14; Start 11/22/19 at 12:00 Hydralazine HCl (Apresoline Inj) 10 mg PRN Q4HRS PRN IVP ELEVATED BP, SEE COMMENTS; Start 11/22/19 at 12:00 Non-Formulary Medication (Citric AC/ Gluconolact/Mag Carb (Renacidin Irrigation Solution)) 30 ml QMWF IR ; Start 11/22/19 at 16:00; Status UNV Non-Formulary Medication (Mometasone/ Formoterol (Dulera 200 Mcg/5 Mcg Inhaler)) 1 puff HS IH ; Start 11/22/19 at 21:00; Status UNV Vitamin A/Vitamin D (Vitamin A & D Ointment) 1 edvin BID TP Last administered on 11/26/19at 10:13; Start 11/22/19 at 12:15 Fosphenytoin Sodium (Cerebyx) 130 mg Q8HRS IV Last administered on 11/26/19at 06:27; Start 11/22/19 at 14:00 Albuterol Sulfate (Ventolin Neb Soln) 2.5 mg Q6HRS NEB Last administered on 11/26/19at 07:20; Start 11/22/19 at 12:15; Stop 11/26/19 at 11:50; Status DC Budesonide (Pulmicort) 0.5 mg RTBID NEB Last administered on 11/26/19at 07:20; Start 11/22/19 at 20:00 Insulin Human Lispro (HumaLOG) 0-5 UNITS TIDWMEALS SQ ; Start 11/22/19 at 17:00 Dextrose (Dextrose 50%-Water Syringe) 12.5 gm PRN Q15MIN PRN IV SEE COMMENTS; Start 11/22/19 at 15:30 Sodium Chloride 1,000 ml @ 75 mls/hr [id number] IV Last administered on 11/26/19at 10:24; Start 11/22/19 at 21:00 Methylnaltrexone [place] (Relistor) 12 mg 1X ONCE SQ Last administered on 11/25/19at 16:31; Start 11/25/19 at 15:45; Stop 11/25/19 at 15:46; Status DC Albuterol Sulfate (Ventolin Neb Soln) 2.5 mg [id number] NEB ; Start 11/26/19 at 16:00 Bisacodyl (Dulcolax Supp) 10 mg PRN DAILY PRN [place] CONSTIPATION; Start 11/26/19 at 12:15 Active Scripts Active Hydrocodone-Apap 5-325 (Hydrocodone Bit/Acetaminophen) 1 Tab Tablet 1 Tab PO PRN Q4HRS PRN Polyethylene Glycol 3350 17 Gm Powd.pack 17 Gm PO DAILY Nystop (Nystatin) 60 Gm Powder 1 Edvin TP BID Aspirin 81 Mg Tab.chew 81 Mg PO DAILYWBKFT Synthroid (Levothyroxine Sodium) 100 Mcg Tablet 200 Mcg PO DAILY06 Reported Zinc Sulfate 220 Mg Tablet 1 Tab PO DAILY 30 Days Vitamin C (Ascorbic Acid) 500 Mg Capsule.er 1 Cap PO DAILY 30 Days Vitamin A & D Ointment Packet (Vits A & D/White Pet/Lanolin) 5 Gm Oint.pack 5 Gm TP BID Simethicone 80 Mg Tab.chew 1 Tab PO PRN TID PRN 6 Days Senna-Docusate Sodium Tablet (Sennosides/Docusate Sodium) 1 Each Tablet 2 Tab PO PRN BID PRN 5 Days Fluoxetine Hcl 40 Mg Capsule 1 Cap PO DAILYWBKFT Protonix (Pantoprazole Sodium) 20 Mg Tablet.dr 1 Tab PO DAILY Phenytoin Sodium Extended 200 Mg Capsule 1 Cap PO BID 30 Days Myrbetriq (Mirabegron) 25 Mg Tab.er.24h 25 Mg PO DAILY Metoprolol Tartrate 25 Mg Tablet 1 Tab PO BID Atorvastatin Calcium 20 Mg Tablet 20 Mg PO HS Insulin Aspart Flexpen (Insulin Aspart) 100 Unit/1 Ml Insuln.pen 0 SQ QIDACHS FSBS 181-220 = 2 units 221-260 = 4 units 261-300 = 6 units 301-350 = 8 units 351-400 = 10 units 401 or higher = 12 units Hyoscyamine Sulfate 0.125 Mg Tablet 1 Tab PO PRN Q4HRS PRN 30 Days Gabapentin (Gabapentin) 300 Mg Capsule 300 Mg PO BID Fluconazole 200 Mg Tablet 1 Tab PO DAILY Coumadin (Warfarin Sodium) 2 Mg Tablet 1 Tab PO QHS Renacidin Irrigation Solution (Citric AC/Gluconolact/Mag Carb) 30 Ml Irrig.soln 30 Ml IR QMWF Clamp catheter for 15 minutes, then unclamp and drain by gravity. Cefpodoxime Proxetil 200 Mg Tablet 1 Tab PO BID Dulera 200 Mcg/5 Mcg Inhaler (Mometasone/Formoterol) 13 Gm Hfa.aer.ad 1 Puff IH HS Furosemide 20 Mg Tablet 1 Tab PO DAILY Vitals/I & O Vital Sign - Last 24 Hours 11/25/19 11/25/19 11/25/19 11/25/19 15:00 15:33 16:29 16:35 Temp 97.5 97.5 Pulse 79 83 Resp 20 B/P (MAP) 138/89 (105) 138/89 Pulse Ox 96 97 O2 Delivery Room Air Room Air Room Air 11/25/19 11/25/19 11/25/19 11/25/19 16:59 19:20 20:00 20:14 Temp 97.8 97.8 Pulse 70 Resp 20 20 B/P (MAP) 130/87 (101) Pulse Ox 94 O2 Delivery Room Air Room Air Room Air Room Air 11/25/19 11/25/19 11/25/19 11/26/19 20:16 20:20 23:35 03:00 Temp 97.7 97.8 97.7 97.8 Pulse 70 64 59 Resp 18 16 B/P (MAP) 130/87 114/71 (85) 117/69 (85) Pulse Ox 96 95 98 O2 Delivery Room Air Room Air Room Air 11/26/19 11/26/19 11/26/19 11/26/19 07:00 07:21 08:00 10:14 Temp 96.5 96.5 Pulse 68 72 Resp 18 B/P (MAP) 127/85 (99) Pulse Ox 97 97 O2 Delivery Room Air Room Air Room Air 11/26/19 11/26/19 11/26/19 11/26/19 10:23 10:53 10:55 12:14 Temp 98.0 98.0 Pulse 75 Resp 20 B/P (MAP) 118/81 (93) Pulse Ox 97 O2 Delivery Room Air Room Air Room Air Room Air Intake and Output 11/25/19 11/25/19 11/26/19 15:00 23:00 07:00 Intake Total 670 ml 320 ml 0 ml Output Total 1650 ml 240 ml Balance 670 ml -1330 ml -240 ml Nutrition Consultation Dietary Evaluation: Recommendations by RD: Dietary education by RD, Increase Calorie Intake, Protein supplementation, PPN/TPN Comments: REC PPN for short-term non-oral nutrition needs while pt NPO w/ileus REC advance as able to regular diet w/Henry BID, Ensure supplements and MVI - wound healing Expected Outcomes/Goals: diet advancement Interpretation of weight loss: >10% in 6 months Malnutrition Findings: Weight Status: Appropriate Hemodynamically unstable?: No Is patient in severe pain?: No Is NPO status required?: No CHANDAN CREWS MD November 26, 2019 13:13
[2019-11-26 15:00] VITALS: BP 117/78
[2019-11-26] MEDS: AMINO AC 3%/ELECTROLYTE/GLYCER 1,000 ML IV SCH (15:02)
[2019-11-26 19:00] VITALS: BP 109/76
[2019-11-26] MEDS: ATORVASTATIN CALCIUM 20 MG TABLET PO SCH (20:46)
[2019-11-26 23:00] VITALS: BP 115/73
[2019-11-27 03:00] VITALS: BP 115/67
[2019-11-27] MEDS: AMINO AC 3%/ELECTROLYTE/GLYCER 1,000 ML IV SCH ×2 (03:05→17:45)
[2019-11-27] MEDS: MORPHINE SULFATE 2 MG/ML VIAL. IV PRN ×2 (04:00→08:53)
[2019-11-27] MEDS: FOSPHENYTOIN 100 MG/2 ML VIAL. IV SCH ×3 (05:52→20:25)
[2019-11-27 07:00] VITALS: BP 164/74
[2019-11-27] MEDS: INSULIN LISPRO 300 UNITS/3 ML VIAL. SQ SCH ×3 (08:00→17:00)
[2019-11-27] MEDS: LUBIPROSTONE 24 MCG CAPSULE PO SCH ×2 (08:46→17:45)
[2019-11-27] MEDS: FLUoxetine HCL 20 MG CAPSULE PO SCH (08:46)
[2019-11-27] MEDS: ASPIRIN CHEWABLE 81 MG TABLET. PO SCH (08:46)
[2019-11-27] MEDS: METOPROLOL TART IMMED RELEASE 25 MG TABLET. PO SCH ×2 (08:47→20:16)
[2019-11-27] MEDS: GABAPENTIN 300 MG CAPSULE. PO SCH ×2 (08:47→20:15)
[2019-11-27] MEDS: NYSTATIN TOPICAL POWDER 15GM BOTTLE. TP SCH ×2 (08:48→20:17)
[2019-11-27] MEDS: PANTOPRAZOLE IV PUSH 40 MG VIAL. IVP SCH (08:48)
[2019-11-27] MEDS: VITS A & D/LANOLIN TOPICAL OINTMENT 42GM TUBE. TP SCH ×2 (08:48→20:17)
[2019-11-27] MEDS: BUDESONIDE 0.5 MG/2 ML NEBU. NEB SCH ×2 (08:55→20:33)
[2019-11-27] MEDS: ALBUTEROL SULFATE 2.5 MG/3 ML NEBU. NEB SCH ×3 (08:55→20:34)
[2019-11-27 10:42] VITALS: BP 135/65
[2019-11-27] MEDS: LEVOTHYROXINE 100 MCG TABLET PO SCH (10:55)
--- NOTE | 2019-11-27 12:09 | PDOC ---
[facility] PROGRESS NOTE Chief Complaint Chief Complaint SBO, acute Marked air and fluid distention of small and large bowel loops throughout the abdomen and pelvis is seen extending to the rectum. findings ref lect an ileus. on CT A Fib, SUPRATHERAPEUTIC INR on warfarIn /// INR = 2.2 CAD w/ stents, CHF, HYPERTENSION HLD, COPD, peripheral neuropathy, hx seizure, remote CVA, WITH expressive aphasia OA, allergic rhinitis, DIABETES hypothyroidism History of Present Illness History of Present Illness 11/27/2019 Patient seen and examined He is somnolent keeps his eyes shut Discussed with RN Chart reviewed He is on PPN Has a Pretty to bedside drainage We are trying to give him a clear liquid diet if he wakes up NG was discontinued a day or 2 ago I think he is a [facility] long-term care patient He has a suprapubic Pretty 11/25. KUB does not look improved, but able to take clears, pain better, has had some stool Mr. Storey has removed his own NG tube, may cont with it out some./ replace if pain returns, GI and gen surg following similar appearance of gas-filled bowel loops with dilatation of the small and large bowel. Small bowel loops measure up to 5.8 cm, not significantly changed the prior examination. on kub HAS STOOLED 11/22 11/24 KUB NONSPECIFIC PATTERN D/W RN plan admit consult GI ng out CVC BED NPO IV FLUID SUPPORT NG PPI Vitamin K. HOLD WARFARIN INR IN AM SURGERY FOLLOWING IV PHOS PHENYTION D/W PHARMACY equivalent 26 MIN PT EXAM, CHART REVIEW, > 50% OF TIME SPENT WITH EXAM, CHART REVIEW, PT CARE COORDINATION Vitals/I&O Vitals/I&O: Vital Signs Date Time Temp Pulse Resp B/P (MAP) Pulse Ox O2 Delivery O2 Flow Rate FiO2 11/27/19 10:42 98.0 75 20 135/65 (88) 96 Room Air 98.0 I & O 11/26/19 11/26/19 11/27/19 15:00 23:00 07:00 Intake Total 200 ml 50 ml 0 ml Output Total 1350 ml 450 ml Balance 200 ml -1300 ml -450 ml Physical Exam General: Other (sleeping, I did not wake him) Heart: Regular rate, Normal S1 Lungs: Clear Abdomen: Other (distended but soft, non TTP) Extremities: No cyanosis, No edema Skin: No significant lesion Labs Labs: Laboratory Tests Test 11/26/19 12:10 11/26/19 17:03 11/27/19 07:51 11/27/19 11:47 Glucose (Fingerstick) 157 mg/dL (70-99) 122 mg/dL (70-99) 126 mg/dL (70-99) 157 mg/dL (70-99) Review of Systems Review of Systems: Unable to obtain Assessment and Plan Assessmemt and Plan Problems Medical Problems: (1) Gross hematuria Status: Acute (2) Supratherapeutic international normalized ratio (INR) Status: Acute SBO, acute Marked air and fluid distention of small and large bowel loops throughout the abdomen and pelvis is seen extending to the rectum. findings reflect an ileus. on CT A Fib, SUPRATHERAPEUTIC INR on warfarIn /// INR = 2.2 CAD w/ stents, CHF, HYPERTENSION HLD, COPD, peripheral neuropathy, hx seizure, Prior history of severe CVA, WITH expressive aphasia OA, allergic rhinitis, DIABETES hypothyroidism Plan If we can wake him up were going to try to give him clear liquid diet For now PPN Wound care Monitor his suprapubic Pretty catheter Home meds if possible DVT prophylaxis He will need to go back to [facility] or [place] [facility] Prognosis long-term is extremely guarded Comment Review of Relevant I have reviewed the following items sujey (where applicable) has been applied. Medications: Current Medications Medications (Trade) Dose Ordered Sig/Sharon Route PRN Reason Start Time Stop Time Status Last Admin Dose Admin Albuterol Sulfate (Ventolin Neb Soln) 2.5 mg [id number] NEB 11/26/19 16:00 11/27/19 08:55 Bisacodyl (Dulcolax Supp) 10 mg PRN DAILY PRN [place] CONSTIPATION 11/26/19 12:15 11/26/19 17:14 Amino Acids/ Glycerin/ Electrolytes 1,000 ml @ 75 mls/hr [id number] IV 11/26/19 13:45 11/27/19 03:05 Hemodynamically unstable?: No Is patient in severe pain?: No Is NPO status required?: No CASTLE,NIAL K III DO November 27, 2019 12:09
--- NOTE | 2019-11-27 13:54 | PDOC ---
[facility] PROGRESS NOTE Reason for Follow-up Abd distention Subjective Patient grunts to questions Physical Exam Lungs clear CV S1 S2 ABD distended, hypoactive BS, midly tender to palapation Review of Relevant I have reviewed the following items sujey (where applicable) has been applied. Labs Laboratory Tests Test 11/25/19 17:52 11/25/19 20:53 11/26/19 07:28 11/26/19 12:10 Glucose (Fingerstick) 132 mg/dL (70-99) 129 mg/dL (70-99) 123 mg/dL (70-99) 157 mg/dL (70-99) Test 11/26/19 17:03 11/27/19 07:51 11/27/19 11:47 Glucose (Fingerstick) 122 mg/dL (70-99) 126 mg/dL (70-99) 157 mg/dL (70-99) Laboratory Tests Test 11/26/19 17:03 11/27/19 07:51 11/27/19 11:47 Glucose (Fingerstick) 122 mg/dL (70-99) 126 mg/dL (70-99) 157 mg/dL (70-99) Microbiology 11/21/19 Urine Culture - Final, Complete Medications Current Medications Iohexol (Omnipaque 300 Mg/ml) 75 ml 1X ONCE IV Last administered on 11/21/19at 23:55; Start 11/21/19 at 23:15; Stop 11/21/19 at 23:16; Status DC Info (CONTRAST GIVEN -- Rx MONITORING) 1 each PRN DAILY PRN MC SEE COMMENTS; Start 11/21/19 at 23:15; Stop 11/23/19 at 23:14; Status DC Phytonadione (Mephyton Oral Soln) 5 mg 1X ONCE PO Last administered on 11/21/19at 23:40; Start 11/21/19 at 23:30; Stop 11/21/19 at 23:31; Status DC Ondansetron HCl (Zofran) 4 mg PRN Q8HRS PRN IV NAUSEA/VOMITING Last administered on 11/22/19at 10:34; Start 11/22/19 at 00:30; Stop 11/23/19 at 00:29; Status DC Morphine Sulfate (Morphine Sulfate) 4 mg 1X ONCE IV Last administered on 11/22/19at 08:47; Start 11/22/19 at 08:30; Stop 11/22/19 at 08:34; Status DC Morphine Sulfate (Morphine Sulfate) 2 mg PRN Q2HR PRN IV PAIN Last administered on 11/27/19 08:53; Start 11/22/19 at 08:30 Polyethylene Glycol (miraLAX PACKET) 17 gm 1X ONCE PO Last administered on 11/22/19 08:46; Start 11/22/19 at 08:30; Stop 11/22/19 at 08:34; Status DC Polyethylene Glycol (miraLAX PACKET) 17 gm PRN DAILY PRN PO CONSTIPATION- 2nd choice Last administered on 11/27/19 08:46; Start 11/22/19 at 08:30 Aspirin (Aspirin Chewable) 81 mg DAILYWBKFT PO Last administered on 11/27/19 08:46; Start 11/22/19 at 09:00 Atorvastatin Calcium (Lipitor) 20 mg HS PO Last administered on 11/26/19 20:46; Start 11/22/19 at 21:00 Gabapentin (Neurontin) 300 mg BID PO Last administered on 11/27/19 08:47; Start 11/22/19 at 09:00 Levothyroxine Sodium (Synthroid) 200 mcg DAILY06 PO Last administered on 11/27/19 10:55; Start 11/22/19 at 10:30 Metoprolol Tartrate (Lopressor) 25 mg BID PO Last administered on 11/27/19 08:47; Start 11/22/19 at 09:00 Nystatin (Nystop) 1 edvin BID TP Last administered on 11/27/19 08:48; Start 11/22/19 at 09:00 Senna/Docusate Sodium (Senna Plus) 2 tab PRN BID PRN PO CONSTIPATION Last administered on 11/26/19 10:14; Start 11/22/19 at 08:30 Simethicone (Gas-X) 80 mg PRN TID PRN PO GAS / BLOATING Last administered on 11/27/19 08:46; Start 11/22/19 at 08:30 Fluoxetine HCl (PROzac) 40 mg DAILYWBKFT PO Last administered on 11/27/19 08:46; Start 11/22/19 at 09:00 Non-Formulary Medication (Mirabegron (Myrbetriq)) 25 mg DAILY PO ; Start 11/22/19 at 09:00; Status UNV Pantoprazole Sodium (Protonix) 40 mg DAILYAC PO ; Start 11/22/19 at 11:30; Stop 11/22/19 at 11:08; Status DC Sodium Chloride 1,000 ml @ 100 mls/hr 1X ONCE IV Last administered on 11/22/19 08:46; Start 11/22/19 at 08:30; Stop 11/22/19 at 18:29; Status DC Lubiprostone (Amitiza) 24 mcg BIDWMEALS PO Last administered on 11/27/19 08:46; Start 11/22/19 at 09:00 Methylnaltrexone [place] (Relistor) 12 mg 1X ONCE SQ Last administered on 11/22/19at 11:55; Start 11/22/19 at 11:00; Stop 11/22/19 at 11:01; Status DC Pantoprazole Sodium (PROTONIX VIAL for IV PUSH) 40 mg DAILYAC IVP Last administered on 11/27/19at 08:48; Start 11/22/19 at 12:00 Hydralazine HCl (Apresoline Inj) 10 mg PRN Q4HRS PRN IVP ELEVATED BP, SEE COMMENTS; Start 11/22/19 at 12:00 Non-Formulary Medication (Citric AC/ Gluconolact/Mag Carb (Renacidin Irrigation Solution)) 30 ml QMWF IR ; Start 11/22/19 at 16:00; Status UNV Non-Formulary Medication (Mometasone/ Formoterol (Dulera 200 Mcg/5 Mcg Inhaler)) 1 puff HS IH ; Start 11/22/19 at 21:00; Status UNV Vitamin A/Vitamin D (Vitamin A & D Ointment) 1 edvin BID TP Last administered on 11/27/19 08:48; Start 11/22/19 at 12:15 Fosphenytoin Sodium (Cerebyx) 130 mg Q8HRS IV Last administered on 11/27/19 05:52; Start 11/22/19 at 14:00 Albuterol Sulfate (Ventolin Neb Soln) 2.5 mg Q6HRS NEB Last administered on at 07:20; Start 11/22/19 at 12:15; Stop 11/26/19 at 11:50; Status DC Budesonide (Pulmicort) 0.5 mg RTBID NEB Last administered on 11/27/19at 08:55; Start 11/22/19 at 20:00 Insulin Human Lispro (HumaLOG) 0-5 UNITS TIDWMEALS SQ ; Start 11/22/19 at 17:00 Dextrose (Dextrose 50%-Water Syringe) 12.5 gm PRN Q15MIN PRN IV SEE COMMENTS; Start 11/22/19 at 15:30 Sodium Chloride 1,000 ml @ 75 mls/hr [id number] IV Last administered on 11/26/19at 10:24; Start 11/22/19 at 21:00; Stop 11/26/19 at 17:16; Status DC Methylnaltrexone [place] (Relistor) 12 mg 1X ONCE SQ Last administered on 11/25/19at 16:31; Start 11/25/19 at 15:45; Stop 11/25/19 at 15:46; Status DC Albuterol Sulfate (Ventolin Neb Soln) 2.5 mg [id number] NEB Last administered on 11/27/19at 13:29; Start 11/26/19 at 16:00 Bisacodyl (Dulcolax Supp) 10 mg PRN DAILY PRN [place] CONSTIPATION Last administered on 11/26/19at 17:14; Start 11/26/19 at 12:15 Amino Acids/ Glycerin/ Electrolytes 1,000 ml @ 75 mls/hr [id number] IV Last administered on 11/27/19at 03:05; Start 11/26/19 at 13:45 Active Scripts Active Hydrocodone-Apap 5-325 (Hydrocodone Bit/Acetaminophen) 1 Tab Tablet 1 Tab PO PRN Q4HRS PRN Polyethylene Glycol 3350 17 Gm Powd.pack 17 Gm PO DAILY Nystop (Nystatin) 60 Gm Powder 1 Edvin TP BID Aspirin 81 Mg Tab.chew 81 Mg PO DAILYWBKFT Synthroid (Levothyroxine Sodium) 100 Mcg Tablet 200 Mcg PO DAILY06 Reported Zinc Sulfate 220 Mg Tablet 1 Tab PO DAILY 30 Days Vitamin C (Ascorbic Acid) 500 Mg Capsule.er 1 Cap PO DAILY 30 Days Vitamin A & D Ointment Packet (Vits A & D/White Pet/Lanolin) 5 Gm Oint.pack 5 Gm TP BID Simethicone 80 Mg Tab.chew 1 Tab PO PRN TID PRN 6 Days Senna-Docusate Sodium Tablet (Sennosides/Docusate Sodium) 1 Each Tablet 2 Tab PO PRN BID PRN 5 Days Fluoxetine Hcl 40 Mg Capsule 1 Cap PO DAILYWBKFT Protonix (Pantoprazole Sodium) 20 Mg Tablet.dr 1 Tab PO DAILY Phenytoin Sodium Extended 200 Mg Capsule 1 Cap PO BID 30 Days Myrbetriq (Mirabegron) 25 Mg Tab.er.24h 25 Mg PO DAILY Metoprolol Tartrate 25 Mg Tablet 1 Tab PO BID Atorvastatin Calcium 20 Mg Tablet 20 Mg PO HS Insulin Aspart Flexpen (Insulin Aspart) 100 Unit/1 Ml Insuln.pen 0 SQ QIDACHS FSBS 181-220 = 2 units 221-260 = 4 units 261-300 = 6 units 301-350 = 8 units 351-400 = 10 units 401 or higher = 12 units Hyoscyamine Sulfate 0.125 Mg Tablet 1 Tab PO PRN Q4HRS PRN 30 Days Gabapentin (Gabapentin) 300 Mg Capsule 300 Mg PO BID Fluconazole 200 Mg Tablet 1 Tab PO DAILY Coumadin (Warfarin Sodium) 2 Mg Tablet 1 Tab PO QHS Renacidin Irrigation Solution (Citric AC/Gluconolact/Mag Carb) 30 Ml Irrig.soln 30 Ml IR QMWF Clamp catheter for 15 minutes, then unclamp and drain by gravity. Cefpodoxime Proxetil 200 Mg Tablet 1 Tab PO BID Dulera 200 Mcg/5 Mcg Inhaler (Mometasone/Formoterol) 13 Gm Hfa.aer.ad 1 Puff IH HS Furosemide 20 Mg Tablet 1 Tab PO DAILY Vitals/I & O Vital Sign - Last 24 Hours 11/26/19 11/26/19 11/26/19 11/26/19 15:00 15:30 15:55 16:25 Temp 97.6 97.6 Pulse 64 Resp 20 B/P (MAP) 117/78 (91) Pulse Ox 97 98 O2 Delivery Room Air Room Air Room Air Room Air 11/26/19 11/26/19 11/26/19 11/26/19 19:00 19:36 19:58 20:00 Temp 97.6 97.6 Pulse 73 Resp 18 18 B/P (MAP) 109/76 (87) Pulse Ox 95 95 96 O2 Delivery Room Air Room Air Room Air 11/26/19 11/26/19 11/27/19 11/27/19 20:45 23:00 03:00 04:00 Temp 97.8 97.6 97.8 97.6 Pulse 73 77 72 Resp 16 20 20 B/P (MAP) 109/76 115/73 (87) 115/67 (83) Pulse Ox 98 97 O2 Delivery Room Air Room Air Room Air 11/27/19 11/27/19 11/27/19 11/27/19 07:00 08:00 08:47 08:52 Temp 97.5 97.5 Pulse 73 73 Resp 20 B/P (MAP) 164/74 (104) 164/74 Pulse Ox 96 O2 Delivery Room Air Room Air Room Air 11/27/19 11/27/19 11/27/19 11/27/19 08:53 09:23 10:42 13:30 Temp 98.0 98.0 Pulse 75 Resp 20 18 20 B/P (MAP) 135/65 (88) Pulse Ox 96 96 96 O2 Delivery Room Air Room Air Room Air Room Air Intake and Output 11/26/19 11/26/19 11/27/19 15:00 23:00 07:00 Intake Total 200 ml 50 ml 0 ml Output Total 1350 ml 450 ml Balance 200 ml -1300 ml -450 ml Problem List Problems Medical Problems: (1) Gross hematuria Status: Acute (2) Supratherapeutic international normalized ratio (INR) Status: Acute Assessment Abd distention- with ileus, most likely multifactorial in etiology, await response to amtiza, cpm, may need enostigmine/relistor Hemodynamically unstable?: No Is patient in severe pain?: No Is NPO status required?: No ARIELLE AMOS MD November 27, 2019 13:54
--- NOTE | 2019-11-27 14:46 | PDOC ---
Provider Note Provider Note SURG sleeping, did not wake tolerating some po no new surgical recs Hemodynamically unstable?: No Is patient in severe pain?: No Is NPO status required?: No CHIO LOZA MD November 27, 2019 14:46
[2019-11-27 15:00] VITALS: BP 140/83
[2019-11-27 19:30] VITALS: BP 122/85
[2019-11-27] MEDS: ATORVASTATIN CALCIUM 20 MG TABLET PO SCH (20:16)
[2019-11-27 23:10] VITALS: BP 116/85
[2019-11-28 03:10] VITALS: BP 111/63
[2019-11-28] MEDS: MORPHINE SULFATE 2 MG/ML VIAL. IV PRN ×2 (03:30→09:28)
[2019-11-28] MEDS: AMINO AC 3%/ELECTROLYTE/GLYCER 1,000 ML IV SCH ×2 (06:56→21:59)
[2019-11-28] MEDS: FOSPHENYTOIN 100 MG/2 ML VIAL. IV SCH ×3 (06:57→22:00)
[2019-11-28] MEDS: LEVOTHYROXINE 100 MCG TABLET PO SCH (06:58)
[2019-11-28] MEDS: PANTOPRAZOLE IV PUSH 40 MG VIAL. IVP SCH (06:58)
[2019-11-28 07:04] VITALS: BP 132/96
[2019-11-28] MEDS: BUDESONIDE 0.5 MG/2 ML NEBU. NEB SCH ×2 (07:53→19:28)
[2019-11-28] MEDS: ALBUTEROL SULFATE 2.5 MG/3 ML NEBU. NEB SCH ×3 (07:53→19:28)
[2019-11-28] MEDS: INSULIN LISPRO 300 UNITS/3 ML VIAL. SQ SCH ×3 (08:00→16:48)
[2019-11-28] MEDS: ASPIRIN CHEWABLE 81 MG TABLET. PO SCH (09:23)
[2019-11-28] MEDS: LUBIPROSTONE 24 MCG CAPSULE PO SCH ×2 (09:23→16:54)
[2019-11-28] MEDS: GABAPENTIN 300 MG CAPSULE. PO SCH ×2 (09:23→21:59)
[2019-11-28] MEDS: FLUoxetine HCL 20 MG CAPSULE PO SCH (09:23)
[2019-11-28] MEDS: METOPROLOL TART IMMED RELEASE 25 MG TABLET. PO SCH ×2 (09:24→22:00)
[2019-11-28] MEDS: VITS A & D/LANOLIN TOPICAL OINTMENT 42GM TUBE. TP SCH ×2 (09:33→22:00)
[2019-11-28] MEDS: NYSTATIN TOPICAL POWDER 15GM BOTTLE. TP SCH ×2 (09:33→22:00)
[2019-11-28 10:38] VITALS: BP 122/70
--- NOTE | 2019-11-28 11:01 | PDOC ---
[facility] [facility] PROGRESS NOTE Chief Complaint Chief Complaint SBO, acute Marked air and fluid distention of small and large bowel loops throughout the abdomen and pelvis is seen extending to the rectum. findings ref lect an ileus. on CT A Fib, Prior history of severe stroke with hemiparesis and expressive aphasia SUPRATHERAPEUTIC INR on warfarIn /// INR = 2.2 CAD w/ stents, CHF, HYPERTENSION HLD, COPD, peripheral neuropathy, hx seizure, OA, allergic rhinitis, DIABETES hypothyroidism History of Present Illness History of Present Illness 11/28/2019 Patient seen and examined He is resting with no apparent distress On PPN IV Has Pretty to bedside drainage Discussed with RN Chart reviewed We are checking a COVID test in preparation for him to go back to his [facility] 11/27/2019 Patient seen and examined He is somnolent keeps his eyes shut Discussed with RN Chart reviewed He is on PPN Has a Pretty to bedside drainage We are trying to give him a clear liquid diet if he wakes up NG was discontinued a day or 2 ago I think he is a [facility] patient He has a suprapubic Pretty 11/25. KUB does not look improved, but able to take clears, pain better, has had some stool Mr. Storey has removed his own NG tube, may cont with it out some./ replace if pain returns, GI and gen surg following similar appearance of gas-filled bowel loops with dilatation of the small and large bowel. Small bowel loops measure up to 5.8 cm, not significantly changed the prior examination. on kub HAS STOOLED 11/22 11/24 KUB NONSPECIFIC PATTERN D/W RN plan admit consult GI ng out CVC BED NPO IV FLUID SUPPORT NG PPI Vitamin K. HOLD WARFARIN INR IN AM SURGERY FOLLOWING IV PHOS PHENYTION D/W PHARMACY equivalent 26 MIN PT EXAM, CHART REVIEW, > 50% OF TIME SPENT WITH EXAM, CHART REVIEW, PT CARE COORDINATION Vitals/I&O Vitals/I&O: Vital Signs Date Time Temp Pulse Resp B/P (MAP) Pulse Ox O2 Delivery O2 Flow Rate FiO2 11/28/19 10:38 97.7 86 18 122/70 (87) 97 Room Air 97.7 I & O 11/27/19 11/27/19 11/28/19 15:00 23:00 07:00 Intake Total 550 ml 560 ml 0 ml Output Total 1475 ml 1100 ml Balance 550 ml -915 ml -1100 ml Physical Exam General: Other (sleeping, I did not wake him) Heart: Regular rate, Normal S1 Lungs: Clear Abdomen: Other (distended but soft, non TTP) Extremities: No cyanosis, No edema Skin: No significant lesion Labs Labs: Laboratory Tests Test 11/27/19 11:47 11/27/19 16:56 11/27/19 20:32 11/28/19 06:48 Glucose (Fingerstick) 157 mg/dL (70-99) 141 mg/dL (70-99) 147 mg/dL (70-99) 111 mg/dL (70-99) Review of Systems Review of Systems: Unable to obtain Assessment and Plan Assessmemt and Plan Problems Medical Problems: (1) Gross hematuria Status: Acute (2) Supratherapeutic international normalized ratio (INR) Status: Acute SBO, acute Marked air and fluid distention of small and large bowel loops throughout the abdomen and pelvis is seen extending to the rectum. findings reflect an ileus. on CT A Fib, Previous history of severe stroke with hemiparesis and expressive aphasia SUPRATHERAPEUTIC INR on warfarIn /// INR = 2.2 CAD w/ stents, CHF, HYPERTENSION HLD, COPD, peripheral neuropathy, hx seizure, OA, allergic rhinitis, DIABETES hypothyroidism Plan If we can wake him up were going to try to give him clear liquid diet For now PPN Check a COVID test in preparation for him to get back to his [facility] Wound care Monitor his suprapubic Pretty catheter Home meds if possible DVT prophylaxis He will need to go back to [facility] [place] [facility] Prognosis long-term is extremely guarded Comment Review of Relevant I have reviewed the following items sujey (where applicable) has been applied. Hemodynamically unstable?: No Is patient in severe pain?: No Is NPO status required?: No VIVIENNE COOPER III DO November 28, 2019 11:01
--- NOTE | 2019-11-28 11:07 | PDOC ---
G I PROGRESS NOTE Subjective Non-verbal. No attempt to communicate. Objective Per staff: no N, V, spontaneously stooling, plans to transfer back to SNF. Physical Exam Lungs clear. RRR Abdomen not distended. Review of Relevant I have reviewed the following items sujey (where applicable) has been applied. Labs Laboratory Tests Test 11/26/19 12:10 11/26/19 17:03 11/27/19 07:51 11/27/19 11:47 Glucose (Fingerstick) 157 mg/dL (70-99) 122 mg/dL (70-99) 126 mg/dL (70-99) 157 mg/dL (70-99) Test 11/27/19 16:56 11/27/19 20:32 11/28/19 06:48 Glucose (Fingerstick) 141 mg/dL (70-99) 147 mg/dL (70-99) 111 mg/dL (70-99) Laboratory Tests Test 11/27/19 11:47 11/27/19 16:56 11/27/19 20:32 11/28/19 06:48 Glucose (Fingerstick) 157 mg/dL (70-99) 141 mg/dL (70-99) 147 mg/dL (70-99) 111 mg/dL (70-99) Microbiology 11/21/19 Urine Culture - Final, Complete Vitals/I & O Vital Sign - Last 24 Hours 11/27/19 11/27/19 11/27/19 11/27/19 13:30 15:00 19:30 20:16 Temp 98.0 98.2 98.0 98.2 Pulse 76 86 86 Resp 20 20 B/P (MAP) 140/83 (102) 122/85 (97) 122/85 Pulse Ox 96 96 O2 Delivery Room Air Room Air Room Air 11/27/19 11/27/19 11/27/19 11/27/19 20:35 20:36 20:39 23:10 Temp 97.8 97.8 Pulse 72 Resp 16 B/P (MAP) 116/85 (95) Pulse Ox 94 94 97 O2 Delivery Room Air Room Air Room Air Room Air 11/28/19 11/28/19 11/28/19 11/28/19 03:10 03:30 04:00 07:04 Temp 97.4 97.6 97.4 97.6 Pulse 76 78 Resp 18 18 B/P (MAP) 111/63 (79) 132/96 (108) Pulse Ox 96 96 96 O2 Delivery Room Air Room Air Nasal Cannula Room Air 11/28/19 11/28/19 11/28/19 11/28/19 07:53 08:00 09:24 09:28 Pulse 78 B/P (MAP) 132/96 Pulse Ox 96 O2 Delivery Room Air Room Air Room Air 11/28/19 11/28/19 09:59 10:38 Temp 97.7 97.7 Pulse 86 Resp 18 B/P (MAP) 122/70 (87) Pulse Ox 96 97 O2 Delivery Room Air Room Air Intake and Output 11/27/19 11/27/19 11/28/19 15:00 23:00 07:00 Intake Total 550 ml 560 ml 0 ml Output Total 1475 ml 1100 ml Balance 550 ml -915 ml -1100 ml Problem List Problems Medical Problems: (1) Gross hematuria Status: Acute (2) Supratherapeutic international normalized ratio (INR) Status: Acute Assessment Ileus, apparently improved/resolved. Plan of Care Note Continue as planned. Hemodynamically unstable?: No Is patient in severe pain?: No Is NPO status required?: No KRISTINE ANDRADE MD November 28, 2019 11:07
--- NOTE | 2019-11-28 11:57 | PDOC ---
Provider Note Provider Note SURG arouses belly soft no surg recs will sign off please call if needed Thank you Hemodynamically unstable?: No Is patient in severe pain?: No Is NPO status required?: No CHIO LOZA MD November 28, 2019 11:57
[2019-11-28 14:32] VITALS: BP 140/85
[2019-11-28] MEDS ORDERED: WARFARIN 2 MG TABLET. PO ONE (17:27)
[2019-11-28 19:58] VITALS: BP 131/88
[2019-11-28] MEDS: ATORVASTATIN CALCIUM 20 MG TABLET PO SCH (21:59)
[2019-11-28 22:27] VITALS: BP 139/90
[2019-11-29] MEDS: MORPHINE SULFATE 2 MG/ML VIAL. IV PRN ×2 (01:54→18:12)
[2019-11-29 03:54] VITALS: BP 137/80
[2019-11-29] MEDS: LEVOTHYROXINE 100 MCG TABLET PO SCH (06:15)
[2019-11-29] MEDS: FOSPHENYTOIN 100 MG/2 ML VIAL. IV SCH ×3 (06:15→20:41)
[2019-11-29] MEDS: PANTOPRAZOLE IV PUSH 40 MG VIAL. IVP SCH (06:17)
[2019-11-29] MEDS: AMINO AC 3%/ELECTROLYTE/GLYCER 1,000 ML IV SCH ×2 (06:33→20:42)
[2019-11-29 07:00] VITALS: BP 133/78
[2019-11-29] MEDS: INSULIN LISPRO 300 UNITS/3 ML VIAL. SQ SCH ×3 (08:00→16:52)
[2019-11-29] MEDS: BUDESONIDE 0.5 MG/2 ML NEBU. NEB SCH (08:13)
[2019-11-29] MEDS: ALBUTEROL SULFATE 2.5 MG/3 ML NEBU. NEB SCH (08:13)
[2019-11-29] MEDS: LUBIPROSTONE 24 MCG CAPSULE PO SCH ×2 (08:17→17:41)
[2019-11-29] MEDS: GABAPENTIN 300 MG CAPSULE. PO SCH ×2 (08:17→20:42)
[2019-11-29] MEDS: ASPIRIN CHEWABLE 81 MG TABLET. PO SCH (08:17)
[2019-11-29] MEDS: FLUoxetine HCL 20 MG CAPSULE PO SCH (08:18)
[2019-11-29] MEDS: METOPROLOL TART IMMED RELEASE 25 MG TABLET. PO SCH ×2 (08:18→20:42)
[2019-11-29] MEDS: VITS A & D/LANOLIN TOPICAL OINTMENT 42GM TUBE. TP SCH ×2 (08:19→20:56)
[2019-11-29] MEDS: NYSTATIN TOPICAL POWDER 15GM BOTTLE. TP SCH ×2 (08:19→20:56)
[2019-11-29] MEDS ORDERED: ALBUTEROL SULFATE 2.5 MG/3 ML NEBU. NEB PRN (08:30)
[2019-11-29 10:40] VITALS: BP 122/61
--- NOTE | 2019-11-29 10:45 | PDOC ---
G I PROGRESS NOTE Subjective Denies emesis. Objective Staff report spontaneous stools and no problems with diet. Physical Exam Lungs clear. RRR Abdomen soft, not distended. Review of Relevant I have reviewed the following items sujey (where applicable) has been applied. Labs Laboratory Tests Test 11/27/19 11:47 11/27/19 16:56 11/27/19 20:32 11/28/19 06:48 Glucose (Fingerstick) 157 mg/dL (70-99) 141 mg/dL (70-99) 147 mg/dL (70-99) 111 mg/dL (70-99) Test 11/28/19 11:09 11/28/19 16:31 11/28/19 20:51 11/29/19 03:30 Glucose (Fingerstick) 173 mg/dL (70-99) 137 mg/dL (70-99) 145 mg/dL (70-99) Prothrombin Time 39.0 SEC (11.7-14.0) Prothromb Time International Ratio 3.9 (0.8-1.1) Test 11/29/19 06:55 Glucose (Fingerstick) 131 mg/dL (70-99) Laboratory Tests Test 11/28/19 11:09 11/28/19 16:31 11/28/19 20:51 11/29/19 03:30 Glucose (Fingerstick) 173 mg/dL (70-99) 137 mg/dL (70-99) 145 mg/dL (70-99) Prothrombin Time 39.0 SEC (11.7-14.0) Prothromb Time International Ratio 3.9 (0.8-1.1) Test 11/29/19 06:55 Glucose (Fingerstick) 131 mg/dL (70-99) Microbiology 11/21/19 Urine Culture - Final, Complete INR still out a bit. Medications Current Medications Iohexol (Omnipaque 300 Mg/ml) 75 ml 1X ONCE IV Last administered on 11/21/19at 23:55; Start 11/21/19 at 23:15; Stop 11/21/19 at 23:16; Status DC Info (CONTRAST GIVEN -- Rx MONITORING) 1 each PRN DAILY PRN MC SEE COMMENTS; Start 11/21/19 at 23:15; Stop 11/23/19 at 23:14; Status DC Phytonadione (Mephyton Oral Soln) 5 mg 1X ONCE PO Last administered on 11/21/19 23:40; Start 11/21/19 at 23:30; Stop 11/21/19 at 23:31; Status DC Ondansetron HCl (Zofran) 4 mg PRN Q8HRS PRN IV NAUSEA/VOMITING Last administ ered on 11/22/19 10:34; Start 11/22/19 at 00:30; Stop 11/23/19 at 00:29; Status DC Morphine Sulfate (Morphine Sulfate) 4 mg 1X ONCE IV Last administered on 11/22/19 08:47; Start 11/22/19 at 08:30; Stop 11/22/19 at 08:34; Status DC Morphine Sulfate (Morphine Sulfate) 2 mg PRN Q2HR PRN IV PAIN Last administered on 11/29/19 01:54; Start 11/22/19 at 08:30 Polyethylene Glycol (miraLAX PACKET) 17 gm 1X ONCE PO Last administered on 11/22/19 08:46; Start 11/22/19 at 08:30; Stop 11/22/19 at 08:34; Status DC Polyethylene Glycol (miraLAX PACKET) 17 gm PRN DAILY PRN PO CONSTIPATION- 2nd choice Last administered on 11/27/19 08:46; Start 11/22/19 at 08:30 Aspirin (Aspirin Chewable) 81 mg DAILYWBKFT PO Last administered on 11/29/19 08:17; Start 11/22/19 at 09:00 Atorvastatin Calcium (Lipitor) 20 mg HS PO Last administered on 11/28/19at 21:59; Start 11/22/19 at 21:00 Gabapentin (Neurontin) 300 mg BID PO Last administered on 11/29/19 08:17; Start 11/22/19 at 09:00 Levothyroxine Sodium (Synthroid) 200 mcg DAILY06 PO Last administered on 11/29/19 06:15; Start 11/22/19 at 10:30 Metoprolol Tartrate (Lopressor) 25 mg BID PO Last administered on 11/29/19 08:18; Start 11/22/19 at 09:00 Nystatin (Nystop) 1 edvin BID TP Last administered on 11/29/19 08:19; Start 11/22/19 at 09:00 Senna/Docusate Sodium (Senna Plus) 2 tab PRN BID PRN PO CONSTIPATION Last administered on 11/26/19 10:14; Start 11/22/19 at 08:30 Simethicone (Gas-X) 80 mg PRN TID PRN PO GAS / BLOATING Last administered on 11/27/19 08:46; Start 11/22/19 at 08:30 Fluoxetine HCl (PROzac) 40 mg DAILYWBKFT PO Last administered on 11/29/19at 08:18; Start 11/22/19 at 09:00 Non-Formulary Medication (Mirabegron (Myrbetriq)) 25 mg DAILY PO ; Start 11/22/19 at 09:00; Status UNV Pantoprazole Sodium (Protonix) 40 mg DAILYAC PO ; Start 11/22/19 at 11:30; Stop 11/22/19 at 11:08; Status DC Sodium Chloride 1,000 ml @ 100 mls/hr 1X ONCE IV Last administered on 11/22/19at 08:46; Start 11/22/19 at 08:30; Stop 11/22/19 at 18:29; Status DC Lubiprostone (Amitiza) 24 mcg BIDWMEALS PO Last administered on 11/29/19 08:17; Start 11/22/19 at 09:00 Methylnaltrexone Iaeger (Relistor) 12 mg 1X ONCE SQ Last administered on 11/22/19at 11:55; Start 11/22/19 at 11:00; Stop 11/22/19 at 11:01; Status DC Pantoprazole Sodium (PROTONIX VIAL for IV PUSH) 40 mg DAILYAC IVP Last administered on 11/29/19at 06:17; Start 11/22/19 at 12:00 Hydralazine HCl (Apresoline Inj) 10 mg PRN Q4HRS PRN IVP ELEVATED BP, SEE COMMENTS; Start 11/22/19 at 12:00 Non-Formulary Medication (Citric AC/ Gluconolact/Mag Carb (Renacidin Irrigation Solution)) 30 ml QMWF IR ; Start 11/22/19 at 16:00; Status UNV Non-Formulary Medication (Mometasone/ Formoterol (Dulera 200 Mcg/5 Mcg Inhaler)) 1 puff HS IH ; Start 11/22/19 at 21:00; Status UNV Vitamin A/Vitamin D (Vitamin A & D Ointment) 1 edvin BID TP Last administered on 11/29/19at 08:19; Start 11/22/19 at 12:15 Fosphenytoin Sodium (Cerebyx) 130 mg Q8HRS IV Last administered on 11/29/19at 06:15; Start 11/22/19 at 14:00 Albuterol Sulfate (Ventolin Neb Soln) 2.5 mg Q6HRS NEB Last administered on 11/26/19at 07:20; Start 11/22/19 at 12:15; Stop 11/26/19 at 11:50; Status DC Budesonide (Pulmicort) 0.5 mg RTBID NEB Last administered on 11/29/19at 08:13; Start 11/22/19 at 20:00; Stop 11/29/19 at 08:27; Status DC Insulin Human Lispro (HumaLOG) 0-5 UNITS TIDWMEALS SQ Last administered on 11/28/19at 12:37; Start 11/22/19 at 17:00 Dextrose (Dextrose 50%-Water Syringe) 12.5 gm PRN Q15MIN PRN IV SEE COMMENTS; Start 11/22/19 at 15:30 Sodium Chloride 1,000 ml @ 75 mls/hr [id number] IV Last administered on 11/26/19at 10:24; Start 11/22/19 at 21:00; Stop 11/26/19 at 17:16; Status DC Methylnaltrexone Iaeger (Relistor) 12 mg 1X ONCE SQ Last administered on 11/25/19at 16:31; Start 11/25/19 at 15:45; Stop 11/25/19 at 15:46; Status DC Albuterol Sulfate (Ventolin Neb Soln) 2.5 mg [id number] NEB Last administered on 11/29/19at 08:13; Start 11/26/19 at 16:00; Stop 11/29/19 at 08:27; Status DC Bisacodyl (Dulcolax Supp) 10 mg PRN DAILY PRN ME CONSTIPATION Last administered on 11/26/19at 17:14; Start 11/26/19 at 12:15 Amino Acids/ Glycerin/ Electrolytes 1,000 ml @ 75 mls/hr [id number] IV Last administered on 11/29/19at 06:33; Start 11/26/19 at 13:45 Warfarin Sodium (Coumadin Per Pharmacy) 1 each PRN DAILY PRN MC SEE COMMENTS; Start 11/28/19 at 17:30 Warfarin Sodium (Coumadin) 2 mg 1X WARF ONCE PO Last administered on 11/28/19at 17:58; Start 11/28/19 at 17:27; Stop 11/28/19 at 17:28; Status DC Albuterol Sulfate (Ventolin Neb Soln) 2.5 mg PRN Q4HRS PRN NEB SHORTNESS OF BREATH; Start 11/29/19 at 08:30 Active Scripts Active Hydrocodone-Apap 5-325 (Hydrocodone Bit/Acetaminophen) 1 Tab Tablet 1 Tab PO PRN Q4HRS PRN Polyethylene Glycol 3350 17 Gm Powd.pack 17 Gm PO DAILY Nystop (Nystatin) 60 Gm Powder 1 Edvin TP BID Aspirin 81 Mg Tab.chew 81 Mg PO DAILYWBKFT Synthroid (Levothyroxine Sodium) 100 Mcg Tablet 200 Mcg PO DAILY06 Reported Zinc Sulfate 220 Mg Tablet 1 Tab PO DAILY 30 Days Vitamin C (Ascorbic Acid) 500 Mg Capsule.er 1 Cap PO DAILY 30 Days Vitamin A & D Ointment Packet (Vits A & D/White Pet/Lanolin) 5 Gm Oint.pack 5 Gm TP BID Simethicone 80 Mg Tab.chew 1 Tab PO PRN TID PRN 6 Days Senna-Docusate Sodium Tablet (Sennosides/Docusate Sodium) 1 Each Tablet 2 Tab PO PRN BID PRN 5 Days Fluoxetine Hcl 40 Mg Capsule 1 Cap PO DAILYWBKFT Protonix (Pantoprazole Sodium) 20 Mg Tablet.dr 1 Tab PO DAILY Phenytoin Sodium Extended 200 Mg Capsule 1 Cap PO BID 30 Days Myrbetriq (Mirabegron) 25 Mg Tab.er.24h 25 Mg PO DAILY Metoprolol Tartrate 25 Mg Tablet 1 Tab PO BID Atorvastatin Calcium 20 Mg Tablet 20 Mg PO HS Insulin Aspart Flexpen (Insulin Aspart) 100 Unit/1 Ml Insuln.pen 0 SQ QIDACHS FSBS 181-220 = 2 units 221-260 = 4 units 261-300 = 6 units 301-350 = 8 units 351-400 = 10 units 401 or higher = 12 units Hyoscyamine Sulfate 0.125 Mg Tablet 1 Tab PO PRN Q4HRS PRN 30 Days Gabapentin (Gabapentin) 300 Mg Capsule 300 Mg PO BID Fluconazole 200 Mg Tablet 1 Tab PO DAILY Coumadin (Warfarin Sodium) 2 Mg Tablet 1 Tab PO QHS Renacidin Irrigation Solution (Citric AC/Gluconolact/Mag Carb) 30 Ml Irrig.soln 30 Ml IR QMWF Clamp catheter for 15 minutes, then unclamp and drain by gravity. Cefpodoxime Proxetil 200 Mg Tablet 1 Tab PO BID Dulera 200 Mcg/5 Mcg Inhaler (Mometasone/Formoterol) 13 Gm Hfa.aer.ad 1 Puff IH HS Furosemide 20 Mg Tablet 1 Tab PO DAILY Vitals/I & O Vital Sign - Last 24 Hours 11/28/19 11/28/19 11/28/19 11/28/19 11:45 14:32 19:34 19:58 Temp 98.8 98.3 98.8 98.3 Pulse 75 86 Resp 18 16 B/P (MAP) 140/85 (103) 131/88 (102) Pulse Ox 96 95 97 O2 Delivery Room Air Room Air Room Air Room Air 11/28/19 11/28/19 11/28/19 11/29/19 20:49 22:00 22:27 01:54 Temp 97.9 97.9 Pulse 86 79 Resp 16 B/P (MAP) 131/88 139/90 (106) Pulse Ox 95 O2 Delivery Room Air Room Air Nasal Cannula 11/29/19 11/29/19 11/29/19 11/29/19 02:24 03:54 07:00 08:00 Temp 97.7 97.9 97.7 97.9 Pulse 74 74 Resp 16 16 B/P (MAP) 137/80 (99) 133/78 (96) Pulse Ox 95 96 O2 Delivery Room Air Room Air Room Air Room Air 11/29/19 11/29/19 11/29/19 08:13 08:18 10:40 Temp 98.6 98.6 Pulse 74 73 Resp 16 B/P (MAP) 133/78 122/61 (81) Pulse Ox 96 97 O2 Delivery Room Air Room Air Intake and Output 11/28/19 11/28/19 11/29/19 15:00 23:00 07:00 Intake Total 720 ml 360 ml 100 ml Output Total 1350 ml 1250 ml Balance 720 ml -990 ml -1150 ml Problem List Problems Medical Problems: (1) Gross hematuria Status: Acute (2) Supratherapeutic international normalized ratio (INR) Status: Acute Assessment Ileus, clinically better. Supratherapeutic INR, improved. Plan of Care Note Continue as now. Await pending COVID testing. Hemodynamically unstable?: No Is patient in severe pain?: No Is NPO status required?: No KRISTINE ANDRADE MD November 29, 2019 10:45
--- NOTE | 2019-11-29 10:50 | NUR ---
Pharmacy Warfarin Dosing Note S:Pharmacy consulted to assist with anticoagulation therapy started with target INR: 2 -3 O:HUMAIRA BORJA is a 59 year old M with Atrial Fibrillation LABS: Last INR: 3.9 Last HGB: 12.2 Last HCT: 36.4 Last PLT: 308 Last dose of 2 mg given on 11/28/19 at 1758 A:INR of 3.9 is above desired range. Target range for this patient is: 2 -3 P: Warfarin dose: Hold today Bridge Therapy: None Next INR due 11/30/19 Pharmacy anticoagulation service will continue to follow. [facility], 11/29/19 [id number]
--- NOTE | 2019-11-29 12:26 | PDOC ---
[facility] [facility] PROGRESS NOTE Chief Complaint Chief Complaint SBO, acute Marked air and fluid distention of small and large bowel loops throughout the abdomen and pelvis is seen extending to the rectum. findings ref lect an ileus. on CT A Fib, Prior history of severe stroke with hemiparesis and expressive aphasia SUPRATHERAPEUTIC INR on warfarIn /// INR = 2.2 CAD w/ stents, CHF, HYPERTENSION HLD, COPD, peripheral neuropathy, hx seizure, OA, allergic rhinitis, DIABETES hypothyroidism History of Present Illness History of Present Illness 11/29/2019 Patient seen and examined He seems to be at his baseline INR is slightly high at 3.9 but he is not bleeding Discussed with case management Chart reviewed We will probably discharge back to his prior facility 11/28/2019 Patient seen and examined He is resting with no apparent distress On PPN IV Has Pretty to bedside drainage Discussed with RN Chart reviewed We are checking a COVID test in preparation for him to go back to his shelter 11/27/2019 Patient seen and examined He is somnolent keeps his eyes shut Discussed with RN Chart reviewed He is on PPN Has a Pretty to bedside drainage We are trying to give him a clear liquid diet if he wakes up NG was discontinued a day or 2 ago I think he is a medical [place] long-term [facility] patient He has a suprapubic Pretty 11/25. KUB does not look improved, but able to take clears, pain better, has had some stool Mr. Storey has removed his own NG tube, may cont with it out some./ replace if pain returns, GI and gen surg following similar appearance of gas-filled bowel loops with dilatation of the small and large bowel. Small bowel loops measure up to 5.8 cm, not significantly changed the prior examination. on kub HAS STOOLED 11/22 11/24 KUB NONSPECIFIC PATTERN D/W RN plan admit consult GI ng out CVC BED NPO IV FLUID SUPPORT NG PPI Vitamin K. HOLD WARFARIN INR IN AM SURGERY FOLLOWING IV PHOS PHENYTION D/W PHARMACY equivalent 26 MIN PT EXAM, CHART REVIEW, > 50% OF TIME SPENT WITH EXAM, CHART REVIEW, PT CARE COORDINATION Vitals/I&O Vitals/I&O: Vital Signs Date Time Temp Pulse Resp B/P (MAP) Pulse Ox O2 Delivery O2 Flow Rate FiO2 11/29/19 10:40 98.6 73 16 122/61 (81) 97 Room Air 98.6 I & O 11/28/19 11/28/19 11/29/19 15:00 23:00 07:00 Intake Total 720 ml 360 ml 100 ml Output Total 1350 ml 1250 ml Balance 720 ml -990 ml -1150 ml Physical Exam General: Other (sleeping, I did not wake him) Heart: Regular rate, Normal S1 Lungs: Clear Abdomen: Other (distended but soft, non TTP) Extremities: No cyanosis, No edema Skin: No significant lesion Labs Labs: Laboratory Tests Test 11/28/19 16:31 11/28/19 20:51 11/29/19 03:30 11/29/19 06:55 Glucose (Fingerstick) 137 mg/dL (70-99) 145 mg/dL (70-99) 131 mg/dL (70-99) Prothrombin Time 39.0 SEC (11.7-14.0) Prothromb Time International Ratio 3.9 (0.8-1.1) Test 11/29/19 11:12 Glucose (Fingerstick) 133 mg/dL (70-99) Assessment and Plan Assessmemt and Plan Problems Medical Problems: (1) Gross hematuria Status: Acute (2) Supratherapeutic international normalized ratio (INR) Status: Acute SBO, acute Marked air and fluid distention of small and large bowel loops throughout the abdomen and pelvis is seen extending to the rectum. findings reflect an ileus. on CT A Fib, Previous history of severe stroke with hemiparesis and expressive aphasia SUPRATHERAPEUTIC INR on warfarIn /// INR = 2.2 CAD w/ stents, CHF, HYPERTENSION HLD, COPD, peripheral neuropathy, hx seizure, OA, allergic rhinitis, DIABETES hypothyroidism Plan If we can wake him up were going to try to give him clear liquid diet For now PPN Check a COVID test in preparation for him to get back to his shelter Wound care Monitor his suprapubic Pretty catheter Home meds if possible DVT prophylaxis Discharge back to medical [place] Comment Review of Relevant I have reviewed the following items sujey (where applicable) has been applied. Medications: Current Medications Medications (Trade) Dose Ordered Sig/Sharon Route PRN Reason Start Time Stop Time Status Last Admin Dose Admin Warfarin Sodium (Coumadin Per Pharmacy) 1 each PRN DAILY PRN MC SEE COMMENTS 11/28/19 17:30 11/29/19 10:50 Warfarin Sodium (Coumadin) 2 mg 1X WARF ONCE PO 11/28/19 17:27 11/28/19 17:28 DC 11/28/19 17:58 Hemodynamically unstable?: No Is patient in severe pain?: No Is NPO status required?: No VIVIENNE COOPER III DO November 29, 2019 12:26
--- NOTE | 2019-11-29 12:29 | SNU/HH DC ---
DISCHARGE ORDERS DISCHARGE INFORMATION: FINAL DIAGNOSIS Problems Medical Problems: (1) Gross hematuria Status: Acute (2) Supratherapeutic international normalized ratio (INR) Status: Acute CONDITION ON DISCHARGE: Stable CODE STATUS: Code Status: Full FDC: SNF STAY <30 DAYS: No HOSPICE: HOSPICE: No HOSPICE EVAL & TREAT: No LTAC: ADMIT TO LTAC: No POST DISCHARGE ORDERS: ACTIVITY ORDERS: Activity as tolerated WEIGHT BEARING STATUS: As tolerated DIET AFTER DISCHARGE: Okay to resume his previous diet if he tolerates CHECKS AFTER DISCHARGE: CHECKS AFTER DISCHARGE: Check blood press - daily, Check blood sugar, ac/hs, Weigh Yourself Daily TREATMENT/EQUIPMENT ORDERS: ADAPTIVE EQUIPMENT NEEDED: None Physical Therapy For: Evalulation/Treatment Occupational Therapy For: Evaluation/Treatment Speech Language Pathology For: Evaluation/Treatment DISCHARGE MEDICATIONS: Home Meds Active Scripts Hydrocodone Bit/Acetaminophen (HYDROCODONE-APAP 5-325 ) 1 Tab Tablet, 1 TAB PO PRN Q4HRS PRN for abdominal pain, #30 TAB Prov:CHANDAN CREWS MD 03/27/19 Polyethylene Glycol 3350 (POLYETHYLENE GLYCOL 3350) 17 Gm Powd.pack, 17 GM PO DAILY for constipation, #30 PKT Prov:CHANDAN CREWS MD 03/27/19 Nystatin (NYSTOP) 60 Gm Powder, 1 LEIGH TP BID for skin folds, #1 MISC Prov:KALIA WALKER MD 03/14/19 Aspirin (ASPIRIN) 81 Mg Tab.chew, 81 MG PO DAILYWBKFT for cva, #90 TAB.CHEW Prov:KALIA WALKER MD 03/14/19 Levothyroxine Sodium (SYNTHROID) 100 Mcg Tablet, 200 MCG PO DAILY06 for hypothy, #60 TAB Prov:KALIA WALKER MD 01/02/19 Reported Medications Zinc Sulfate (ZINC SULFATE) 220 Mg Tablet, 1 TAB PO DAILY for supp for 30 Days, #30 TAB 0 Refills 11/22/19 Ascorbic Acid (VITAMIN C) 500 Mg Capsule.er, 1 CAP PO DAILY for supp for 30 Days, #30 CAP 0 Refills 20 Vits A & D/White Pet/Lanolin (VITAMIN A & D OINTMENT PACKET) 5 Gm Oint.pack, 5 GM TP BID for skin condition, MISC 5/20/20 Simethicone (SIMETHICONE) 80 Mg Tab.chew, 1 TAB PO PRN TID PRN for GAS / BLOATING for 6 Days, #20 TAB 0 Refills 11/22/19 Sennosides/Docusate Sodium (Senna-Docusate Sodium Tablet) 1 Each Tablet, 2 TAB PO PRN BID PRN for CONSTIPATION for 5 Days, TAB 0 Refills 11/22/19 Fluoxetine Hcl (FLUOXETINE HCL) 40 Mg Capsule, 1 CAP PO DAILYWBKFT for depression, #30 CAP 2 Refills 11/22/19 Pantoprazole Sodium (PROTONIX) 20 Mg Tablet.dr, 1 TAB PO DAILY for gerd, #30 TAB 11/22/19 Phenytoin Sodium Extended (PHENYTOIN SODIUM EXTENDED) 200 Mg Capsule, 1 CAP PO BID for seizure for 30 Days, #60 CAP 0 Refills 11/22/19 Mirabegron (MYRBETRIQ) 25 Mg Tab.er.24h, 25 MG PO DAILY for bladder, TAB.SR 11/22/19 Metoprolol Tartrate (METOPROLOL TARTRATE) 25 Mg Tablet, 1 TAB PO BID for htn, #180 TAB 1 Refill 11/22/19 Atorvastatin Calcium (ATORVASTATIN CALCIUM) 20 Mg Tablet, 20 MG PO HS for FOR CHOLESTEROL, #30 TAB 0 Refills 11/22/19 Insulin Aspart (Insulin Aspart Flexpen) 100 Unit/1 Ml Insuln.pen, 0 SQ QIDACHS for FSBS, EACH FSBS 181-220 = 2 units 221-260 = 4 units 261-300 = 6 units 301-350 = 8 units 351-400 = 10 units 401 or higher = 12 units 11/22/19 Hyoscyamine Sulfate (HYOSCYAMINE SULFATE) 0.125 Mg Tablet, 1 TAB PO PRN Q4HRS PRN for BLADDER SPASM for 30 Days, TAB 0 Refills 11/22/19 Gabapentin (GABAPENTIN ) 300 Mg Capsule, 300 MG PO BID for NEUROGENIC PAIN, CAP 11/22/19 Fluconazole (FLUCONAZOLE) 200 Mg Tablet, 1 TAB PO DAILY for UTI, #14 TAB 11/22/19 Warfarin Sodium (COUMADIN) 2 Mg Tablet, 1 TAB PO QHS for PPX, #30 TAB 11/22/19 Citric AC/Gluconolact/Mag Carb (Renacidin Irrigation Solution) 30 Ml Irrig.soln, 30 ML IR QMWF for Indwelling catheter, MISC Clamp catheter for 15 minutes, then unclamp and drain by gravity. 11/22/19 Cefpodoxime Proxetil (CEFPODOXIME PROXETIL) 200 Mg Tablet, 1 TAB PO BID for UTI, #14 TAB 11/22/19 Mometasone/Formoterol (DULERA 200 MCG/5 MCG INHALER) 13 Gm Hfa.aer.ad, 1 PUFF IH HS for COPD, #13 GM 5 Refills 12/21/18 Furosemide (FUROSEMIDE) 20 Mg Tablet, 1 TAB PO DAILY for blood pressure, #90 TAB 1 Refill 12/21/18 VIVIENNE COOPER III DO November 29, 2019 12:29
--- NOTE | 2019-11-29 12:41 | DS ---
DATE OF DISCHARGE: ADMISSION DIAGNOSES: Small bowel obstruction and hematuria and supratherapeutic INR, history of old stroke. DISCHARGE DIAGNOSES: Resolving small bowel obstruction, history of old stroke, atrial fibrillation, resolving elevated INR, congestive heart failure, hypertension, hyperlipidemia, chronic obstructive pulmonary disease, peripheral neuropathy, history of seizures, osteoarthritis, allergic rhinitis, diabetes and hypothyroidism. CONSULTS: Dr. Howard and Dr. Fulton. PROCEDURES: None. HOSPITAL COURSE: The patient is a pleasant elderly male who is well known to my service. Basically, he had a bad stroke last year. He has been in the snf and now he presented with a small bowel obstruction. We admitted the patient. The above consults were obtained. Over the past few days, small bowel obstruction seems to be resolving. I examined him today, he is doing better. We plan to discharge back to his prior living arrangement at [facility]. DISPOSITION: [facility]. ACTIVITY: As tolerated. MEDICATIONS: Will resume his previous diet. MEDICATIONS: Please see the MRAD. I put him back on his home meds. TOTAL TIME: 32 minutes. VIVIENNE COOPER DO DR: SERA/ge JOB#: [id number] / [id number]
[2019-11-29 14:26] VITALS: BP 125/78
[2019-11-29 18:06] VITALS: BP 127/82
--- NOTE | 2019-11-29 19:13 | NUR ---
PT REFUSED REPOSITIONING OFFERS.
[2019-11-29] MEDS: ATORVASTATIN CALCIUM 20 MG TABLET PO SCH (20:42)
[2019-11-29 23:41] VITALS: BP 128/83
[2019-11-30 03:32] VITALS: BP 136/83
[2019-11-30] MEDS: FOSPHENYTOIN 100 MG/2 ML VIAL. IV SCH (05:24)
[2019-11-30] MEDS: LEVOTHYROXINE 100 MCG TABLET PO SCH (05:28)
[2019-11-30] MEDS: PANTOPRAZOLE IV PUSH 40 MG VIAL. IVP SCH (05:28)
[2019-11-30 06:18] LABS: PROTHROMBIN TIME PATIENT 41.8 SEC (11.7-14.0)
--- NOTE | 2019-11-30 06:54 | NUR ---
IP: Pt is COVID negative.
[2019-11-30 07:00] VITALS: BP 127/74
--- NOTE | 2019-11-30 07:17 | NUR ---
PT INR 4.3 DR ALLISON PALUMBO, AWAITING RETURN CALL. WILL INFORM AM RN. PMRN
[2019-11-30] MEDS: INSULIN LISPRO 300 UNITS/3 ML VIAL. SQ SCH ×2 (08:00→12:00)
[2019-11-30] MEDS ORDERED: PHYTONADIONE 10 MG/ML AMPUL. SQ ONE (08:45)
[2019-11-30] MEDS: FLUoxetine HCL 20 MG CAPSULE PO SCH (09:09)
[2019-11-30] MEDS: LUBIPROSTONE 24 MCG CAPSULE PO SCH (09:09)
[2019-11-30] MEDS: ASPIRIN CHEWABLE 81 MG TABLET. PO SCH (09:11)
[2019-11-30] MEDS: GABAPENTIN 300 MG CAPSULE. PO SCH (09:11)
[2019-11-30] MEDS: METOPROLOL TART IMMED RELEASE 25 MG TABLET. PO SCH (09:11)
[2019-11-30] MEDS: VITS A & D/LANOLIN TOPICAL OINTMENT 42GM TUBE. TP SCH (09:12)
[2019-11-30] MEDS: NYSTATIN TOPICAL POWDER 15GM BOTTLE. TP SCH (09:12)
--- NOTE | 2019-11-30 09:36 | NUR ---
Pharmacy Warfarin Dosing Note S:Pharmacy consulted to assist with anticoagulation therapy started with target INR: 2 -3 O:HUMAIRA BORJA is a 59 year old M with Atrial Fibrillation LABS: Last INR: 4.3 Last HGB: 12.2 Last HCT: 36.4 Last PLT: 308 Last dose of 2 mg given on 11/28/19 at 1758 Vitamin K given: Yes; 5 MG SQ X 1 DOSE (11/30/19) A:INR of 4.3 is above desired range. Target range for this patient is: 2 -3 P: Warfarin dose: Hold dose today Bridge Therapy: None Next INR due 12/01/19 Pharmacy anticoagulation service will continue to follow. SHAWN TUCKER [facility], 11/30/19 [id number]
--- NOTE | 2019-11-30 09:40 | PDOC ---
Subjective: Subjective: Indicates stooling and eating. Denies pain. Objective: Objective: D/w nurse - wonders if can advance beyond clear liquids, had a muddy stool, to receive vit K for elevated INR, ?discharge later Vital Signs: Vital Signs Date Time Temp Pulse Resp B/P (MAP) Pulse Ox O2 Delivery O2 Flow Rate FiO2 11/30/19 09:11 80 127/74 11/30/19 03:32 97.6 20 96 Room Air 97.6 Labs: Laboratory Tests Test 11/29/19 11:12 11/29/19 16:04 11/29/19 20:54 11/30/19 05:40 Glucose (Fingerstick) 133 mg/dL 131 mg/dL 150 mg/dL Prothrombin Time 41.8 SEC Prothromb Time International Ratio 4.3 Test 11/30/19 08:38 Glucose (Fingerstick) 131 mg/dL PE: GEN: NAD LUNGS: CTAB HEART: RRR ABD: quiet gurgles, soft, doesn't seem tender NEURO/PSYCH: awake, keeps eyes closed, does not verbalize A/P: Coumadin coagulopathy Ileus - resolved -- Still on clears, try full liquids/advance. Change to PO PPI. Defer PPN, INR, and DC to primary. Hemodynamically unstable?: No Is patient in severe pain?: No Is NPO status required?: No ERICK ORLANDO November 30, 2019 09:40
[2019-11-30] MEDS: AMINO AC 3%/ELECTROLYTE/GLYCER 1,000 ML IV SCH (11:05)
[2019-11-30 11:20] VITALS: BP 127/74
--- NOTE | 2019-11-30 12:09 | NUR ---
[facility] this shift and transport will be here at approx 1300. Report given to Zeny [phone]
--- NOTE | 2019-11-30 12:53 | PDOC ---
[employer] PROGRESS NOTE Chief Complaint Chief Complaint SBO, acute Marked air and fluid distention of small and large bowel loops throughout the abdomen and pelvis is seen extending to the rectum. findings ref lect an ileus. on CT A Fib, Prior history of severe stroke with hemiparesis and expressive aphasia SUPRATHERAPEUTIC INR on warfarIn /// INR = 2.2 CAD w/ stents, CHF, HYPERTENSION HLD, COPD, peripheral neuropathy, hx seizure, OA, allergic rhinitis, DIABETES hypothyroidism History of Present Illness History of Present Illness 11/30/2019 Patient seen and examined He is at his baseline We will go ahead and discharge 11/29/2019 Patient seen and examined He seems to be at his baseline INR is slightly high at 3.9 but he is not bleeding Discussed with case management Chart reviewed We will probably discharge back to his prior facility 11/28/2019 Patient seen and examined He is resting with no apparent distress On PPN IV Has Pretty to bedside drainage Discussed with RN Chart reviewed We are checking a COVID test in preparation for him to go back to his [place] [facility] facility 11/27/2019 Patient seen and examined He is somnolent keeps his eyes shut Discussed with RN Chart reviewed He is on PPN Has a Pretty to bedside drainage We are trying to give him a clear liquid diet if he wakes up NG was discontinued a day or 2 ago I think he is a [facility] [place] long-term care patient He has a suprapubic Pretty 11/25. KUB does not look improved, but able to take clears, pain better, has had some stool Mr. Storey has removed his own NG tube, may cont with it out some./ replace if pain returns, GI and gen surg following similar appearance of gas-filled bowel loops with dilatation of the small and large bowel. Small bowel loops measure up to 5.8 cm, not significantly changed the prior examination. on kub HAS STOOLED 11/22 11/24 KUB NONSPECIFIC PATTERN D/W RN plan admit consult GI ng out CVC BED NPO IV FLUID SUPPORT NG PPI Vitamin K. HOLD WARFARIN INR IN AM SURGERY FOLLOWING IV PHOS PHENYTION D/W PHARMACY equivalent 26 MIN PT EXAM, CHART REVIEW, > 50% OF TIME SPENT WITH EXAM, CHART REVIEW, PT CARE COORDINATION Vitals/I&O Vitals/I&O: Vital Signs Date Time Temp Pulse Resp B/P (MAP) Pulse Ox O2 Delivery O2 Flow Rate FiO2 11/30/19 11:20 98.3 75 127/74 (91) 96 Room Air 98.3 11/30/19 03:32 20 I & O 11/29/19 11/29/19 11/30/19 15:00 23:00 07:00 Intake Total 1720 ml 560 ml Output Total 1450 ml 350 ml 1500 ml Balance 270 ml 210 ml -1500 ml Physical Exam General: Other (sleeping, I did not wake him) Heart: Regular rate, Normal S1 Lungs: Clear Abdomen: Other (distended but soft, non TTP) Extremities: No cyanosis, No edema Skin: No significant lesion Labs Labs: Laboratory Tests Test 11/29/19 16:04 11/29/19 20:54 11/30/19 05:40 11/30/19 08:38 Glucose (Fingerstick) 131 mg/dL (70-99) 150 mg/dL (70-99) 131 mg/dL (70-99) Prothrombin Time 41.8 SEC (11.7-14.0) Prothromb Time International Ratio 4.3 (0.8-1.1) Test 11/30/19 11:41 Glucose (Fingerstick) 171 mg/dL (70-99) Assessment and Plan Assessmemt and Plan Problems Medical Problems: (1) Gross hematuria Status: Acute (2) Supratherapeutic international normalized ratio (INR) Status: Acut Discharge Comment Review of Relevant I have reviewed the following items sujey (where applicable) has been applied. Medications: Current Medications Medications (Trade) Dose Ordered Sig/Sharon Route PRN Reason Start Time Stop Time Status Last Admin Dose Admin Warfarin Sodium (Coumadin - No Dose Today) 1 each 1X WARF ONCE MC 11/29/19 16:00 11/29/19 16:01 DC 11/29/19 14:59 Phytonadione (Vitamin K Ampule) 5 mg 1X ONCE SQ 11/30/19 08:45 11/30/19 08:46 DC 11/30/19 09:51 Hemodynamically unstable?: No Is patient in severe pain?: No Is NPO status required?: No CASTLE,NIAL K III DO November 30, 2019 12:53
[2019-12-01] MEDS ORDERED: PANTOPRAZOLE 40 MG TABLET.DR. PO SCH (07:30)
== END 2019-11-30 13:06 | DRG 389 ==
LOC: ER 22:28 → 2 SOUTH 11-22 00:20
PROVIDERS: ADMIT Internal Medicine; ATTEND Internal Medicine
PROC: 0D9670Z Drainage of Stomach with Drainage Device, Via Natural or Artificial Opening (ICD-10-PCS; principal; 2019-11-23)
DX: K56.609 Unspecified intestinal obstruction, unspecified as to partial versus complete obstruction (principal); I50.32 Chronic diastolic (congestive) heart failure; I69.359 Hemiplegia and hemiparesis following cerebral infarction affecting unspecified side; E87.1 Hypo-osmolality and hyponatremia; R31.0 Gross hematuria; K56.7 Ileus, unspecified; E03.9 Hypothyroidism, unspecified; E11.42 Type 2 diabetes mellitus with diabetic polyneuropathy; E78.00 Pure hypercholesterolemia, unspecified; E78.5 Hyperlipidemia, unspecified; T45.515A Adverse effect of anticoagulants, initial encounter; I11.0 Hypertensive heart disease with heart failure; I25.10 Atherosclerotic heart disease of native coronary artery without angina pectoris; I48.0 Paroxysmal atrial fibrillation; I69.320 Aphasia following cerebral infarction; J30.9 Allergic rhinitis, unspecified; J44.9 Chronic obstructive pulmonary disease, unspecified; R56.9 Unspecified convulsions; R79.1 Abnormal coagulation profile; Z20.828 Contact with and (suspected) exposure to other viral communicable diseases; Z79.01 Long term (current) use of anticoagulants; Z82.49 Family history of ischemic heart disease and other diseases of the circulatory system; Z82.5 Family history of asthma and other chronic lower respiratory diseases; Z87.891 Personal history of nicotine dependence; Z95.5 Presence of coronary angioplasty implant and graft; K21.9 Gastro-esophageal reflux disease without esophagitis; M19.90 Unspecified osteoarthritis, unspecified site; Z87.440 Personal history of urinary (tract) infections; Z79.899 Other long term (current) drug therapy; I25.2 Old myocardial infarction
CPT/HCPCS: 36415; 71045; 74018; 74177; 80048; 80053; 81001; 82962; 83735; 84484; 85007; 85025; 85610; 85730; 87086; 93005; 94640; 94660; 94760; 99285; C9113; J1815; J2212; J2270; J2405; J3430; J3490; J7030; Q2009; Q9967; G0378; J7613; J7626; U0003-CS

== ENCOUNTER 2020-01-19 09:32 | Inpatient (IN) | payer OTHER ==
[~2020-01-19] VITALS: Ht 182.9 cm; Wt 70.1 kg
[2020-01-19] VITALS (11 sets, daily range): BP systolic 120–154; BP diastolic 77–95
[~2020-01-19 09:32] MED LIST changes: +ASCO500C PO; -ASPI-612 PO; +ASPI-886 PO; +ATOR20TA58 PO; +CEFP200T PO; +CITR30IR IR; +FLUC200T4 PO; +FLUO40CA2 PO; +HYOS0.1279 PO; +INSU100I53 SQ; +METO25TA4 PO; +MIRA25TA PO; +PANT20TA2 PO; +PHEN200C3 PO; +SENN1TAB99 PO; +SIME80TA14 PO; +VITS5OIN3 TP; +WARF2TAB PO; +ZINC220T3 PO
[2020-01-19] MEDS: IV NORMAL SALINE 1000ML BAG 1,000 ML IV ONE ×2 (09:45→15:38)
[2020-01-19] MEDS ORDERED: PIPERACILLIN/TAZOBACTAM 4.5 GM in IV NORMAL SALINE 100ML 100 ML IV ONE (10:00)
[2020-01-19] MEDS ORDERED: VANCOMYCIN PER PHARMACY MC PRN (10:00)
[2020-01-19] MEDS: IV NORMAL SALINE 1000ML BAG 1,000 ML IV SCH ×3 (10:20→15:46)
[2020-01-19 10:23] LABS: BILIRUBIN,URINE MODERATE (NEG); CLARITY,URINE CLOUDY; COLOR,URINE ORANGE; NITRITE,URINE NEGATIVE (NEG); PROTEIN,URINE 100 mg/dL (NEG-TRACE)
--- NOTE | 2020-01-19 10:27 | PHYS DOC ---
Past Medical History Past Medical History: A-Fib, Asthma, CAD, CHF, COPD, CVA, Diabetes-Type II, GERD, High Cholesterol, Hypertension, Hypothyroid, IL, Seizure, Stroke Additional Past Medical Histor: neuropathy, dysphagia, osteoarthritis, RT SIDE DEFICIT Past Surgical History: Other Additional Past Surgical Histo: cardiac stents Smoking Status: Former Smoker Alcohol Use: None Drug Use: None General Adult EDM: Chief Complaint: NAUSEA/VOMITING/DIARRHA HPI: HPI: 59-year-old male presenting the emergency department today with nausea and vomiting. Patient arrives by EMS from [facility] [place]. The patient's vomitus is a dark brown. shelter reports the patient's mental status is baseline. He has a history of stroke for which she suffered dysphasia and aphasia. He has a suprapubic catheter that has dark sediment. This started within a day or 2. He is not had any fevers and long-term does not report him to have COVID symptoms. He denies a cough. duration constant. No alleviating or exacerbating factors. Review of systems is negative for chest pain shortness of breath abdominal pain. Positive for dark urine. Positive for nausea and vomiting. No new rashes. All other review of systems negative. ED course: 59-year-old male presenting the emergency department today with dark foul-smelling urine with nausea and vomiting over about the last 24 to 48 hours. On arrival the patient is tachycardic. EKG obtained and reviewed by myself shows sinus tachycardia. ST segments are congruent. Not suggestive of acute ischemia. On arrival the patient is tachycardic, afebrile with tachypnea. He flags sepsis criteria and so large-volume fluid resuscitation was initiated along with broad-spectrum antibiotics. Patient's vomitus and fecal content positive for blood. CBC shows leukocytosis with bandemia. ABG shows normal pH. Chemistry panel shows extremely low potassium. Lactic acid of 2.1. Magnesium of 1.3. Calcium of 5.6 prior to adjustment for albumin of 1.6. Troponin within normal limits. Urinalysis suggestive of infection. Head CT is unremarkable for acute intracranial process. Bandlike low attenuation likely from old infarct. CT abdomen pelvis shows diffusely dilated colon. No pneumatosis or pneumoperitoneum. We were able to give an enema after this read was read. GI saw the patient and we ordered an NG tube as well. Central line was placed in the emergency department without complication. Chest x-ray after shows no pneumothorax. Heart Score: Risk Factors: Risk Factors: DM, Current or recent (<one month) smoker, HTN, HLP, family history of CAD, obesity. Risk Scores: Score 0 - 3: 2.5% MACE over next 6 weeks - Discharge Home Score 4 - 6: 20.3% MACE over next 6 weeks - Admit for Clinical Observation Score 7 - 10: 72.7% MACE over next 6 weeks - Early Invasive Strategies Current Medications: Current Medications Medications (Trade) Dose Ordered Sig/Sharon Start Time Stop Time Status Last Admin Dose Admin Piperacillin Sod/ Tazobactam Sod 4.5 gm/Sodium Chloride 100 ml @ 200 mls/hr 1X ONCE 01/19/20 10:00 01/19/20 10:29 Sodium Chloride 1,000 ml @ 2,100 mls/hr Q29M 01/19/20 09:46 01/19/20 10:46 Vancomycin HCl (Vanco Per Pharmacy) 1 each PRN DAILY PRN 01/19/20 10:00 UNV Vancomycin HCl 1.75 gm/Sodium Chloride 500 ml @ 250 mls/hr 1X ONCE 01/19/20 10:30 01/19/20 12:29 Allergies: Allergies: Allergies Coded Allergies Type Severity Reaction Last Updated Verified No Known Drug Allergies 12/21/18 No Physical Exam: PE: Constitutional: Patient opens eyes spontaneously but does not communicate well. He is mildly pale and clammy. HENT: Normocephalic, atraumatic, bilateral external ears normal, oropharynx nayana st, no oral exudates, nose normal. [] Eyes: PERRLA, EOMI, conjunctiva normal, no discharge. [] Neck: Normal range of motion, no tenderness, supple, no stridor. [] Cardiovascular:tachy rate with reg rhythm, no murmur [] Lungs & Thorax: Bilateral breath sounds clear to auscultation [] Abdomen: Bowel sounds normal, soft, no tenderness, no masses, no pulsatile masses. Suprapubic catheter in place draining dark urine. Skin: Warm, dry, no erythema, no rash. [] Back: No tenderness, no CVA tenderness. [] Extremities: No tenderness, no cyanosis, no clubbing, ROM intact, no edema. [] Neurologic: Alert and oriented X 3, normal motor function, normal sensory function, no focal deficits noted. [] Psychologic: Affect normal, judgement normal, mood normal. [] Current Patient Data: Vital Signs: Vital Signs Date Time Temp Pulse Resp B/P (MAP) Pulse Ox O2 Delivery O2 Flow Rate FiO2 01/19/20 09:32 98.0 127 32 141/93 (109) 97 Room Air 98.0 EKG: EKG: [] Radiology/Procedures: Radiology/Procedures: [] Course & Med Decision Making: Course & Med Decision Making Pertinent Labs and Imaging studies reviewed. (See chart for details) [] Dragon Disclaimer: [email or web address] Pixels Disclaimer: This electronic medical record was generated, in whole or in part, using a voice recognition dictation system. Departure Departure Impression: Primary Impression: Severe sepsis Additional Impressions: Leukocytosis GI bleed Disposition: ADMITTED INPATIENT Admitting Physician: KENZIE Condition: GUARDED Referrals: UNKNOWN PCP NAME (PCP) Justicifation of Admission Dx: Justifications for Admission: Justification of Admission Dx: Yes CHF: Hemodynamic Instability Sepsis: Altered Mental Status Central Line Placement Proc Central Line Indication: Vascular access Consent: The patient provided consent for this procedure. Procedure: The patient was positioned appropriately and the skin over the right IJ was prepped and draped in a sterile fashion. Local anesthesia was used. Ultrasound guidance utilized. A large bore needle was used to identify the vein. A guide wire was then inserted into the vein through the needle. A triple lumen catheter was then inserted into the vessel over the guide wire using the Seldinger technique. All ports showed good, free flowing blood return and were flushed with saline solution. The catheter was then securely fastened to the skin with sutures and covered with a sterile dressing. A post procedure X-ray was ordered. The patient tolerated the procedure well. Complications: none. Critical Care Time Critical care time spent was 35 minutes exclusive of procedures. Time was spent evaluating the patient, ordering the administration of medications, reevaluating the patient, discussing with the admitting provider and documenting. ANUJ GENTILE MD Jan 19, 2020 10:27
[2020-01-19] MEDS ORDERED: VANCOMYCIN 1.75 GM in IV NORMAL SALINE 500ML BAG 500 ML IV ONE (10:30)
[2020-01-19 10:33] LABS: BASO % 0 % (0-3); EOS % 0 % (0-3); HEMATOCRIT 47.1 % (39.0-53.0); HEMOGLOBIN 16.2 g/dL (13.0-17.5); LYMPH % 6 % (24-48); MEAN CORPUSCULAR HEMOGLOBIN 30 pg (25-35); MEAN CORPUSCULAR HGB CONC 34 g/dL (31-37); MEAN CORPUSCULAR VOLUME 88 fL (79-100); MONO # 2.4 x10^3/uL (0.0-1.1); MONO % 14 % (0-9); NEUT # 13.8 x10^3/uL (1.8-7.7); NEUT % 80 % (31-73); PLATELET COUNT 517 x10^3/uL (140-400); RED BLOOD COUNT 5.33 x10^6/uL (4.30-5.70); RED CELL DISTRIBUTION WIDTH 14.4 % (11.5-14.5); WHITE BLOOD COUNT 17.3 x10^3/uL (4.0-11.0)
[2020-01-19 10:41] LABS: BACTERIA,URINE MANY /HPF (0-FEW); RBC,URINE >40 /HPF (0-2); WBC,URINE TNTC /HPF (0-4)
[2020-01-19] MEDS ORDERED: ONDANSETRON PF 4 MG/2 ML VIAL. IVP ONE (10:45)
[2020-01-19 10:49] LABS: PROTHROMBIN TIME PATIENT 14.6 SEC (11.7-14.0)
[2020-01-19 10:54] LABS: FECAL OB PT POSITIVE (NEG); GASTRIC OB PAT POSITIVE (NEG)
[2020-01-19 10:58] LABS: % BANDS 10 % (0-9); % LYMPHS 8 % (24-48); % MONOS 11 % (0-10); % SEGS 71 % (35-66); PLT ESTIMATE INCREASED (ADEQUATE)
[2020-01-19] MEDS ORDERED: PANTOPRAZOLE SODIUM IV DRIP 80 MG in IV NORMAL SALINE 100ML 100 ML IV SCH (12:00)
[2020-01-19] MEDS ORDERED: PANTOPRAZOLE IV PUSH 40 MG VIAL. IVP ONE (12:00)
--- NOTE | 2020-01-19 12:19 | RAD ---
EXAM: CT Head without IV contrast CLINICAL HISTORY: altered mental status COMPARISON: 05/30/2019 TECHNIQUE: Routine CT of the head without contrast. Soft tissues and bone windows were reviewed. PQRS compliance statement - One or more of the following individualized dose reduction techniques were utilized for this study: 1. Automated exposure control 2. Adjustment of the mA and/or kV according to patient size 3. Use of iterative reconstruction technique FINDINGS: There is no evidence of hemorrhage, mass or extra-axial fluid collection. Epstein-white differentiation is maintained with no evidence of edema. Bandlike hypoattenuation in the left periventricular and subcortical white matter with associated encephalomalacia likely from old infarct, extends into the internal capsule. Subcortical periventricular and deep white matter hypoattenuation likely changes of chronic small vessel disease. There is no mass effect or shift of the intracranial structures. The ventricles, basilar cisterns and cortical sulci are normal in size and configuration for the patients stated age. The cerebellum and brainstem are unremarkable. The calvarium demonstrates no evidence of fracture or focal lesion. There is normal aeration of the visualized paranasal sinuses and mastoid air cells. The visualized portions of the orbits are normal. Process. Brain calcs IMPRESSION: 1. No evidence for acute intracranial process. 2. White matter changes likely chronic small vessel disease, stable 3. Bandlike low-attenuation in the left periventricular/subcortical white matter likely from old infarct Electronically signed by: Zeb De La Paz MD (01/19/2020 12:17 PM) [id number]
[2020-01-19 12:26] LABS: ALBUMIN 1.6 g/dL (3.4-5.0); DIRECT BILIRUBIN 0.2 mg/dL (0.0-0.2); TOTAL BILIRUBIN 1.1 mg/dL (0.2-1.0); TOTAL PROTEIN 3.7 g/dL (6.4-8.2)
[2020-01-19 12:37] LABS: CALCIUM 5.6 mg/dL (8.5-10.1); POTASSIUM 2.7 mmol/L (3.5-5.1)
--- NOTE | 2020-01-19 12:38 | RAD ---
Study: CT abdomen/pelvis without intravenous contrast Indication: Nausea and vomiting. Comparison: 11/21/2019 Technique: Helical CT imaging performed of the abdomen and pelvis without the use of intravenous contrast. Sagittal and coronal reformats were obtained. One or more of the following individualized dose reduction techniques were utilized for this examination: 1. Automated exposure control 2. Adjustment of the mA and/or kV according to patient size 3. Use of iterative reconstruction technique. Findings: Inherently limited evaluation without intravenous contrast. The study is also limited by streak artifact associated with the patient's arms. Chest: LAD stent is partially imaged. Pericardial effusion greater in volume relative to the comparison at 2.2 cm in thickness compared to 1.8 cm. The fluid is simple density. Similar circumferential thickening of the distal esophageal wall. There is some fluid within the distal esophageal lumen. Liver: No apparent parenchymal abnormality though assessment is limited. Gallbladder/Biliary Tree: Similarly configured relative to the prior. No calcified gallstones or CT findings that would suggest acute cholecystitis. Unchanged prominence of the common duct. Pancreas: Unchanged. Spleen: Within normal limits for size. Adrenal Glands: No adrenal gland mass. Kidneys/Ureters/Bladder: No complex cyst or mass is identified. Other than the most proximal portion the ureters are normal well-visualized. No hydronephrosis. Suprapubic catheter with the balloon distended within the bladder lumen. Fluid and gas containing structure along the anterior margin of the sigmoid colon, image 85 series 2, represents the bladder which is mildly thick-walled. Reproductive Organs: Unchanged prostate. Colon: Diffuse distention/dilatation of the colon with a combination of gas and stool. Well-formed stool within the rectum distends the rectal vault up to 9.5 cm. Mild scattered colonic wall thickening such as along the rectum and there is perirectal/presacral fat stranding such as seen on image 86 series 2. No pneumatosis. Appendix: Unremarkable, image 68 series 2. Small Bowel: Much of the small bowel is collapsed. The noncollapsed small bowel is not pathologically dilated measuring under 3 cm and there is no transitioning that would suggest a mechanical obstruction. Stomach: Not well evaluated due to underdistention. Vasculature: Scattered calcific atherosclerosis involving the iliofemoral system more so than the aorta. Luminal diameter is within normal limits. Lymph Nodes: Scattered reactive appearing inguinal and mesenteric lymph nodes. Peritoneum and Body Wall: Small volume free fluid such is seen at the lower margin of the right paracolic gutter. No free air. Multifocal body wall edema. Probable small hydroceles. Bones: Scattered degenerative changes. Chronic superior endplate deformity at L1. Heterogeneous osseous attenuation pattern such as seen involving the proximal femurs has not changed. Miscellaneous: None. Impression: 1. Diffusely dilated colon with a large amount of stool and gas without any findings to suggest a mechanical obstruction. Mild colonic wall thickening such as seen at the rectum where there is perirectal fatty stranding. Adynamic ileus is favored and could be complicated by rectal stercoral colitis. Urgent catharsis is recommended. No pneumatosis or pneumoperitoneum. 2. Well-positioned suprapubic catheter. Similar degree of urinary bladder wall thickening. 3. Anasarca with generalized body wall edema, pericardial effusion and small volume ascites. Given a relatively cachectic body habitus correlate for a hypoproteinemic state. Electronically signed by: BEKA MIX MD (01/19/2020 12:35 PM) [id number]
--- NOTE | 2020-01-19 13:18 | RAD ---
CHEST AP ONLY History: Reason: cental line / Spl. Instructions: / History: Comparison: November 21, 2019 Findings: Interval placement right IJ central line with tip projecting over the cavoatrial junction. No pneumothorax. Low lung volumes. Mild bibasilar linear atelectasis. No consolidation. No pleural effusion. Normal heart size. Dilated loops of bowel within the imaged upper abdomen. Impression: 1. Interval placement right IJ central line. No pneumothorax. 2. Dilated loops of bowel within the imaged upper abdomen. Electronically signed by: Shukri Nash DO (01/19/2020 1:15 PM) [id number]
[2020-01-19] MEDS ORDERED: ACETAMINOPHEN 325 MG TABLET. PO PRN (13:30)
[2020-01-19] MEDS ORDERED: 0.9 % SODIUM CHLORIDE 10 ML DISP.SYRIN. IV PRN (13:30)
[2020-01-19] MEDS ORDERED: PIP/TAZO PER PHARMACY MC PRN (13:30)
[2020-01-19] MEDS: POTASSIUM CHLORIDE 10MEQ 100 ML IV SCH ×2 (13:30→15:43)
[2020-01-19] MEDS ORDERED: DOCUSATE SODIUM 283 MG/5 ML ENEMA. PR ONE (13:30)
[2020-01-19] MEDS ORDERED: DEXTROSE 50% 25 GM / 50ML DISP.SYRIN. IV PRN (13:45)
--- NOTE | 2020-01-19 13:46 | PDOC1 ---
History and Physical Date of Admission Date of Admission DATE: 01/19/20 TIME: 13:25 Identification/Chief Complaint Chief Complaint nausea and vomiting Source Source: Chart review, Patient History of Present Illness History of Present Illness 59 year old recently admitted for SBO and [facility] with PMhx of Afib on oral AC, Prior history of severe stroke with hemiparesis and expressive aphasia, hx of SP catheter, HTN, HLD, cad hx of stents, hx of seizure disorder, HTN, narcotic use, HLD, peripheral neuropathy, DM with a1c of 12.8%, hyopthyroidism who presents with nausea and vomiting dark brown content. MS baseline per NH. no fevers reported at senior living and no respiratory symptoms. CT abdomen done in ED shows: 1. Diffusely dilated colon with a large amount of stool and gas without any findings to suggest a mechanical obstruction. Mild colonic wall thickening such as seen at the rectum where there is perirectal fatty stranding. Adynamic ileus is favored and could be complicated by rectal stercoral colitis. Urgent catharsis is recommended. No pneumatosis or pneumoperitoneum. 2. Well-positioned suprapubic catheter. Similar degree of urinary bladder wall thickening. 3. Anasarca with generalized body wall edema, pericardial effusion and small volume ascites. Given a relatively cachectic body habitus correlate for a hypoproteinemic state. labs in ED reveal WBC 17k, Hb 16, K 2.7, LA 2.1, INR 2.1 stool and gastric occult + Past Medical History Cardiovascular: AFIB, CAD, CHF, HTN, Hyperlipidemia Pulmonary: COPD CENTRAL NERVOUS SYSTEM: Periperal neuropathy, Seizure GI: Constipation, GERD Heme/Onc: No pertinent hx Hepatobiliary: No pertinent hx Psych: No pertinent hx Musculoskeletal: Osteoarthritis Rheumatologic: No pertinent hx Infectious disease: No pertinent hx Renal/: No pertinent hx Endocrine: Diabetes, Hypothyroidism Past Surgical History Past Surgical History: Other Family History Family History: Coronary Artery Disease, High Cholestrol Social History ALCOHOL: none Drugs: None Current Medications Current Medications Current Medications Sodium Chloride 1,000 ml @ 1,000 mls/hr 1X ONCE IV ; Start 01/19/20 at 09:45; Stop 01/19/20 at 10:44; Status DC Piperacillin Sod/ Tazobactam Sod 4.5 gm/Sodium Chloride 100 ml @ 200 mls/hr 1X ONCE IV Last administered on 01/19/20at 10:22; Start 01/19/20 at 10:00; Stop 01/19/20 at 10:29; Status DC Vancomycin HCl (Vanco Per Pharmacy) 1 each PRN DAILY PRN MC SEE COMMENTS; Start 01/19/20 at 10:00; Status UNV Sodium Chloride 1,000 ml @ 2,100 mls/hr Q29M IV Last administered on 01/19/20at 10:20; Start 01/19/20 at 09:46; Stop 01/19/20 at 10:46; Status DC Vancomycin HCl 1.75 gm/Sodium Chloride 500 ml @ 250 mls/hr 1X ONCE IV Last administered on 01/19/20at 11:07; Start 01/19/20 at 10:30; Stop 01/19/20 at 12:29; Status DC Ondansetron HCl (Zofran) 4 mg 1X ONCE IVP Last administered on 01/19/20at 10:39; Start 01/19/20 at 10:45; Stop 01/19/20 at 10:46; Status DC Pantoprazole Sodium 80 mg/ Sodium Chloride 100 ml @ 10 mls/hr Q10H IV Last administered on 01/19/20at 12:38; Start 01/19/20 at 12:00 Pantoprazole Sodium (PROTONIX VIAL for IV PUSH) 40 mg 1X ONCE IVP Last administered on 01/19/20at 12:40; Start 01/19/20 at 12:00; Stop 01/19/20 at 12:01; Status DC Potassium Chloride/Water 100 ml @ 100 mls/hr Q1H IV ; Start 01/19/20 at 13:15; Stop 01/19/20 at 15:14 Docusate Sodium (Enemeez) 283 mg 1X ONCE HI ; Start 01/19/20 at 13:30; Stop 01/19/20 at 13:31 Non-Formulary Medication (Phenytoin Sodium Extended ) 1 cap BID PO ; Start 01/19/20 at 21:00; Status UNV Active Scripts Active Hydrocodone-Apap 5-325 (Hydrocodone Bit/Acetaminophen) 1 Tab Tablet 1 Tab PO PRN Q4HRS PRN Polyethylene Glycol 3350 17 Gm Powd.pack 17 Gm PO DAILY Nystop (Nystatin) 60 Gm Powder 1 Edvin TP BID Aspirin 81 Mg Tab.chew 81 Mg PO DAILYWBKFT Synthroid (Levothyroxine Sodium) 100 Mcg Tablet 200 Mcg PO DAILY06 Reported Zinc Sulfate 220 Mg Tablet 1 Tab PO DAILY 30 Days Vitamin C (Ascorbic Acid) 500 Mg Capsule.er 1 Cap PO DAILY 30 Days Vitamin A & D Ointment Packet (Vits A & D/White Pet/Lanolin) 5 Gm Oint.pack 5 Gm TP BID Simethicone 80 Mg Tab.chew 1 Tab PO PRN TID PRN 6 Days Senna-Docusate Sodium Tablet (Sennosides/Docusate Sodium) 1 Each Tablet 2 Tab PO PRN BID PRN 5 Days Fluoxetine Hcl 40 Mg Capsule 1 Cap PO DAILYWBKFT Protonix (Pantoprazole Sodium) 20 Mg Tablet.dr 1 Tab PO DAILY Phenytoin Sodium Extended 200 Mg Capsule 1 Cap PO BID 30 Days Myrbetriq (Mirabegron) 25 Mg Tab.er.24h 25 Mg PO DAILY Metoprolol Tartrate 25 Mg Tablet 1 Tab PO BID Atorvastatin Calcium 20 Mg Tablet 20 Mg PO HS Insulin Aspart Flexpen (Insulin Aspart) 100 Unit/1 Ml Insuln.pen 0 SQ QIDACHS FSBS 181-220 = 2 units 221-260 = 4 units 261-300 = 6 units 301-350 = 8 units 351-400 = 10 units 401 or higher = 12 units Hyoscyamine Sulfate 0.125 Mg Tablet 1 Tab PO PRN Q4HRS PRN 30 Days Gabapentin (Gabapentin) 300 Mg Capsule 300 Mg PO BID Fluconazole 200 Mg Tablet 1 Tab PO DAILY Coumadin (Warfarin Sodium) 2 Mg Tablet 1 Tab PO QHS Renacidin Irrigation Solution (Citric AC/Gluconolact/Mag Carb) 30 Ml Irrig.soln 30 Ml IR QMWF Clamp catheter for 15 minutes, then unclamp and drain by gravity. Cefpodoxime Proxetil 200 Mg Tablet 1 Tab PO BID Dulera 200 Mcg/5 Mcg Inhaler (Mometasone/Formoterol) 13 Gm Hfa.aer.ad 1 Puff IH HS Furosemide 20 Mg Tablet 1 Tab PO DAILY Allergies Allergies: Coded Allergies: No Known Drug Allergies (Unverified , 12/21/18) ROS Review of System difficult to obtain as patient sleepy Physical Exam Physical Exam GENERAL: lethargic HEENT: Head normocephalic, atraumatic. RIJ in place NECK: Supple LUNGS: Clear to auscultation. HEART: RRR, S1, S2 present, pulses intact ABDOMEN: Soft, positive bowel sounds. EXTREMITIES: No cyanosis or edema. NEUROLOGIC: Normal speech, normal tone PSYCHIATRIC: Normal affect, normal mood. SKIN: No ulceration. + SP catheter Vitals Vitals Vital Signs Date Time Temp Pulse Resp B/P (MAP) Pulse Ox O2 Delivery O2 Flow Rate FiO2 01/19/20 12:03 146/96 (113) 01/19/20 11:36 108 26 98 Room Air 01/19/20 09:32 98.0 98.0 Labs Labs Laboratory Tests Test 01/19/20 09:53 01/19/20 10:09 01/19/20 10:35 01/19/20 11:37 Urine Collection Type Unknown Urine Color [place] Urine Clarity Cloudy Urine pH 6.0 (<5.0-8.0) Urine Specific [place] 1.025 (1.000-1.030) Urine Protein 100 mg/dL (NEG-TRACE) Urine Glucose (UA) Negative mg/dL (NEG) Urine Ketones (Stick) 15 mg/dL (NEG) Urine Blood Moderate (NEG) Urine Nitrite Negative (NEG) Urine Bilirubin Moderate (NEG) Urine Urobilinogen Dipstick 1.0 mg/dL (0.2 mg/dL) Urine Leukocyte Esterase Large (NEG) Urine RBC >40 /HPF (0-2) Urine WBC Tntc /HPF (0-4) Urine Bacteria Many /HPF (0-FEW) White Blood Count 17.3 x10^3/uL (4.0-11.0) Red Blood Count 5.33 x10^6/uL (4.30-5.70) Hemoglobin 16.2 g/dL (13.0-17.5) Hematocrit 47.1 % (39.0-53.0) Mean Corpuscular Volume 88 fL (79-100) Mean Corpuscular Hemoglobin 30 pg (25-35) Mean Corpuscular Hemoglobin Concent 34 g/dL (31-37) Red Cell Distribution Width 14.4 % (11.5-14.5) Platelet Count 517 x10^3/uL (140-400) Neutrophils (%) (Auto) 80 % (31-73) Lymphocytes (%) (Auto) 6 % (24-48) Monocytes (%) (Auto) 14 % (0-9) Eosinophils (%) (Auto) 0 % (0-3) Basophils (%) (Auto) 0 % (0-3) Neutrophils # (Auto) 13.8 x10^3/uL (1.8-7.7) Lymphocytes # (Auto) 1.0 x10^3/uL (1.0-4.8) Monocytes # (Auto) 2.4 x10^3/uL (0.0-1.1) Eosinophils # (Auto) 0.0 x10^3/uL (0.0-0.7) Basophils # (Auto) 0.0 x10^3/uL (0.0-0.2) Segmented Neutrophils % 71 % (35-66) Band Neutrophils % 10 % (0-9) Lymphocytes % 8 % (24-48) Monocytes % 11 % (0-10) Platelet Estimate Increased (ADEQUATE) Prothrombin Time 14.6 SEC (11.7-14.0) Prothromb Time International Ratio 1.2 (0.8-1.1) Activated Partial Thromboplast Time 29 SEC (24-38) Gastric Fluid Occult Blood Positive (NEG) Stool Occult Blood Positive (NEG) Sodium Level 141 mmol/L (136-145) Potassium Level 2.7 mmol/L (3.5-5.1) Chloride Level 109 mmol/L (98-107) Carbon Dioxide Level 24 mmol/L (21-32) Anion Gap 8 (6-14) Blood Urea Nitrogen 22 mg/dL (8-26) Creatinine 1.0 mg/dL (0.7-1.3) Estimated GFR (Cockcroft-Gault) 77.0 Glucose Level 147 mg/dL (70-99) Lactic Acid Level 2.1 mmol/L (0.4-2.0) Calcium Level 5.6 mg/dL (8.5-10.1) Magnesium Level 1.3 mg/dL (1.8-2.4) Total Bilirubin 1.1 mg/dL (0.2-1.0) Direct Bilirubin 0.2 mg/dL (0.0-0.2) Aspartate Amino Transf (AST/SGOT) 10 U/L (15-37) Alanine Aminotransferase (ALT/SGPT) 6 U/L (16-63) Alkaline Phosphatase 83 U/L (46-116) Troponin I Quantitative < 0.017 ng/mL (0.000-0.055) Total Protein 3.7 g/dL (6.4-8.2) Albumin 1.6 g/dL (3.4-5.0) Lipase 25 U/L (73-393) Laboratory Tests Test 01/19/20 09:53 01/19/20 10:09 01/19/20 10:35 01/19/20 11:37 Urine Collection Type Unknown Urine Color [place] Urine Clarity Cloudy Urine pH 6.0 (<5.0-8.0) Urine Specific [place] 1.025 (1.000-1.030) Urine Protein 100 mg/dL (NEG-TRACE) Urine Glucose (UA) Negative mg/dL (NEG) Urine Ketones (Stick) 15 mg/dL (NEG) Urine Blood Moderate (NEG) Urine Nitrite Negative (NEG) Urine Bilirubin Moderate (NEG) Urine Urobilinogen Dipstick 1.0 mg/dL (0.2 mg/dL) Urine Leukocyte Esterase Large (NEG) Urine RBC >40 /HPF (0-2) Urine WBC Tntc /HPF (0-4) Urine Bacteria Many /HPF (0-FEW) White Blood Count 17.3 x10^3/uL (4.0-11.0) Red Blood Count 5.33 x10^6/uL (4.30-5.70) Hemoglobin 16.2 g/dL (13.0-17.5) Hematocrit 47.1 % (39.0-53.0) Mean Corpuscular Volume 88 fL (79-100) Mean Corpuscular Hemoglobin 30 pg (25-35) Mean Corpuscular Hemoglobin Concent 34 g/dL (31-37) Red Cell Distribution Width 14.4 % (11.5-14.5) Platelet Count 517 x10^3/uL (140-400) Neutrophils (%) (Auto) 80 % (31-73) Lymphocytes (%) (Auto) 6 % (24-48) Monocytes (%) (Auto) 14 % (0-9) Eosinophils (%) (Auto) 0 % (0-3) Basophils (%) (Auto) 0 % (0-3) Neutrophils # (Auto) 13.8 x10^3/uL (1.8-7.7) Lymphocytes # (Auto) 1.0 x10^3/uL (1.0-4.8) Monocytes # (Auto) 2.4 x10^3/uL (0.0-1.1) Eosinophils # (Auto) 0.0 x10^3/uL (0.0-0.7) Basophils # (Auto) 0.0 x10^3/uL (0.0-0.2) Segmented Neutrophils % 71 % (35-66) Band Neutrophils % 10 % (0-9) Lymphocytes % 8 % (24-48) Monocytes % 11 % (0-10) Platelet Estimate Increased (ADEQUATE) Prothrombin Time 14.6 SEC (11.7-14.0) Prothromb Time International Ratio 1.2 (0.8-1.1) Activated Partial Thromboplast Time 29 SEC (24-38) Gastric Fluid Occult Blood Positive (NEG) Stool Occult Blood Positive (NEG) Sodium Level 141 mmol/L (136-145) Potassium Level 2.7 mmol/L (3.5-5.1) Chloride Level 109 mmol/L (98-107) Carbon Dioxide Level 24 mmol/L (21-32) Anion Gap 8 (6-14) Blood Urea Nitrogen 22 mg/dL (8-26) Creatinine 1.0 mg/dL (0.7-1.3) Estimated GFR (Cockcroft-Gault) 77.0 Glucose Level 147 mg/dL (70-99) Lactic Acid Level 2.1 mmol/L (0.4-2.0) Calcium Level 5.6 mg/dL (8.5-10.1) Magnesium Level 1.3 mg/dL (1.8-2.4) Total Bilirubin 1.1 mg/dL (0.2-1.0) Direct Bilirubin 0.2 mg/dL (0.0-0.2) Aspartate Amino Transf (AST/SGOT) 10 U/L (15-37) Alanine Aminotransferase (ALT/SGPT) 6 U/L (16-63) Alkaline Phosphatase 83 U/L (46-116) Troponin I Quantitative < 0.017 ng/mL (0.000-0.055) Total Protein 3.7 g/dL (6.4-8.2) Albumin 1.6 g/dL (3.4-5.0) Lipase 25 U/L (73-393) VTE Prophylaxis Ordered VTE Prophylaxis Devices: Yes VTE Pharmacological Prophylaxi: Contraindicated (GI bleed) Assessment/Plan Assessment/Plan ASSESSMENT Severe Sepsis Secondary to UTI in setting of Indwelling Pretty Cath Leukocytosis GI bleed Nausea and Vomiting hx of recent SBO Hyokalemia, severe A Fib DM with a1c of 12.8% Prior history of severe stroke with hemiparesis and expressive aphasia CAD w/ stents HYPERTENSION HLD, hx of COPD peripheral neuropathy, hx seizure OA, allergic rhinitis hypothyroidism PLAN CVL placed in ED IVF, Vanc Zosyn, follow cultures lactate 2.1 admission replace K hold AC given GI bleed, stable Hb IV PPI therapy NPO for now GI consult SCDs full code labs in AM Justicifation of Admission Dx: Justifications for Admission: Justification of Admission Dx: Yes Sepsis: Tachypnea SARA BEAVERS MD Jan 19, 2020 13:46
[2020-01-19] MEDS ORDERED: PHENYTOIN SODIUM EXTENDED 100 MG CAPSULE PO SCH (14:00)
--- NOTE | 2020-01-19 14:03 | PDOC2 ---
GI CONSULT Reason For Consult: GI bleeding HPI: HPI: 59 y/o male from [place] due to recurrent nausea and vomiting. No history from patient as aphasic from CVA. Known to us however. Per ER staff, "dark brown" emesis, not coffee-grounds, but gastroccult positive. Stool brown but heme positive as well. As on last visit, dilated colon on CT though small bowel not so big this time. Chronic issues with stooling; last time seemed better after Relistor and laxatives. On Pepcid at the home and several cathartics. Got enema in ER with some results. Unknown other GI history. Has had more diffuse ileus pattern in the past. PMH: PMH: Afib, CAD with PCI, CHF, HTN, HLD, COPD, peripheral neuropathy, seizures, post CVA, OA, DM, allergic rhinitis, hypothyroidism, recurrent UTI'. S/p suprapubic catheter. FH: Family History: CAD Social History: Smoke: No ALCOHOL: none Drugs: None ROS: Not obtainable as non-verbal. Vitals: Vitals: Vital Signs Date Time Temp Pulse Resp B/P (MAP) Pulse Ox O2 Delivery O2 Flow Rate FiO2 01/19/20 12:03 146/96 (113) 01/19/20 11:36 108 26 98 Room Air 01/19/20 09:32 98.0 98.0 Labs: Labs: Laboratory Tests Test 01/19/20 09:53 01/19/20 10:09 01/19/20 10:35 01/19/20 11:37 Urine Collection Type Unknown Urine Color [place] Urine Clarity Cloudy Urine pH 6.0 (<5.0-8.0) Urine Specific [place] 1.025 (1.000-1.030) Urine Protein 100 mg/dL (NEG-TRACE) Urine Glucose (UA) Negative mg/dL (NEG) Urine Ketones (Stick) 15 mg/dL (NEG) Urine Blood Moderate (NEG) Urine Nitrite Negative (NEG) Urine Bilirubin Moderate (NEG) Urine Urobilinogen Dipstick 1.0 mg/dL (0.2 mg/dL) Urine Leukocyte Esterase Large (NEG) Urine RBC >40 /HPF (0-2) Urine WBC Tntc /HPF (0-4) Urine Bacteria Many /HPF (0-FEW) White Blood Count 17.3 x10^3/uL (4.0-11.0) Red Blood Count 5.33 x10^6/uL (4.30-5.70) Hemoglobin 16.2 g/dL (13.0-17.5) Hematocrit 47.1 % (39.0-53.0) Mean Corpuscular Volume 88 fL (79-100) Mean Corpuscular Hemoglobin 30 pg (25-35) Mean Corpuscular Hemoglobin Concent 34 g/dL (31-37) Red Cell Distribution Width 14.4 % (11.5-14.5) Platelet Count 517 x10^3/uL (140-400) Neutrophils (%) (Auto) 80 % (31-73) Lymphocytes (%) (Auto) 6 % (24-48) Monocytes (%) (Auto) 14 % (0-9) Eosinophils (%) (Auto) 0 % (0-3) Basophils (%) (Auto) 0 % (0-3) Neutrophils # (Auto) 13.8 x10^3/uL (1.8-7.7) Lymphocytes # (Auto) 1.0 x10^3/uL (1.0-4.8) Monocytes # (Auto) 2.4 x10^3/uL (0.0-1.1) Eosinophils # (Auto) 0.0 x10^3/uL (0.0-0.7) Basophils # (Auto) 0.0 x10^3/uL (0.0-0.2) Segmented Neutrophils % 71 % (35-66) Band Neutrophils % 10 % (0-9) Lymphocytes % 8 % (24-48) Monocytes % 11 % (0-10) Platelet Estimate Increased (ADEQUATE) Prothrombin Time 14.6 SEC (11.7-14.0) Prothromb Time International Ratio 1.2 (0.8-1.1) Activated Partial Thromboplast Time 29 SEC (24-38) Gastric Fluid Occult Blood Positive (NEG) Stool Occult Blood Positive (NEG) Sodium Level 141 mmol/L (136-145) Potassium Level 2.7 mmol/L (3.5-5.1) Chloride Level 109 mmol/L (98-107) Carbon Dioxide Level 24 mmol/L (21-32) Anion Gap 8 (6-14) Blood Urea Nitrogen 22 mg/dL (8-26) Creatinine 1.0 mg/dL (0.7-1.3) Estimated GFR (Cockcroft-Gault) 77.0 Glucose Level 147 mg/dL (70-99) Lactic Acid Level 2.1 mmol/L (0.4-2.0) Calcium Level 5.6 mg/dL (8.5-10.1) Magnesium Level 1.3 mg/dL (1.8-2.4) Total Bilirubin 1.1 mg/dL (0.2-1.0) Direct Bilirubin 0.2 mg/dL (0.0-0.2) Aspartate Amino Transf (AST/SGOT) 10 U/L (15-37) Alanine Aminotransferase (ALT/SGPT) 6 U/L (16-63) Alkaline Phosphatase 83 U/L (46-116) Troponin I Quantitative < 0.017 ng/mL (0.000-0.055) Total Protein 3.7 g/dL (6.4-8.2) Albumin 1.6 g/dL (3.4-5.0) Lipase 25 U/L (73-393) Allergies: Coded Allergies: No Known Drug Allergies (Unverified , 12/21/18) Medications: Current Medications Medications (Trade) Dose Ordered Sig/Sharon Route PRN Reason Start Time Stop Time Status Last Admin Dose Admin Piperacillin Sod/ Tazobactam Sod 4.5 gm/Sodium Chloride 100 ml @ 200 mls/hr 1X ONCE IV 01/19/20 10:00 01/19/20 10:29 DC 01/19/20 10:22 Sodium Chloride 1,000 ml @ 2,100 mls/hr Q29M IV 01/19/20 09:46 01/19/20 10:46 DC 01/19/20 13:29 Vancomycin HCl 1.75 gm/Sodium Chloride 500 ml @ 250 mls/hr 1X ONCE IV 01/19/20 10:30 01/19/20 12:29 DC 01/19/20 11:07 Ondansetron HCl (Zofran) 4 mg 1X ONCE IVP 01/19/20 10:45 01/19/20 10:46 DC 01/19/20 10:39 Pantoprazole Sodium 80 mg/ Sodium Chloride 100 ml @ 10 mls/hr Q10H IV 01/19/20 12:00 01/19/20 12:38 Pantoprazole Sodium (PROTONIX VIAL for IV PUSH) 40 mg 1X ONCE IVP 01/19/20 12:00 01/19/20 12:01 DC 01/19/20 12:40 Potassium Chloride/Water 100 ml @ 100 mls/hr Q1H IV 01/19/20 13:15 01/19/20 15:14 01/19/20 13:30 Docusate Sodium (Enemeez) 283 mg 1X ONCE ME 01/19/20 13:30 01/19/20 13:31 DC 01/19/20 13:30 Imaging: Imaging: CT A/P with dilated colon containing stool. As on last admission, large rectum. PE: GEN: Can't gauge level of distress, but appears uncomfortable. HEENT: Atraumatic, PERRLA LUNGS: CTAB HEART: RRR, no murmurs ABD: Few BS, S/ND/tender?, no masses EXTREMITY: No edema SKIN: No rashes, no jaundice NEURO/PSYCH: Hard to gauge orientation. A/P: A/P: IMP: Recurrent N and V. No good evidence for meaningful GI bleeding. Suspect sepsis precipitating much of this (urinary highly suspect). Chronic colonic ileus; did respond some to ER intervention. REC: NG as vomiting. IVF's per primary. IV PPI. Watch for any overt bleedings. One dose of Relistor and observe. Ducolax supp prn. NPO for now. Empiric antibiotics for suspected UTI. --will follow. Thanks. KRISTINE ANDRADE MD Jan 19, 2020 14:03
[2020-01-19] MEDS ORDERED: BISACODYL 10 MG SUPP.RECT. PR PRN (14:15)
[2020-01-19 14:17] LABS: BASE EXCESS COOX 1 mmol/L (-3-3); HCO3 COOX 26 mmol/L (21-28); METHEMOGLOBIN 0.4 % (0.0-1.9); PCO2 COOX 41 mmHg (35-46); PO2 COOX 70 mmHg (75-108); SAT O2 COOX 94 % (92-99)
[2020-01-19] MEDS: VANCOMYCIN PER PHARMACY MC PRN (14:46)
[2020-01-19] MEDS ORDERED: METHYLNALTREXONE 12 MG/0.6 ML VIAL. SQ ONE (15:00)
[2020-01-19] MEDS ORDERED: MAGNESIUM SULFATE 4GM 100 ML IV ONE (15:30)
--- NOTE | 2020-01-19 15:30 | NUR ---
Pharmacy Vancomycin Dosing Note S:Consulted to monitor and dose vancomycin started 01/19/20. O:HUMAIRA BORJA is a 59 year old M with Sepsis UTI . Height: 6 feet, 0 inches Weight: 76.6 kg Silver Body Weight: 77.60 Adjusted Body Weight: 70.16 Dosing Weight: Actual Other Antibiotics: ZOSYN LABS: Last BUN: Last Creatinine: 1.0 Creatinine Clearance: 88 mL/min Last WBC: 17.3 Last Procalcitonin: Tmax (past 24 hours): 98.0 Microbiology: I/O: 2250/1100 Drug Levels: Last level: on at Last dose given 01/19/20 at 1100 Vancomycin Dosing: Loading Dose: 1750 mg x1 Dosing Weight: Actual Target Trough: 15-20 A: Based on: WEIGHT AND RENAL FUNCTION, VANCOMYCIN 1.75GM IV BOLUS GIVEN, P: 1. Begin Vancomycin 1250 mg IV q12h TONIGHT 2. Follow up Trough level on 01/20/20 at 2230 3. Pharmacy will continue to monitor, follow and adjust therapy as needed. RADHA [place] [facility], 01/19/20 1378
--- NOTE | 2020-01-19 15:30 | NUR ---
Patient admit to room 116 at 1530 for GI bleed and Sepsis. Patient on RA, BP wnl, HR sinus tach 102. Alert but expressive dysphagic, right upper, and right lower extremity flaccid from prior CVA. ED nurse reported large liquid stool in the ED prior to transferring here. Suprapubic catheter was replaced by this nurse per Dr Menendez. Consults were called and patients home med list was updated. Patient seems to be resting comfortably. Will continue to monitor
[2020-01-19] MEDS: FOSPHENYTOIN 100 MG/2 ML VIAL. IV SCH ×2 (15:56→22:35)
[2020-01-19] MEDS ORDERED: CALCIUM GLUCONATE 2,000 MG in IV NORMAL SALINE 100ML 100 ML IV ONE (16:00)
[2020-01-19] MEDS ORDERED: ONDANSETRON PF 4 MG/2 ML VIAL. IVP PRN (17:30)
[2020-01-19] MEDS: POTASSIUM CHLORIDE 20MEQ 100 ML IV SCH ×3 (17:30→22:37)
[2020-01-19] MEDS: INSULIN LISPRO 300 UNITS/3 ML VIAL. SQ SCH (17:32)
[2020-01-19] MEDS: PANTOPRAZOLE IV PUSH 40 MG VIAL. IVP SCH ×2 (18:00→18:18)
[2020-01-19] MEDS: PIPERACILLIN/TAZOBACTAM 4.5 GM in IV NORMAL SALINE 100ML 100 ML IV SCH (18:18)
[2020-01-19] MEDS ORDERED: PHEN200C3 PO (19:13)
[2020-01-19] MEDS ORDERED: FAMO-63 PO (19:13)
[2020-01-19] MEDS ORDERED: APIX5TAB PO (19:13)
[2020-01-19] MEDS ORDERED: OXYB10TA7 PO (19:13)
[2020-01-19] MEDS ORDERED: METO-239 PO (19:13)
[2020-01-19] MEDS ORDERED: FAMOTIDINE 20 MG/2 ML VIAL IVP SCH (21:00)
[2020-01-19] MEDS: DOCUSATE SODIUM 100 MG CAPSULE. PO SCH (21:00)
[2020-01-19] MEDS: SENNOSIDES/DOCUSATE 8.6/50MG TABLET. PO SCH (21:00)
[2020-01-19] MEDS: VANCOMYCIN 1.25 GM in IV NORMAL SALINE 250ML 250 ML IV SCH (22:36)
[2020-01-19 22:37] LABS: HEMATOCRIT 39.1 % (39.0-53.0); HEMOGLOBIN 13.3 g/dL (13.0-17.5); RED BLOOD COUNT 4.41 x10^6/uL (4.30-5.70); RED CELL DISTRIBUTION WIDTH 14.2 % (11.5-14.5); WHITE BLOOD COUNT 12.7 x10^3/uL (4.0-11.0)
[2020-01-19 22:47] LABS: CALCIUM 7.9 mg/dL (8.5-10.1); CREATININE 0.7 mg/dL (0.7-1.3); GFR 116.2; MAGNESIUM 2.4 mg/dL (1.8-2.4)
[2020-01-20] VITALS (17 sets, daily range): BP systolic 124–159; BP diastolic 84–100
[2020-01-20] MEDS: PIPERACILLIN/TAZOBACTAM 4.5 GM in IV NORMAL SALINE 100ML 100 ML IV SCH ×5 (00:39→23:57)
[2020-01-20 05:40] LABS: CALCIUM 7.5 mg/dL (8.5-10.1); CREATININE 0.6 mg/dL (0.7-1.3); GFR 138.9; POTASSIUM 3.6 mmol/L (3.5-5.1)
[2020-01-20 05:46] LABS: BASO % 0 % (0-3); EOS % 0 % (0-3); HEMATOCRIT 38.3 % (39.0-53.0); HEMOGLOBIN 12.7 g/dL (13.0-17.5); LYMPH # 1.3 x10^3/uL (1.0-4.8); LYMPH % 12 % (24-48); MEAN CORPUSCULAR HEMOGLOBIN 29 pg (25-35); MEAN CORPUSCULAR HGB CONC 33 g/dL (31-37); MEAN CORPUSCULAR VOLUME 89 fL (79-100); MONO % 18 % (0-9); NEUT # 7.8 x10^3/uL (1.8-7.7); NEUT % 70 % (31-73); PLATELET COUNT 419 x10^3/uL (140-400); RED BLOOD COUNT 4.32 x10^6/uL (4.30-5.70); RED CELL DISTRIBUTION WIDTH 14.4 % (11.5-14.5); WHITE BLOOD COUNT 11.2 x10^3/uL (4.0-11.0)
[2020-01-20] MEDS: PANTOPRAZOLE IV PUSH 40 MG VIAL. IVP SCH ×2 (06:41→17:18)
[2020-01-20] MEDS: FOSPHENYTOIN 100 MG/2 ML VIAL. IV SCH ×3 (06:42→21:43)
[2020-01-20] MEDS: INSULIN LISPRO 300 UNITS/3 ML VIAL. SQ SCH ×3 (08:00→17:00)
[2020-01-20] MEDS: DOCUSATE SODIUM 100 MG CAPSULE. PO SCH ×2 (09:00→21:44)
[2020-01-20] MEDS: SENNOSIDES/DOCUSATE 8.6/50MG TABLET. PO SCH ×2 (09:00→21:44)
--- NOTE | 2020-01-20 09:20 | CONS ---
DATE OF CONSULTATION: 01/20/2020 I was asked to see this 59-year-old gentleman for sepsis, COPD, ICU admit. HISTORY OF PRESENT ILLNESS: The patient has history of CVA and has expressive aphasia. All of the information was obtained from chart, nursing staff. He was brought to the Emergency Room by EMS. He is a care home resident. He had an admission in November for a small-bowel obstruction, did not require surgery. The patient had nausea and vomiting and nausea was heme positive. GI was consulted, they did not think there is significant GI bleeding. The patient has a history of atrial fibrillation, is on anticoagulation. He is on room air. He appears comfortable. He has history of smoking and COPD. PAST MEDICAL HISTORY: Paroxysmal atrial fibrillation, COPD, CHF, coronary artery disease, diabetes mellitus, history of a small-bowel obstruction, hypertension, hypothyroidism, history of seizure, dysphagia. ALLERGIES: No known drug allergies. MEDICATIONS: Levothyroxine, vancomycin, Protonix, insulin. SOCIAL HISTORY: Former smoker, details are not known. FAMILY HISTORY: Hypertension per chart. REVIEW OF SYSTEMS: As mentioned as above, I have discussed the patient with RN, other systems otherwise negative. PHYSICAL EXAMINATION: GENERAL: This is a well-developed gentleman. VITAL SIGNS: His O2 saturation on room air is 98%, respiratory rate 18, heart rate 100, blood pressure 132/86, temperature 97.5. HEENT: Normocephalic, atraumatic. Pupils equal, round, reactive to light. Nose is clear. NECK: There is no lymphadenopathy or thyromegaly. CARDIOVASCULAR: Regular rate and rhythm. PMI is nondisplaced. CHEST: Inspection is normal. LUNGS: Clear to auscultation. ABDOMEN: Distended, but soft. Bowel sounds diminished. EXTREMITIES: There is no edema. LYMPHATICS: There is no lymphadenopathy. NEUROLOGIC: Alert, does not follow commands. LABORATORY STUDIES: I reviewed the following lab data: CT of abdomen and pelvis did show diffusely dilated colon with large amount of stool and gas without any findings to suggest mechanical obstruction with colonic wall thickening, adynamic ileus, well-positioned suprapubic catheter, anasarca with generalized body wall edema. Chest x-ray does not show infiltrate, does show dilated bowels. WBC on admission 17.3, now 11.2; hemoglobin on admission 16.2 and now 12.7, platelets 419. Sodium 138, potassium 3.6, chloride 105, CO2 of 25, glucose 138, BUN 24, creatinine 0.6. ABG: pH 7.42, pCO2 of 41, pO2 of 70 on room air. IMPRESSION: 1. Sepsis ? intra-abdominal source. 2. Chronic obstructive pulmonary disease. 3. Coronary artery disease. 4. History of cerebrovascular accident with expressive aphasia. 5. Small-bowel obstruction. 6. Paroxysmal atrial fibrillation. 7. Question of gastrointestinal bleeding. 8. Diabetes mellitus. 9. Hypothyroidism. 10. Hypertension. 11. COVID-19 PUI. PLAN AND RECOMMENDATIONS: 1. Titrate FiO2 to keep O2 saturation 92%. 2. We will start bronchodilator When his COVID-19 testing is back and is negative. 3. Continue antibiotic. 4. Follow up cultures. 5. Gastroenterology is consulted. 6. Elevate head of bed. 7. Protonix for stress ulcer prophylaxis. 8. SCDs for DVT prophylaxis. 9. The findings and recommendations were discussed with RN. Thank you very much for allowing me to participate in care of this very nice gentleman. ELIJAH VINCENT M.D. : MARVIN/ge JOB#: [id number] / [id number]
--- NOTE | 2020-01-20 11:17 | PDOC2 ---
CONSULT Date of Consult Date of Consult DATE: 01/20/20 TIME: 11:12 Reason for Consult Reason for Consult: Coronary artery disease, atrial fibrillation Referring Physician Referring Physician: Dr. Menendez Identification/Chief Complaint Chief Complaint Nausea and vomiting Source Source: Chart review History of Present Illness Reason for Visit: The patient is a 59-year-old male with a history of coronary artery disease, hypertension, CVA and atrial fibrillation who presented to the emergency room with nausea and vomiting. Work-up was consistent with probable sepsis and a possible GI bleed. Patient has been treated with antibiotics overnight and has been evaluated by the GI service. He additionally has a history of atrial fibrillation which is reasonably controlled at this time and is on oral anticoagulants. He additionally has a history of hypertension heart failure and diabetes mellitus. Past Medical History Cardiovascular: AFIB, CAD, CHF, HTN, Hyperlipidemia Pulmonary: COPD CENTRAL NERVOUS SYSTEM: Periperal neuropathy, Seizure GI: Constipation, GERD Heme/Onc: No pertinent hx Hepatobiliary: No pertinent hx Psych: No pertinent hx Musculoskeletal: Osteoarthritis Rheumatologic: No pertinent hx Infectious disease: No pertinent hx Renal/: No pertinent hx Endocrine: Diabetes, Hypothyroidism Past Surgical History Past Surgical History: Other (Cardiac stents) Family History Family History: Coronary Artery Disease, High Cholestrol Social History Quit ALCOHOL: none Drugs: None Lives: [facility] Current Problem List Problem List Problems Medical Problems: (1) GI bleed Status: Acute (2) Severe sepsis Status: Acute Current Medications Current Medications Current Medications Sodium Chloride 1,000 ml @ 1,000 mls/hr 1X ONCE IV ; Start 01/19/20 at 09:45; Stop 01/19/20 at 10:44; Status DC Piperacillin Sod/ Tazobactam Sod 4.5 gm/Sodium Chloride 100 ml @ 200 mls/hr 1X ONCE IV Last administered on 01/19/20at 10:22; Start 01/19/20 at 10:00; Stop at 10:29; Status DC Vancomycin HCl (Vanco Per Pharmacy) 1 each PRN DAILY PRN MC SEE COMMENTS; Start 01/19/20 at 10:00; Status UNV Sodium Chloride 1,000 ml @ 2,100 mls/hr Q29M IV Last administered on 01/19/20at 13:29; Start 01/19/20 at 09:46; Stop 01/19/20 at 10:46; Status DC Vancomycin HCl 1.75 gm/Sodium Chloride 500 ml @ 250 mls/hr 1X ONCE IV Last administered on 01/19/20at 11:07; Start 01/19/20 at 10:30; Stop 01/19/20 at 12:29; Status DC Ondansetron HCl (Zofran) 4 mg 1X ONCE IVP Last administered on 01/19/20at 10:39; Start 01/19/20 at 10:45; Stop 01/19/20 at 10:46; Status DC Pantoprazole Sodium 80 mg/ Sodium Chloride 100 ml @ 10 mls/hr Q10H IV Last administered on 01/19/20at 12:38; Start 01/19/20 at 12:00; Stop 01/19/20 at 14:10; Status DC Pantoprazole Sodium (PROTONIX VIAL for IV PUSH) 40 mg 1X ONCE IVP Last administered on 01/19/20at 12:40; Start 01/19/20 at 12:00; Stop 01/19/20 at 12:01; Status DC Potassium Chloride/Water 100 ml @ 100 mls/hr Q1H IV Last administered on 01/19/20at 15:43; Start 01/19/20 at 13:15; Stop 01/19/20 at 15:14; Status DC Docusate Sodium (Enemeez) 283 mg 1X ONCE NM Last administered on 01/19/20at 13:30; Start 01/19/20 at 13:30; Stop 01/19/20 at 13:31; Status DC Phenytoin Sodium (Dilantin) 200 mg BID PO ; Start 01/19/20 at 14:00; Stop 01/19/20 at 15:40; Status DC Acetaminophen (Tylenol) 650 mg PRN Q6HRS PRN PO Headaches, Temp > 101.5'; Start 01/19/20 at 13:30 Famotidine (Pepcid Vial) 20 mg BID IVP ; Start 01/19/20 at 21:00; Stop 01/19/20 at 14:08; Status DC Sodium Chloride (Normal Saline Flush) 3 ml QSHIFT PRN IV AFTER MEDS AND BLOOD DRAWS; Start 01/19/20 at 13:30 Sodium Chloride 1,000 ml @ 100 mls/hr Q10H IV Last administered on 01/19/20at 15:46; Start 01/19/20 at 13:21 Senna/Docusate Sodium (Senna Plus) 1 tab BID PO ; Start 01/19/20 at 21:00 Docusate Sodium (Colace) 100 mg BID PO ; Start 01/19/20 at 21:00 Vancomycin HCl (Vanco Per Pharmacy) 1 each PRN DAILY PRN MC SEE COMMENTS Last administered on 01/19/20at 14:46; Start 01/19/20 at 13:30 Piperacillin Sod/ Tazobactam Sod (Zosyn Per Pharmacy) 1 each PRN DAILY PRN MC SEE COMMENTS; Start 01/19/20 at 13:30 Piperacillin Sod/ Tazobactam Sod 4.5 gm/Sodium Chloride 100 ml @ 200 mls/hr Q6HRS IV Last administered on 01/20/20at 06:41; Start 01/19/20 at 18:00 Levothyroxine Sodium 100 mcg/ Sodium Chloride 5 ml @ 100 mls/hr Q3DAYS IV ; Start 01/25/20 at 09:00 Insulin Human Lispro (HumaLOG) 0-7 UNITS TIDWMEALS SQ ; Start 01/19/20 at 17:00 Dextrose (Dextrose 50%-Water Syringe) 12.5 gm PRN Q15MIN PRN IV SEE COMMENTS; Start 01/19/20 at 13:45 Methylnaltrexone [place] (Relistor) 12 mg 1X ONCE SQ Last administered on 01/19/20at 15:46; Start 01/19/20 at 15:00; Stop 01/19/20 at 15:01; Status DC Pantoprazole Sodium (PROTONIX VIAL for IV PUSH) 40 mg BID66 IVP Last administered on 01/20/20at 06:41; Start 01/19/20 at 18:00 Bisacodyl (Dulcolax Supp) 10 mg PRN DAILY PRN NM CONSTIPATION; Start 01/19/20 at 14:15 Vancomycin HCl 1.25 gm/Sodium Chloride 250 ml @ 167 mls/hr Q12H IV Last administered on 01/19/20at 22:36; Start 01/19/20 at 23:00 Vancomycin HCl (Vancomycin Trough Level) 1 each 1X ONCE MC ; Start 01/20/20 at 22:30; Stop 01/20/20 at 22:31 Magnesium Sulfate 100 ml @ 25 mls/hr 1X ONCE IV Last administered on 01/19/20at 16:50; Start 01/19/20 at 15:30; Stop 01/19/20 at 19:29; Status DC Potassium Chloride/Water 100 ml @ 100 mls/hr Q1H IV Last administered on 01/19/20at 22:37; Start 01/19/20 at 16:00; Stop 01/19/20 at 18:59; Status DC Calcium Gluconate 2000 mg/Sodium Chloride 120 ml @ 220 mls/hr 1X ONCE IV Last administered on 01/19/20at 16:18; Start 01/19/20 at 16:00; Stop 01/19/20 at 16:32; Status DC Fosphenytoin Sodium (Cerebyx) 150 mg Q8HRS IV Last administered on 01/20/20at 06:42; Start 01/19/20 at 16:00 Ondansetron HCl (Zofran) 4 mg PRN Q6HRS PRN IVP NAUSEA/VOMITING Last administered on 01/19/20at 17:30; Start 01/19/20 at 17:30 Active Scripts Active Hydrocodone-Apap 5-325 (Hydrocodone Bit/Acetaminophen) 1 Tab Tablet 1 Tab PO PRN Q4HRS PRN Polyethylene Glycol 3350 17 Gm Powd.pack 17 Gm PO DAILY Aspirin 81 Mg Tab.chew 81 Mg PO DAILYWBKFT Synthroid (Levothyroxine Sodium) 100 Mcg Tablet 200 Mcg PO DAILY06 Reported Pepcid (Famotidine) 20 Mg Tablet 20 Mg PO HS Eliquis (Apixaban) 5 Mg Tablet 5 Mg PO BID Ditropan Xl (Oxybutynin Chloride) 10 Mg Tab.er.24 1 Tab PO DAILY 30 Days Phenytoin Sodium Extended 200 Mg Capsule 2 Cap PO HS 30 Days Metoprolol Succinate ( Xl ) (Metoprolol Succinate) 25 Mg Tab.er.24h 2 Tab PO DAILY Fluoxetine Hcl 40 Mg Capsule 1 Cap PO DAILYWBKFT Atorvastatin Calcium 20 Mg Tablet 20 Mg PO HS Insulin Aspart Flexpen (Insulin Aspart) 100 Unit/1 Ml Insuln.pen 0 SQ QIDACHS FSBS 181-220 = 2 units 221-260 = 4 units 261-300 = 6 units 301-350 = 8 units 351-400 = 10 units 401 or higher = 12 units Gabapentin (Gabapentin) 300 Mg Capsule 300 Mg PO BID Renacidin Irrigation Solution (Citric AC/Gluconolact/Mag Carb) 30 Ml Irrig.soln 30 Ml IR QMWF Clamp catheter for 15 minutes, then unclamp and drain by gravity. Dulera 200 Mcg/5 Mcg Inhaler (Mometasone/Formoterol) 13 Gm Hfa.aer.ad 1 Puff IH HS Furosemide 20 Mg Tablet 1 Tab PO DAILY Allergies Allergies: Coded Allergies: No Known Drug Allergies (Unverified , 12/21/18) ROS General: YES: Fatigue Gastrointestinal: Yes Nausea, Yes Vomiting Physical Exam Physical Exam Deferred Vitals VITALS Vital Signs Date Time Temp Pulse Resp B/P (MAP) Pulse Ox O2 Delivery O2 Flow Rate FiO2 01/20/20 10:01 106 20 151/90 (110) 98 Room Air 01/20/20 09:23 98.3 98.3 Labs Labs Laboratory Tests Test 01/19/20 09:53 01/19/20 10:09 01/19/20 10:35 01/19/20 11:37 Urine Collection Type Unknown Urine Color [place] Urine Clarity Cloudy Urine pH 6.0 (<5.0-8.0) Urine Specific [place] 1.025 (1.000-1.030) Urine Protein 100 mg/dL (NEG-TRACE) Urine Glucose (UA) Negative mg/dL (NEG) Urine Ketones (Stick) 15 mg/dL (NEG) Urine Blood Moderate (NEG) Urine Nitrite Negative (NEG) Urine Bilirubin Moderate (NEG) Urine Urobilinogen Dipstick 1.0 mg/dL (0.2 mg/dL) Urine Leukocyte Esterase Large (NEG) Urine RBC >40 /HPF (0-2) Urine WBC Tntc /HPF (0-4) Urine Bacteria Many /HPF (0-FEW) White Blood Count 17.3 x10^3/uL (4.0-11.0) Red Blood Count 5.33 x10^6/uL (4.30-5.70) Hemoglobin 16.2 g/dL (13.0-17.5) Hematocrit 47.1 % (39.0-53.0) Mean Corpuscular Volume 88 fL (79-100) Mean Corpuscular Hemoglobin 30 pg (25-35) Mean Corpuscular Hemoglobin Concent 34 g/dL (31-37) Red Cell Distribution Width 14.4 % (11.5-14.5) Platelet Count 517 x10^3/uL (140-400) Neutrophils (%) (Auto) 80 % (31-73) Lymphocytes (%) (Auto) 6 % (24-48) Monocytes (%) (Auto) 14 % (0-9) Eosinophils (%) (Auto) 0 % (0-3) Basophils (%) (Auto) 0 % (0-3) Neutrophils # (Auto) 13.8 x10^3/uL (1.8-7.7) Lymphocytes # (Auto) 1.0 x10^3/uL (1.0-4.8) Monocytes # (Auto) 2.4 x10^3/uL (0.0-1.1) Eosinophils # (Auto) 0.0 x10^3/uL (0.0-0.7) Basophils # (Auto) 0.0 x10^3/uL (0.0-0.2) Segmented Neutrophils % 71 % (35-66) Band Neutrophils % 10 % (0-9) Lymphocytes % 8 % (24-48) Monocytes % 11 % (0-10) Platelet Estimate Increased (ADEQUATE) Prothrombin Time 14.6 SEC (11.7-14.0) Prothromb Time International Ratio 1.2 (0.8-1.1) Activated Partial Thromboplast Time 29 SEC (24-38) Gastric Fluid Occult Blood Positive (NEG) Stool Occult Blood Positive (NEG) Sodium Level 141 mmol/L (136-145) Potassium Level 2.7 mmol/L (3.5-5.1) Chloride Level 109 mmol/L (98-107) Carbon Dioxide Level 24 mmol/L (21-32) Anion Gap 8 (6-14) Blood Urea Nitrogen 22 mg/dL (8-26) Creatinine 1.0 mg/dL (0.7-1.3) Estimated GFR (Cockcroft-Gault) 77.0 Glucose Level 147 mg/dL (70-99) Lactic Acid Level 2.1 mmol/L (0.4-2.0) Calcium Level 5.6 mg/dL (8.5-10.1) Magnesium Level 1.3 mg/dL (1.8-2.4) Total Bilirubin 1.1 mg/dL (0.2-1.0) Direct Bilirubin 0.2 mg/dL (0.0-0.2) Aspartate Amino Transf (AST/SGOT) 10 U/L (15-37) Alanine Aminotransferase (ALT/SGPT) 6 U/L (16-63) Alkaline Phosphatase 83 U/L (46-116) Troponin I Quantitative < 0.017 ng/mL (0.000-0.055) Total Protein 3.7 g/dL (6.4-8.2) Albumin 1.6 g/dL (3.4-5.0) Lipase 25 U/L (73-393) Thyroid Stimulating Hormone (TSH) 2.384 uIU/mL (0.358-3.74) Test 01/19/20 14:10 01/19/20 16:05 01/19/20 16:55 01/19/20 22:10 O2 Saturation 94 % (92-99) Arterial Blood pH 7.42 (7.35-7.45) Arterial Blood pCO2 at Patient Temp 41 mmHg (35-46) Arterial Blood pO2 at Patient Temp 70 mmHg (75-108) Arterial Blood HCO3 26 mmol/L (21-28) Arterial Blood Base Excess 1 mmol/L (-3-3) Oxyhemoglobin 93.0 % Methemoglobin 0.4 % (0.0-1.9) Carbon Monoxide, Quantitative 0.4 % (0.0-1.9) FiO2 21 Lactic Acid Level 1.2 mmol/L (0.4-2.0) Glucose (Fingerstick) 185 mg/dL (70-99) White Blood Count 12.7 x10^3/uL (4.0-11.0) Red Blood Count 4.41 x10^6/uL (4.30-5.70) Hemoglobin 13.3 g/dL (13.0-17.5) Hematocrit 39.1 % (39.0-53.0) Mean Corpuscular Volume 89 fL (79-100) Mean Corpuscular Hemoglobin 30 pg (25-35) Mean Corpuscular Hemoglobin Concent 34 g/dL (31-37) Red Cell Distribution Width 14.2 % (11.5-14.5) Platelet Count 411 x10^3/uL (140-400) Sodium Level 138 mmol/L (136-145) Potassium Level 4.0 mmol/L (3.5-5.1) Chloride Level 103 mmol/L (98-107) Carbon Dioxide Level 27 mmol/L (21-32) Anion Gap 8 (6-14) Blood Urea Nitrogen 25 mg/dL (8-26) Creatinine 0.7 mg/dL (0.7-1.3) Estimated GFR (Cockcroft-Gault) 116.2 Glucose Level 143 mg/dL (70-99) Calcium Level 7.9 mg/dL (8.5-10.1) Magnesium Level 2.4 mg/dL (1.8-2.4) Test 01/20/20 01:11 01/20/20 04:50 Glucose (Fingerstick) 147 mg/dL (70-99) White Blood Count 11.2 x10^3/uL (4.0-11.0) Red Blood Count 4.32 x10^6/uL (4.30-5.70) Hemoglobin 12.7 g/dL (13.0-17.5) Hematocrit 38.3 % (39.0-53.0) Mean Corpuscular Volume 89 fL (79-100) Mean Corpuscular Hemoglobin 29 pg (25-35) Mean Corpuscular Hemoglobin Concent 33 g/dL (31-37) Red Cell Distribution Width 14.4 % (11.5-14.5) Platelet Count 419 x10^3/uL (140-400) Neutrophils (%) (Auto) 70 % (31-73) Lymphocytes (%) (Auto) 12 % (24-48) Monocytes (%) (Auto) 18 % (0-9) Eosinophils (%) (Auto) 0 % (0-3) Basophils (%) (Auto) 0 % (0-3) Neutrophils # (Auto) 7.8 x10^3/uL (1.8-7.7) Lymphocytes # (Auto) 1.3 x10^3/uL (1.0-4.8) Monocytes # (Auto) 2.0 x10^3/uL (0.0-1.1) Eosinophils # (Auto) 0.0 x10^3/uL (0.0-0.7) Basophils # (Auto) 0.0 x10^3/uL (0.0-0.2) Sodium Level 138 mmol/L (136-145) Potassium Level 3.6 mmol/L (3.5-5.1) Chloride Level 105 mmol/L (98-107) Carbon Dioxide Level 25 mmol/L (21-32) Anion Gap 8 (6-14) Blood Urea Nitrogen 24 mg/dL (8-26) Creatinine 0.6 mg/dL (0.7-1.3) Estimated GFR (Cockcroft-Gault) 138.9 Glucose Level 138 mg/dL (70-99) Calcium Level 7.5 mg/dL (8.5-10.1) Laboratory Tests Test 01/19/20 11:37 01/19/20 14:10 01/19/20 16:05 01/19/20 16:55 Sodium Level 141 mmol/L (136-145) Potassium Level 2.7 mmol/L (3.5-5.1) Chloride Level 109 mmol/L (98-107) Carbon Dioxide Level 24 mmol/L (21-32) Anion Gap 8 (6-14) Blood Urea Nitrogen 22 mg/dL (8-26) Creatinine 1.0 mg/dL (0.7-1.3) Estimated GFR (Cockcroft-Gault) 77.0 Glucose Level 147 mg/dL (70-99) Lactic Acid Level 2.1 mmol/L (0.4-2.0) 1.2 mmol/L (0.4-2.0) Calcium Level 5.6 mg/dL (8.5-10.1) Magnesium Level 1.3 mg/dL (1.8-2.4) Total Bilirubin 1.1 mg/dL (0.2-1.0) Direct Bilirubin 0.2 mg/dL (0.0-0.2) Aspartate Amino Transf (AST/SGOT) 10 U/L (15-37) Alanine Aminotransferase (ALT/SGPT) 6 U/L (16-63) Alkaline Phosphatase 83 U/L (46-116) Troponin I Quantitative < 0.017 ng/mL (0.000-0.055) Total Protein 3.7 g/dL (6.4-8.2) Albumin 1.6 g/dL (3.4-5.0) Lipase 25 U/L (73-393) Thyroid Stimulating Hormone (TSH) 2.384 uIU/mL (0.358-3.74) O2 Saturation 94 % (92-99) Arterial Blood pH 7.42 (7.35-7.45) Arterial Blood pCO2 at Patient Temp 41 mmHg (35-46) Arterial Blood pO2 at Patient Temp 70 mmHg (75-108) Arterial Blood HCO3 26 mmol/L (21-28) Arterial Blood Base Excess 1 mmol/L (-3-3) Oxyhemoglobin 93.0 % Methemoglobin 0.4 % (0.0-1.9) Carbon Monoxide, Quantitative 0.4 % (0.0-1.9) FiO2 21 Glucose (Fingerstick) 185 mg/dL (70-99) Test 01/19/20 22:10 01/20/20 01:11 01/20/20 04:50 White Blood Count 12.7 x10^3/uL (4.0-11.0) 11.2 x10^3/uL (4.0-11.0) Red Blood Count 4.41 x10^6/uL (4.30-5.70) 4.32 x10^6/uL (4.30-5.70) Hemoglobin 13.3 g/dL (13.0-17.5) 12.7 g/dL (13.0-17.5) Hematocrit 39.1 % (39.0-53.0) 38.3 % (39.0-53.0) Mean Corpuscular Volume 89 fL (79-100) 89 fL (79-100) Mean Corpuscular Hemoglobin 30 pg (25-35) 29 pg (25-35) Mean Corpuscular Hemoglobin Concent 34 g/dL (31-37) 33 g/dL (31-37) Red Cell Distribution Width 14.2 % (11.5-14.5) 14.4 % (11.5-14.5) Platelet Count 411 x10^3/uL (140-400) 419 x10^3/uL (140-400) Sodium Level 138 mmol/L (136-145) 138 mmol/L (136-145) Potassium Level 4.0 mmol/L (3.5-5.1) 3.6 mmol/L (3.5-5.1) Chloride Level 103 mmol/L (98-107) 105 mmol/L (98-107) Carbon Dioxide Level 27 mmol/L (21-32) 25 mmol/L (21-32) Anion Gap 8 (6-14) 8 (6-14) Blood Urea Nitrogen 25 mg/dL (8-26) 24 mg/dL (8-26) Creatinine 0.7 mg/dL (0.7-1.3) 0.6 mg/dL (0.7-1.3) Estimated GFR (Cockcroft-Gault) 116.2 138.9 Glucose Level 143 mg/dL (70-99) 138 mg/dL (70-99) Calcium Level 7.9 mg/dL (8.5-10.1) 7.5 mg/dL (8.5-10.1) Magnesium Level 2.4 mg/dL (1.8-2.4) Glucose (Fingerstick) 147 mg/dL (70-99) Neutrophils (%) (Auto) 70 % (31-73) Lymphocytes (%) (Auto) 12 % (24-48) Monocytes (%) (Auto) 18 % (0-9) Eosinophils (%) (Auto) 0 % (0-3) Basophils (%) (Auto) 0 % (0-3) Neutrophils # (Auto) 7.8 x10^3/uL (1.8-7.7) Lymphocytes # (Auto) 1.3 x10^3/uL (1.0-4.8) Monocytes # (Auto) 2.0 x10^3/uL (0.0-1.1) Eosinophils # (Auto) 0.0 x10^3/uL (0.0-0.7) Basophils # (Auto) 0.0 x10^3/uL (0.0-0.2) Assessment/Plan Assessment/Plan 1. Sepsis. Patient been treated with IV antibiotics and is improving. COVID testing is pending. 2. Possible GI bleed. Is being reviewed by the GI service. Will monitor lab. 3. Atrial fibrillation. Rate is under reasonable control I will continue to monitor. Patient has been on oral anticoagulation and if needed this may be held at present. 4. History of coronary artery disease. No reports of chest pain. No clear heart failure. Continue telemetry. 5. Diabetes mellitus. As per the primary service. 6. Hyperlipidemia. Will continue medications and check lab. 7. History of a CVA. Thank you for allowing us to participate in the care of your patient. MARCY KNOWLES MD Jan 20, 2020 11:17
[2020-01-20] MEDS: VANCOMYCIN 1.25 GM in IV NORMAL SALINE 250ML 250 ML IV SCH (12:12)
[2020-01-20] MEDS: IV NORMAL SALINE 1000ML BAG 1,000 ML IV SCH (12:17)
--- NOTE | 2020-01-20 12:20 | PDOC ---
PROGRESS NOTES Chief Complaint Chief Complaint Assessment/Plan ASSESSMENT Severe Sepsis Secondary to UTI in setting of Indwelling Pretty Cath Leukocytosis GI bleed Nausea and Vomiting hx of recent SBO Hyokalemia, severe A Fib DM with a1c of 12.8% Prior history of severe stroke with hemiparesis and expressive aphasia CAD w/ stents HYPERTENSION HLD, hx of COPD peripheral neuropathy, hx seizure OA, allergic rhinitis hypothyroidism PLAN IVF, Vanc Zosyn, follow cultures hold AC given GI bleed, stable Hb IV PPI therapy advance diet as tolerated GI consulted SCDs full code labs in AM History of Present Illness History of Present Illness SP catheter changed on admission. more alter and awake today. no complaints. Vitals Vitals Vital Signs Date Time Temp Pulse Resp B/P (MAP) Pulse Ox O2 Delivery O2 Flow Rate FiO2 01/20/20 11:28 106 18 140/90 (107) 98 Room Air 01/20/20 09:23 98.3 98.3 Physical Exam Lungs: Clear Labs LABS Laboratory Tests Test 01/19/20 14:10 01/19/20 16:05 01/19/20 16:55 01/19/20 22:10 O2 Saturation 94 % (92-99) Arterial Blood pH 7.42 (7.35-7.45) Arterial Blood pCO2 at Patient Temp 41 mmHg (35-46) Arterial Blood pO2 at Patient Temp 70 mmHg (75-108) Arterial Blood HCO3 26 mmol/L (21-28) Arterial Blood Base Excess 1 mmol/L (-3-3) Oxyhemoglobin 93.0 % Methemoglobin 0.4 % (0.0-1.9) Carbon Monoxide, Quantitative 0.4 % (0.0-1.9) FiO2 21 Lactic Acid Level 1.2 mmol/L (0.4-2.0) Glucose (Fingerstick) 185 mg/dL (70-99) White Blood Count 12.7 x10^3/uL (4.0-11.0) Red Blood Count 4.41 x10^6/uL (4.30-5.70) Hemoglobin 13.3 g/dL (13.0-17.5) Hematocrit 39.1 % (39.0-53.0) Mean Corpuscular Volume 89 fL (79-100) Mean Corpuscular Hemoglobin 30 pg (25-35) Mean Corpuscular Hemoglobin Concent 34 g/dL (31-37) Red Cell Distribution Width 14.2 % (11.5-14.5) Platelet Count 411 x10^3/uL (140-400) Sodium Level 138 mmol/L (136-145) Potassium Level 4.0 mmol/L (3.5-5.1) Chloride Level 103 mmol/L (98-107) Carbon Dioxide Level 27 mmol/L (21-32) Anion Gap 8 (6-14) Blood Urea Nitrogen 25 mg/dL (8-26) Creatinine 0.7 mg/dL (0.7-1.3) Estimated GFR (Cockcroft-Gault) 116.2 Glucose Level 143 mg/dL (70-99) Calcium Level 7.9 mg/dL (8.5-10.1) Magnesium Level 2.4 mg/dL (1.8-2.4) Test 01/20/20 01:11 01/20/20 04:50 Glucose (Fingerstick) 147 mg/dL (70-99) White Blood Count 11.2 x10^3/uL (4.0-11.0) Red Blood Count 4.32 x10^6/uL (4.30-5.70) Hemoglobin 12.7 g/dL (13.0-17.5) Hematocrit 38.3 % (39.0-53.0) Mean Corpuscular Volume 89 fL (79-100) Mean Corpuscular Hemoglobin 29 pg (25-35) Mean Corpuscular Hemoglobin Concent 33 g/dL (31-37) Red Cell Distribution Width 14.4 % (11.5-14.5) Platelet Count 419 x10^3/uL (140-400) Neutrophils (%) (Auto) 70 % (31-73) Lymphocytes (%) (Auto) 12 % (24-48) Monocytes (%) (Auto) 18 % (0-9) Eosinophils (%) (Auto) 0 % (0-3) Basophils (%) (Auto) 0 % (0-3) Neutrophils # (Auto) 7.8 x10^3/uL (1.8-7.7) Lymphocytes # (Auto) 1.3 x10^3/uL (1.0-4.8) Monocytes # (Auto) 2.0 x10^3/uL (0.0-1.1) Eosinophils # (Auto) 0.0 x10^3/uL (0.0-0.7) Basophils # (Auto) 0.0 x10^3/uL (0.0-0.2) Sodium Level 138 mmol/L (136-145) Potassium Level 3.6 mmol/L (3.5-5.1) Chloride Level 105 mmol/L (98-107) Carbon Dioxide Level 25 mmol/L (21-32) Anion Gap 8 (6-14) Blood Urea Nitrogen 24 mg/dL (8-26) Creatinine 0.6 mg/dL (0.7-1.3) Estimated GFR (Cockcroft-Gault) 138.9 Glucose Level 138 mg/dL (70-99) Calcium Level 7.5 mg/dL (8.5-10.1) Assessment and Plan Assessmemt and Plan Problems Medical Problems: (1) GI bleed Status: Acute (2) Severe sepsis Status: Acute Comment Review of Relevant I have reviewed the following items sujey (where applicable) has been applied. Labs Laboratory Tests Test 01/19/20 09:53 01/19/20 10:09 01/19/20 10:35 01/19/20 11:37 Urine Collection Type Unknown Urine Color [place] Urine Clarity Cloudy Urine pH 6.0 (<5.0-8.0) Urine Specific [place] 1.025 (1.000-1.030) Urine Protein 100 mg/dL (NEG-TRACE) Urine Glucose (UA) Negative mg/dL (NEG) Urine Ketones (Stick) 15 mg/dL (NEG) Urine Blood Moderate (NEG) Urine Nitrite Negative (NEG) Urine Bilirubin Moderate (NEG) Urine Urobilinogen Dipstick 1.0 mg/dL (0.2 mg/dL) Urine Leukocyte Esterase Large (NEG) Urine RBC >40 /HPF (0-2) Urine WBC Tntc /HPF (0-4) Urine Bacteria Many /HPF (0-FEW) White Blood Count 17.3 x10^3/uL (4.0-11.0) Red Blood Count 5.33 x10^6/uL (4.30-5.70) Hemoglobin 16.2 g/dL (13.0-17.5) Hematocrit 47.1 % (39.0-53.0) Mean Corpuscular Volume 88 fL (79-100) Mean Corpuscular Hemoglobin 30 pg (25-35) Mean Corpuscular Hemoglobin Concent 34 g/dL (31-37) Red Cell Distribution Width 14.4 % (11.5-14.5) Platelet Count 517 x10^3/uL (140-400) Neutrophils (%) (Auto) 80 % (31-73) Lymphocytes (%) (Auto) 6 % (24-48) Monocytes (%) (Auto) 14 % (0-9) Eosinophils (%) (Auto) 0 % (0-3) Basophils (%) (Auto) 0 % (0-3) Neutrophils # (Auto) 13.8 x10^3/uL (1.8-7.7) Lymphocytes # (Auto) 1.0 x10^3/uL (1.0-4.8) Monocytes # (Auto) 2.4 x10^3/uL (0.0-1.1) Eosinophils # (Auto) 0.0 x10^3/uL (0.0-0.7) Basophils # (Auto) 0.0 x10^3/uL (0.0-0.2) Segmented Neutrophils % 71 % (35-66) Band Neutrophils % 10 % (0-9) Lymphocytes % 8 % (24-48) Monocytes % 11 % (0-10) Platelet Estimate Increased (ADEQUATE) Prothrombin Time 14.6 SEC (11.7-14.0) Prothromb Time International Ratio 1.2 (0.8-1.1) Activated Partial Thromboplast Time 29 SEC (24-38) Gastric Fluid Occult Blood Positive (NEG) Stool Occult Blood Positive (NEG) Sodium Level 141 mmol/L (136-145) Potassium Level 2.7 mmol/L (3.5-5.1) Chloride Level 109 mmol/L (98-107) Carbon Dioxide Level 24 mmol/L (21-32) Anion Gap 8 (6-14) Blood Urea Nitrogen 22 mg/dL (8-26) Creatinine 1.0 mg/dL (0.7-1.3) Estimated GFR (Cockcroft-Gault) 77.0 Glucose Level 147 mg/dL (70-99) Lactic Acid Level 2.1 mmol/L (0.4-2.0) Calcium Level 5.6 mg/dL (8.5-10.1) Magnesium Level 1.3 mg/dL (1.8-2.4) Total Bilirubin 1.1 mg/dL (0.2-1.0) Direct Bilirubin 0.2 mg/dL (0.0-0.2) Aspartate Amino Transf (AST/SGOT) 10 U/L (15-37) Alanine Aminotransferase (ALT/SGPT) 6 U/L (16-63) Alkaline Phosphatase 83 U/L (46-116) Troponin I Quantitative < 0.017 ng/mL (0.000-0.055) Total Protein 3.7 g/dL (6.4-8.2) Albumin 1.6 g/dL (3.4-5.0) Lipase 25 U/L (73-393) Thyroid Stimulating Hormone (TSH) 2.384 uIU/mL (0.358-3.74) Test 01/19/20 14:10 01/19/20 16:05 01/19/20 16:55 01/19/20 22:10 O2 Saturation 94 % (92-99) Arterial Blood pH 7.42 (7.35-7.45) Arterial Blood pCO2 at Patient Temp 41 mmHg (35-46) Arterial Blood pO2 at Patient Temp 70 mmHg (75-108) Arterial Blood HCO3 26 mmol/L (21-28) Arterial Blood Base Excess 1 mmol/L (-3-3) Oxyhemoglobin 93.0 % Methemoglobin 0.4 % (0.0-1.9) Carbon Monoxide, Quantitative 0.4 % (0.0-1.9) FiO2 21 Lactic Acid Level 1.2 mmol/L (0.4-2.0) Glucose (Fingerstick) 185 mg/dL (70-99) White Blood Count 12.7 x10^3/uL (4.0-11.0) Red Blood Count 4.41 x10^6/uL (4.30-5.70) Hemoglobin 13.3 g/dL (13.0-17.5) Hematocrit 39.1 % (39.0-53.0) Mean Corpuscular Volume 89 fL (79-100) Mean Corpuscular Hemoglobin 30 pg (25-35) Mean Corpuscular Hemoglobin Concent 34 g/dL (31-37) Red Cell Distribution Width 14.2 % (11.5-14.5) Platelet Count 411 x10^3/uL (140-400) Sodium Level 138 mmol/L (136-145) Potassium Level 4.0 mmol/L (3.5-5.1) Chloride Level 103 mmol/L (98-107) Carbon Dioxide Level 27 mmol/L (21-32) Anion Gap 8 (6-14) Blood Urea Nitrogen 25 mg/dL (8-26) Creatinine 0.7 mg/dL (0.7-1.3) Estimated GFR (Cockcroft-Gault) 116.2 Glucose Level 143 mg/dL (70-99) Calcium Level 7.9 mg/dL (8.5-10.1) Magnesium Level 2.4 mg/dL (1.8-2.4) Test 01/20/20 01:11 01/20/20 04:50 Glucose (Fingerstick) 147 mg/dL (70-99) White Blood Count 11.2 x10^3/uL (4.0-11.0) Red Blood Count 4.32 x10^6/uL (4.30-5.70) Hemoglobin 12.7 g/dL (13.0-17.5) Hematocrit 38.3 % (39.0-53.0) Mean Corpuscular Volume 89 fL (79-100) Mean Corpuscular Hemoglobin 29 pg (25-35) Mean Corpuscular Hemoglobin Concent 33 g/dL (31-37) Red Cell Distribution Width 14.4 % (11.5-14.5) Platelet Count 419 x10^3/uL (140-400) Neutrophils (%) (Auto) 70 % (31-73) Lymphocytes (%) (Auto) 12 % (24-48) Monocytes (%) (Auto) 18 % (0-9) Eosinophils (%) (Auto) 0 % (0-3) Basophils (%) (Auto) 0 % (0-3) Neutrophils # (Auto) 7.8 x10^3/uL (1.8-7.7) Lymphocytes # (Auto) 1.3 x10^3/uL (1.0-4.8) Monocytes # (Auto) 2.0 x10^3/uL (0.0-1.1) Eosinophils # (Auto) 0.0 x10^3/uL (0.0-0.7) Basophils # (Auto) 0.0 x10^3/uL (0.0-0.2) Sodium Level 138 mmol/L (136-145) Potassium Level 3.6 mmol/L (3.5-5.1) Chloride Level 105 mmol/L (98-107) Carbon Dioxide Level 25 mmol/L (21-32) Anion Gap 8 (6-14) Blood Urea Nitrogen 24 mg/dL (8-26) Creatinine 0.6 mg/dL (0.7-1.3) Estimated GFR (Cockcroft-Gault) 138.9 Glucose Level 138 mg/dL (70-99) Calcium Level 7.5 mg/dL (8.5-10.1) Laboratory Tests Test 01/19/20 14:10 01/19/20 16:05 01/19/20 16:55 01/19/20 22:10 O2 Saturation 94 % (92-99) Arterial Blood pH 7.42 (7.35-7.45) Arterial Blood pCO2 at Patient Temp 41 mmHg (35-46) Arterial Blood pO2 at Patient Temp 70 mmHg (75-108) Arterial Blood HCO3 26 mmol/L (21-28) Arterial Blood Base Excess 1 mmol/L (-3-3) Oxyhemoglobin 93.0 % Methemoglobin 0.4 % (0.0-1.9) Carbon Monoxide, Quantitative 0.4 % (0.0-1.9) FiO2 21 Lactic Acid Level 1.2 mmol/L (0.4-2.0) Glucose (Fingerstick) 185 mg/dL (70-99) White Blood Count 12.7 x10^3/uL (4.0-11.0) Red Blood Count 4.41 x10^6/uL (4.30-5.70) Hemoglobin 13.3 g/dL (13.0-17.5) Hematocrit 39.1 % (39.0-53.0) Mean Corpuscular Volume 89 fL (79-100) Mean Corpuscular Hemoglobin 30 pg (25-35) Mean Corpuscular Hemoglobin Concent 34 g/dL (31-37) Red Cell Distribution Width 14.2 % (11.5-14.5) Platelet Count 411 x10^3/uL (140-400) Sodium Level 138 mmol/L (136-145) Potassium Level 4.0 mmol/L (3.5-5.1) Chloride Level 103 mmol/L (98-107) Carbon Dioxide Level 27 mmol/L (21-32) Anion Gap 8 (6-14) Blood Urea Nitrogen 25 mg/dL (8-26) Creatinine 0.7 mg/dL (0.7-1.3) Estimated GFR (Cockcroft-Gault) 116.2 Glucose Level 143 mg/dL (70-99) Calcium Level 7.9 mg/dL (8.5-10.1) Magnesium Level 2.4 mg/dL (1.8-2.4) Test 01/20/20 01:11 01/20/20 04:50 Glucose (Fingerstick) 147 mg/dL (70-99) White Blood Count 11.2 x10^3/uL (4.0-11.0) Red Blood Count 4.32 x10^6/uL (4.30-5.70) Hemoglobin 12.7 g/dL (13.0-17.5) Hematocrit 38.3 % (39.0-53.0) Mean Corpuscular Volume 89 fL (79-100) Mean Corpuscular Hemoglobin 29 pg (25-35) Mean Corpuscular Hemoglobin Concent 33 g/dL (31-37) Red Cell Distribution Width 14.4 % (11.5-14.5) Platelet Count 419 x10^3/uL (140-400) Neutrophils (%) (Auto) 70 % (31-73) Lymphocytes (%) (Auto) 12 % (24-48) Monocytes (%) (Auto) 18 % (0-9) Eosinophils (%) (Auto) 0 % (0-3) Basophils (%) (Auto) 0 % (0-3) Neutrophils # (Auto) 7.8 x10^3/uL (1.8-7.7) Lymphocytes # (Auto) 1.3 x10^3/uL (1.0-4.8) Monocytes # (Auto) 2.0 x10^3/uL (0.0-1.1) Eosinophils # (Auto) 0.0 x10^3/uL (0.0-0.7) Basophils # (Auto) 0.0 x10^3/uL (0.0-0.2) Sodium Level 138 mmol/L (136-145) Potassium Level 3.6 mmol/L (3.5-5.1) Chloride Level 105 mmol/L (98-107) Carbon Dioxide Level 25 mmol/L (21-32) Anion Gap 8 (6-14) Blood Urea Nitrogen 24 mg/dL (8-26) Creatinine 0.6 mg/dL (0.7-1.3) Estimated GFR (Cockcroft-Gault) 138.9 Glucose Level 138 mg/dL (70-99) Calcium Level 7.5 mg/dL (8.5-10.1) Microbiology 01/19/20 Blood Culture - Preliminary, Resulted NO GROWTH AFTER 1 DAY 01/19/20 Urine Culture - Final, Complete Medications Current Medications Sodium Chloride 1,000 ml @ 1,000 mls/hr 1X ONCE IV ; Start 01/19/20 at 09:45; Stop 01/19/20 at 10:44; Status DC Piperacillin Sod/ Tazobactam Sod 4.5 gm/Sodium Chloride 100 ml @ 200 mls/hr 1X ONCE IV Last administered on 01/19/20at 10:22; Start 01/19/20 at 10:00; Stop 01/19/20 at 10:29; Status DC Vancomycin HCl (Vanco Per Pharmacy) 1 each PRN DAILY PRN MC SEE COMMENTS; Start 01/19/20 at 10:00; Status UNV Sodium Chloride 1,000 ml @ 2,100 mls/hr Q29M IV Last administered on 01/19/20at 13:29; Start 01/19/20 at 09:46; Stop 01/19/20 at 10:46; Status DC Vancomycin HCl 1.75 gm/Sodium Chloride 500 ml @ 250 mls/hr 1X ONCE IV Last administered on 01/19/20at 11:07; Start 01/19/20 at 10:30; Stop 01/19/20 at 12:29; Status DC Ondansetron HCl (Zofran) 4 mg 1X ONCE IVP Last administered on 01/19/20at 10:39; Start 01/19/20 at 10:45; Stop 01/19/20 at 10:46; Status DC Pantoprazole Sodium 80 mg/ Sodium Chloride 100 ml @ 10 mls/hr Q10H IV Last administered on 01/19/20at 12:38; Start 01/19/20 at 12:00; Stop 01/19/20 at 14:10; Status DC Pantoprazole Sodium (PROTONIX VIAL for IV PUSH) 40 mg 1X ONCE IVP Last administered on 01/19/20at 12:40; Start 01/19/20 at 12:00; Stop 01/19/20 at 12:01; Status DC Potassium Chloride/Water 100 ml @ 100 mls/hr Q1H IV Last administered on 01/19/20at 15:43; Start 01/19/20 at 13:15; Stop 01/19/20 at 15:14; Status DC Docusate Sodium (Enemeez) 283 mg 1X ONCE NV Last administered on 01/19/20at 13:30; Start 01/19/20 at 13:30; Stop 01/19/20 at 13:31; Status DC Phenytoin Sodium (Dilantin) 200 mg BID PO ; Start 01/19/20 at 14:00; Stop 01/19/20 at 15:40; Status DC Acetaminophen (Tylenol) 650 mg PRN Q6HRS PRN PO Headaches, Temp > 101.5'; Start 01/19/20 at 13:30 Famotidine (Pepcid Vial) 20 mg BID IVP ; Start 01/19/20 at 21:00; Stop 01/19/20 at 14:08; Status DC Sodium Chloride (Normal Saline Flush) 3 ml QSHIFT PRN IV AFTER MEDS AND BLOOD DRAWS; Start 01/19/20 at 13:30 Sodium Chloride 1,000 ml @ 100 mls/hr Q10H IV Last administered on 01/19/20at 15:46; Start 01/19/20 at 13:21 Senna/Docusate Sodium (Senna Plus) 1 tab BID PO ; Start 01/19/20 at 21:00 Docusate Sodium (Colace) 100 mg BID PO ; Start 01/19/20 at 21:00 Vancomycin HCl (Vanco Per Pharmacy) 1 each PRN DAILY PRN MC SEE COMMENTS Last administered on 01/19/20at 14:46; Start 01/19/20 at 13:30 Piperacillin Sod/ Tazobactam Sod (Zosyn Per Pharmacy) 1 each PRN DAILY PRN MC SEE COMMENTS; Start 01/19/20 at 13:30 Piperacillin Sod/ Tazobactam Sod 4.5 gm/Sodium Chloride 100 ml @ 200 mls/hr Q6HRS IV Last administered on 01/20/20at 12:14; Start 01/19/20 at 18:00 Levothyroxine Sodium 100 mcg/ Sodium Chloride 5 ml @ 100 mls/hr Q3DAYS IV ; Start 01/25/20 at 09:00 Insulin Human Lispro (HumaLOG) 0-7 UNITS TIDWMEALS SQ ; Start 01/19/20 at 17:00 Dextrose (Dextrose 50%-Water Syringe) 12.5 gm PRN Q15MIN PRN IV SEE COMMENTS; Start 01/19/20 at 13:45 Methylnaltrexone [place] (Relistor) 12 mg 1X ONCE SQ Last administered on 01/19/20at 15:46; Start 01/19/20 at 15:00; Stop 01/19/20 at 15:01; Status DC Pantoprazole Sodium (PROTONIX VIAL for IV PUSH) 40 mg BID66 IVP Last administered on 01/20/20at 06:41; Start 01/19/20 at 18:00 Bisacodyl (Dulcolax Supp) 10 mg PRN DAILY PRN [place] CONSTIPATION; Start 01/19/20 at 14:15 Vancomycin HCl 1.25 gm/Sodium Chloride 250 ml @ 167 mls/hr Q12H IV Last administered on 01/20/20at 12:12; Start 01/19/20 at 23:00 Vancomycin HCl (Vancomycin Trough Level) 1 each 1X ONCE MC ; Start 01/20/20 at 22:30; Stop 01/20/20 at 22:31 Magnesium Sulfate 100 ml @ 25 mls/hr 1X ONCE IV Last administered on 01/19/20at 16:50; Start 01/19/20 at 15:30; Stop 01/19/20 at 19:29; Status DC Potassium Chloride/Water 100 ml @ 100 mls/hr Q1H IV Last administered on 01/19/20at 22:37; Start 01/19/20 at 16:00; Stop 01/19/20 at 18:59; Status DC Calcium Gluconate 2000 mg/Sodium Chloride 120 ml @ 220 mls/hr 1X ONCE IV Last administered on 01/19/20at 16:18; Start 01/19/20 at 16:00; Stop 01/19/20 at 16:32; Status DC Fosphenytoin Sodium (Cerebyx) 150 mg Q8HRS IV Last administered on 01/20/20at 06:42; Start 01/19/20 at 16:00 Ondansetron HCl (Zofran) 4 mg PRN Q6HRS PRN IVP NAUSEA/VOMITING Last administered on 01/19/20at 17:30; Start 01/19/20 at 17:30 Lorazepam (Ativan Inj) 2 mg 1X ONCE IVP ; Start 01/20/20 at 12:30; Stop 01/20/20 at 12:31 Active Scripts Active Hydrocodone-Apap 5-325 (Hydrocodone Bit/Acetaminophen) 1 Tab Tablet 1 Tab PO PRN Q4HRS PRN Polyethylene Glycol 3350 17 Gm Powd.pack 17 Gm PO DAILY Aspirin 81 Mg Tab.chew 81 Mg PO DAILYWBKFT Synthroid (Levothyroxine Sodium) 100 Mcg Tablet 200 Mcg PO DAILY06 Reported Pepcid (Famotidine) 20 Mg Tablet 20 Mg PO HS Eliquis (Apixaban) 5 Mg Tablet 5 Mg PO BID Ditropan Xl (Oxybutynin Chloride) 10 Mg Tab.er.24 1 Tab PO DAILY 30 Days Phenytoin Sodium Extended 200 Mg Capsule 2 Cap PO HS 30 Days Metoprolol Succinate ( Xl ) (Metoprolol Succinate) 25 Mg Tab.er.24h 2 Tab PO DAILY Fluoxetine Hcl 40 Mg Capsule 1 Cap PO DAILYWBKFT Atorvastatin Calcium 20 Mg Tablet 20 Mg PO HS Insulin Aspart Flexpen (Insulin Aspart) 100 Unit/1 Ml Insuln.pen 0 SQ QIDACHS FSBS 181-220 = 2 units 221-260 = 4 units 261-300 = 6 units 301-350 = 8 units 351-400 = 10 units 401 or higher = 12 units Gabapentin (Gabapentin) 300 Mg Capsule 300 Mg PO BID Renacidin Irrigation Solution (Citric AC/Gluconolact/Mag Carb) 30 Ml Irrig.soln 30 Ml IR QMWF Clamp catheter for 15 minutes, then unclamp and drain by gravity. Dulera 200 Mcg/5 Mcg Inhaler (Mometasone/Formoterol) 13 Gm Hfa.aer.ad 1 Puff IH HS Furosemide 20 Mg Tablet 1 Tab PO DAILY Vitals/I & O Vital Sign - Last 24 Hours 7/17/20 7/17/20 7/17/20 7/17/20 12:33 12:46 13:03 13:13 Pulse 104 104 104 102 Resp 24 18 18 B/P (MAP) 142/95 (111) 146/93 (110) 145/95 (112) 130/86 (101) Pulse Ox 98 99 99 98 O2 Delivery Room Air Room Air Room Air Room Air 01/19/20 01/19/20 01/19/20 01/19/20 15:15 15:15 15:30 15:45 Temp 97.8 97.8 Pulse 108 104 106 Resp 19 B/P (MAP) 134/90 (105) 134/92 (106) 135/88 (104) Pulse Ox 98 98 99 O2 Delivery Room Air Room Air Room Air Room Air 01/19/20 01/19/20 01/19/20 01/19/20 16:00 17:00 18:00 19:00 Temp 98.2 98.2 Pulse 106 106 108 108 Resp 17 B/P (MAP) 149/95 (113) 154/94 (114) 138/82 (100) 133/77 (95) Pulse Ox 98 99 97 98 O2 Delivery Room Air Room Air Room Air Room Air 01/19/20 01/19/20 01/19/20 01/19/20 19:00 20:00 20:00 21:00 Temp 98.6 98.6 Pulse 104 104 Resp 20 B/P (MAP) 143/82 (102) 120/81 (94) Pulse Ox 97 97 O2 Delivery Room Air Room Air Room Air 01/19/20 01/19/20 01/20/20 01/20/20 22:00 23:00 00:00 00:00 Temp 97.3 97.3 Pulse 104 104 102 Resp 18 B/P (MAP) 137/81 (99) 133/84 (100) 136/85 (102) Pulse Ox 97 97 98 O2 Delivery Room Air Room Air Room Air Room Air 01/20/20 01/20/20 01/20/20 01/20/20 01:00 02:00 03:00 04:00 Pulse 102 104 104 102 Resp 20 B/P (MAP) 136/84 (101) 136/84 (101) 124/85 (98) 137/94 (108) Pulse Ox 97 98 98 97 O2 Delivery Room Air Room Air Room Air Room Air 01/20/20 01/20/20 01/20/20 01/20/20 04:00 05:00 06:00 07:42 Temp 97.5 97.5 Pulse 102 106 103 Resp 18 17 B/P (MAP) 151/95 (113) 149/93 (111) 132/86 (101) Pulse Ox 97 98 98 O2 Delivery Room Air Room Air Room Air Room Air 01/20/20 01/20/20 01/20/20 01/20/20 08:00 08:55 09:23 10:01 Temp 98.3 98.3 Pulse 105 105 106 Resp 20 B/P (MAP) 145/87 (106) 145/87 (106) 151/90 (110) Pulse Ox 98 98 98 O2 Delivery Room Air Room Air Room Air Room Air 01/20/20 11:28 Pulse 106 Resp 18 B/P (MAP) 140/90 (107) Pulse Ox 98 O2 Delivery Room Air Intake and Output 01/19/20 01/19/20 01/20/20 15:00 23:00 07:00 Intake Total 2550 ml 270 ml 1732 ml Output Total 1100 ml 650 ml 675 ml Balance 1450 ml -380 ml 1057 ml Justicifation of Admission Dx: Justifications for Admission: Justification of Admission Dx: Yes CHF: Hemodynamic Instability Sepsis: Altered Mental Status SARA BEAVERS MD Jan 20, 2020 12:20
--- NOTE | 2020-01-20 12:49 | PDOC ---
G I PROGRESS NOTE Reason for Follow-up Constipation/nausea Subjective BMS with relistor/wants to eat Physical Exam Lungs decreased BS CV S1 S2 ABD soft, +BS, nontender Review of Relevant I have reviewed the following items sujey (where applicable) has been applied. Labs Laboratory Tests Test 01/19/20 09:53 01/19/20 10:09 01/19/20 10:35 01/19/20 11:37 Urine Collection Type Unknown Urine Color [place] Urine Clarity Cloudy Urine pH 6.0 (<5.0-8.0) Urine Specific [place] 1.025 (1.000-1.030) Urine Protein 100 mg/dL (NEG-TRACE) Urine Glucose (UA) Negative mg/dL (NEG) Urine Ketones (Stick) 15 mg/dL (NEG) Urine Blood Moderate (NEG) Urine Nitrite Negative (NEG) Urine Bilirubin Moderate (NEG) Urine Urobilinogen Dipstick 1.0 mg/dL (0.2 mg/dL) Urine Leukocyte Esterase Large (NEG) Urine RBC >40 /HPF (0-2) Urine WBC Tntc /HPF (0-4) Urine Bacteria Many /HPF (0-FEW) White Blood Count 17.3 x10^3/uL (4.0-11.0) Red Blood Count 5.33 x10^6/uL (4.30-5.70) Hemoglobin 16.2 g/dL (13.0-17.5) Hematocrit 47.1 % (39.0-53.0) Mean Corpuscular Volume 88 fL (79-100) Mean Corpuscular Hemoglobin 30 pg (25-35) Mean Corpuscular Hemoglobin Concent 34 g/dL (31-37) Red Cell Distribution Width 14.4 % (11.5-14.5) Platelet Count 517 x10^3/uL (140-400) Neutrophils (%) (Auto) 80 % (31-73) Lymphocytes (%) (Auto) 6 % (24-48) Monocytes (%) (Auto) 14 % (0-9) Eosinophils (%) (Auto) 0 % (0-3) Basophils (%) (Auto) 0 % (0-3) Neutrophils # (Auto) 13.8 x10^3/uL (1.8-7.7) Lymphocytes # (Auto) 1.0 x10^3/uL (1.0-4.8) Monocytes # (Auto) 2.4 x10^3/uL (0.0-1.1) Eosinophils # (Auto) 0.0 x10^3/uL (0.0-0.7) Basophils # (Auto) 0.0 x10^3/uL (0.0-0.2) Segmented Neutrophils % 71 % (35-66) Band Neutrophils % 10 % (0-9) Lymphocytes % 8 % (24-48) Monocytes % 11 % (0-10) Platelet Estimate Increased (ADEQUATE) Prothrombin Time 14.6 SEC (11.7-14.0) Prothromb Time International Ratio 1.2 (0.8-1.1) Activated Partial Thromboplast Time 29 SEC (24-38) Gastric Fluid Occult Blood Positive (NEG) Stool Occult Blood Positive (NEG) Sodium Level 141 mmol/L (136-145) Potassium Level 2.7 mmol/L (3.5-5.1) Chloride Level 109 mmol/L (98-107) Carbon Dioxide Level 24 mmol/L (21-32) Anion Gap 8 (6-14) Blood Urea Nitrogen 22 mg/dL (8-26) Creatinine 1.0 mg/dL (0.7-1.3) Estimated GFR (Cockcroft-Gault) 77.0 Glucose Level 147 mg/dL (70-99) Lactic Acid Level 2.1 mmol/L (0.4-2.0) Calcium Level 5.6 mg/dL (8.5-10.1) Magnesium Level 1.3 mg/dL (1.8-2.4) Total Bilirubin 1.1 mg/dL (0.2-1.0) Direct Bilirubin 0.2 mg/dL (0.0-0.2) Aspartate Amino Transf (AST/SGOT) 10 U/L (15-37) Alanine Aminotransferase (ALT/SGPT) 6 U/L (16-63) Alkaline Phosphatase 83 U/L (46-116) Troponin I Quantitative < 0.017 ng/mL (0.000-0.055) Total Protein 3.7 g/dL (6.4-8.2) Albumin 1.6 g/dL (3.4-5.0) Lipase 25 U/L (73-393) Thyroid Stimulating Hormone (TSH) 2.384 uIU/mL (0.358-3.74) Test 01/19/20 14:10 01/19/20 16:05 01/19/20 16:55 01/19/20 22:10 O2 Saturation 94 % (92-99) Arterial Blood pH 7.42 (7.35-7.45) Arterial Blood pCO2 at Patient Temp 41 mmHg (35-46) Arterial Blood pO2 at Patient Temp 70 mmHg (75-108) Arterial Blood HCO3 26 mmol/L (21-28) Arterial Blood Base Excess 1 mmol/L (-3-3) Oxyhemoglobin 93.0 % Methemoglobin 0.4 % (0.0-1.9) Carbon Monoxide, Quantitative 0.4 % (0.0-1.9) FiO2 21 Lactic Acid Level 1.2 mmol/L (0.4-2.0) Glucose (Fingerstick) 185 mg/dL (70-99) White Blood Count 12.7 x10^3/uL (4.0-11.0) Red Blood Count 4.41 x10^6/uL (4.30-5.70) Hemoglobin 13.3 g/dL (13.0-17.5) Hematocrit 39.1 % (39.0-53.0) Mean Corpuscular Volume 89 fL (79-100) Mean Corpuscular Hemoglobin 30 pg (25-35) Mean Corpuscular Hemoglobin Concent 34 g/dL (31-37) Red Cell Distribution Width 14.2 % (11.5-14.5) Platelet Count 411 x10^3/uL (140-400) Sodium Level 138 mmol/L (136-145) Potassium Level 4.0 mmol/L (3.5-5.1) Chloride Level 103 mmol/L (98-107) Carbon Dioxide Level 27 mmol/L (21-32) Anion Gap 8 (6-14) Blood Urea Nitrogen 25 mg/dL (8-26) Creatinine 0.7 mg/dL (0.7-1.3) Estimated GFR (Cockcroft-Gault) 116.2 Glucose Level 143 mg/dL (70-99) Calcium Level 7.9 mg/dL (8.5-10.1) Magnesium Level 2.4 mg/dL (1.8-2.4) Test 01/20/20 01:11 01/20/20 04:50 Glucose (Fingerstick) 147 mg/dL (70-99) White Blood Count 11.2 x10^3/uL (4.0-11.0) Red Blood Count 4.32 x10^6/uL (4.30-5.70) Hemoglobin 12.7 g/dL (13.0-17.5) Hematocrit 38.3 % (39.0-53.0) Mean Corpuscular Volume 89 fL (79-100) Mean Corpuscular Hemoglobin 29 pg (25-35) Mean Corpuscular Hemoglobin Concent 33 g/dL (31-37) Red Cell Distribution Width 14.4 % (11.5-14.5) Platelet Count 419 x10^3/uL (140-400) Neutrophils (%) (Auto) 70 % (31-73) Lymphocytes (%) (Auto) 12 % (24-48) Monocytes (%) (Auto) 18 % (0-9) Eosinophils (%) (Auto) 0 % (0-3) Basophils (%) (Auto) 0 % (0-3) Neutrophils # (Auto) 7.8 x10^3/uL (1.8-7.7) Lymphocytes # (Auto) 1.3 x10^3/uL (1.0-4.8) Monocytes # (Auto) 2.0 x10^3/uL (0.0-1.1) Eosinophils # (Auto) 0.0 x10^3/uL (0.0-0.7) Basophils # (Auto) 0.0 x10^3/uL (0.0-0.2) Sodium Level 138 mmol/L (136-145) Potassium Level 3.6 mmol/L (3.5-5.1) Chloride Level 105 mmol/L (98-107) Carbon Dioxide Level 25 mmol/L (21-32) Anion Gap 8 (6-14) Blood Urea Nitrogen 24 mg/dL (8-26) Creatinine 0.6 mg/dL (0.7-1.3) Estimated GFR (Cockcroft-Gault) 138.9 Glucose Level 138 mg/dL (70-99) Calcium Level 7.5 mg/dL (8.5-10.1) Laboratory Tests Test 01/19/20 14:10 01/19/20 16:05 01/19/20 16:55 01/19/20 22:10 O2 Saturation 94 % (92-99) Arterial Blood pH 7.42 (7.35-7.45) Arterial Blood pCO2 at Patient Temp 41 mmHg (35-46) Arterial Blood pO2 at Patient Temp 70 mmHg (75-108) Arterial Blood HCO3 26 mmol/L (21-28) Arterial Blood Base Excess 1 mmol/L (-3-3) Oxyhemoglobin 93.0 % Methemoglobin 0.4 % (0.0-1.9) Carbon Monoxide, Quantitative 0.4 % (0.0-1.9) FiO2 21 Lactic Acid Level 1.2 mmol/L (0.4-2.0) Glucose (Fingerstick) 185 mg/dL (70-99) White Blood Count 12.7 x10^3/uL (4.0-11.0) Red Blood Count 4.41 x10^6/uL (4.30-5.70) Hemoglobin 13.3 g/dL (13.0-17.5) Hematocrit 39.1 % (39.0-53.0) Mean Corpuscular Volume 89 fL (79-100) Mean Corpuscular Hemoglobin 30 pg (25-35) Mean Corpuscular Hemoglobin Concent 34 g/dL (31-37) Red Cell Distribution Width 14.2 % (11.5-14.5) Platelet Count 411 x10^3/uL (140-400) Sodium Level 138 mmol/L (136-145) Potassium Level 4.0 mmol/L (3.5-5.1) Chloride Level 103 mmol/L (98-107) Carbon Dioxide Level 27 mmol/L (21-32) Anion Gap 8 (6-14) Blood Urea Nitrogen 25 mg/dL (8-26) Creatinine 0.7 mg/dL (0.7-1.3) Estimated GFR (Cockcroft-Gault) 116.2 Glucose Level 143 mg/dL (70-99) Calcium Level 7.9 mg/dL (8.5-10.1) Magnesium Level 2.4 mg/dL (1.8-2.4) Test 01/20/20 01:11 01/20/20 04:50 Glucose (Fingerstick) 147 mg/dL (70-99) White Blood Count 11.2 x10^3/uL (4.0-11.0) Red Blood Count 4.32 x10^6/uL (4.30-5.70) Hemoglobin 12.7 g/dL (13.0-17.5) Hematocrit 38.3 % (39.0-53.0) Mean Corpuscular Volume 89 fL (79-100) Mean Corpuscular Hemoglobin 29 pg (25-35) Mean Corpuscular Hemoglobin Concent 33 g/dL (31-37) Red Cell Distribution Width 14.4 % (11.5-14.5) Platelet Count 419 x10^3/uL (140-400) Neutrophils (%) (Auto) 70 % (31-73) Lymphocytes (%) (Auto) 12 % (24-48) Monocytes (%) (Auto) 18 % (0-9) Eosinophils (%) (Auto) 0 % (0-3) Basophils (%) (Auto) 0 % (0-3) Neutrophils # (Auto) 7.8 x10^3/uL (1.8-7.7) Lymphocytes # (Auto) 1.3 x10^3/uL (1.0-4.8) Monocytes # (Auto) 2.0 x10^3/uL (0.0-1.1) Eosinophils # (Auto) 0.0 x10^3/uL (0.0-0.7) Basophils # (Auto) 0.0 x10^3/uL (0.0-0.2) Sodium Level 138 mmol/L (136-145) Potassium Level 3.6 mmol/L (3.5-5.1) Chloride Level 105 mmol/L (98-107) Carbon Dioxide Level 25 mmol/L (21-32) Anion Gap 8 (6-14) Blood Urea Nitrogen 24 mg/dL (8-26) Creatinine 0.6 mg/dL (0.7-1.3) Estimated GFR (Cockcroft-Gault) 138.9 Glucose Level 138 mg/dL (70-99) Calcium Level 7.5 mg/dL (8.5-10.1) Microbiology 01/19/20 Blood Culture - Preliminary, Resulted NO GROWTH AFTER 1 DAY 01/19/20 Urine Culture - Final, Complete Medications Current Medications Sodium Chloride 1,000 ml @ 1,000 mls/hr 1X ONCE IV ; Start 01/19/20 at 09:45; Stop 01/19/20 at 10:44; Status DC Piperacillin Sod/ Tazobactam Sod 4.5 gm/Sodium Chloride 100 ml @ 200 mls/hr 1X ONCE IV Last administered on 01/19/20at 10:22; Start 01/19/20 at 10:00; Stop 01/19/20 at 10:29; Status DC Vancomycin HCl (Vanco Per Pharmacy) 1 each PRN DAILY PRN MC SEE COMMENTS; Start 01/19/20 at 10:00; Status UNV Sodium Chloride 1,000 ml @ 2,100 mls/hr Q29M IV Last administered on 01/19/20at 13:29; Start 01/19/20 at 09:46; Stop 01/19/20 at 10:46; Status DC Vancomycin HCl 1.75 gm/Sodium Chloride 500 ml @ 250 mls/hr 1X ONCE IV Last administered on 01/19/20at 11:07; Start 01/19/20 at 10:30; Stop 01/19/20 at 12:29; Status DC Ondansetron HCl (Zofran) 4 mg 1X ONCE IVP Last administered on 01/19/20at 10:39; Start 01/19/20 at 10:45; Stop 01/19/20 at 10:46; Status DC Pantoprazole Sodium 80 mg/ Sodium Chloride 100 ml @ 10 mls/hr Q10H IV Last administered on 01/19/20at 12:38; Start 01/19/20 at 12:00; Stop 01/19/20 at 14:10; Status DC Pantoprazole Sodium (PROTONIX VIAL for IV PUSH) 40 mg 1X ONCE IVP Last adminis tered on 01/19/20at 12:40; Start 01/19/20 at 12:00; Stop 01/19/20 at 12:01; Status DC Potassium Chloride/Water 100 ml @ 100 mls/hr Q1H IV Last administered on 01/19/20at 15:43; Start 01/19/20 at 13:15; Stop 01/19/20 at 15:14; Status DC Docusate Sodium (Enemeez) 283 mg 1X ONCE PA Last administered on 01/19/20at 13:30; Start 01/19/20 at 13:30; Stop 01/19/20 at 13:31; Status DC Phenytoin Sodium (Dilantin) 200 mg BID PO ; Start 01/19/20 at 14:00; Stop 01/19/20 at 15:40; Status DC Acetaminophen (Tylenol) 650 mg PRN Q6HRS PRN PO Headaches, Temp > 101.5'; Start 01/19/20 at 13:30 Famotidine (Pepcid Vial) 20 mg BID IVP ; Start 01/19/20 at 21:00; Stop 01/19/20 at 14:08; Status DC Sodium Chloride (Normal Saline Flush) 3 ml QSHIFT PRN IV AFTER MEDS AND BLOOD DRAWS; Start 01/19/20 at 13:30 Sodium Chloride 1,000 ml @ 100 mls/hr Q10H IV Last administered on 01/20/20at 12:17; Start 01/19/20 at 13:21 Senna/Docusate Sodium (Senna Plus) 1 tab BID PO ; Start 01/19/20 at 21:00 Docusate Sodium (Colace) 100 mg BID PO ; Start 01/19/20 at 21:00 Vancomycin HCl (Vanco Per Pharmacy) 1 each PRN DAILY PRN MC SEE COMMENTS Last administered on 01/19/20at 14:46; Start 01/19/20 at 13:30 Piperacillin Sod/ Tazobactam Sod (Zosyn Per Pharmacy) 1 each PRN DAILY PRN MC SEE COMMENTS; Start 01/19/20 at 13:30 Piperacillin Sod/ Tazobactam Sod 4.5 gm/Sodium Chloride 100 ml @ 200 mls/hr Q6HRS IV Last administered on 01/20/20at 12:14; Start 01/19/20 at 18:00 Levothyroxine Sodium 100 mcg/ Sodium Chloride 5 ml @ 100 mls/hr Q3DAYS IV ; Start 01/25/20 at 09:00 Insulin Human Lispro (HumaLOG) 0-7 UNITS TIDWMEALS SQ ; Start 01/19/20 at 17:00 Dextrose (Dextrose 50%-Water Syringe) 12.5 gm PRN Q15MIN PRN IV SEE COMMENTS; Start 01/19/20 at 13:45 [address] [place] (Relistor) 12 mg 1X ONCE SQ Last administered on 01/19/20at 15:46; Start 01/19/20 at 15:00; Stop 01/19/20 at 15:01; Status DC Pantoprazole Sodium (PROTONIX VIAL for IV PUSH) 40 mg BID66 IVP Last administered on 01/20/20at 06:41; Start 01/19/20 at 18:00 Bisacodyl (Dulcolax Supp) 10 mg PRN DAILY PRN PA CONSTIPATION; Start 01/19/20 at 14:15 Vancomycin HCl 1.25 gm/Sodium Chloride 250 ml @ 167 mls/hr Q12H IV Last admi nistered on 01/20/20at 12:12; Start 01/19/20 at 23:00 Vancomycin HCl (Vancomycin Trough Level) 1 each 1X ONCE MC ; Start 01/20/20 at 22:30; Stop 01/20/20 at 22:31 Magnesium Sulfate 100 ml @ 25 mls/hr 1X ONCE IV Last administered on 01/19/20at 16:50; Start 01/19/20 at 15:30; Stop 01/19/20 at 19:29; Status DC Potassium Chloride/Water 100 ml @ 100 mls/hr Q1H IV Last administered on 01/19/20at 22:37; Start 01/19/20 at 16:00; Stop 01/19/20 at 18:59; Status DC Calcium Gluconate 2000 mg/Sodium Chloride 120 ml @ 220 mls/hr 1X ONCE IV Last administered on 01/19/20at 16:18; Start 01/19/20 at 16:00; Stop 01/19/20 at 16:32; Status DC Fosphenytoin Sodium (Cerebyx) 150 mg Q8HRS IV Last administered on 01/20/20at 06:42; Start 01/19/20 at 16:00 Ondansetron HCl (Zofran) 4 mg PRN Q6HRS PRN IVP NAUSEA/VOMITING Last administered on 01/19/20at 17:30; Start 01/19/20 at 17:30 Lorazepam (Ativan Inj) 2 mg 1X ONCE IVP ; Start 01/20/20 at 12:30; Stop 01/20/20 at 12:31; Status DC Active Scripts Active Hydrocodone-Apap 5-325 (Hydrocodone Bit/Acetaminophen) 1 Tab Tablet 1 Tab PO PRN Q4HRS PRN Polyethylene Glycol 3350 17 Gm Powd.pack 17 Gm PO DAILY Aspirin 81 Mg Tab.chew 81 Mg PO DAILYWBKFT Synthroid (Levothyroxine Sodium) 100 Mcg Tablet 200 Mcg PO DAILY06 Reported Pepcid (Famotidine) 20 Mg Tablet 20 Mg PO HS Eliquis (Apixaban) 5 Mg Tablet 5 Mg PO BID Ditropan Xl (Oxybutynin Chloride) 10 Mg Tab.er.24 1 Tab PO DAILY 30 Days Phenytoin Sodium Extended 200 Mg Capsule 2 Cap PO HS 30 Days Metoprolol Succinate ( Xl ) (Metoprolol Succinate) 25 Mg Tab.er.24h 2 Tab PO DAILY Fluoxetine Hcl 40 Mg Capsule 1 Cap PO DAILYWBKFT Atorvastatin Calcium 20 Mg Tablet 20 Mg PO HS Insulin Aspart Flexpen (Insulin Aspart) 100 Unit/1 Ml Insuln.pen 0 SQ QIDACHS FSBS 181-220 = 2 units 221-260 = 4 units 261-300 = 6 units 301-350 = 8 units 351-400 = 10 units 401 or higher = 12 units Gabapentin (Gabapentin) 300 Mg Capsule 300 Mg PO BID Renacidin Irrigation Solution (Citric AC/Gluconolact/Mag Carb) 30 Ml Irrig.soln 30 Ml IR QMWF Clamp catheter for 15 minutes, then unclamp and drain by gravity. Dulera 200 Mcg/5 Mcg Inhaler (Mometasone/Formoterol) 13 Gm Hfa.aer.ad 1 Puff IH HS Furosemide 20 Mg Tablet 1 Tab PO DAILY Vitals/I & O Vital Sign - Last 24 Hours 01/19/20 01/19/20 01/19/20 01/19/20 12:46 13:03 13:13 15:15 Pulse 104 104 102 Resp 18 18 B/P (MAP) 146/93 (110) 145/95 (112) 130/86 (101) Pulse Ox 99 99 98 O2 Delivery Room Air Room Air Room Air Room Air 01/19/20 01/19/20 01/19/20 01/19/20 15:15 15:30 15:45 16:00 Temp 97.8 98.2 97.8 98.2 Pulse 108 104 106 106 Resp 20 B/P (MAP) 134/90 (105) 134/92 (106) 135/88 (104) 149/95 (113) Pulse Ox 98 98 99 98 O2 Delivery Room Air Room Air Room Air Room Air 701/19/20 01/19/20 01/19/20 17:00 18:00 19:00 19:00 Temp 98.6 98.6 Pulse 106 108 108 Resp 17 B/P (MAP) 154/94 (114) 138/82 (100) 133/77 (95) Pulse Ox 99 97 98 O2 Delivery Room Air Room Air Room Air 01/19/20 01/19/20 01/19/20 01/19/20 20:00 20:00 21:00 22:00 Pulse 104 104 104 Resp B/P (MAP) 143/82 (102) 120/81 (94) 137/81 (99) Pulse Ox 97 97 97 O2 Delivery Room Air Room Air Room Air Room Air 01/19/20 01/20/20 01/20/20 01/20/20 23:00 00:00 00:00 01:00 Temp 97.3 97.3 Pulse 104 102 102 Resp B/P (MAP) 133/84 (100) 136/85 (102) 136/84 (101) Pulse Ox 97 98 97 O2 Delivery Room Air Room Air Room Air Room Air 01/20/20 01/20/20 01/20/20 01/20/20 02:00 03:00 04:00 04:00 Pulse 104 104 102 Resp B/P (MAP) 136/84 (101) 124/85 (98) 137/94 (108) Pulse Ox 98 98 97 O2 Delivery Room Air Room Air Room Air Room Air 01/20/20 01/20/20 01/20/20 01/20/20 05:00 06:00 07:42 08:00 Temp 97.5 97.5 Pulse 102 106 103 Resp B/P (MAP) 151/95 (113) 149/93 (111) 132/86 (101) Pulse Ox 97 98 98 O2 Delivery Room Air Room Air Room Air Room Air 01/20/20 01/20/20 01/20/20 01/20/20 08:55 09:23 10:01 11:28 Temp 98.3 98.3 Pulse 105 105 106 106 Resp 18 B/P (MAP) 145/87 (106) 145/87 (106) 151/90 (110) 140/90 (107) Pulse Ox 98 98 98 98 O2 Delivery Room Air Room Air Room Air Room Air 01/20/20 01/20/20 12:19 12:22 Temp 98.0 98.0 Pulse 108 Resp 12 B/P (MAP) 159/100 (119) Pulse Ox 97 O2 Delivery Room Air Room Air Intake and Output 01/19/20 01/19/20 01/20/20 15:08 23:08 07:08 Intake Total 2550 ml 270 ml 1732 ml Output Total 1100 ml 650 ml 675 ml Balance 1450 ml -380 ml 1057 ml Problem List Problems Medical Problems: (1) GI bleed Status: Acute (2) Severe sepsis Status: Acute Assessment Gi bleed-no further bleding, advance diet as Hg stable, o/p colonosocpy to further assess, antibiotics for urosepsis, CPM Justicifation of Admission Dx: Justifications for Admission: Justification of Admission Dx: Yes CHF: Hemodynamic Instability Sepsis: Altered Mental Status ARIELLE AMOS MD Jan 20, 2020 12:49
[2020-01-20] MEDS: VANCOMYCIN PER PHARMACY MC PRN (15:30)
--- NOTE | 2020-01-20 18:44 | NUR ---
RECEIVED REPORT FROM ILIANA EPPS AT 1400. PT RESTED IN BED AND WAS ABLE TO TOLERATE PO WELL AND FED HIMSELF. STILL AWAITING COVID RESULTS. PT PROGRESSING TOWARDS GOALS.
[2020-01-21 00:22] LABS: VANC TR 10.1 mcg/mL (10.0-20.0)
[2020-01-21] MEDS ORDERED: VANCOMYCIN 1 GM in IV NORMAL SALINE 250ML 250 ML IV SCH (01:00)
[2020-01-21] MEDS: VANCOMYCIN PER PHARMACY MC PRN (01:07)
--- NOTE | 2020-01-21 01:07 | NUR ---
Pharmacy Vancomycin Dosing Note S:Consulted to monitor and dose vancomycin started 01/19/20. O:HUMAIRA BORJA is a 59 year old M with Sepsis UTI . Height: 6 feet, 0 inches Weight: 69.4 kg Saline Body Weight: 77.60 Adjusted Body Weight: 74.32 Dosing Weight: Actual Other Antibiotics: ZOSYN LABS: Last BUN: 24 Last Creatinine: 0.6 Creatinine Clearance: 133 mL/min Last WBC: 11.2 Last Procalcitonin: Tmax (past 24 hours): 98.6 Microbiology: URINE CX, LIKELY CONTAMINATED BLOOD CX NGTD I/O: 8506/1278 Drug Levels: Last Trough level: 10.1 on 01/20/20 at 2330 Last dose given 01/19/20 at 1100 Vancomycin Dosing: Loading Dose: 1750 mg x1 Dosing Weight: Actual Target Trough: 15-20 A: Based on: TROUGH P: 1. Begin Vancomycin 1250 mg IV q8h 2. Follow up Trough level on 01/22/20 at 0030 3. Pharmacy will continue to monitor, follow and adjust therapy as needed. AVA BLACKBURN RPH, 01/21/20106 Signed: 01/21/20 at 106 by AVA BLACKBURN RPH PHA
[2020-01-21] MEDS: VANCOMYCIN 1.25 GM in IV NORMAL SALINE 250ML 250 ML IV SCH ×3 (01:24→16:52)
[2020-01-21 03:00] VITALS: BP 131/81
[2020-01-21] MEDS: IV NORMAL SALINE 1000ML BAG 1,000 ML IV SCH ×4 (05:21→23:52)
[2020-01-21] MEDS: PIPERACILLIN/TAZOBACTAM 4.5 GM in IV NORMAL SALINE 100ML 100 ML IV SCH ×4 (06:20→23:51)
[2020-01-21] MEDS: FOSPHENYTOIN 100 MG/2 ML VIAL. IV SCH ×3 (06:20→22:40)
[2020-01-21] MEDS: PANTOPRAZOLE IV PUSH 40 MG VIAL. IVP SCH ×2 (06:20→17:58)
[2020-01-21 07:32] LABS: BASO % 0 % (0-3); EOS % 0 % (0-3); HEMATOCRIT 34.6 % (39.0-53.0); HEMOGLOBIN 11.6 g/dL (13.0-17.5); LYMPH # 1.4 x10^3/uL (1.0-4.8); LYMPH % 15 % (24-48); MEAN CORPUSCULAR HEMOGLOBIN 30 pg (25-35); MEAN CORPUSCULAR HGB CONC 34 g/dL (31-37); MEAN CORPUSCULAR VOLUME 90 fL (79-100); MONO # 1.7 x10^3/uL (0.0-1.1); MONO % 18 % (0-9); NEUT # 6.3 x10^3/uL (1.8-7.7); NEUT % 67 % (31-73); PLATELET COUNT 412 x10^3/uL (140-400); RED BLOOD COUNT 3.86 x10^6/uL (4.30-5.70); RED CELL DISTRIBUTION WIDTH 14.3 % (11.5-14.5); WHITE BLOOD COUNT 9.4 x10^3/uL (4.0-11.0)
[2020-01-21 07:59] LABS: CALCIUM 7.2 mg/dL (8.5-10.1); CREATININE 0.6 mg/dL (0.7-1.3); GFR 138.9
[2020-01-21 08:00] VITALS: BP 120/80
[2020-01-21] MEDS: INSULIN LISPRO 300 UNITS/3 ML VIAL. SQ SCH ×3 (08:00→17:00)
[2020-01-21 08:03] LABS: POTASSIUM 2.9 mmol/L (3.5-5.1)
[2020-01-21] MEDS: SENNOSIDES/DOCUSATE 8.6/50MG TABLET. PO SCH ×2 (08:50→21:00)
[2020-01-21] MEDS: DOCUSATE SODIUM 100 MG CAPSULE. PO SCH ×2 (08:50→21:00)
[2020-01-21] MEDS ORDERED: POTASSIUM CHLORIDE 20 MEQ TABLET.ER. PO ONE ×2 (09:00→11:15)
[2020-01-21 11:00] VITALS: BP 127/87
--- NOTE | 2020-01-21 11:07 | PDOC ---
PROGRESS NOTES Subjective Subjective Patient seen and examined Objective Objective Vital Signs Date Time Temp Pulse Resp B/P (MAP) Pulse Ox O2 Delivery O2 Flow Rate FiO2 01/21/20 08:00 Room Air 01/21/20 03:00 97.7 88 20 131/81 (98) 98 97.7 Intake and Output 01/21/20 06:59 Intake Total 400 ml Output Total 1580 ml Balance -1180 ml Intake Oral 400 ml Output Urine Total 1580 ml # Bowel Movements 5 Physical Exam Abdomen: Normal bowel sounds Heart: Regular rate General: mild distress Assessment Assessment Problems Medical Problems: (1) GI bleed Status: Acute (2) Severe sepsis Status: Acute 1. Sepsis. Patient been treated with IV antibiotics and is improving. Will check an echocardiogram. 2. Possible GI bleed. Is being reviewed by the GI service. Will monitor lab. H&H stable 3. Atrial fibrillation. Rate is under reasonable control I will continue to monitor. Patient has been on oral anticoagulation and if needed this may be held at present. 4. History of coronary artery disease. No reports of chest pain. No clear heart failure. Continue telemetry. 5. Diabetes mellitus. As per the primary service. 6. Hyperlipidemia. Will continue medications. 7. History of a CVA. 8. Hypokalemia. Replaced and will monitor. Comment Review of Relevant I have reviewed the following items sujey (where applicable) has been applied. Labs Laboratory Tests Test 01/19/20 11:37 01/19/20 14:10 01/19/20 16:05 01/19/20 16:55 Sodium Level 141 mmol/L (136-145) Potassium Level 2.7 mmol/L (3.5-5.1) Chloride Level 109 mmol/L (98-107) Carbon Dioxide Level 24 mmol/L (21-32) Anion Gap 8 (6-14) Blood Urea Nitrogen 22 mg/dL (8-26) Creatinine 1.0 mg/dL (0.7-1.3) Estimated GFR (Cockcroft-Gault) 77.0 Glucose Level 147 mg/dL (70-99) Lactic Acid Level 2.1 mmol/L (0.4-2.0) 1.2 mmol/L (0.4-2.0) Calcium Level 5.6 mg/dL (8.5-10.1) Magnesium Level 1.3 mg/dL (1.8-2.4) Total Bilirubin 1.1 mg/dL (0.2-1.0) Direct Bilirubin 0.2 mg/dL (0.0-0.2) Aspartate Amino Transf (AST/SGOT) 10 U/L (15-37) Alanine Aminotransferase (ALT/SGPT) 6 U/L (16-63) Alkaline Phosphatase 83 U/L (46-116) Troponin I Quantitative < 0.017 ng/mL (0.000-0.055) Total Protein 3.7 g/dL (6.4-8.2) Albumin 1.6 g/dL (3.4-5.0) Lipase 25 U/L (73-393) Thyroid Stimulating Hormone (TSH) 2.384 uIU/mL (0.358-3.74) O2 Saturation 94 % (92-99) Arterial Blood pH 7.42 (7.35-7.45) Arterial Blood pCO2 at Patient Temp 41 mmHg (35-46) Arterial Blood pO2 at Patient Temp 70 mmHg (75-108) Arterial Blood HCO3 26 mmol/L (21-28) Arterial Blood Base Excess 1 mmol/L (-3-3) Oxyhemoglobin 93.0 % Methemoglobin 0.4 % (0.0-1.9) Carbon Monoxide, Quantitative 0.4 % (0.0-1.9) FiO2 21 Glucose (Fingerstick) 185 mg/dL (70-99) Test 01/19/20 22:10 01/20/20 01:11 01/20/20 04:50 01/20/20 17:35 White Blood Count 12.7 x10^3/uL (4.0-11.0) 11.2 x10^3/uL (4.0-11.0) Red Blood Count 4.41 x10^6/uL (4.30-5.70) 4.32 x10^6/uL (4.30-5.70) Hemoglobin 13.3 g/dL (13.0-17.5) 12.7 g/dL (13.0-17.5) Hematocrit 39.1 % (39.0-53.0) 38.3 % (39.0-53.0) Mean Corpuscular Volume 89 fL (79-100) 89 fL (79-100) Mean Corpuscular Hemoglobin 30 pg (25-35) 29 pg (25-35) Mean Corpuscular Hemoglobin Concent 34 g/dL (31-37) 33 g/dL (31-37) Red Cell Distribution Width 14.2 % (11.5-14.5) 14.4 % (11.5-14.5) Platelet Count 411 x10^3/uL (140-400) 419 x10^3/uL (140-400) Sodium Level 138 mmol/L (136-145) 138 mmol/L (136-145) Potassium Level 4.0 mmol/L (3.5-5.1) 3.6 mmol/L (3.5-5.1) Chloride Level 103 mmol/L (98-107) 105 mmol/L (98-107) Carbon Dioxide Level 27 mmol/L (21-32) 25 mmol/L (21-32) Anion Gap 8 (6-14) 8 (6-14) Blood Urea Nitrogen 25 mg/dL (8-26) 24 mg/dL (8-26) Creatinine 0.7 mg/dL (0.7-1.3) 0.6 mg/dL (0.7-1.3) Estimated GFR (Cockcroft-Gault) 116.2 138.9 Glucose Level 143 mg/dL (70-99) 138 mg/dL (70-99) Calcium Level 7.9 mg/dL (8.5-10.1) 7.5 mg/dL (8.5-10.1) Magnesium Level 2.4 mg/dL (1.8-2.4) Glucose (Fingerstick) 147 mg/dL (70-99) 138 mg/dL (70-99) Neutrophils (%) (Auto) 70 % (31-73) Lymphocytes (%) (Auto) 12 % (24-48) Monocytes (%) (Auto) 18 % (0-9) Eosinophils (%) (Auto) 0 % (0-3) Basophils (%) (Auto) 0 % (0-3) Neutrophils # (Auto) 7.8 x10^3/uL (1.8-7.7) Lymphocytes # (Auto) 1.3 x10^3/uL (1.0-4.8) Monocytes # (Auto) 2.0 x10^3/uL (0.0-1.1) Eosinophils # (Auto) 0.0 x10^3/uL (0.0-0.7) Basophils # (Auto) 0.0 x10^3/uL (0.0-0.2) Test 01/20/20 23:50 01/21/20 07:15 01/21/20 09:11 Vancomycin Level Trough 10.1 mcg/mL (10.0-20.0) Vancomycin Last Dose Date 01/20/20 Vancomycin Last Dose Time 1100 White Blood Count 9.4 x10^3/uL (4.0-11.0) Red Blood Count 3.86 x10^6/uL (4.30-5.70) Hemoglobin 11.6 g/dL (13.0-17.5) Hematocrit 34.6 % (39.0-53.0) Mean Corpuscular Volume 90 fL (79-100) Mean Corpuscular Hemoglobin 30 pg (25-35) Mean Corpuscular Hemoglobin Concent 34 g/dL (31-37) Red Cell Distribution Width 14.3 % (11.5-14.5) Platelet Count 412 x10^3/uL (140-400) Neutrophils (%) (Auto) 67 % (31-73) Lymphocytes (%) (Auto) 15 % (24-48) Monocytes (%) (Auto) 18 % (0-9) Eosinophils (%) (Auto) 0 % (0-3) Basophils (%) (Auto) 0 % (0-3) Neutrophils # (Auto) 6.3 x10^3/uL (1.8-7.7) Lymphocytes # (Auto) 1.4 x10^3/uL (1.0-4.8) Monocytes # (Auto) 1.7 x10^3/uL (0.0-1.1) Eosinophils # (Auto) 0.0 x10^3/uL (0.0-0.7) Basophils # (Auto) 0.0 x10^3/uL (0.0-0.2) Sodium Level 141 mmol/L (136-145) Potassium Level 2.9 mmol/L (3.5-5.1) Chloride Level 105 mmol/L (98-107) Carbon Dioxide Level 25 mmol/L (21-32) Anion Gap 11 (6-14) Blood Urea Nitrogen 18 mg/dL (8-26) Creatinine 0.6 mg/dL (0.7-1.3) Estimated GFR (Cockcroft-Gault) 138.9 Glucose Level 112 mg/dL (70-99) Calcium Level 7.2 mg/dL (8.5-10.1) Glucose (Fingerstick) 106 mg/dL (70-99) Laboratory Tests Test 01/20/20 17:35 01/20/20 23:50 01/21/20 07:15 01/21/20 09:11 Glucose (Fingerstick) 138 mg/dL (70-99) 106 mg/dL (70-99) Vancomycin Level Trough 10.1 mcg/mL (10.0-20.0) Vancomycin Last Dose Date 01/20/20 Vancomycin Last Dose Time 1100 White Blood Count 9.4 x10^3/uL (4.0-11.0) Red Blood Count 3.86 x10^6/uL (4.30-5.70) Hemoglobin 11.6 g/dL (13.0-17.5) Hematocrit 34.6 % (39.0-53.0) Mean Corpuscular Volume 90 fL (79-100) Mean Corpuscular Hemoglobin 30 pg (25-35) Mean Corpuscular Hemoglobin Concent 34 g/dL (31-37) Red Cell Distribution Width 14.3 % (11.5-14.5) Platelet Count 412 x10^3/uL (140-400) Neutrophils (%) (Auto) 67 % (31-73) Lymphocytes (%) (Auto) 15 % (24-48) Monocytes (%) (Auto) 18 % (0-9) Eosinophils (%) (Auto) 0 % (0-3) Basophils (%) (Auto) 0 % (0-3) Neutrophils # (Auto) 6.3 x10^3/uL (1.8-7.7) Lymphocytes # (Auto) 1.4 x10^3/uL (1.0-4.8) Monocytes # (Auto) 1.7 x10^3/uL (0.0-1.1) Eosinophils # (Auto) 0.0 x10^3/uL (0.0-0.7) Basophils # (Auto) 0.0 x10^3/uL (0.0-0.2) Sodium Level 141 mmol/L (136-145) Potassium Level 2.9 mmol/L (3.5-5.1) Chloride Level 105 mmol/L (98-107) Carbon Dioxide Level 25 mmol/L (21-32) Anion Gap 11 (6-14) Blood Urea Nitrogen 18 mg/dL (8-26) Creatinine 0.6 mg/dL (0.7-1.3) Estimated GFR (Cockcroft-Gault) 138.9 Glucose Level 112 mg/dL (70-99) Calcium Level 7.2 mg/dL (8.5-10.1) Microbiology 01/19/20 Blood Culture - Preliminary, Resulted NO GROWTH AFTER 1 DAY 01/19/20 Urine Culture - Final, Complete Medications Current Medications Sodium Chloride 1,000 ml @ 1,000 mls/hr 1X ONCE IV ; Start 01/19/20 at 09:45; Stop 01/19/20 at 10:44; Status DC Piperacillin Sod/ Tazobactam Sod 4.5 gm/Sodium Chloride 100 ml @ 200 mls/hr 1X ONCE IV Last administered on 01/19/20at 10:22; Start 01/19/20 at 10:00; Stop 01/19/20 at 10:29; Status DC Vancomycin HCl (Vanco Per Pharmacy) 1 each PRN DAILY PRN MC SEE COMMENTS; Start 01/19/20 at 10:00; Status UNV Sodium Chloride 1,000 ml @ 2,100 mls/hr Q29M IV Last administered on 01/19/20at 13:29; Start 01/19/20 at 09:46; Stop 01/19/20 at 10:46; Status DC Vancomycin HCl 1.75 gm/Sodium Chloride 500 ml @ 250 mls/hr 1X ONCE IV Last administered on 01/19/20at 11:07; Start 01/19/20 at 10:30; Stop 01/19/20 at 12:29; Status DC Ondansetron HCl (Zofran) 4 mg 1X ONCE IVP Last administered on 01/19/20at 10:39; Start 01/19/20 at 10:45; Stop 01/19/20 at 10:46; Status DC Pantoprazole Sodium 80 mg/ Sodium Chloride 100 ml @ 10 mls/hr Q10H IV Last administered on 01/19/20at 12:38; Start 01/19/20 at 12:00; Stop 01/19/20 at 14:10; Status DC Pantoprazole Sodium (PROTONIX VIAL for IV PUSH) 40 mg 1X ONCE IVP Last administered on 01/19/20at 12:40; Start 01/19/20 at 12:00; Stop 01/19/20 at 12:01; Status DC Potassium Chloride/Water 100 ml @ 100 mls/hr Q1H IV Last administered on 01/19/20at 15:43; Start 01/19/20 at 13:15; Stop 01/19/20 at 15:14; Status DC Docusate Sodium (Enemeez) 283 mg 1X ONCE OR Last administered on 01/19/20at 13:30; Start 01/19/20 at 13:30; Stop 01/19/20 at 13:31; Status DC Phenytoin Sodium (Dilantin) 200 mg BID PO ; Start 01/19/20 at 14:00; Stop 01/19/20 at 15:40; Status DC Acetaminophen (Tylenol) 650 mg PRN Q6HRS PRN PO Headaches, Temp > 101.5'; Start 01/19/20 at 13:30 Famotidine (Pepcid Vial) 20 mg BID IVP ; Start 01/19/20 at 21:00; Stop 01/19/20 at 14:08; Status DC Sodium Chloride (Normal Saline Flush) 3 ml QSHIFT PRN IV AFTER MEDS AND BLOOD DRAWS; Start 01/19/20 at 13:30 Sodium Chloride 1,000 ml @ 100 mls/hr Q10H IV Last administered on 01/20/20at 12:17; Start 01/19/20 at 13:21 Senna/Docusate Sodium (Senna Plus) 1 tab BID PO Last administered on 01/21/20at 08:50; Start 01/19/20 at 21:00 Docusate Sodium (Colace) 100 mg BID PO Last administered on 01/21/20at 08:50; Start 01/19/20 at 21:00 Vancomycin HCl (Vanco Per Pharmacy) 1 each PRN DAILY PRN MC SEE COMMENTS Last administered on 01/21/20at 01:07; Start 01/19/20 at 13:30 Piperacillin Sod/ Tazobactam Sod (Zosyn Per Pharmacy) 1 each PRN DAILY PRN MC SEE COMMENTS; Start 01/19/20 at 13:30 Piperacillin Sod/ Tazobactam Sod 4.5 gm/Sodium Chloride 100 ml @ 200 mls/hr Q6HRS IV Last administered on 01/21/20at 06:20; Start 01/19/20 at 18:00 Levothyroxine Sodium 100 mcg/ Sodium Chloride 5 ml @ 100 mls/hr Q3DAYS IV ; Start 01/25/20 at 09:00; Stop 01/21/20 at 09:27; Status DC Insulin Human Lispro (HumaLOG) 0-7 UNITS TIDWMEALS SQ ; Start 01/19/20 at 17:00 Dextrose (Dextrose 50%-Water Syringe) 12.5 gm PRN Q15MIN PRN IV SEE COMMENTS; Start 01/19/20 at 13:45 Methylnaltrexone [place] (Relistor) 12 mg 1X ONCE SQ Last administered on 01/19/20at 15:46; Start 01/19/20 at 15:00; Stop 01/19/20 at 15:01; Status DC Pantoprazole Sodium (PROTONIX VIAL for IV PUSH) 40 mg BID66 IVP Last administered on 01/21/20at 06:20; Start 01/19/20 at 18:00 Bisacodyl (Dulcolax Supp) 10 mg PRN DAILY PRN OR CONSTIPATION; Start 01/19/20 at 14:15 Vancomycin HCl 1.25 gm/Sodium Chloride 250 ml @ 167 mls/hr Q12H IV Last administered on 01/20/20at 12:12; Start 01/19/20 at 23:00; Stop 01/21/20 at 00:59; Status DC Vancomycin HCl (Vancomycin Trough Level) 1 each 1X ONCE MC Last administered on 01/20/20at 23:30; Start 01/20/20 at 23:30; Stop 01/20/20 at 23:31; Status DC Magnesium Sulfate 100 ml @ 25 mls/hr 1X ONCE IV Last administered on 01/19/20at 16:50; Start 01/19/20 at 15:30; Stop 01/19/20 at 19:29; Status DC Potassium Chloride/Water 100 ml @ 100 mls/hr Q1H IV Last administered on 01/19/20at 22:37; Start 01/19/20 at 16:00; Stop 01/19/20 at 18:59; Status DC Calcium Gluconate 2000 mg/Sodium Chloride 120 ml @ 220 mls/hr 1X ONCE IV Last administered on 01/19/20at 16:18; Start 01/19/20 at 16:00; Stop 01/19/20 at 16:32; Status DC Fosphenytoin Sodium (Cerebyx) 150 mg Q8HRS IV Last administered on 01/21/20at 06:20; Start 01/19/20 at 16:00 Ondansetron HCl (Zofran) 4 mg PRN Q6HRS PRN IVP NAUSEA/VOMITING Last administered on 01/19/20at 17:30; Start 01/19/20 at 17:30 Lorazepam (Ativan Inj) 2 mg 1X ONCE IVP ; Start 01/20/20 at 12:30; Stop 01/20/20 at 12:31; Status DC Vancomycin HCl 1 gm/Sodium Chloride 250 ml @ 250 mls/hr Q8H IV ; Start 01/21/20 at 01:00; Status Cancel Vancomycin HCl 1.25 gm/Sodium Chloride 250 ml @ 167 mls/hr Q8H IV Last administered on 01/21/20at 08:55; Start 01/21/20 at 01:00 Vancomycin HCl (Vancomycin Trough Level) 1 each 1X ONCE MC ; Start 01/22/20 at 00:30; Stop 01/22/20 at 00:31 Potassium Chloride (Klor-Con) 40 meq 1X ONCE PO Last administered on 01/21/20at 09:14; Start 01/21/20 at 09:00; Stop 01/21/20 at 09:02; Status DC Levothyroxine Sodium (Synthroid) 200 mcg DAILY06 PO ; Start 01/22/20 at 06:00 Active Scripts Active Hydrocodone-Apap 5-325 (Hydrocodone Bit/Acetaminophen) 1 Tab Tablet 1 Tab PO PRN Q4HRS PRN Polyethylene Glycol 3350 17 Gm Powd.pack 17 Gm PO DAILY Aspirin 81 Mg Tab.chew 81 Mg PO DAILYWBKFT Synthroid (Levothyroxine Sodium) 100 Mcg Tablet 200 Mcg PO DAILY06 Reported Pepcid (Famotidine) 20 Mg Tablet 20 Mg PO HS Eliquis (Apixaban) 5 Mg Tablet 5 Mg PO BID Ditropan Xl (Oxybutynin Chloride) 10 Mg Tab.er.24 1 Tab PO DAILY 30 Days Phenytoin Sodium Extended 200 Mg Capsule 2 Cap PO HS 30 Days Metoprolol Succinate ( Xl ) (Metoprolol Succinate) 25 Mg Tab.er.24h 2 Tab PO DAILY Fluoxetine Hcl 40 Mg Capsule 1 Cap PO DAILYWBKFT Atorvastatin Calcium 20 Mg Tablet 20 Mg PO HS Insulin Aspart Flexpen (Insulin Aspart) 100 Unit/1 Ml Insuln.pen 0 SQ QIDACHS FSBS 181-220 = 2 units 221-260 = 4 units 261-300 = 6 units 301-350 = 8 units 351-400 = 10 units 401 or higher = 12 units Gabapentin (Gabapentin) 300 Mg Capsule 300 Mg PO BID Renacidin Irrigation Solution (Citric AC/Gluconolact/Mag Carb) 30 Ml Irrig.soln 30 Ml IR QMWF Clamp catheter for 15 minutes, then unclamp and drain by gravity. Dulera 200 Mcg/5 Mcg Inhaler (Mometasone/Formoterol) 13 Gm Hfa.aer.ad 1 Puff IH HS Furosemide 20 Mg Tablet 1 Tab PO DAILY Vitals/I & O Vital Sign - Last 24 Hours 01/20/20 01/20/20 01/20/20 01/20/20 11:28 12:19 12:22 13:10 Temp 98.0 98.0 Pulse 106 108 110 Resp 18 12 16 B/P (MAP) 140/90 (107) 159/100 (119) 149/95 (113) Pulse Ox 98 97 97 O2 Delivery Room Air Room Air Room Air Room Air 01/20/20 01/20/20 01/20/20 01/20/20 15:04 20:00 20:00 23:00 Temp 98.0 97.9 98.0 98.0 97.9 98.0 Pulse 110 106 103 Resp 20 20 19 B/P (MAP) 139/93 (108) 135/91 (106) 131/85 (100) Pulse Ox 97 98 98 O2 Delivery Room Air Room Air Room Air Room Air 01/21/20 01/21/20 03:00 08:00 Temp 97.7 97.7 Pulse 88 Resp 20 B/P (MAP) 131/81 (98) Pulse Ox 98 O2 Delivery Room Air Room Air Intake and Output 01/20/20 01/20/20 01/21/20 14:59 22:59 06:59 Intake Total 400 ml Output Total 275 ml 675 ml 630 ml Balance -275 ml -275 ml -630 ml Justicifation of Admission Dx: Justifications for Admission: Justification of Admission Dx: Yes CHF: Hemodynamic Instability Sepsis: Altered Mental Status MARCY KNOWLES MD Jan 21, 2020 11:07
--- NOTE | 2020-01-21 11:11 | PDOC ---
PROGRESS NOTES Chief Complaint Chief Complaint ASSESSMENT Severe Sepsis Secondary to UTI in setting of Indwelling Pretty Cath Leukocytosis GI bleed Nausea and Vomiting hx of recent SBO Hyokalemia, severe A Fib DM with a1c of 12.8% Prior history of severe stroke with hemiparesis and expressive aphasia CAD w/ stents HYPERTENSION HLD, hx of COPD peripheral neuropathy, hx seizure OA, allergic rhinitis hypothyroidism PLAN IVF, Vanc Zosyn, follow cultures SP catheter exchanged hold AC given GI bleed, stable Hb IV PPI therapy replace K advance diet as tolerated GI consulted SCDs full code labs in AM okay to tranfer to floor History of Present Illness History of Present Illness no issues. patient still very lethargic. tolerating PO diet. Vitals Vitals Vital Signs Date Time Temp Pulse Resp B/P (MAP) Pulse Ox O2 Delivery O2 Flow Rate FiO2 01/21/20 08:00 Room Air 01/21/20 03:00 97.7 88 20 131/81 (98) 98 97.7 Physical Exam Physical Exam + SP catheter General: Alert, Oriented X3 Heart: Regular rate, Normal S1, Normal S2 Lungs: Clear Abdomen: Normal bowel sounds Extremities: No clubbing Labs LABS Laboratory Tests Test 01/20/20 17:35 01/20/20 23:50 01/21/20 07:15 01/21/20 09:11 Glucose (Fingerstick) 138 mg/dL (70-99) 106 mg/dL (70-99) Vancomycin Level Trough 10.1 mcg/mL (10.0-20.0) Vancomycin Last Dose Date 01/20/20 Vancomycin Last Dose Time 1100 White Blood Count 9.4 x10^3/uL (4.0-11.0) Red Blood Count 3.86 x10^6/uL (4.30-5.70) Hemoglobin 11.6 g/dL (13.0-17.5) Hematocrit 34.6 % (39.0-53.0) Mean Corpuscular Volume 90 fL (79-100) Mean Corpuscular Hemoglobin 30 pg (25-35) Mean Corpuscular Hemoglobin Concent 34 g/dL (31-37) Red Cell Distribution Width 14.3 % (11.5-14.5) Platelet Count 412 x10^3/uL (140-400) Neutrophils (%) (Auto) 67 % (31-73) Lymphocytes (%) (Auto) 15 % (24-48) Monocytes (%) (Auto) 18 % (0-9) Eosinophils (%) (Auto) 0 % (0-3) Basophils (%) (Auto) 0 % (0-3) Neutrophils # (Auto) 6.3 x10^3/uL (1.8-7.7) Lymphocytes # (Auto) 1.4 x10^3/uL (1.0-4.8) Monocytes # (Auto) 1.7 x10^3/uL (0.0-1.1) Eosinophils # (Auto) 0.0 x10^3/uL (0.0-0.7) Basophils # (Auto) 0.0 x10^3/uL (0.0-0.2) Sodium Level 141 mmol/L (136-145) Potassium Level 2.9 mmol/L (3.5-5.1) Chloride Level 105 mmol/L (98-107) Carbon Dioxide Level 25 mmol/L (21-32) Anion Gap 11 (6-14) Blood Urea Nitrogen 18 mg/dL (8-26) Creatinine 0.6 mg/dL (0.7-1.3) Estimated GFR (Cockcroft-Gault) 138.9 Glucose Level 112 mg/dL (70-99) Calcium Level 7.2 mg/dL (8.5-10.1) Assessment and Plan Assessmemt and Plan Problems Medical Problems: (1) GI bleed Status: Acute (2) Severe sepsis Status: Acute Comment Review of Relevant I have reviewed the following items sujey (where applicable) has been applied. Labs Laboratory Tests Test 01/19/20 11:37 01/19/20 14:10 01/19/20 16:05 01/19/20 16:55 Sodium Level 141 mmol/L (136-145) Potassium Level 2.7 mmol/L (3.5-5.1) Chloride Level 109 mmol/L (98-107) Carbon Dioxide Level 24 mmol/L (21-32) Anion Gap 8 (6-14) Blood Urea Nitrogen 22 mg/dL (8-26) Creatinine 1.0 mg/dL (0.7-1.3) Estimated GFR (Cockcroft-Gault) 77.0 Glucose Level 147 mg/dL (70-99) Lactic Acid Level 2.1 mmol/L (0.4-2.0) 1.2 mmol/L (0.4-2.0) Calcium Level 5.6 mg/dL (8.5-10.1) Magnesium Level 1.3 mg/dL (1.8-2.4) Total Bilirubin 1.1 mg/dL (0.2-1.0) Direct Bilirubin 0.2 mg/dL (0.0-0.2) Aspartate Amino Transf (AST/SGOT) 10 U/L (15-37) Alanine Aminotransferase (ALT/SGPT) 6 U/L (16-63) Alkaline Phosphatase 83 U/L (46-116) Troponin I Quantitative < 0.017 ng/mL (0.000-0.055) Total Protein 3.7 g/dL (6.4-8.2) Albumin 1.6 g/dL (3.4-5.0) Lipase 25 U/L (73-393) Thyroid Stimulating Hormone (TSH) 2.384 uIU/mL (0.358-3.74) O2 Saturation 94 % (92-99) Arterial Blood pH 7.42 (7.35-7.45) Arterial Blood pCO2 at Patient Temp 41 mmHg (35-46) Arterial Blood pO2 at Patient Temp 70 mmHg (75-108) Arterial Blood HCO3 26 mmol/L (21-28) Arterial Blood Base Excess 1 mmol/L (-3-3) Oxyhemoglobin 93.0 % Methemoglobin 0.4 % (0.0-1.9) Carbon Monoxide, Quantitative 0.4 % (0.0-1.9) FiO2 21 Glucose (Fingerstick) 185 mg/dL (70-99) Test 01/19/20 22:10 01/20/20 01:11 01/20/20 04:50 01/20/20 17:35 White Blood Count 12.7 x10^3/uL (4.0-11.0) 11.2 x10^3/uL (4.0-11.0) Red Blood Count 4.41 x10^6/uL (4.30-5.70) 4.32 x10^6/uL (4.30-5.70) Hemoglobin 13.3 g/dL (13.0-17.5) 12.7 g/dL (13.0-17.5) Hematocrit 39.1 % (39.0-53.0) 38.3 % (39.0-53.0) Mean Corpuscular Volume 89 fL (79-100) 89 fL (79-100) Mean Corpuscular Hemoglobin 30 pg (25-35) 29 pg (25-35) Mean Corpuscular Hemoglobin Concent 34 g/dL (31-37) 33 g/dL (31-37) Red Cell Distribution Width 14.2 % (11.5-14.5) 14.4 % (11.5-14.5) Platelet Count 411 x10^3/uL (140-400) 419 x10^3/uL (140-400) Sodium Level 138 mmol/L (136-145) 138 mmol/L (136-145) Potassium Level 4.0 mmol/L (3.5-5.1) 3.6 mmol/L (3.5-5.1) Chloride Level 103 mmol/L (98-107) 105 mmol/L (98-107) Carbon Dioxide Level 27 mmol/L (21-32) 25 mmol/L (21-32) Anion Gap 8 (6-14) 8 (6-14) Blood Urea Nitrogen 25 mg/dL (8-26) 24 mg/dL (8-26) Creatinine 0.7 mg/dL (0.7-1.3) 0.6 mg/dL (0.7-1.3) Estimated GFR (Cockcroft-Gault) 116.2 138.9 Glucose Level 143 mg/dL (70-99) 138 mg/dL (70-99) Calcium Level 7.9 mg/dL (8.5-10.1) 7.5 mg/dL (8.5-10.1) Magnesium Level 2.4 mg/dL (1.8-2.4) Glucose (Fingerstick) 147 mg/dL (70-99) 138 mg/dL (70-99) Neutrophils (%) (Auto) 70 % (31-73) Lymphocytes (%) (Auto) 12 % (24-48) Monocytes (%) (Auto) 18 % (0-9) Eosinophils (%) (Auto) 0 % (0-3) Basophils (%) (Auto) 0 % (0-3) Neutrophils # (Auto) 7.8 x10^3/uL (1.8-7.7) Lymphocytes # (Auto) 1.3 x10^3/uL (1.0-4.8) Monocytes # (Auto) 2.0 x10^3/uL (0.0-1.1) Eosinophils # (Auto) 0.0 x10^3/uL (0.0-0.7) Basophils # (Auto) 0.0 x10^3/uL (0.0-0.2) Test 01/20/20 23:50 01/21/20 07:15 01/21/20 09:11 Vancomycin Level Trough 10.1 mcg/mL (10.0-20.0) Vancomycin Last Dose Date 01/20/20 Vancomycin Last Dose Time 1100 White Blood Count 9.4 x10^3/uL (4.0-11.0) Red Blood Count 3.86 x10^6/uL (4.30-5.70) Hemoglobin 11.6 g/dL (13.0-17.5) Hematocrit 34.6 % (39.0-53.0) Mean Corpuscular Volume 90 fL (79-100) Mean Corpuscular Hemoglobin 30 pg (25-35) Mean Corpuscular Hemoglobin Concent 34 g/dL (31-37) Red Cell Distribution Width 14.3 % (11.5-14.5) Platelet Count 412 x10^3/uL (140-400) Neutrophils (%) (Auto) 67 % (31-73) Lymphocytes (%) (Auto) 15 % (24-48) Monocytes (%) (Auto) 18 % (0-9) Eosinophils (%) (Auto) 0 % (0-3) Basophils (%) (Auto) 0 % (0-3) Neutrophils # (Auto) 6.3 x10^3/uL (1.8-7.7) Lymphocytes # (Auto) 1.4 x10^3/uL (1.0-4.8) Monocytes # (Auto) 1.7 x10^3/uL (0.0-1.1) Eosinophils # (Auto) 0.0 x10^3/uL (0.0-0.7) Basophils # (Auto) 0.0 x10^3/uL (0.0-0.2) Sodium Level 141 mmol/L (136-145) Potassium Level 2.9 mmol/L (3.5-5.1) Chloride Level 105 mmol/L (98-107) Carbon Dioxide Level 25 mmol/L (21-32) Anion Gap 11 (6-14) Blood Urea Nitrogen 18 mg/dL (8-26) Creatinine 0.6 mg/dL (0.7-1.3) Estimated GFR (Cockcroft-Gault) 138.9 Glucose Level 112 mg/dL (70-99) Calcium Level 7.2 mg/dL (8.5-10.1) Glucose (Fingerstick) 106 mg/dL (70-99) Laboratory Tests Test 01/20/20 17:35 01/20/20 23:50 01/21/20 07:15 01/21/20 09:11 Glucose (Fingerstick) 138 mg/dL (70-99) 106 mg/dL (70-99) Vancomycin Level Trough 10.1 mcg/mL (10.0-20.0) Vancomycin Last Dose Date 01/20/20 Vancomycin Last Dose Time 1100 White Blood Count 9.4 x10^3/uL (4.0-11.0) Red Blood Count 3.86 x10^6/uL (4.30-5.70) Hemoglobin 11.6 g/dL (13.0-17.5) Hematocrit 34.6 % (39.0-53.0) Mean Corpuscular Volume 90 fL (79-100) Mean Corpuscular Hemoglobin 30 pg (25-35) Mean Corpuscular Hemoglobin Concent 34 g/dL (31-37) Red Cell Distribution Width 14.3 % (11.5-14.5) Platelet Count 412 x10^3/uL (140-400) Neutrophils (%) (Auto) 67 % (31-73) Lymphocytes (%) (Auto) 15 % (24-48) Monocytes (%) (Auto) 18 % (0-9) Eosinophils (%) (Auto) 0 % (0-3) Basophils (%) (Auto) 0 % (0-3) Neutrophils # (Auto) 6.3 x10^3/uL (1.8-7.7) Lymphocytes # (Auto) 1.4 x10^3/uL (1.0-4.8) Monocytes # (Auto) 1.7 x10^3/uL (0.0-1.1) Eosinophils # (Auto) 0.0 x10^3/uL (0.0-0.7) Basophils # (Auto) 0.0 x10^3/uL (0.0-0.2) Sodium Level 141 mmol/L (136-145) Potassium Level 2.9 mmol/L (3.5-5.1) Chloride Level 105 mmol/L (98-107) Carbon Dioxide Level 25 mmol/L (21-32) Anion Gap 11 (6-14) Blood Urea Nitrogen 18 mg/dL (8-26) Creatinine 0.6 mg/dL (0.7-1.3) Estimated GFR (Cockcroft-Gault) 138.9 Glucose Level 112 mg/dL (70-99) Calcium Level 7.2 mg/dL (8.5-10.1) Microbiology 01/19/20 Blood Culture - Preliminary, Resulted NO GROWTH AFTER 1 DAY 01/19/20 Urine Culture - Final, Complete Medications Current Medications Sodium Chloride 1,000 ml @ 1,000 mls/hr 1X ONCE IV ; Start 01/19/20 at 09:45; Stop 01/19/20 at 10:44; Status DC Piperacillin Sod/ Tazobactam Sod 4.5 gm/Sodium Chloride 100 ml @ 200 mls/hr 1X ONCE IV Last administered on 01/19/20at 10:22; Start 01/19/20 at 10:00; Stop 01/19/20 at 10:29; Status DC Vancomycin HCl (Vanco Per Pharmacy) 1 each PRN DAILY PRN MC SEE COMMENTS; Start 01/19/20 at 10:00; Status UNV Sodium Chloride 1,000 ml @ 2,100 mls/hr Q29M IV Last administered on 01/19/20at 13:29; Start 01/19/20 at 09:46; Stop 01/19/20 at 10:46; Status DC Vancomycin HCl 1.75 gm/Sodium Chloride 500 ml @ 250 mls/hr 1X ONCE IV Last administered on 01/19/20at 11:07; Start 01/19/20 at 10:30; Stop 01/19/20 at 12:29; Status DC Ondansetron HCl (Zofran) 4 mg 1X ONCE IVP Last administered on 01/19/20at 10:39; Start 01/19/20 at 10:45; Stop 01/19/20 at 10:46; Status DC Pantoprazole Sodium 80 mg/ Sodium Chloride 100 ml @ 10 mls/hr Q10H IV Last administered on 01/19/20at 12:38; Start 01/19/20 at 12:00; Stop 01/19/20 at 14:10; Status DC Pantoprazole Sodium (PROTONIX VIAL for IV PUSH) 40 mg 1X ONCE IVP Last adminis tered on 01/19/20at 12:40; Start 01/19/20 at 12:00; Stop 01/19/20 at 12:01; Status DC Potassium Chloride/Water 100 ml @ 100 mls/hr Q1H IV Last administered on 01/19/20at 15:43; Start 01/19/20 at 13:15; Stop 01/19/20 at 15:14; Status DC Docusate Sodium (Enemeez) 283 mg 1X ONCE AR Last administered on 01/19/20at 13:30; Start 01/19/20 at 13:30; Stop 01/19/20 at 13:31; Status DC Phenytoin Sodium (Dilantin) 200 mg BID PO ; Start 01/19/20 at 14:00; Stop 01/19/20 at 15:40; Status DC Acetaminophen (Tylenol) 650 mg PRN Q6HRS PRN PO Headaches, Temp > 101.5'; Start 01/19/20 at 13:30 Famotidine (Pepcid Vial) 20 mg BID IVP ; Start 01/19/20 at 21:00; Stop 01/19/20 at 14:08; Status DC Sodium Chloride (Normal Saline Flush) 3 ml QSHIFT PRN IV AFTER MEDS AND BLOOD DRAWS; Start 01/19/20 at 13:30 Sodium Chloride 1,000 ml @ 100 mls/hr Q10H IV Last administered on 01/20/20at 12:17; Start 01/19/20 at 13:21 Senna/Docusate Sodium (Senna Plus) 1 tab BID PO Last administered on 01/21/20at 08:50; Start 01/19/20 at 21:00 Docusate Sodium (Colace) 100 mg BID PO Last administered on 01/21/20at 08:50; Start 01/19/20 at 21:00 Vancomycin HCl (Vanco Per Pharmacy) 1 each PRN DAILY PRN MC SEE COMMENTS Last administered on 01/21/20at 01:07; Start 01/19/20 at 13:30 Piperacillin Sod/ Tazobactam Sod (Zosyn Per Pharmacy) 1 each PRN DAILY PRN MC SEE COMMENTS; Start 01/19/20 at 13:30 Piperacillin Sod/ Tazobactam Sod 4.5 gm/Sodium Chloride 100 ml @ 200 mls/hr Q6HRS IV Last administered on 01/21/20at 06:20; Start 01/19/20 at 18:00 Levothyroxine Sodium 100 mcg/ Sodium Chloride 5 ml @ 100 mls/hr Q3DAYS IV ; Start 01/25/20 at 09:00; Stop 01/21/20 at 09:27; Status DC Insulin Human Lispro (HumaLOG) 0-7 UNITS TIDWMEALS SQ ; Start 01/19/20 at 17:00 Dextrose (Dextrose 50%-Water Syringe) 12.5 gm PRN Q15MIN PRN IV SEE COMMENTS; Start 01/19/20 at 13:45 Methylnaltrexone [place] (Relistor) 12 mg 1X ONCE SQ Last administered on 01/18at 15:46; Start 01/19/20 at 15:00; Stop 01/19/20 at 15:01; Status DC Pantoprazole Sodium (PROTONIX VIAL for IV PUSH) 40 mg BID66 IVP Last administered on 01/21/20at 06:20; Start 01/19/20 at 18:00 Bisacodyl (Dulcolax Supp) 10 mg PRN DAILY PRN AR CONSTIPATION; Start 01/19/20 at 14:15 Vancomycin HCl 1.25 gm/Sodium Chloride 250 ml @ 167 mls/hr Q12H IV Last administered on 01/20/20at 12:12; Start 01/19/20 at 23:00; Stop 01/21/20 at 00:59; Status DC Vancomycin HCl (Vancomycin Trough Level) 1 each 1X ONCE MC Last administered on 01/20/20at 23:30; Start 01/20/20 at 23:30; Stop 01/20/20 at 23:31; Status DC Magnesium Sulfate 100 ml @ 25 mls/hr 1X ONCE IV Last administered on 01/19/20at 16:50; Start 01/19/20 at 15:30; Stop 01/19/20 at 19:29; Status DC Potassium Chloride/Water 100 ml @ 100 mls/hr Q1H IV Last administered on 01/19/20at 22:37; Start 01/19/20 at 16:00; Stop 01/19/20 at 18:59; Status DC Calcium Gluconate 2000 mg/Sodium Chloride 120 ml @ 220 mls/hr 1X ONCE IV Last administered on 01/19/20at 16:18; Start 01/19/20 at 16:00; Stop 01/19/20 at 16:32; Status DC Fosphenytoin Sodium (Cerebyx) 150 mg Q8HRS IV Last administered on 01/21/20at 06:20; Start 01/19/20 at 16:00 Ondansetron HCl (Zofran) 4 mg PRN Q6HRS PRN IVP NAUSEA/VOMITING Last administered on 01/19/20at 17:30; Start 01/19/20 at 17:30 Lorazepam (Ativan Inj) 2 mg 1X ONCE IVP ; Start 01/20/20 at 12:30; Stop 01/20/20 at 12:31; Status DC Vancomycin HCl 1 gm/Sodium Chloride 250 ml @ 250 mls/hr Q8H IV ; Start 01/21/20 at 01:00; Status Cancel Vancomycin HCl 1.25 gm/Sodium Chloride 250 ml @ 167 mls/hr Q8H IV Last administered on 01/21/20at 08:55; Start 01/21/20 at 01:00 Vancomycin HCl (Vancomycin Trough Level) 1 each 1X ONCE MC ; Start 01/22/20 at 00:30; Stop 01/22/20 at 00:31 Potassium Chloride (Klor-Con) 40 meq 1X ONCE PO Last administered on 01/21/20at 09:14; Start 01/21/20 at 09:00; Stop 01/21/20 at 09:02; Status DC Levothyroxine Sodium (Synthroid) 200 mcg DAILY06 PO ; Start 01/22/20 at 06:00 Active Scripts Active Hydrocodone-Apap 5-325 (Hydrocodone Bit/Acetaminophen) 1 Tab Tablet 1 Tab PO PRN Q4HRS PRN Polyethylene Glycol 3350 17 Gm Powd.pack 17 Gm PO DAILY Aspirin 81 Mg Tab.chew 81 Mg PO DAILYWBKFT Synthroid (Levothyroxine Sodium) 100 Mcg Tablet 200 Mcg PO DAILY06 Reported Pepcid (Famotidine) 20 Mg Tablet 20 Mg PO HS Eliquis (Apixaban) 5 Mg Tablet 5 Mg PO BID Ditropan Xl (Oxybutynin Chloride) 10 Mg Tab.er.24 1 Tab PO DAILY 30 Days Phenytoin Sodium Extended 200 Mg Capsule 2 Cap PO HS 30 Days Metoprolol Succinate ( Xl ) (Metoprolol Succinate) 25 Mg Tab.er.24h 2 Tab PO DAILY Fluoxetine Hcl 40 Mg Capsule 1 Cap PO DAILYWBKFT Atorvastatin Calcium 20 Mg Tablet 20 Mg PO HS Insulin Aspart Flexpen (Insulin Aspart) 100 Unit/1 Ml Insuln.pen 0 SQ QIDACHS FSBS 181-220 = 2 units 221-260 = 4 units 261-300 = 6 units 301-350 = 8 units 351-400 = 10 units 401 or higher = 12 units Gabapentin (Gabapentin) 300 Mg Capsule 300 Mg PO BID Renacidin Irrigation Solution (Citric AC/Gluconolact/Mag Carb) 30 Ml Irrig.soln 30 Ml IR QMWF Clamp catheter for 15 minutes, then unclamp and drain by gravity. Dulera 200 Mcg/5 Mcg Inhaler (Mometasone/Formoterol) 13 Gm Hfa.aer.ad 1 Puff IH HS Furosemide 20 Mg Tablet 1 Tab PO DAILY Vitals/I & O Vital Sign - Last 24 Hours 01/20/20 01/20/20 01/20/20 01/20/20 11:28 12:19 12:22 13:10 Temp 98.0 98.0 Pulse 106 108 110 Resp 12 16 B/P (MAP) 140/90 (107) 159/100 (119) 149/95 (113) Pulse Ox 98 97 97 O2 Delivery Room Air Room Air Room Air Room Air 01/20/20 01/20/20 01/20/20 01/20/20 15:04 20:00 20:00 23:00 Temp 98.0 97.9 98.0 98.0 97.9 98.0 Pulse 110 106 103 Resp 19 B/P (MAP) 139/93 (108) 135/91 (106) 131/85 (100) Pulse Ox 97 98 98 O2 Delivery Room Air Room Air Room Air Room Air 01/21/20 01/21/20 03:00 08:00 Temp 97.7 97.7 Pulse 88 Resp 20 B/P (MAP) 131/81 (98) Pulse Ox 98 O2 Delivery Room Air Room Air Intake and Output 01/20/20 01/20/20 01/21/20 15:00 23:00 07:00 Intake Total 400 ml Output Total 275 ml 675 ml 630 ml Balance -275 ml -275 ml -630 ml Justicifation of Admission Dx: Justifications for Admission: Justification of Admission Dx: Yes CHF: Hemodynamic Instability Sepsis: Altered Mental Status SARA BEAVERS MD Jan 21, 2020 11:11
[2020-01-21 15:00] VITALS: BP 140/92
[2020-01-21 19:00] VITALS: BP 107/75
[2020-01-21] MEDS: LACTOBACILLUS RHAMNOSUS GG 1 CAPSULE. PO SCH (21:16)
[2020-01-21 23:00] VITALS: BP 115/75
[2020-01-22] MEDS: IV NORMAL SALINE 1000ML BAG 1,000 ML IV SCH ×3 (01:21→21:21)
[2020-01-22 02:50] LABS: VANC TR 14.8 mcg/mL (10.0-20.0)
[2020-01-22 03:00] VITALS: BP 110/71
[2020-01-22] MEDS: VANCOMYCIN 1.25 GM in IV NORMAL SALINE 250ML 250 ML IV SCH ×3 (03:03→17:29)
[2020-01-22] MEDS: VANCOMYCIN PER PHARMACY MC PRN (03:05)
--- NOTE | 2020-01-22 03:06 | NUR ---
Pharmacy Vancomycin Dosing Note S:Consulted to monitor and dose vancomycin started 01/19/20. O:HUMAIRA BORJA is a 59 year old M with Sepsis UTI . Height: 6 feet, 0 inches Weight: 70.2 kg [place] Body Weight: 77.60 Adjusted Body Weight: 74.64 Dosing Weight: Actual Other Antibiotics: ZOSYN LABS: Last BUN: 24 Last Creatinine: 0.6 Creatinine Clearance: 133 mL/min Last WBC: 11.2 Last Procalcitonin: Tmax (past 24 hours): 98.6 Microbiology: URINE CX, LIKELY CONTAMINATED BLOOD CX NGTD I/O: 4552/7571 Drug Levels: Last Trough level: 14.8, TRUE TROUGH ~18.7 on 01/22/20 at 0230 Last dose given 01/19/20 at 1100 Vancomycin Dosing: Loading Dose: 1750 mg x1 Dosing Weight: Actual Target Trough: 15-20 A: Based on: TROUGH P: 1. Continue Vancomycin 1250 mg IV q8h 2. Follow up Trough level IF NEEDED 3. Pharmacy will continue to monitor, follow and adjust therapy as needed. AVA [facility]URN [facility], 01/22/20 [id number]
[2020-01-22 05:26] LABS: BASO % 0 % (0-3); EOS # 0.2 x10^3/uL (0.0-0.7); EOS % 2 % (0-3); HEMATOCRIT 31.8 % (39.0-53.0); HEMOGLOBIN 10.9 g/dL (13.0-17.5); LYMPH # 1.8 x10^3/uL (1.0-4.8); LYMPH % 21 % (24-48); MEAN CORPUSCULAR HEMOGLOBIN 30 pg (25-35); MEAN CORPUSCULAR HGB CONC 34 g/dL (31-37); MEAN CORPUSCULAR VOLUME 88 fL (79-100); MONO # 1.2 x10^3/uL (0.0-1.1); MONO % 14 % (0-9); NEUT # 5.3 x10^3/uL (1.8-7.7); NEUT % 62 % (31-73); PLATELET COUNT 339 x10^3/uL (140-400); RED BLOOD COUNT 3.62 x10^6/uL (4.30-5.70); RED CELL DISTRIBUTION WIDTH 14.2 % (11.5-14.5); WHITE BLOOD COUNT 8.5 x10^3/uL (4.0-11.0)
[2020-01-22 05:55] LABS: CALCIUM 6.6 mg/dL (8.5-10.1); CREATININE 0.6 mg/dL (0.7-1.3); GFR 138.9
[2020-01-22] MEDS: LEVOTHYROXINE 100 MCG TABLET PO SCH (05:55)
[2020-01-22] MEDS: FOSPHENYTOIN 100 MG/2 ML VIAL. IV SCH ×2 (05:55→14:00)
[2020-01-22] MEDS: PIPERACILLIN/TAZOBACTAM 4.5 GM in IV NORMAL SALINE 100ML 100 ML IV SCH ×3 (05:55→19:40)
[2020-01-22 05:59] LABS: POTASSIUM 2.4 mmol/L (3.5-5.1)
[2020-01-22] MEDS: PANTOPRAZOLE IV PUSH 40 MG VIAL. IVP SCH (06:14)
[2020-01-22] MEDS: POTASSIUM CHLORIDE 20MEQ 100 ML IV SCH ×6 (06:58→23:20)
[2020-01-22 08:00] VITALS: BP 108/72
[2020-01-22] MEDS: INSULIN LISPRO 300 UNITS/3 ML VIAL. SQ SCH ×3 (08:00→17:00)
[2020-01-22] MEDS: SENNOSIDES/DOCUSATE 8.6/50MG TABLET. PO SCH ×2 (08:23→19:29)
[2020-01-22] MEDS: DOCUSATE SODIUM 100 MG CAPSULE. PO SCH ×2 (08:24→19:28)
--- NOTE | 2020-01-22 09:43 | EKG ---
[facility] [address] [place] [address] Test Date: 2020-01-19 Test Time: 09:40:42 Pat Name: HUMAIRA BORJA Department: Room: Gender: M Digital Campaign Manager: : [id number] Requested By: ANUJ GENTILE Order Number: [id number] Reading MD: Measurements Intervals [place] Rate: 125 P: -5 [place]: 144 QRS: 52 QRSD: 80 T: 63 QT: 306 QTc: 443 Interpretive Statements SINUS TACHYCARDIA LOW LIMB LEAD VOLTAGE QRS(T) CONTOUR ABNORMALITY CONSISTENT WITH ANTEROSEPTAL INFARCT PROBABLY OLD ABNORMAL ECG RI6.01 No previous ECG available for comparison
[2020-01-22 12:00] VITALS: BP 117/80
--- NOTE | 2020-01-22 13:00 | PDOC ---
Subjective: Subjective: Has some abdominal pain. Has eaten. Objective: Objective: D/w nurse - stooled several times overnight, also today. Vital Signs: Vital Signs Date Time Temp Pulse Resp B/P (MAP) Pulse Ox O2 Delivery O2 Flow Rate FiO2 01/22/20 12:00 97.9 94 18 117/80 (92) 96 Room Air 97.9 Labs: Laboratory Tests Test 01/21/20 13:10 01/21/20 17:48 01/21/20 21:44 01/22/20 02:30 Glucose (Fingerstick) 117 mg/dL 113 mg/dL 101 mg/dL Vancomycin Level Trough 14.8 mcg/mL Vancomycin Last Dose Date 718 Vancomycin Last Dose Time 1700 Test 01/22/20 05:00 01/22/20 08:30 White Blood Count 8.5 x10^3/uL Red Blood Count 3.62 x10^6/uL Hemoglobin 10.9 g/dL Hematocrit 31.8 % Mean Corpuscular Volume 88 fL Mean Corpuscular Hemoglobin 30 pg Mean Corpuscular Hemoglobin Concent 34 g/dL Red Cell Distribution Width 14.2 % Platelet Count 339 x10^3/uL Neutrophils (%) (Auto) 62 % Lymphocytes (%) (Auto) 21 % Monocytes (%) (Auto) 14 % Eosinophils (%) (Auto) 2 % Basophils (%) (Auto) 0 % Neutrophils # (Auto) 5.3 x10^3/uL Lymphocytes # (Auto) 1.8 x10^3/uL Monocytes # (Auto) 1.2 x10^3/uL Eosinophils # (Auto) 0.2 x10^3/uL Basophils # (Auto) 0.0 x10^3/uL Sodium Level 139 mmol/L Potassium Level 2.4 mmol/L Chloride Level 102 mmol/L Carbon Dioxide Level 26 mmol/L Anion Gap 11 Blood Urea Nitrogen 9 mg/dL Creatinine 0.6 mg/dL Estimated GFR (Cockcroft-Gault) 138.9 Glucose Level 81 mg/dL Calcium Level 6.6 mg/dL Glucose (Fingerstick) 77 mg/dL URINE CULTURE Final Final Three or more organisms isolated. Results consistent with colonization or contamination during the collection process. Recollection recommended using a method to minimize contamination. An ID and Sensitivity will be performed when one organism is predominant and a likely pathogen. BLOOD CULTURE Preliminary NO GROWTH AFTER 3 DAYS PE: GEN: NAD LUNGS: CTAB HEART: RRR, ABD: a few quiet BS, soft, non-distended, upper abdominal discomfort (mild) NEURO/PSYCH: does not verbalize A/P: Recurrent n/v, chronic colonic ileus - now eating and stooling UTI, hypokalemia COVID-19 negative -- Improved GI-lew. Continue PPI. Justicifation of Admission Dx: Justifications for Admission: Justification of Admission Dx: Yes CHF: Hemodynamic Instability Sepsis: Altered Mental Status ERICK ORLANDO Jan 22, 2020 13:00
--- NOTE | 2020-01-22 13:17 | PDOC ---
[employer] PROGRESS NOTE Chief Complaint Chief Complaint Severe Sepsis Secondary to UTI in setting of Indwelling Pretty Cath Leukocytosis GI bleed Nausea and Vomiting hx of recent SBO Hyokalemia, severe A Fib DM with a1c of 12.8% Prior history of severe stroke with hemiparesis and expressive aphasia CAD w/ stents HYPERTENSION HLD, hx of COPD peripheral neuropathy, hx seizure OA, allergic rhinitis hypothyroidism History of Present Illness History of Present Illness 01/22/2020 Patient seen and examined in the ICU Chart reviewed Discussed with case management Discussed with RN Vitals/I&O Vitals/I&O: Vital Signs Date Time Temp Pulse Resp B/P (MAP) Pulse Ox O2 Delivery O2 Flow Rate FiO2 01/22/20 12:00 97.9 94 18 117/80 (92) 96 Room Air 97.9 I & O 01/21/20 01/21/20 01/22/20 14:59 22:59 06:59 Intake Total 120 ml 4695 ml 240 ml Output Total 180 ml 585 ml 1250 ml Balance -60 ml 4110 ml -1010 ml Physical Exam Physical Exam: + SP catheter General: Other (Nonverbal but nods appropriately) Heart: Regular rate, Normal S1, Normal S2 Lungs: Clear Abdomen: Normal bowel sounds Extremities: No clubbing Labs Labs: Laboratory Tests Test 01/21/20 17:48 01/21/20 21:44 01/22/20 02:30 01/22/20 05:00 Glucose (Fingerstick) 113 mg/dL (70-99) 101 mg/dL (70-99) Vancomycin Level Trough 14.8 mcg/mL (10.0-20.0) Vancomycin Last Dose Date 718 Vancomycin Last Dose Time 1700 White Blood Count 8.5 x10^3/uL (4.0-11.0) Red Blood Count 3.62 x10^6/uL (4.30-5.70) Hemoglobin 10.9 g/dL (13.0-17.5) Hematocrit 31.8 % (39.0-53.0) Mean Corpuscular Volume 88 fL (79-100) Mean Corpuscular Hemoglobin 30 pg (25-35) Mean Corpuscular Hemoglobin Concent 34 g/dL (31-37) Red Cell Distribution Width 14.2 % (11.5-14.5) Platelet Count 339 x10^3/uL (140-400) Neutrophils (%) (Auto) 62 % (31-73) Lymphocytes (%) (Auto) 21 % (24-48) Monocytes (%) (Auto) 14 % (0-9) Eosinophils (%) (Auto) 2 % (0-3) Basophils (%) (Auto) 0 % (0-3) Neutrophils # (Auto) 5.3 x10^3/uL (1.8-7.7) Lymphocytes # (Auto) 1.8 x10^3/uL (1.0-4.8) Monocytes # (Auto) 1.2 x10^3/uL (0.0-1.1) Eosinophils # (Auto) 0.2 x10^3/uL (0.0-0.7) Basophils # (Auto) 0.0 x10^3/uL (0.0-0.2) Sodium Level 139 mmol/L (136-145) Potassium Level 2.4 mmol/L (3.5-5.1) Chloride Level 102 mmol/L (98-107) Carbon Dioxide Level 26 mmol/L (21-32) Anion Gap 11 (6-14) Blood Urea Nitrogen 9 mg/dL (8-26) Creatinine 0.6 mg/dL (0.7-1.3) Estimated GFR (Cockcroft-Gault) 138.9 Glucose Level 81 mg/dL (70-99) Calcium Level 6.6 mg/dL (8.5-10.1) Test 01/22/20 08:30 Glucose (Fingerstick) 77 mg/dL (70-99) Assessment and Plan Assessmemt and Plan Problems Medical Problems: (1) GI bleed Status: Acute (2) Severe sepsis Status: Acute Severe Sepsis Secondary to UTI in setting of Indwelling Pretty Cath Leukocytosis GI bleed Nausea and Vomiting hx of recent SBO Hyokalemia, severe A Fib DM with a1c of 12.8% Prior history of severe stroke with hemiparesis and expressive aphasia CAD w/ stents HYPERTENSION HLD, hx of COPD peripheral neuropathy, hx seizure OA, allergic rhinitis hypothyroidism PLAN IVF, Vanc Zosyn, follow cultures SP catheter exchanged hold AC given GI bleed, stable Hb IV PPI therapy replace K advance diet as tolerated GI consulted SCDs full code labs in AM Home meds DVT prophylaxis Trend labs Full code Comment Review of Relevant I have reviewed the following items sujey (where applicable) has been applied. Medications: Current Medications Medications (Trade) Dose Ordered Sig/Sharon Route PRN Reason Start Time Stop Time Status Last Admin Dose Admin Vancomycin HCl (Vancomycin Trough Level) 1 each 1X ONCE MC 01/22/20 00:30 01/22/20 00:31 DC 01/22/20 00:30 Levothyroxine Sodium (Synthroid) 200 mcg DAILY06 PO 01/22/20 06:00 01/22/20 05:55 Lactobacillus Rhamnosus (Culturelle) 1 cap BID PO 01/21/20 21:00 01/21/20 21:16 Potassium Chloride/Water 100 ml @ 100 mls/hr Q1H IV 01/22/20 07:00 01/22/20 09:59 DC 01/22/20 10:07 Justicifation of Admission Dx: Justifications for Admission: Justification of Admission Dx: Yes CHF: Hemodynamic Instability Sepsis: Altered Mental Status VIVIENNE COOPER III DO Jan 22, 2020 13:17
[2020-01-22] MEDS: LACTOBACILLUS RHAMNOSUS GG 1 CAPSULE. PO SCH ×2 (13:36→21:10)
--- NOTE | 2020-01-22 14:23 | NUR ---
SS following for discharge planning. SS reviewed pt chart and discussed with pt RN. Pt is LTC resident from [facility]. Pt is currently on room air. Pt on IV Zosyn and IV Vancomycin. COVID19 negative. SS will continue to follow for discharge planning.
--- NOTE | 2020-01-22 15:35 | PDOC ---
DARRELL ASCENCIO CUSTOMIZER 01/22/20 1535: CARDIO Progress Notes Date and Time Date of Service 01/22/20 Time of Evaluation 1050 Subjective Subjective: No Chest Pain, No shortness of breath Vitals Vitals Vital Signs Date Time Temp Pulse Resp B/P (MAP) Pulse Ox O2 Delivery O2 Flow Rate FiO2 01/22/20 12:00 97.9 94 18 117/80 (92) 96 Room Air 97.9 Weight Weight [ ] Input and Output Intake and Output Intake and Output 01/22/20 07:00 Intake Total 5055 ml Output Total 2015 ml Balance 3040 ml Intake Oral 1360 ml Other 3695 ml Output Urine Total 2015 ml Laboratory Labs Laboratory Tests Test 01/21/20 17:48 01/21/20 21:44 01/22/20 02:30 01/22/20 05:00 Glucose (Fingerstick) 113 mg/dL (70-99) 101 mg/dL (70-99) Vancomycin Level Trough 14.8 mcg/mL (10.0-20.0) Vancomycin Last Dose Date 718 Vancomycin Last Dose Time 1700 White Blood Count 8.5 x10^3/uL (4.0-11.0) Red Blood Count 3.62 x10^6/uL (4.30-5.70) Hemoglobin 10.9 g/dL (13.0-17.5) Hematocrit 31.8 % (39.0-53.0) Mean Corpuscular Volume 88 fL (79-100) Mean Corpuscular Hemoglobin 30 pg (25-35) Mean Corpuscular Hemoglobin Concent 34 g/dL (31-37) Red Cell Distribution Width 14.2 % (11.5-14.5) Platelet Count 339 x10^3/uL (140-400) Neutrophils (%) (Auto) 62 % (31-73) Lymphocytes (%) (Auto) 21 % (24-48) Monocytes (%) (Auto) 14 % (0-9) Eosinophils (%) (Auto) 2 % (0-3) Basophils (%) (Auto) 0 % (0-3) Neutrophils # (Auto) 5.3 x10^3/uL (1.8-7.7) Lymphocytes # (Auto) 1.8 x10^3/uL (1.0-4.8) Monocytes # (Auto) 1.2 x10^3/uL (0.0-1.1) Eosinophils # (Auto) 0.2 x10^3/uL (0.0-0.7) Basophils # (Auto) 0.0 x10^3/uL (0.0-0.2) Sodium Level 139 mmol/L (136-145) Potassium Level 2.4 mmol/L (3.5-5.1) Chloride Level 102 mmol/L (98-107) Carbon Dioxide Level 26 mmol/L (21-32) Anion Gap 11 (6-14) Blood Urea Nitrogen 9 mg/dL (8-26) Creatinine 0.6 mg/dL (0.7-1.3) Estimated GFR (Cockcroft-Gault) 138.9 Glucose Level 81 mg/dL (70-99) Calcium Level 6.6 mg/dL (8.5-10.1) Test 01/22/20 08:30 01/22/20 13:31 Glucose (Fingerstick) 77 mg/dL (70-99) 89 mg/dL (70-99) Microbiology Micro Microbiology 01/19/20 Blood Culture - Preliminary, Resulted NO GROWTH AFTER 3 DAYS 01/19/20 Urine Culture - Final, Complete Physical Exam HEENT: Neck Supple W Full Motion Chest: Symmetric LUNGS: Clear to Auscultation Heart: S1S2, RRR Abdomen: Soft N/T Extremities: No Edema Neurology: alert, follow commands Assessment Assessment 1. Nausea/vomiting, recurrent. Chronic ileus. As per GI 2. GIB; resolved. Hgb stable 3. PAFIB; maintaining SR. OAC held due to #2 4. CAD s/p PCI/stent 4 years ago 5. Diabetes, II 6. Hypertension; controlled 7. Hyperlipidemia 8. H/o CVA 9. H/o seizures. 10. Hypokalemia Recommendations Resume metoprolol for rate control Eliquis on hold with GIB Follow GI recs Replace K Check Mg and replace as warranted Supportive care Justicifation of Admission Dx: Justifications for Admission: Justification of Admission Dx: Yes CHF: Hemodynamic Instability Sepsis: Altered Mental Status MARCY KNOWLES MD 01/22/20 2587: CARDIO Progress Notes Assessment Assessment Patient seen and examined I agree with our nurse practitioners assessment and plan. Nausea/vomiting, recurrent. Chronic ileus. As per GI GIB; resolved. Hgb stable PAFIB; maintaining SR. OAC held due to #2. Beta-blockers for rate control CAD s/p PCI/stent 4 years ago DARRELL ASCENCIO APRN Jan 22, 2020 15:35 MARCY KNOWLES MD Jan 22, 2020 16:57
[2020-01-22 16:00] VITALS: BP 112/82
[2020-01-22 19:00] VITALS: BP 120/80
[2020-01-22] MEDS ORDERED: MAGNESIUM SULFATE 4GM 100 ML IV ONE (20:00)
[2020-01-22] MEDS ORDERED: PHENYTOIN SODIUM EXTENDED 100 MG CAPSULE PO SCH (21:00)
[2020-01-22] MEDS: PANTOPRAZOLE 40 MG TABLET.DR. PO SCH (21:00)
[2020-01-22] MEDS: METOPROLOL TART IMMED RELEASE 25 MG TABLET. PO SCH (21:11)
[2020-01-22 23:59] VITALS: BP 120/80
[2020-01-23] MEDS: PIPERACILLIN/TAZOBACTAM 4.5 GM in IV NORMAL SALINE 100ML 100 ML IV SCH ×3 (00:10→11:53)
[2020-01-23] MEDS: VANCOMYCIN 1.25 GM in IV NORMAL SALINE 250ML 250 ML IV SCH ×2 (00:57→09:10)
[2020-01-23 04:00] VITALS: BP 120/78
[2020-01-23] MEDS: LEVOTHYROXINE 100 MCG TABLET PO SCH (06:05)
[2020-01-23 07:00] VITALS: BP 101/73
[2020-01-23 07:15] LABS: CALCIUM 6.8 mg/dL (8.5-10.1); CREATININE 0.5 mg/dL (0.7-1.3); GFR 171.4
[2020-01-23 07:17] LABS: POTASSIUM 2.7 mmol/L (3.5-5.1)
[2020-01-23] MEDS: IV NORMAL SALINE 1000ML BAG 1,000 ML IV SCH (07:21)
[2020-01-23] MEDS: INSULIN LISPRO 300 UNITS/3 ML VIAL. SQ SCH ×2 (07:56→12:00)
--- NOTE | 2020-01-23 07:57 | NUR ---
2100 and 0700 IV fluids not given previous bag from olericulturist still infusing.
[2020-01-23] MEDS: DOCUSATE SODIUM 100 MG CAPSULE. PO SCH (09:10)
[2020-01-23] MEDS: SENNOSIDES/DOCUSATE 8.6/50MG TABLET. PO SCH (09:10)
[2020-01-23] MEDS: LACTOBACILLUS RHAMNOSUS GG 1 CAPSULE. PO SCH (09:10)
[2020-01-23] MEDS: PANTOPRAZOLE 40 MG TABLET.DR. PO SCH (09:10)
[2020-01-23] MEDS: METOPROLOL TART IMMED RELEASE 25 MG TABLET. PO SCH (09:10)
[2020-01-23] MEDS: POTASSIUM CHLORIDE 10MEQ 100 ML IV SCH ×4 (09:11→11:52)
[2020-01-23] MEDS: VANCOMYCIN PER PHARMACY MC PRN ×2 (10:27→10:31)
[2020-01-23 11:00] VITALS: BP 118/82
--- NOTE | 2020-01-23 11:42 | NUR ---
SS following up with discharge planning. SS reviewed pt chart and discussed with pt RN. Pt is currently on room air. IV antibiotics being switched to PO. SS discussed with Dr. Pressley. Discharge orders received for return to [facility], ; fax [phone]. SS phoned and faxed discharge orders and clinical to [facility]. SS spoke with Carter at [facility]. Pt will discharge today and return to [facility] at 1400. [facility] to provide transportation. Pt, pt's RN, and pt's DPOA notified. Packet placed on chart.
--- NOTE | 2020-01-23 11:58 | PDOC ---
Objective: Objective: D/w nurse - stooling - has rectal tube - possible DC today. Vital Signs: Vital Signs Date Time Temp Pulse Resp B/P (MAP) Pulse Ox O2 Delivery O2 Flow Rate FiO2 01/23/20 11:00 97.6 75 17 118/82 (94) 100 Room Air 97.6 Labs: Laboratory Tests Test 01/22/20 13:31 01/22/20 17:47 01/22/20 18:30 01/23/20 06:57 Glucose (Fingerstick) 89 mg/dL 139 mg/dL Potassium Level 2.7 mmol/L 2.7 mmol/L Magnesium Level 1.3 mg/dL Sodium Level 136 mmol/L Chloride Level 102 mmol/L Carbon Dioxide Level 28 mmol/L Anion Gap 6 Blood Urea Nitrogen 7 mg/dL Creatinine 0.5 mg/dL Estimated GFR (Cockcroft-Gault) 171.4 Glucose Level 105 mg/dL Calcium Level 6.8 mg/dL BLOOD CULTURE Preliminary NO GROWTH AFTER 4 DAYS PE: GEN: NAD LUNGS: CTAB HEART: RRR ABD: non-distended NEURO/PSYCH: resting A/P: Recurrent n/v, chronic colonic ileus UTI, hypokalemia -- Stooling. DC per primary. Justicifation of Admission Dx: Justifications for Admission: Justification of Admission Dx: Yes CHF: Hemodynamic Instability Sepsis: Altered Mental Status ERICK ORLANDO Jan 23, 2020 11:58
--- NOTE | 2020-01-23 12:24 | PDOC ---
DARRELL ASCENCIO BILINGUAL MEDICAL RECEPTIONIST 01/23/20 1224: CARDIO Progress Notes Date and Time Date of Service 01/23/20 Time of Evaluation 1215 Subjective Subjective: No Chest Pain, No shortness of breath Vitals Vitals Vital Signs Date Time Temp Pulse Resp B/P (MAP) Pulse Ox O2 Delivery O2 Flow Rate FiO2 01/23/20 11:00 97.6 75 17 118/82 (94) 100 Room Air 97.6 Weight Weight [ ] Input and Output Intake and Output Intake and Output 01/23/20 07:00 Intake Total 940 ml Output Total 2685 ml Balance -1745 ml Intake Oral 940 ml Output Urine Total 2085 ml Stool Total 600 ml Laboratory Labs Laboratory Tests Test 01/22/20 13:31 01/22/20 17:47 01/22/20 18:30 01/23/20 06:57 Glucose (Fingerstick) 89 mg/dL (70-99) 139 mg/dL (70-99) Potassium Level 2.7 mmol/L (3.5-5.1) 2.7 mmol/L (3.5-5.1) Magnesium Level 1.3 mg/dL (1.8-2.4) Sodium Level 136 mmol/L (136-145) Chloride Level 102 mmol/L (98-107) Carbon Dioxide Level 28 mmol/L (21-32) Anion Gap 6 (6-14) Blood Urea Nitrogen 7 mg/dL (8-26) Creatinine 0.5 mg/dL (0.7-1.3) Estimated GFR (Cockcroft-Gault) 171.4 Glucose Level 105 mg/dL (70-99) Calcium Level 6.8 mg/dL (8.5-10.1) Microbiology Micro Microbiology 01/19/20 Blood Culture - Preliminary, Resulted NO GROWTH AFTER 4 DAYS 01/19/20 Urine Culture - Final, Complete Physical Exam HEENT: Neck Supple W Full Motion Chest: Symmetric LUNGS: Clear to Auscultation Heart: S1S2, RRR Abdomen: Soft N/T Extremities: No Edema Neurology: alert, follow commands Assessment Assessment 1. Nausea/vomiting, recurrent. Chronic ileus. As per GI 2. GIB; resolved. Hgb stable 3. PAFIB; maintaining SR. OAC held due to #2 4. CAD s/p PCI/stent 4 years ago 5. Diabetes, II 6. Hypertension; controlled 7. Hyperlipidemia 8. H/o CVA 9. H/o seizures. 10. Hypokalemia Recommendations Recheck K. Check Mg and replace as warranted. Metoprolol for rate control Eliquis stopped due to GIB Supportive care Justicifation of Admission Dx: Justifications for Admission: Justification of Admission Dx: Yes CHF: Hemodynamic Instability Sepsis: Altered Mental Status MARCY KNOWLES MD 01/23/20 1707: CARDIO Progress Notes Assessment Assessment Patient seen and examined I agree with our nurse practitioners assessment and plan. Nausea/vomiting, recurrent. Chronic ileus. As per GI GIB; resolved. Hgb stable. Anticoagulation on hold PAFIB; maintaining SR. OAC held due to #2 CAD s/p PCI/stent 4 years ago Diabetes, II Hypertension; controlled Hyperlipidemia H/o CVA DARRELL ASCENCIO APRN Jan 23, 2020 12:24 MARCY KNOWLES MD Jan 23, 2020 17:07
[2020-01-23] MEDS ORDERED: POTASSIUM CHLORIDE 20 MEQ TABLET.ER. PO ONE (12:45)
--- NOTE | 2020-01-23 13:05 | SNU/HH DC ---
DISCHARGE ORDERS DISCHARGE INFORMATION: FINAL DIAGNOSIS Problems Medical Problems: (1) GI bleed Status: Acute (2) Severe sepsis Status: Acute CONDITION ON DISCHARGE: Stable CODE STATUS: Code Status: Full [facility]: SNF STAY <30 DAYS: No HOSPICE: HOSPICE: No HOSPICE EVAL & TREAT: No POST DISCHARGE ORDERS: ACTIVITY ORDERS: Activity as tolerated WEIGHT BEARING STATUS: As tolerated DIET AFTER DISCHARGE: Okay to resume his previous diet if he tolerates CHECKS AFTER DISCHARGE: CHECKS AFTER DISCHARGE: Check blood press - daily, Check blood sugar, ac/hs, Weigh Yourself Daily TREATMENT/EQUIPMENT ORDERS: ADAPTIVE EQUIPMENT NEEDED: None DISCHARGE MEDICATIONS: Home Meds Active Scripts Hydrocodone Bit/Acetaminophen (HYDROCODONE-APAP 5-325 ) 1 Tab Tablet, 1 TAB PO PRN Q4HRS PRN for abdominal pain, #30 TAB Prov:CHANDAN CREWS MD 03/27/19 Polyethylene Glycol 3350 (POLYETHYLENE GLYCOL 3350) 17 Gm Powd.pack, 17 GM PO DAILY for constipation, #30 PKT Prov:CHANDAN CREWS MD 03/27/19 Aspirin (ASPIRIN) 81 Mg Tab.chew, 81 MG PO DAILYWBKFT for cva, #90 TAB.CHEW Prov:KALIA WALKER MD 03/14/19 Levothyroxine Sodium (SYNTHROID) 100 Mcg Tablet, 200 MCG PO DAILY06 for hypothy, #60 TAB Prov:KALIA WALKER MD 01/02/19 Reported Medications Famotidine (PEPCID) 20 Mg Tablet, 20 MG PO HS for GERD, TAB 01/19/20 Apixaban (ELIQUIS) 5 Mg Tablet, 5 MG PO BID for PPX, TAB 01/19/20 Oxybutynin Chloride (DITROPAN XL) 10 Mg Tab.er.24, 1 TAB PO DAILY for BPH for 30 Days, #30 TAB 0 Refills 01/19/20 Phenytoin Sodium Extended (PHENYTOIN SODIUM EXTENDED) 200 Mg Capsule, 2 CAP PO HS for seizure for 30 Days, #60 CAP 0 Refills 01/19/20 Metoprolol Succinate (METOPROLOL SUCCINATE ( XL )) 25 Mg Tab.er.24h, 2 TAB PO DAILY for HTN, #30 TAB 5 Refills 01/19/20 Fluoxetine Hcl (FLUOXETINE HCL) 40 Mg Capsule, 1 CAP PO DAILYWBKFT for depression, #30 CAP 2 Refills 11/22/19 Atorvastatin Calcium (ATORVASTATIN CALCIUM) 20 Mg Tablet, 20 MG PO HS for FOR CHOLESTEROL, #30 TAB 0 Refills 11/22/19 Insulin Aspart (Insulin Aspart Flexpen) 100 Unit/1 Ml Insuln.pen, 0 SQ QIDACHS for FSBS, EACH FSBS 181-220 = 2 units 221-260 = 4 units 261-300 = 6 units 301-350 = 8 units 351-400 = 10 units 401 or higher = 12 units 11/22/19 Gabapentin (GABAPENTIN ) 300 Mg Capsule, 300 MG PO BID for NEUROGENIC PAIN, CAP 11/22/19 Citric AC/Gluconolact/Mag Carb (Renacidin Irrigation Solution) 30 Ml Irrig.soln, 30 ML IR QMWF for Indwelling catheter, MISC Clamp catheter for 15 minutes, then unclamp and drain by gravity. 11/22/19 Mometasone/Formoterol (DULERA 200 MCG/5 MCG INHALER) 13 Gm Hfa.aer.ad, 1 PUFF IH HS for COPD, #13 GM 5 Refills 12/21/18 Furosemide (FUROSEMIDE) 20 Mg Tablet, 1 TAB PO DAILY for blood pressure, #90 TAB 1 Refill 12/21/18 VIVIENNE COOPER III DO Jan 23, 2020 13:05
[2020-01-23 15:00] VITALS: BP 135/82
--- NOTE | 2020-01-23 16:50 | NUR ---
Discharge Note: [facility] Discharge instructions and discharge home medications reviewed with Other facility and a copy given. All questions have been answered and understanding verbalized. The following instructions and handouts were given: GI bleed Discontinued lines and drains: Central Line TL intact. Patient discharged to Home or Self Care with Self via Wheelchair
--- NOTE | 2020-01-24 09:24 | DS ---
DATE OF DISCHARGE: 01/23/2020 ADMISSION DIAGNOSES: 1. Urinary tract infection and sepsis. 2. Gastrointestinal bleed. DISCHARGE DIAGNOSES: 1. Resolving gastrointestinal bleed. 2. 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 3. Resolving sepsis secondary to urinary tract infection. 4. Resolving hypokalemia. 5. Atrial fibrillation. 6. Diabetes. 7. Coronary artery disease with stents. 8. Hypertension. 9. Hyperlipidemia. 10. Chronic obstructive pulmonary disease. 11. Neuropathy. 12. History of seizures. 13. Hypothyroidism. CONSULTS: Dr. Chu, Dr. Briseno and Dr. Rivas Fulton. PROCEDURES: None. HOSPITAL COURSE: The patient is a pleasant middle-aged male who is well known to our service. He basically had a bad stroke a year or two ago when he had been in a halfway. Now, he presented with a GI bleed. He was admitted. We transfused him. We trended his hemoglobins, gave him IV proton pump inhibitors. He also had some sepsis. His white count initially was 17,000, but now it is down to 8000. Yesterday, I saw him and examined him. His heart tones were normal. Lungs were clear. He was doing great. He showed no more signs of GI bleeding. We discharged him back to his halfway. DISPOSITION: Long-term care. ACTIVITY: As tolerated. DIET: Low sodium. MEDICATIONS: Please see the MRAD. TOTAL TIME: 31 minutes. VIVIENNE COOPER DO DR: SERA/ge JOB#: [id number] / [id number]
[2020-01-25] MEDS ORDERED: LEVOTHYROXINE SODIUM INJ 100 MCG in NORMAL SALINE 5 ML IV SCH (09:00)
== END 2020-01-23 16:52 | DRG 871 ==
LOC: ER 09:32 → 1 WEST ICU 13:18
PROVIDERS: ADMIT Internal Medicine; ATTEND Internal Medicine
PROC: 02HV33Z Insertion of Infusion Device into Superior Vena Cava, Percutaneous Approach (ICD-10-PCS; principal; 2020-01-19)
PROC: B548ZZA Ultrasonography of Superior Vena Cava, Guidance (ICD-10-PCS; 2020-01-19)
DX: A41.9 Sepsis, unspecified organism (principal); E43 Unspecified severe protein-calorie malnutrition; I69.359 Hemiplegia and hemiparesis following cerebral infarction affecting unspecified side; N39.0 Urinary tract infection, site not specified; K92.2 Gastrointestinal hemorrhage, unspecified; K56.0 Paralytic ileus; E03.9 Hypothyroidism, unspecified; E11.42 Type 2 diabetes mellitus with diabetic polyneuropathy; E78.00 Pure hypercholesterolemia, unspecified; E78.5 Hyperlipidemia, unspecified; E87.6 Hypokalemia; G40.909 Epilepsy, unspecified, not intractable, without status epilepticus; K21.9 Gastro-esophageal reflux disease without esophagitis; I11.0 Hypertensive heart disease with heart failure; M19.90 Unspecified osteoarthritis, unspecified site; I25.10 Atherosclerotic heart disease of native coronary artery without angina pectoris; I48.0 Paroxysmal atrial fibrillation; I50.9 Heart failure, unspecified; I69.320 Aphasia following cerebral infarction; J30.9 Allergic rhinitis, unspecified; J44.9 Chronic obstructive pulmonary disease, unspecified; R65.20 Severe sepsis without septic shock; Z20.828 Contact with and (suspected) exposure to other viral communicable diseases; Z79.01 Long term (current) use of anticoagulants; Z82.49 Family history of ischemic heart disease and other diseases of the circulatory system; Z87.891 Personal history of nicotine dependence; Z95.5 Presence of coronary angioplasty implant and graft; Z68.21 Body mass index [BMI] 21.0-21.9, adult
CPT/HCPCS: 36415; 70450; 71045; 74176; 80048; 80076; 80202; 81001; 82271; 82274; 82805; 82962; 83605; 83690; 83735; 84132; 84443; 84484; 85007; 85025; 85027; 85610; 85730; 86850; 86900; 86901; 87040; 87086; 87493; 93005; 96361; 96365; 96366; 96367; 96368; 96375; C9113; J0610; J2212; J2405; J2543; J3370; J3475; J3480; J7030; J7040; J7050; Q2009; 99291-25; G0378; U0003-CS

== ENCOUNTER 2021-07-08 14:18 | Emergency (ER) | payer OTHER ==
[~2021-07-08] VITALS: Ht 182.9 cm; Wt 104.5 kg
[~2021-07-08 14:18] MED LIST changes: +CYCL10TA19 PO; -CYCL10TA2 PO; +FAMO-63 PO; -FLUO20CA20 PO; +FLUO20CA22 PO; -ISOS30TA4 PO; +ISOS30TA68 PO; +LISI10TA16 PO; -LISI10TA2 PO; +METO-239 PO; +OXYB10TA7 PO; -POLY17PO28 PO; +POLY17PO52 PO
--- NOTE | 2021-07-08 14:49 | PHYS DOC ---
Past Medical History Past Medical History: A-Fib, Asthma, CAD, CHF, COPD, CVA, Diabetes-Type II, GERD, High Cholesterol, Hypertension, Hypothyroid, ME, Seizure, Stroke Additional Past Medical Histor: neuropathy, dysphagia, osteoarthritis, RT SIDE DEFICIT Past Surgical History: Other Additional Past Surgical Histo: cardiac stents Smoking Status: Former Smoker Alcohol Use: None Drug Use: None General Adult EDM: Chief Complaint: URINE CATHETER PROBLEM HPI: HPI: Patient is a 60-year-old male who presents to the emergency department via EMS [facility] for suprapubic catheter problem. Per nursing staff, they attempted to flush patient's suprapubic catheter but could not therefore they received orders to remove and place a new one but could not remove the previous suprapubic catheter. Nursing staff could not answer how long the catheter has been in place but states that he has had a catheter for several years. Patient is nonverbal per baseline. Review of Systems: Review of Systems: Review of systems limited due to patient's history of aphasia Heart Score: C/O Chest Pain: N/A Risk Factors: Risk Factors: DM, Current or recent (<one month) smoker, HTN, HLP, family history of CAD, obesity. Risk Scores: Score 0 - 3: 2.5% MACE over next 6 weeks - Discharge Home Score 4 - 6: 20.3% MACE over next 6 weeks - Admit for Clinical Observation Score 7 - 10: 72.7% MACE over next 6 weeks - Early Invasive Strategies Allergies: Allergies: Allergies Coded Allergies Type Severity Reaction Last Updated Verified No Known Drug Allergies 12/21/18 No Physical Exam: PE: Constitutional: Well developed, well nourished, no acute distress, non-toxic appearance. [] HENT: Normocephalic, atraumatic, bilateral external ears normal, oropharynx moist, no oral exudates, nose normal. [] Eyes: PERRL, EOMI, conjunctiva normal, no discharge. [] Neck: Normal range of motion, no tenderness, supple, no stridor. [] Cardiovascular:Heart rate regular rhythm, no murmur [] Lungs & Thorax: Bilateral breath sounds clear to auscultation [] Abdomen: Bowel sounds normal, soft, no tenderness, no masses, no pulsatile masses, suprapubic catheter in place with inflammation surrounding site with erythema and purulent drainage, it appears that there is red discoloration to tube from suprapubic site, urine output noted in leg bag that is dark yellow. [] Skin: Warm, dry, no erythema, no rash. [] Back: normal rom Extremities: No tenderness, no cyanosis, no clubbing, ROM intact, no edema. [] Neurologic: Alert, aphasic/nonverbal, r side deficit from previous cva Psychologic: Affect normal, judgement normal, mood normal. [] EKG: EKG: [] Radiology/Procedures: Radiology/Procedures: [] Course & Med Decision Making: Course & Med Decision Making Pertinent Labs and Imaging studies reviewed. (See chart for details) Patient presents to the emergency department for [facility] for catheter problem. Nursing staff attempted to flush the catheter but was unable to and then attempted to remove the catheter in place a new one but was unable to. This LAY BROTHER and nursing staff attempted to flush catheter but was unsuccessful, the small amount of urine that was flushed was thick and purulent. Only approximately 10cc could be inserted and 15cc was removed. This LAY BROTHER and nursing staff attempted to remove catheter and place a new one but was unable to remove catheter, patient does have pain when attempting to remove and this was discontinued. Urology consulted. Urology PA suggested urethral catheterization, this was attempted and unsuccessful. Urology PA presented to the emergency department and was able to remove previous suprapubic catheter and get a new one placed. There is urine output. They also advised placing patient on an antibiotic and this was ordered for patient. Patient to be discharged back to the skilled nursing. I discussed with patient all findings and diagnostic testing as well as the need to follow-up with PCP for further evaluation and treatment or return to the ER if any new or worsening symptoms. Strict return precautions were also discussed at length. Patient voiced understanding and agreement with the plan. Patient is hemodynamically stable at the time of disposition. Ita Disclaimer: Ita Disclaimer: This electronic medical record was generated, in whole or in part, using a voice recognition dictation system. Departure Departure Impression: Primary Impression: Suprapubic catheter dysfunction Qualified Codes: T83.010A - Breakdown (mechanical) of cystostomy catheter, initial encounter Disposition: HOME / SELF CARE / HOMELESS Condition: GOOD Referrals: UNKNOWN PCP NAME (PCP) Patient Instructions: Indwelling Urinary Catheter Care-Brief Additional Instructions: You were seen in the emergency department for suprapubic catheter problem. Urology saw you in the emergency department and the previous catheter was removed and a new one was placed. They advise placing you on an antibiotic, please start and finish this completely. Follow-up with the doctor at the skilled nursing soon as possible. Return to the emergency department if you develop any new catheter problems, abdominal pain, urethral pain, increased hematuria, high fevers refractory to treatment, intractable nausea or vomiting Scripts Ciprofloxacin Hcl (CIPROFLOXACIN HCL) 500 Mg Tablet 1 TAB PO BID for 7 Days, #14 TAB 0 Refills Prov: UMER MOORE APRN 07/08/21 UMER MOORE APRN Jul 08, 2021 14:49
--- NOTE | 2021-07-08 16:19 | PDOC2 ---
UROLOGY CONSULT Date of Service DATE: 07/08/21 TIME: 16:13 Reason for Consult Reason for Consult: unable to remove suprapubic cooper Identification/Chief Complaint Chief Complaint unable to remove cooper Source Source: Chart review History of Present Illness Reason for Visit: 60yo male with hx CVA presented to ER because fdc couldn't remove his suprapubic catheter. His SPT was not draining so they attempted to flush it but were unable. They tried to exchange but were also unable. In the ER, the same attempts were made unsuccessfully. Pt is nonverbal. Per SETTER MACHINE, he was having pain with attempts at exchanging his cooper. Past Medical History Cardiovascular: AFIB, CAD, CHF, HTN, Hyperlipidemia Pulmonary: COPD CENTRAL NERVOUS SYSTEM: Periperal neuropathy, Seizure GI: Constipation, GERD Heme/Onc: No pertinent hx Hepatobiliary: No pertinent hx Psych: No pertinent hx Musculoskeletal: Osteoarthritis Rheumatologic: No pertinent hx Infectious disease: No pertinent hx Renal/: No pertinent hx Endocrine: Diabetes, Hypothyroidism Past Surgical History Past Surgical History: Other Family History Family History: Coronary Artery Disease, High Cholestrol Social History ALCOHOL: none Drugs: None Lives: [facility] Allergies Allergies: Coded Allergies: No Known Drug Allergies (Unverified , 12/21/18) ROS Review Of Systems: Unable to obtain, pt nonverbal Physical Exam Physical Exam: General: Pleasant, no acute distress Eyes: conjunctiva anicteric, eyes full range of motion ENT: moist oral mucosa, normal dentition Neck: Trachea midline, no masses Respiratory: unlabored breathing, not using accessory muscles, no crackles or wheezes Cardiovascular: Regular rate and rhythm, no peripheral edema Abdomen: suprapubic catheter in place, not draining urine. Mild erythema at suprapubic site. Skin: no rashes or skin lesions on visualized skin Psych: unable to assess Vitals VITALS Vital Signs Date Time Temp Pulse Resp B/P (MAP) Pulse Ox O2 Delivery O2 Flow Rate FiO2 07/08/21 14:25 97.9 81 16 124/78 (93) 98 Room Air 97.9 Assessment/Plan Assessment/Plan I ensured that SPT balloon was deflated. I then removed the suprapubic catheter. His catheter tip was encrusted and the catheter was discolored, did not appear to be recently changed. After removal, pt was prepped and an 18Fr suprapubic catheter was placed into bladder. Bladder was irrigated and output was clear. Secured to leg with stat lock and left to bed bag drainage. Recommend 1wk course of abx, pt had bladder pain and spasms with this procedure. Pt needs SPT exchange q3wks. SHERIN MACE Jul 08, 2021 16:19
[2021-07-08] MEDS ORDERED: CIPR500T2 PO (16:27)
[2021-07-08 17:51] VITALS: BP 130/74
== END 2021-07-08 18:15 | disposition home or self-care (01) ==
LOC: ER 14:18
DX: T83.010A Breakdown (mechanical) of cystostomy catheter, initial encounter (principal); I48.91 Unspecified atrial fibrillation; J45.909 Unspecified asthma, uncomplicated; I25.10 Atherosclerotic heart disease of native coronary artery without angina pectoris; J44.9 Chronic obstructive pulmonary disease, unspecified; E11.40 Type 2 diabetes mellitus with diabetic neuropathy, unspecified; E78.00 Pure hypercholesterolemia, unspecified; K21.9 Gastro-esophageal reflux disease without esophagitis; E03.9 Hypothyroidism, unspecified; I11.0 Hypertensive heart disease with heart failure; I50.9 Heart failure, unspecified; I25.2 Old myocardial infarction; Z86.73 Personal history of transient ischemic attack (TIA), and cerebral infarction without residual deficits; Z87.891 Personal history of nicotine dependence; Z95.5 Presence of coronary angioplasty implant and graft; Y82.8 Other medical devices associated with adverse incidents; Y92.89 Other specified places as the place of occurrence of the external cause
CPT/HCPCS: 51705; 99284

== ENCOUNTER 2021-08-21 17:29 | Emergency (ER) | payer OTHER ==
[~2021-08-21] VITALS: Ht 182.9 cm; Wt 84.1 kg
[~2021-08-21 17:29] MED LIST changes: +CIPR500T2 PO; -FLUC200T4 PO; +FLUC200T6 PO
[2021-08-21] MEDS ORDERED: CEFDINIR 300 MG CAPSULE PO STA (18:12)
[2021-08-21] MEDS ORDERED: HYDROcodone/APAP 5/325MG 1 TAB TABLET PO ONE (18:15)
[2021-08-21 18:23] LABS: BILIRUBIN,URINE NEGATIVE (NEG); COLOR,URINE AMBER; NITRITE,URINE NEGATIVE (NEG); PROTEIN,URINE >=300 mg/dL (NEG-TRACE)
[2021-08-21 18:32] LABS: CLARITY,URINE TURBID
[2021-08-21 18:34] LABS: BACTERIA,URINE FEW /HPF (0-FEW); RBC,URINE >40 /HPF (0-2); WBC,URINE TNTC /HPF (0-4)
[2021-08-21] MEDS ORDERED: CEFU500T46 PO (18:52)
--- NOTE | 2021-08-21 18:58 | PHYS DOC ---
Past Medical History Past Medical History: A-Fib, Asthma, CAD, CHF, COPD, CVA, Diabetes-Type II, GERD, High Cholesterol, Hypertension, Hypothyroid, [place], Seizure, Stroke Additional Past Medical Histor: neuropathy, dysphagia, osteoarthritis, RT SIDE DEFICIT Past Surgical History: Other Additional Past Surgical Histo: cardiac stents Smoking Status: Former Smoker Alcohol Use: None Drug Use: None General Adult EDM: Chief Complaint: URINE CATHETER PROBLEM HPI: HPI: Patient is a 60-year-old male who presents to the emergency department transported by EMS journeyman mechanic with chief complaint of clogged and infected suprapubic catheter. [facility]. 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 Type 2 diabetes, indwelling suprapubic catheter related to neurogenic bladder, hypertension, peripheral neuropathy, seizure disorder, hyperlipidemia, chronic urinary tract infections, BPH. Patient is nonverbal, does nod yes and no to questions appropriately. Transporting EMS journeyman mechanic had no further history of acute illness requiring transport to the emergency department. Patient denies chest pains, shortness of breath, chest or nasal congestion, recent fever or chills, generalized body aches or aches or pains, does report pain at the suprapubic catheter insertion site, patient denies nausea, vomiting, or diarrhea. Patient denies other physical concerns or physical complaints. [facility] reports patient was was seen last at [facility] for clogged suprapubic Pretty catheter and urinary tract infection, it was replaced at [facility], he was started on a 5-day regimen of levofloxacin, reports today they were unable to flush the suprapubic catheter and noticed white purulent urine in clear drainage bag tube. They obtain orders from his primary care residential physician to transport to this ER for evaluation. No other concerns were addressed per residential staff. Review of Systems: Review of Systems: 14 body systems of review of systems have been reviewed. See HPI for pertinent positives and negative responses, otherwise all other systems are negative, nonpertinent or noncontributory. Constitutional: Negative except as outlined in HPI above. Skin: Negative except as outlined in HPI above. Eyes: Negative except as outlined in HPI above. HENT: Negative except as outlined in HPI above. Respiratory: Negative except as outlined in HPI above. Cardiovascular: Negative except as outlined in HPI above. GI: Negative except as outlined in HPI above. : Negative except as outlined in HPI above. Musculoskeletal: Negative except as outlined in HPI above. Integument: Negative except as outlined in HPI above. Neurologic: Negative except as outlined in HPI above. Endocrine: Negative except as outlined in HPI above. Lymphatic: Negative except as outlined in HPI above. Psychiatric: Negative except as outlined in HPI above. Heart Score: C/O Chest Pain: No Risk Factors: Risk Factors: DM, Current or recent (<one month) smoker, HTN, HLP, family history of CAD, obesity. Risk Scores: Score 0 - 3: 2.5% MACE over next 6 weeks - Discharge Home Score 4 - 6: 20.3% MACE over next 6 weeks - Admit for Clinical Observation Score 7 - 10: 72.7% MACE over next 6 weeks - Early Invasive Strategies Current Medications: Current Medications Medications (Trade) Dose Ordered Sig/Sharon Start Time Stop Time Status Last Admin Dose Admin Acetaminophen/ Hydrocodone Bitart (Lortab 5/325) 1 tab 1X ONCE 08/21/21 18:15 08/21/21 18:24 DC Cefdinir (Omnicef) 300 mg 1X STAT 08/21/21 18:12 08/21/21 18:24 DC Allergies: Allergies: Allergies Coded Allergies Type Severity Reaction Last Updated Verified No Known Drug Allergies 12/21/18 No Physical Exam: PE: Constitutional: Well developed, well nourished, no acute distress, non-toxic appearance. 60-year-old male, is nonverbal, right upper extremity contractures, otherwise in no apparent distress. HENT: Normocephalic, atraumatic. Eyes: Conjunctiva normal, no discharge. Neck: Normal range of motion, no stridor. Cardiovascular: No cyanosis appreciated, distal cap refill less than 2 seconds. Lungs & Thorax: Patient is in no respiratory distress, no audible adventitious lung sounds appreciated. Lung sounds clear to auscultation all lung martinez. Abdomen: [place] erythema at suprapubic catheter stoma insertion site, pain to palpation at stoma, there is no purulent drainage appreciated, the abdomen is flat, soft, no other pain response elicited during palpation of abdomen, the suprapubic catheter is an 18 [place]ian with 30 cc balloon, attached to Pretty drainage bag, does have leg securing device attached to right thigh. White purulent appearing urine is noted in clear drainage tube and Pretty bag, the Pretty does not appear to be draining urine. The abdomen is not distended, there is not urine draining around Pretty insertion site stoma. Skin: Warm, dry, no erythema, no rash. Back: No tenderness, no deformities. Extremities: No tenderness, no cyanosis, no clubbing, ROM intact, no edema. Neurologic: Alert and oriented X 3, normal motor function, normal sensory function, no focal deficits noted. Patient does not move right upper or lower extremity, the right upper extremity is contractured. Psychologic: Affect normal, judgement normal, mood normal. Current Patient Data: Labs: Laboratory Tests Test 08/21/21 18:15 Urine Collection Type U cath Urine Color Li Urine Clarity Turbid Urine pH 6.0 Urine Specific [place] 1.025 Urine Protein >=300 mg/dL Urine Glucose (UA) Negative mg/dL Urine Ketones (Stick) Negative mg/dL Urine Blood Large Urine Nitrite Negative Urine Bilirubin Negative Urine Urobilinogen Dipstick 1.0 mg/dL Urine Leukocyte Esterase Large Urine RBC >40 /HPF Urine WBC Tntc /HPF Urine Bacteria Few /HPF Current Medications Medications (Trade) Dose Ordered Sig/Sharon Route PRN Reason Start Time Stop Time Status Last Admin Dose Admin Acetaminophen/ Hydrocodone Bitart (Lortab 5/325) 1 tab 1X ONCE PO 08/21/21 18:15 08/21/21 18:24 DC Cefdinir (Omnicef) 300 mg 1X STAT PO 08/21/21 18:12 08/21/21 18:24 DC Laboratory Tests Test 08/21/21 18:15 Urine Collection Type U cath Urine Color Li Urine Clarity Turbid Urine pH 6.0 (<5.0-8.0) Urine Specific [place] 1.025 (1.000-1.030) Urine Protein >=300 mg/dL (NEG-TRACE) Urine Glucose (UA) Negative mg/dL (NEG) Urine Ketones (Stick) Negative mg/dL (NEG) Urine Blood Large (NEG) Urine Nitrite Negative (NEG) Urine Bilirubin Negative (NEG) Urine Urobilinogen Dipstick 1.0 mg/dL (0.2 mg/dL) Urine Leukocyte Esterase Large (NEG) Urine RBC >40 /HPF (0-2) Urine WBC Tntc /HPF (0-4) Urine Bacteria Few /HPF (0-FEW) Vital Signs: Vital Signs Date Time Temp Pulse Resp B/P (MAP) Pulse Ox O2 Delivery O2 Flow Rate FiO2 08/21/21 18:07 99.0 82 18 118/73 (88) 96 Room Air 99.0 EKG: EKG: [] Radiology/Procedures: Radiology/Procedures: [] Course & Med Decision Making: Course & Med Decision Making Pertinent Labs and Imaging studies reviewed. (See chart for details) 60-year-old male, vital signs reviewed, presents emergency department from [facility] for replacement of suprapubic Pretty catheter. Patient is a nonverbal CVA patient. Discussed with patient need to replace suprapubic Pretty catheter, patient is amenable to planning. Patient was given oral pain medication prior to procedure, the existing Pretty catheter with 30 cc balloon was drained, only 5 cc were remaining in balloon, suprapubic catheter was easily removed, clear li-colored urine was expelled from suprapubic stoma, the stoma was cleansed with skin cleanser, a new sterile 18 [place]ian suprapubic Pretty catheter with 30 cc balloon was replaced through the suprapubic stoma, patient tolerated well, this was attached to a brand-new sterile Pretty drainage bag, li urine is draining into bag, specimen was sent to lab, there was no visualized hematuria. Patient tolerated well. Patient did express some pain relief after new Pretty was inserted. Considered IV Rocephin for initial antibiotic therapy, however patient was afebrile, heart rate 87, normotensive blood pressure, nonlabored breathing, 97% room air sat, the patient did not exhibit signs of sepsis, patient was given a Levaquin 5-day regimen approximately 7 days ago, continues to have urinary tract infection signs, will start cefuroxime regimen p.o. twice daily x10 days, this medication is not on hospital formula, will give first dose as 300 mg cefdinir, will write prescription for home use. The patient's urine is infected, culture pending at this time, discussed with patient will send back to residential with new antibiotic regimen, written discharge instructions reviewed with residential staff per ED staff nurse, recommended daily and as needed Pretty catheter flushes, urology follow-up, patient was transported back to residential via EMS transport. Thank you for visiting our Emergency Department. It was a pleasure taking care of you today in the emergency department and we appreciate you trusting us with your care. If any additional problems come up don't hesitate to return to visit us. Please follow up with your primary care provider so they can plan additional care if needed and know about the problem that you had. If symptoms worsen come back to the Emergency Department. Any concerning symptoms that start such as chest pain, shortness of air, weakness or numbness on one side of the body, running high fevers or any other concerning symptoms return to the ER. Dragon Disclaimer: Dragon Disclaimer: This electronic medical record was generated, in whole or in part, using a voice recognition dictation system. Departure Departure Impression: Primary Impression: Suprapubic catheter dysfunction Qualified Codes: T83.010A - Breakdown (mechanical) of cystostomy catheter, initial encounter Additional Impressions: UTI (urinary tract infection) Qualified Codes: N39.0 - Urinary tract infection, site not specified; R31.9 - Hematuria, unspecified Hematuria Qualified Codes: R31.9 - Hematuria, unspecified Disposition: 01 HOME / SELF CARE / HOMELESS Condition: GOOD Referrals: NON,STAFF (PCP) JOSHUA PUCKETT MD Additional Instructions: You were seen today in the emergency department for a clogged suprapubic Pretty catheter. You also had bladder area of pain at the insertion site of your Pretty catheter. This was replaced with an 18 [place]ian indwelling 30 cc balloon Pretty catheter with a new drainage bag. A urine sample was sent to the lab and showed you do have a urinary tract infection. I have started you on an oral antibiotic therapy. You will take this twice a day for the next 10 days[address] Ens ure your suprapubic Pretty catheter is flushed at least once per day and additionally as needed. Continue all of your home medications and residential therapies as prescribed by Dr. Nayak. Please follow-up with a urologist for ongoing suprapubic Pretty catheter problems. I have given the information for urology specialist Dr. Puckett however you may use any urologist of your choice. Return to the emergency department for worsening symptoms or other concerns. Scripts Cefuroxime Axetil (CEFUROXIME) 500 Mg Tablet 1 TAB PO BID for UTI for 10 Days, #20 TAB 0 Refills Prov: KRISTINE CRYSTAL APRN 08/21/21 KRISTINE CRYSTAL APRN Aug 21, 2021 18:58
[2021-08-21 21:13] VITALS: BP 122/65
== END 2021-08-21 21:10 | disposition home or self-care (01) ==
LOC: ER 17:29
DX: T83.010A Breakdown (mechanical) of cystostomy catheter, initial encounter (principal); N39.0 Urinary tract infection, site not specified; I48.91 Unspecified atrial fibrillation; R31.9 Hematuria, unspecified; I25.10 Atherosclerotic heart disease of native coronary artery without angina pectoris; I11.0 Hypertensive heart disease with heart failure; I50.9 Heart failure, unspecified; J44.9 Chronic obstructive pulmonary disease, unspecified; Z86.73 Personal history of transient ischemic attack (TIA), and cerebral infarction without residual deficits; K21.9 Gastro-esophageal reflux disease without esophagitis; E78.00 Pure hypercholesterolemia, unspecified; E03.9 Hypothyroidism, unspecified; I25.2 Old myocardial infarction; E11.40 Type 2 diabetes mellitus with diabetic neuropathy, unspecified; Z87.891 Personal history of nicotine dependence; Z95.5 Presence of coronary angioplasty implant and graft; Y84.6 Urinary catheterization as the cause of abnormal reaction of the patient, or of later complication, without mention of misadventure at the time of the procedure; G40.909 Epilepsy, unspecified, not intractable, without status epilepticus; Y92.89 Other specified places as the place of occurrence of the external cause
CPT/HCPCS: 51702; 81001; 87077; 87086; 87186; 99284